=== PATIENT | female | born 1950 | race Caucasian/White ===

== ENCOUNTER → 2016-09-11 | Outpatient (CLI) | payer OTHER ==
--- NOTE | 2016-09-11 14:58 | XR ---
EXAMINATION TYPE: XR tibia fibula RT DATE OF EXAM: 09/11/2016 2:46 PM COMPARISON: NONE HISTORY: 66 year-old female right leg contusion and abrasion after injury a few days ago TECHNIQUE: 2 views FINDINGS: The knee and ankle articulations appear grossly intact. No acute fracture or dislocation seen. There is mild osteopenia. Mild subcutaneous soft tissue swelling. IMPRESSION: Mild subcutaneous soft tissue swelling. There is mild osteopenia. No acute osseous abnormality seen.
== END | disposition home or self-care (01) ==
LOC: RADXRMAIN 14:29
PROVIDERS: ATTEND Emergency Medicine
DX: S80.11XA Contusion of right lower leg, initial encounter (principal); M85.861 Other specified disorders of bone density and structure, right lower leg

== ENCOUNTER 2016-11-03 11:03 | Observation (INO) | payer OTHER ==
[2016-11-03] MEDS ORDERED: NITROGLYCERIN SL TABS 0.4 MG TAB SUBLINGUAL STA (11:22)
[2016-11-03] MEDS ORDERED: ONDANSETRON 4 MG/2 ML VIAL IVP STA (11:22)
[2016-11-03] MEDS ORDERED: SODIUM CHLORIDE 0.9% 1,000 ML IV STA (11:22)
[2016-11-03] MEDS ORDERED: MORPHINE SULFATE 2 MG/ML SYRINGE IVP STA (11:22)
[2016-11-03 11:41] LABS: Basophils # (A) 0.1 k/uL (0-0.2); Basophils % (A) 1 %; Eosinophils # (A) 0.1 k/uL (0-0.7); Eosinophils % (A) 1 %; HCT 41.7 % (34.0-46.0); HGB 13.5 gm/dL (11.4-16.0); Luc % (Auto) 4; Lymphocytes # (A) 2.2 k/uL (1.0-4.8); Lymphocytes % (A) 26 %; MCH 30.6 pg (25.0-35.0); MCHC 32.4 g/dL (31.0-37.0); MCV 94.3 fL (80.0-100.0); Mean Platelet Volume 6.9; Monocytes # (A) 0.6 k/uL (0-1.0); Monocytes % (A) 7 %; Neutrophils # (A) 5.4 k/uL (1.3-7.7); Neutrophils % (A) 62 %; RBC 4.42 m/uL (3.80-5.40); WBC 8.6 k/uL (3.8-10.6); WBC (Perox) 9.08
[2016-11-03 11:54] LABS: Calcium 9.6 mg/dL (8.4-10.2); Magnesium 1.9 mg/dL (1.6-2.3); Potassium 4.8 mmol/L (3.5-5.1); Total Bilirubin 0.6 mg/dL (0.2-1.3); Total Protein 7.4 g/dL (6.3-8.2)
[2016-11-03 12:08] LABS: Creatine Kinase 72 U/L (30-135)
[2016-11-03 12:09] LABS: Partial Thromboplastin Time 22.1 sec (22.0-30.0); Prothrombin Time 10.1 sec (9.0-12.0)
[2016-11-03 12:22] LABS: Creatine Kinase MB 2.4 ng/mL (0.0-2.4); Troponin I <0.012 ng/mL (0.000-0.034)
--- NOTE | 2016-11-03 12:24 | XR ---
EXAMINATION TYPE: XR chest 2V DATE OF EXAM: 11/03/2016 12:20 PM HISTORY: Chest Pain. REFERENCE: Previous study dated 08/16/2013. FINDINGS: The lungs are overinflated but clear. Pleural spaces are clear. Heart size is normal. There is a mild dextroscoliosis. IMPRESSION: COPD.
--- NOTE | 2016-11-03 12:26 | CT ---
EXAMINATION TYPE: CT brain wo con DATE OF EXAM: 11/03/2016 12:21 PM COMPARISON: NONE HISTORY: weakness and jaw pain CT DLP: 1072.[address] of the brain was performed. The ventricles, basal cisterns and sulci overlying the cerebral convexities demonstrate mild enlargem ent. There is no evidence for intracranial hemorrhage or sulcal effacement. There is decreased attenuation about the periventricular white matter and deep white matter of both c erebral hemispheres, compatible with chronic small vessel ischemia. Differential diagnosis does inclu de demyelination. No mass effects are seen.No midline shift. Osseous calvarium is intact. If symptoms persist consider MRI. IMPRESSION: 1. Age related atrophic and chronic small vessel ischemic change without acute intracranial process s een at this time.
[2016-11-03] MEDS ORDERED: HEPARIN SODIUM,PORCINE 5,000 UNIT/ML 1 ML VIAL IV ONE (15:40)
[2016-11-03] MEDS ORDERED: MORPHINE SULFATE 2 MG/ML SYRINGE IVP PRN (15:40)
[2016-11-03] MEDS ORDERED: NITROGLYCERIN SL TABS 0.4 MG TAB SUBLINGUAL PRN (15:40)
--- NOTE | 2016-11-03 15:40 | ED ---
Chest Pain HPI - General Chief Complaint: Chest Pain Stated Complaint: CHEST PAIN, JAW PAIN Time Seen by Provider: 11/03/16 11:07 Source: patient Mode of arrival: wheelchair Limitations: no limitations - History of Present Illness Initial Comments: Complaining about the jaw pain and the numbness around the jaw for about a 1 week now she had a chest pain this morning right now chest pain is about 3/10 she denies any headache no blurred vision no weakness of one arm or the leg has no difficulty talking no difficulty comprehending. She has a history of heart disease she stated she had a stent put and times one back in year 1999 does complain about shortness of breath and denies any worsening of the chest pain with a deep breaths. Denies any abdominal pain frequency urgency dysuria - Related Data Home Medications Medication Instructions Recorded Confirmed Aspirin 81 mg PO DAILY 12/20/13 11/03/16 Captopril [Capoten] 50 mg PO BID 12/20/13 11/03/16 Lovastatin [Mevacor] 40 mg PO DAILY 12/20/13 11/03/16 Atenolol 25 mg PO DAILY 03/28/15 11/03/16 amLODIPine BESYLATE [Norvasc] 5 mg PO DAILY 03/29/15 11/03/16 Allergies Allergy/AdvReac Type Severity Reaction Status Date / Time No Known Allergies Allergy Verified 11/03/16 11:39 Review of Systems ROS Statement: Those systems with pertinent positive or pertinent negative responses have been documented in the HPI. ROS Other: All systems not noted in ROS Statement are negative. EKG Findings - EKG Comments: EKG Findings:: EKG shows normal sinus rhythm ventricular rate is 62 ME interval is 166 QRS duration is 88 QT/QTc is 4 her 14th of over 423 review of this EKG does not show any ST elevation or ST depression Past Medical History Past Medical History: Deep Vein Thrombosis (DVT), Hyperlipidemia, Hypertension, Myocardial Infarction ([place]), Pulmonary Embolus ([place]) Additional Past Medical History / Comment(s): DVT LEG- UNSURE WHICH ONE, hx ulcer, partial blockage of carotid arteries Last Myocardial Infarction Date:: 1999 History of Any Multi-Drug Resistant Organisms: None Reported Past Surgical History: Appendectomy, Cholecystectomy, Heart Catheterization With Stent, Hernia Repair, Hysterectomy Additional Past Surgical History / Comment(s): JOSH FILTER INSERTION, STATES HAS WIRE IN LEFT EAR TO AIDE IN HEARING Past Anesthesia/Blood Transfusion Reactions: No Reported Reaction Date of Last Stent Placement:: 2001 Past Psychological History: No Psychological Hx Reported Smoking Status: Current every day smoker Past Alcohol Use History: Occasional Past Drug Use History: None Reported - Past Family History Son(s) Family Medical History: Cancer Additional Family Medical History / Comment(s): UNSURE WHAT KIND General Exam - General Exam Comments Initial Comments: General: The patient is awake and alert, in no distress, and does not appear acutely ill. Skin: Skin is warm and dry and no rashes or lesions are noted. Eye: Pupils are equal, round and reactive to light, extra-ocular movements are intact; there is normal conjunctiva bilaterally. Ears, nose, mouth and throat: There are moist mucous membranes and no oral lesions. Neck: The neck is supple, there is no tenderness or JVD. Cardiovascular: There is a regular rate and rhythm. No murmur, rub or gallop is appreciated. Respiratory: To auscultation bilateral, crease breath sounds bilateral Gastrointestinal: Soft, non-distended, non-tender abdomen without masses or organomegaly noted. There is no rebound or guarding present. Bowel sounds are unremarkable. Back: There is no tenderness to palpation in the midline. There is no obvious deformity. Musculoskeletal: Normal ROM, no tenderness, There is no pedal edema. There is no calf tenderness or swelling. No cords were appreciated. Neurological: CN II-XII intact, Cranial nerves III through XII are intact. There are no obvious motor or sensory deficits. Coordination appears grossly intact. Speech is normal. Psychiatric: Cooperative, appropriate mood & affect, normal judgment. Limitations: no limitations Course Vital Signs 11/03/16 11/03/16 11/03/16 11:06 12:00 13:00 Temperature 97.0 F L Pulse Rate 65 57 L 55 L Respiratory 17 16 16 Rate Blood Pressure 123/62 116/56 121/56 O2 Sat by Pulse 97 100 Oximetry 11/03/16 11/03/16 13:56 14:54 Temperature Pulse Rate 62 62 Respiratory 16 18 Rate Blood Pressure 133/63 128/61 O2 Sat by Pulse 99 97 Oximetry Critical Care Time Total Critical Care Time: 35 Critical Care Time: Considering her risk factors that she had ischemic heart disease but 17 years ago while follow-up no recent follow-up with the cardiology and she had a jaw pain going on for about 7 days and this morning she had a chest pain considering that she'll be sharply treated as a unstable angina and will require and heparinize her rule out pneumonia admitted under Dr. Austin service and cardiology be consulted head CT is normal chest x-ray is normal creatinine is bit elevated 1.2 Troponin EKG CBC and CMP are within normal range Disposition Clinical Impression: Chest pain, Jaw pain Disposition: ADMITTED IP TO THIS HOSP
[2016-11-03] MEDS ORDERED: HEPARIN SODIUM,PORCINE/D5W PMX 25,000 UNIT in DEXTROSE/WATER 1 500ML.BAG IV SCH (15:45)
[2016-11-03 17:33] LABS: Creatine Kinase 53 U/L (30-135)
[2016-11-03 17:46] LABS: Troponin I <0.012 ng/mL (0.000-0.034)
[2016-11-03 18:05] VITALS: RESP 16
[2016-11-03] MEDS: CAPTOPRIL 50 MG TAB PO SCH (18:52)
[2016-11-03 23:27] LABS: Creatine Kinase 44 U/L (30-135)
[2016-11-03 23:37] LABS: Creatine Kinase MB 1.5 ng/mL (0.0-2.4); Troponin I <0.012 ng/mL (0.000-0.034)
[2016-11-04] MEDS ORDERED: HEPARIN SODIUM,PORCINE 5,000 UNIT/ML 1 ML VIAL IV PRN (00:05)
[2016-11-04 07:53] LABS: Cholesterol 154 mg/dL (<200); HDL Cholesterol 77 mg/dL (40-60); Triglycerides 45 mg/dL (<150)
[2016-11-04] MEDS ORDERED: ASPIRIN 81 MG CHEW PO SCH (09:00)
[2016-11-04] MEDS ORDERED: ASPIRIN 325 MG TAB PO SCH (09:00)
[2016-11-04] MEDS ORDERED: ATORVASTATIN 10 MG TAB PO SCH (09:00)
[2016-11-04] MEDS ORDERED: amLODIPine 5 MG TAB PO SCH (09:00)
[2016-11-04] MEDS ORDERED: ATENOLOL 25 MG TAB PO SCH (09:00)
[2016-11-04] MEDS ORDERED: AMINOPHYLLINE 500 MG/20 ML VIAL IV PRN (12:04)
[2016-11-04] MEDS ORDERED: REGADENOSON 0.4 MG/5 ML SYRINGE IV ONE (12:04)
--- NOTE | 2016-11-04 13:26 | CONS ---
DATE OF CONSULTATION: This is a 66-year-old female. Patient admitted to the hospital with one week of jaw pain on and off, lasting for a few minutes, had couple of episodes of chest pressure and jaw pressure also lasting for a few minutes and recent history of angina episode. Patient is known to have atherosclerotic heart disease, hypertension, dyslipidemia. Patient follows with my associate, Dr. Frye, had a stenting done in 1999. Patient did not take any nitroglycerin with these episodes, advised to try nitroglycerin. If and when it happens in the future. Patient's cholesterol is well-controlled. Patient's total cholesterol is 154, triglycerides 48, LDL of 68, HDL of 77. Patient's cardiac enzymes x3 are negative. Troponin x3 are negative. Past history of pulmonary embolism, history of inferior vena cava filter, history of an MS, hypertension, history of DVT in the past. Patient is a current smoker. Patient's medications prior to admission include aspirin 81 mg p.o. daily, captopril 50 mg p.o. b.i.d., lovastatin 40 mg p.o. daily, atenolol 25 mg p.o. daily, amlodipine 5 mg p.o. daily. ALLERGIES: None mentioned. REVIEW OF SYSTEMS: Essentially unremarkable other than what is stated in the presenting illness. Other than past history of pulmonary embolism, inferior vena cava ( ), hypertension, hyperlipidemia, myocardial infarction, history of stenting in 1999. Patient is an everyday current smoker. 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 Physical examination revealed well-developed, well-nourished 66-year-old female not in acute distress, oriented x3, with the pulse rate of 65 beats per minute and regular, blood pressure of 123/62, respirations of 17. HEAD: Normocephalic. HEENT: Unremarkable. NECK: Neck is supple. No thyroid enlargement. No bruit noted. Good carotid upstroke bilaterally. CHEST: Chest is symmetrical. CARDIAC EXAMINATION: Regular rate and rhythm, a ejection systolic murmur, grade 2/6, well heard in the aortic area. Lungs are clinically clear to auscultation and percussion. ABDOMEN: Soft, no organomegaly. Active bowel sounds. EXTREMITIES: Fair peripheral pulses. No pedal edema. LEGAL CONSULTANT EXAMINATION: Grossly within normal limits. EKG revealed normal sinus rhythm. Troponins x3 are negative. Lipids are within normal limits. LDL of 68. ASSESSMENT: 1. Chest pain suggestive of angina. 2. Atherosclerotic heart disease, status post stenting done in 1999. 3. Hypertension. 4. Hyperlipidemia. 5. Current smoker. 6. Creatinine is mildly elevated 1.29. 7. CK ( ). RECOMMENDATIONS: Will proceed with Lexiscan as the patient is unable to walk on the treadmill and if the study is normal, patient will go home. If the study is abnormal, Dr. Frye will do the cardiac catheterization tomorrow.
--- NOTE | 2016-11-04 14:22 | NM ---
EXAMINATION TYPE: NM stress Lexiscan cardiolite DATE OF EXAM: 11/04/2016 2:15 PM COMPARISON: NONE HISTORY: Chest pain TECHNIQUE: After the intravenous administration of 10.21 mCi Tc 99m Sestamibi - Cardiolite resting S PECT images acquired 45 minutes post injection. The patient received 0.4mg Lexiscan, 27.5 mCi Tc 99m Sestamibi - Stress images obtained [address] injection FINDINGS: There is good uptake of radiopharmaceutical by the left ventricle without fixed defect. The re is no convincing inducible ischemic change. Wall motion is normal and the ejection fraction is 73% IMPRESSION: I DO NOT SEE CONVINCING EVIDENCE OF INDUCIBLE ISCHEMIC CHANGE AT THIS TIME.
[2016-11-04] MEDS: CAPTOPRIL 50 MG TAB PO SCH ×2 (14:35→18:21)
--- NOTE | 2016-11-04 14:40 | EST ---
DATE OF SERVICE: 11/04/2016 AGE: 66Y SEX: F HT: 5'7" WT: 125 lbs. Lexiscan Cardiolite Stress Test *Heart Rate Blood Pressure *Rest: 59 Rest: 152/83 * *Max. Achieved: 86 Maximum BP: 177/100 85% PMHR: - 100% PMHR: - *METS: - INDICATIONS: Chest pressure. MEDICATIONS: - Baseline rhythm is sinus mechanism, rate of 59, normal axis and intervals. Normal electrocardiogram. Baseline blood pressure 152/83 mmHg. Patient is injected with Lexiscan. Electrocardiograph monitoring revealed no evidence of diagnostic ischemic ST deviation. Cardiolite was injected per protocol. CONCLUSION: 1. Nondiagnostic stress testing. 2. Nuclear images will be reported separately.
[2016-11-04 16:55] VITALS: BP 135/62; PULSE 53; TEMP 98
--- NOTE | 2016-11-04 17:40 | P.HPIM ---
History of Present Illness H&P Date: 11/04/16 Chief Complaint: Chest pain Patient is a 66-year-old female patient of Dr. Leslie Segovia who presented to [facility] emergency room with a chief complaint of chest pain patient describes a sharp pain in the middle of her chest that lasted for about 20 minutes, patient states also that in the last couple of weeks she had episodes of pain in her jaw, she has known history of coronary artery disease with angioplasty and stent placement 17 years ago patient has been followed yearly by cardiology and all her testing has been negative so far. She was evaluated in the emergency room and was started on IV heparin and was admitted to telemetry floor for further evaluation serial EKG and cardiac enzymes were ordered Past Medical History Past Medical History: Deep Vein Thrombosis (DVT), Hyperlipidemia, Hypertension, Myocardial Infarction ([place]), Pulmonary Embolus ([place]) Additional Past Medical History / Comment(s): DVT LEG- UNSURE WHICH ONE, previously "charted hx ulcer, partial blockage of carotid arteries" Last Myocardial Infarction Date:: 1999 History of Any Multi-Drug Resistant Organisms: None Reported Past Surgical History: Appendectomy, Cholecystectomy, Heart Catheterization With Stent, Hernia Repair, Hysterectomy Additional Past Surgical History / Comment(s): JOSH FILTER INSERTION, STATES HAS WIRE IN LEFT EAR TO AIDE IN HEARING,hiatal hernia sx Past Anesthesia/Blood Transfusion Reactions: No Reported Reaction Date of Last Stent Placement:: 2001 Past Psychological History: No Psychological Hx Reported Additional Psychological History / Comment(s): pt lives in own home by herself- has 3 steps into single level home. no pets,no outside services. pt works as house keeper at the [employer] Smoking Status: Current every day smoker Past Alcohol Use History: Occasional Additional Past Alcohol Use History / Comment(s): started smoking at age 17 smokes 1 ppd. declined smoking cessation booklet. Past Drug Use History: None Reported - Past Family History Mother Family Medical History: Diabetes Mellitus Father Additional Family Medical History / Comment(s): brain anuerysm Son(s) Family Medical History: Cancer Additional Family Medical History / Comment(s): UNSURE WHAT KIND Medications and Allergies Home Medications Medication Instructions Recorded Confirmed Type Aspirin 81 mg PO DAILY 12/20/13 11/03/16 History Captopril [Capoten] 50 mg PO BID 12/20/13 11/03/16 History Lovastatin [Mevacor] 40 mg PO DAILY 12/20/13 11/03/16 History Atenolol 25 mg PO DAILY 03/28/15 11/03/16 History amLODIPine BESYLATE [Norvasc] 5 mg PO DAILY 03/29/15 11/03/16 History Allergies Allergy/AdvReac Type Severity Reaction Status Date / Time No Known Allergies Allergy Verified 11/03/16 11:39 Physical Exam Vitals: Vital Signs Temp Pulse Resp BP Pulse Ox 11/04/16 16:00 98.0 F 53 L 16 135/62 96 11/04/16 11:53 98.7 F 58 L 16 146/71 96 11/04/16 08:00 98.0 F 58 L 16 144/66 96 11/04/16 04:00 98.3 F 63 16 140/61 96 11/04/16 00:00 98.2 F 69 16 129/57 95 11/03/16 20:00 16 11/03/16 18:03 98 F 55 L 16 111/49 93 L Intake and Output 11/04/16 11/04/16 11/04/16 06:59 14:59 22:59 Intake Total 756.747 Balance 756.747 Intake: IV 645 Heparin Sodium,Porcine/ 120 D5w Pmx 25,000 unit In Dextrose/Water 1 500ml. bag @ 12 UNITS/KG/HR 13.6 mls/hr IV .Q24H [facility] Rx#: [id number] Sodium Chloride 0.9% 1, 525 000 ml @ 75 mls/hr IV . [id number] [facility] Rx#:[id number] Intake, IV Titration 111.747 Amount Heparin Sodium,Porcine/ 111.747 D5w Pmx 25,000 unit In Dextrose/Water 1 500ml. bag @ 12 UNITS/KG/HR 13.6 mls/hr IV .Q24H [facility] Rx#: [id number] Other: Voiding Method Toilet Toilet # Voids 3 In general patient is alert and oriented 3 in no apparent distress HEENT head normocephalic and atraumatic Neck is supple no JVD no goiter no lymphadenopathy Chest exam reveals a few scattered crackles no wheezing Cardiac exam reveals regular heart sounds S1 and S2 no gallops no murmurs Abdomen is soft nontender no organomegaly Extremity exam reveals no edema no cyanosis or clubbing Results CBC & Chem 7: 11/03/16 11:20 11/03/16 11:20 Labs: Abnormal Lab Results - Last 24 Hours (Table) 11/03/16 11/04/16 11/04/16 Range/Units 22:29 06:52 06:52 APTT 38.4 H 57.6 H (22.0-30.0) sec HDL Cholesterol 77 H (40-60) mg/dL Thrombosis Risk Factor Assmnt - Choose All That Apply Any of the Below Risk Factors Present?: Yes Other Risk Factors: Yes Each Risk Factor Represents 2 Points: Age 61-74 years Each Risk Factor Represents 3 Points: History of DVT/PE Other congenital or acquired thrombophilia - If yes, enter type in comment: No Thrombosis Risk Factor Assessment Total Risk Factor Score: 5 Thrombosis Risk Factor Assessment Level: High Risk Assessment and Plan Plan: #1 episode of chest pain in a 66-year-old female with multiple cardiac risk factors including previous history of coronary artery disease with angioplasty and stent placement 17 years ago S time patient is admitted to a telemetry bed serial EKGs and cardiac enzymes are ordered cardiology consult was requested and is maintained on IV heparin #2 underlying history of hypertension #3 underlying history of hyperlipidemia #4 previous history of lower extremity DVT with history of Josh filter placement At this time continue was current management will follow closely
--- NOTE | 2016-11-04 17:43 | P.DS ---
Providers Date of admission: 11/03/16 15:40 Expected date of discharge: 11/04/16 Attending physician: Claude Austin Primary care physician: Leslie Segovia [facility] Course: Patient is a 66-year-old female who presented to [facility] emergency room with a chief complaint of chest pain patient was admitted to telemetry bed serial EKG and cardiac enzymes were negative patient was evaluated by cardiology she underwent a Lexiscan stress test, which was within normal limits with normal wall motion no fixed defect and no evidence of reversible defect. Patient was stable she did not have any recurrence of her chest pain during this admission. She was discharged home on 11/04/2016 She should follow-up with her primary care physician Dr. Leslie Segovia within one week She also should follow-up with her primary production control manager Dr. Frye within one week Plan - Discharge Summary Discharge Medication List Aspirin 81 mg PO DAILY 12/20/13 [History] Captopril [Capoten] 50 mg PO BID 12/20/13 [History] Lovastatin [Mevacor] 40 mg PO DAILY 12/20/13 [History] Atenolol 25 mg PO DAILY 03/28/15 [History] amLODIPine BESYLATE [Norvasc] 5 mg PO DAILY 03/29/15 [History] Follow up Appointment(s)/Referral(s): Leslie Segovia DO [Primary Care Provider] - 1-2 days
== END 2016-11-04 18:38 | disposition home or self-care (01) ==
LOC: EC 11:03 → 3OBS 15:40
PROVIDERS: ADMIT Internal Medicine; ATTEND Internal Medicine
DX: R07.89 Other chest pain (principal); I25.10 Atherosclerotic heart disease of native coronary artery without angina pectoris; I25.2 Old myocardial infarction; Z95.5 Presence of coronary angioplasty implant and graft; Z79.82 Long term (current) use of aspirin; Z79.899 Other long term (current) drug therapy; Z86.718 Personal history of other venous thrombosis and embolism; Z86.711 Personal history of pulmonary embolism; E78.5 Hyperlipidemia, unspecified; I10 Essential (primary) hypertension; Z90.49 Acquired absence of other specified parts of digestive tract; Z90.710 Acquired absence of both cervix and uterus; Z83.3 Family history of diabetes mellitus; F17.200 Nicotine dependence, unspecified, uncomplicated
CPT/HCPCS: 99291; 96365; 96375 ×2; 96376; 96361 ×4; 36415; 93005; 93017; 80061; 80053; 82550; 82553; 83735; 84484; 85025; 85610; 85730 ×2; 71020; 70450; 78452; G0378 ×2; A9500; J1644 ×3; J2405; J2270; J2785; 96366

== ENCOUNTER 2017-09-02 06:00 | Day surgery (SDC) | payer MEDICARE, BC ==
[2017-08-26 12:55] VITALS: BMI 23.9
--- NOTE | 2017-09-01 11:43 | HP ---
HISTORY AND PHYSICAL DATE OF SERVICE: 09/02/2017 Blanca Alvarez is a 67-year-old patient seen with progressive left shoulder pain. After having treatment options discussed, she elected to proceed with arthroscopy. Consent was obtained. Medical clearance was provided through Dr. Segovia's office. Cardiac clearance was provided by Dr. Frye. PAST MEDICAL HISTORY: Hypercholesterolemia, hypertension, cardiovascular disease. PAST SURGICAL HISTORY: Cholecystectomy, herniorrhaphy, hysterectomy, cardiac catheterization with stent insertion. DAILY MEDICATIONS: 1. Amlodipine. 2. Aspirin. 3. Atenolol. 4. Captopril. 5. Lovastatin. ALLERGIES: None reported. SOCIAL HISTORY: She currently smokes 1 pack of cigarettes daily. PHYSICAL EVALUATION LEFT SHOULDER: Flexion 90 degrees, abduction 70 degrees, external rotation is 10 degrees with weakness. There is tenderness along the anterior lateral acromion and rotator cuff insertion site. Impingement sign is positive at 80 degrees. Distal neurovascular exam is intact. Left shoulder radiographs revealed a type 2 anterior acromion, acromioclavicular joint osteoarthritis and cystic changes of the greater tuberosity. MRI left shoulder revealed a partial rotator cuff tear, acromioclavicular joint osteoarthritis. IMPRESSION: Left shoulder impingement with partial rotator cuff tear and acromioclavicular joint osteoarthritis. PLAN: Left shoulder arthroscopy with subacromial decompression, possible arthroscopic rotator cuff repair, possible Ottoniel procedure and debridement. MMODL / IJN: [id number] /
[~2017-09-02 06:00] MED LIST: ceFAZolin IN SWFI 2 GM/20 ML SYRINGE IVP ONE
[2017-09-02] MEDS ORDERED: LACTATED RINGERS 1,000 ML IV SCH (06:06)
[2017-09-02] MEDS ORDERED: fentaNYL (PF) 50 MCG/ML 2 ML AMP IV PRN (06:06)
[2017-09-02] MEDS ORDERED: LIDOCAINE 1% 20 ML VIAL (10MG/ML) FOR IV START INTRADERMA ONE (06:50)
[2017-09-02] MEDS ORDERED: DEXAMETHASONE SOD PHOS (MDV) 100 MG/10 ML VIAL IV ONE (06:50)
[2017-09-02] MEDS ORDERED: ONDANSETRON 4 MG/2 ML VIAL IVP ONE (06:51)
[2017-09-02] MEDS ORDERED: MIDAZOLAM 2 MG/2 ML VIAL IV ONE (07:11)
[2017-09-02] MEDS ORDERED: fentaNYL (PF) 50 MCG/ML 2 ML AMP IV ONE (07:12)
[2017-09-02] MEDS ORDERED: LIDOCAINE 2%-EPI 1:100,000 20 ML VIAL ONE (07:27)
[2017-09-02] MEDS ORDERED: PROPOFOL 10 MG/ML 20 ML VIAL IV ONE (07:27)
[2017-09-02] MEDS ORDERED: ROPIVACAINE 5 MG/ML 30 ML VIAL ONE (07:27)
[2017-09-02] MEDS ORDERED: LIDOCAINE 1% INJ 10MG/ML (20 ML MDV) ONE (07:27)
[2017-09-02] MEDS ORDERED: ePHEDrine SULFATE/0.9% NACL/PF 50 MG/5 ML SYRINGE IV ONE (07:27)
[2017-09-02] MEDS ORDERED: SUCCINYLCHOLINE CHLORIDE 100 MG/5 ML SYR IV ONE (07:27)
--- NOTE | 2017-09-02 07:42 | P.ONQ ---
Anesthesiology Proc Note - PNB - Peripheral Nerve Block Performed Left Interscalene Single Time Out Performed: Yes Procedure Start Time: 07:10 Indication: Acute Post-Operative Pain, Analgesia Specifically requested for management of pain by DrGeorgi: Chris Duarte Sedation Type: Sedate with meaningful contact maintained Preparation: Sterile Prep Position: Supine Catheter: None Needle Types: Other (see comment) (stimuplex) Needle Size: 50mm (2") Needle Gauge: 21 Technique: Ultrasound Injectate: 0.5% Ropivacaine (see comment for volume) (25cc) Blood Aspirated: No Pain Paresthesia on Injection Noted: No Resistance on Injection: Normal Events: Uneventful and Well Tolerated
[2017-09-02] MEDS ORDERED: LACTATED RINGERS 1,000 ML IV ONE (08:47)
[2017-09-02 09:25] VITALS: TEMP 97
--- NOTE | 2017-09-02 09:27 | P.OP ---
Date of Procedure: 09/02/17 Preoperative Diagnosis: Left shoulder impingement Postoperative Diagnosis: 1. Left shoulder rotator cuff tear 2. Left shoulder impingement 3. Left shoulder acromioclavicular joint osteoarthritis 4. Left shoulder partial long head biceps tendon tear 5. Left shoulder superficial labral tear 6. Left shoulder grade 3 chondromalacia glenoid Procedure(s) Performed: 1. Left shoulder arthroscopic rotator cuff repair 2. Left shoulder arthroscopic subacromial decompression 3. Left shoulder arthroscopic dat 4. Left shoulder arthroscopic biceps tenotomy 5. Left shoulder arthroscopic debridement labral tear 6. Left shoulder arthroscopic chondroplasty glenoid Implants: 1-5.5 peek anchor Anesthesia: GETA, regional (Interscalene block) Surgeon: Chris Duarte Pharmacy Coordinator #1: Shaquille Pope Estimated Blood Loss (ml): 15 Pathology: none sent Condition: stable Disposition: PACU Indications for Procedure: 67-year-old patient seen with progressive left shoulder pain. After treatment options were discussed, she elected to proceed with arthroscopy Operative Findings: see description of procedure Description of Procedure: Patient underwent a shoulder block by department of anesthesia. The patient was then taken to the operative suite. The patient underwent a general anesthetic by the department of anesthesia. The patient was placed into a lateral position and secured. There was appropriate padding of the bony prominence. Left shoulder was then prepped and draped in normal sterile orthopedic fashion. We placed the extremity in 10 pounds of longitudinal traction. A posterior incision was now made for a posterior working portal site. The trocar and cannula were inserted into the glenohumeral joint. Arthroscopy was initiated. Spinal needle was now inserted anteriorly, to ascertain the anterior working portal site. An incision was now made in that area, a trocar was inserted followed by a probe. There was an area of grade 3 chondromalacia along the anterior aspect of the glenoid with some osteochondral tears present. There was some superficial tearing of the labrum and the areas well. There were grade 1 chondromalacia changes of the central/superior portion humeral head with no osteochondral tears present. There was some hyperemia and partial tearing long head biceps tendon. I could visualize rotator cuff tear from the glenohumeral side along the distal supraspinatus anteriorly. I performed an arthroscopic biceps tenotomy. I debrided the superficial labral tear down to stable tissue. I performed a chondroplasty of the glenoid down to stable osteochondral tissue. The residual labrum and osteochondral surface was found to be stable. Utilizing the posterior working portal site, the trocar and cannula were inserted into the subacromial space. Arthroscopy initiated. I made an incision 2 fingerbreadths lateral to the acromion. I introduced my trocar followed by my [employer] ablator. I now began ablating thick subacromial bursal tissue, which exposed the undersurface of the anterior acromion. This was diminished subacromial space. There was a very prominent anterior acromion. A motorized bur was introduced and a subacromial decompression was performed. I also excised some osteophytes off the inferior aspect of the distal clavicle. The AC joint was visualized and noted to be fairly arthritic. Our motorized bur was introduced in the anterior portal site and a Dat procedure was performed without difficulty, decompressing the AC joint nicely. I turned my attention to the rotator cuff. There was a 1.5 cm tear along the distal supraspinatus anteriorly. I debrided the margins down to stable tendon tissue. I abraded the footprint with a motorized bur. I passed 2 everted mattress sutures through good bites of rotator cuff tendon. I repaired the tendon on the footprint with one single 5.5 anchor compressing the tendon nicely. Residual suture limbs were clipped. The repair was stable. I injected 1 mL UCT intra- articular. Instruments now removed from the portal sites. All portal sites were approximated with nylon suture. Sterile dressings were applied followed by a shoulder immobilizer. Henrique AVENDAÑO assisted with the procedure. The patient was awakened, transferred to a bed, and taken to recovery in stable condition.
[2017-09-02 09:55] VITALS: RESP 18
[2017-09-02 10:34] VITALS: BP 110/78; PULSE 65
== END 2017-09-02 11:14 | disposition home or self-care (01) ==
LOC: OR 06:00
PROVIDERS: ATTEND Orthopaedic Surgery
DX: M25.812 Other specified joint disorders, left shoulder (principal); M19.012 Primary osteoarthritis, left shoulder; S46.112A Strain of muscle, fascia and tendon of long head of biceps, left arm, initial encounter; X58.XXXA Exposure to other specified factors, initial encounter; S43.402A Unspecified sprain of left shoulder joint, initial encounter; M94.212 Chondromalacia, left shoulder; E78.00 Pure hypercholesterolemia, unspecified; I25.10 Atherosclerotic heart disease of native coronary artery without angina pectoris; I10 Essential (primary) hypertension; Z79.82 Long term (current) use of aspirin; Z79.899 Other long term (current) drug therapy; F17.210 Nicotine dependence, cigarettes, uncomplicated; I25.2 Old myocardial infarction; Z95.5 Presence of coronary angioplasty implant and graft
CPT/HCPCS: 64415; 29826; 29827; 29824; C1713; C1765; J2250; J2405; J2001; J3010; J1100; J2795; J0330; J2704

== ENCOUNTER → 2017-12-28 | Outpatient (CLI) | payer MEDICARE, BC ==
--- NOTE | 2017-12-28 14:08 | FL ---
EXAMINATION: Cervical and Thoracic Esophagram DATE OF EXAM: 12/28/2017 CLINICAL INDICATION: 67-year-old female with GERD, pain, burning, and reflux, reports hiatal hernia r epair in 2014 now with recurrent symptoms. COMPARISON: None Total Fluoroscopy Time: 1 minute 28 seconds. Total images: 29. FINDINGS: The swallowing mechanism is normal and hypopharyngeal anatomy is preserved. The cervical and thoracic portions have a normal course and caliber and normal motility. The mucosa is normal and no persistent filling defect is encountered. There is a small hiatal hernia. Gastroesophageal reflux could not be elicited during the course of the exam. IMPRESSION: 1. Small hiatal hernia. As the patient reports a history of prior hiatal hernia repair, this could re present breakdown of the wrap. 2. Otherwise, no specific abnormality seen.
== END | disposition home or self-care (01) ==
LOC: RADFLWHC 10:56
PROVIDERS: ATTEND Surgery
DX: K44.9 Diaphragmatic hernia without obstruction or gangrene (principal); K21.9 Gastro-esophageal reflux disease without esophagitis
CPT/HCPCS: 74220

== ENCOUNTER 2017-12-31 09:48 | Day surgery (SDC) | payer MEDICARE, BC ==
[2017-12-29 10:21] VITALS: BMI 23.3
[~2017-12-31 09:48] MED LIST changes: +LACTATED RINGERS 1,000 ML IV SCH; -ceFAZolin IN SWFI 2 GM/20 ML SYRINGE IVP ONE
[2017-12-31 10:12] VITALS: RESP 16; TEMP 97.6
[2017-12-31] MEDS ORDERED: LIDOCAINE 1% 20 ML VIAL (10MG/ML) FOR IV START INTRADERMA ONE (10:20)
[2017-12-31] MEDS ORDERED: PROPOFOL 10 MG/ML 20 ML VIAL IV ONE (10:27)
[2017-12-31] MEDS ORDERED: LIDOCAINE 1% INJ 10MG/ML (20 ML MDV) ONE (10:27)
--- NOTE | 2017-12-31 10:31 | P.GSHP ---
History of Present Illness H&P Date: 12/31/17 Chief Complaint: Epigastric pain This is a 67-year-old female presents today for EGD. Patient's had complaints of epigastric pain. She had a previous hiatal hernia repair approximately 4 years ago. Her recent esophagram shows evidence of a small recurrent hiatal hernia. There is known evidence of reflux.. Past Medical History Past Medical History: Deep Vein Thrombosis (DVT), Hypertension, Myocardial Infarction ([place]), Pulmonary Embolus ([place]) Additional Past Medical History / Comment(s): DVT LEG- UNSURE WHICH ONE, one seizure age 12 "from stress", partial blockage of carotid arteries, hiatal hernia, Last Myocardial Infarction Date:: 1999 History of Any Multi-Drug Resistant Organisms: None Reported Past Surgical History: Appendectomy, Cholecystectomy, Ear Surgery, Heart Catheterization With Stent, Hernia Repair, Hysterectomy, Orthopedic Surgery Additional Past Surgical History / Comment(s): JOSH FILTER INSERTION, STATES HAS WIRE IN LEFT EAR TO AIDE IN HEARING, hiatal hernia sx, one cardiac stent, left shoulder arthroscopy Past Anesthesia/Blood Transfusion Reactions: No Reported Reaction Date of Last Stent Placement:: 2001 Smoking Status: Current every day smoker - Past Family History Mother Family Medical History: Diabetes Mellitus Father Additional Family Medical History / Comment(s): brain aneurysm Son(s) Family Medical History: Cancer Additional Family Medical History / Comment(s): UNSURE WHAT KIND Medications and Allergies Home Medications Medication Instructions Recorded Confirmed Type Aspirin 81 mg PO DAILY 12/20/13 12/31/17 History Captopril [Capoten] 50 mg PO BID 12/20/13 12/31/17 History Lovastatin [Mevacor] 40 mg PO DAILY 12/20/13 12/31/17 History Atenolol 25 mg PO DAILY 03/28/15 12/31/17 History amLODIPine BESYLATE [Norvasc] 5 mg PO DAILY 03/29/15 12/31/17 History Allergies Allergy/AdvReac Type Severity Reaction Status Date / Time No Known Allergies Allergy Verified 12/31/17 10:13 Surgical - Exam Vital Signs Temp Pulse Resp BP Pulse Ox 97.6 F 71 16 110/71 97 12/31/17 10:09 12/31/17 10:09 12/31/17 10:09 12/31/17 10:09 12/31/17 10:09 - General well developed, no distress - Eyes PERRL - ENT normal pinna - Neck no masses - Respiratory normal expansion - Cardiovascular Rhythm: regular - Abdomen Abdomen: soft, non tender Assessment and Plan Assessment: Epigastric pain. We'll perform EGD.
--- NOTE | 2017-12-31 10:38 | P.OP ---
Date of Procedure: 12/31/17 Preoperative Diagnosis: Epigastric dull pain Postoperative Diagnosis: Antral gastritis Small recurrent hiatal hernia Possible slipped fundoplication Procedure(s) Performed: EGD Anesthesia: MAC Surgeon: Kendall Chairez Pathology: other (Antrum) Condition: stable Disposition: PACU Description of Procedure: The patient's placed on the endoscopy table in the lateral position. She received IV sedation. The gastroscope was then placed in the oropharynx and passed into the esophagus and into the stomach. The scope was then placed through the pylorus. The first and second portion of the duodenum appeared normal. Scope was then brought back the antrum and this was minimal inflamed a biopsies performed. The scope was then retroflexed and the remainder of the stomach appeared normal. The patient had a previous fundal plication wrap. This appeared to be below the GE junction. The distal esophagus was examined. There was a small hiatal hernia. The distal esophagus appeared normal. The proximal esophagus. All. Scope was withdrawn for patient.
[2017-12-31 11:14] VITALS: BP 128/61; PULSE 60
== END 2017-12-31 11:27 | disposition home or self-care (01) ==
LOC: ORWHC2ENDO 09:48
PROVIDERS: ATTEND Surgery
DX: K29.50 Unspecified chronic gastritis without bleeding (principal); K44.9 Diaphragmatic hernia without obstruction or gangrene; I10 Essential (primary) hypertension; E78.5 Hyperlipidemia, unspecified; I65.29 Occlusion and stenosis of unspecified carotid artery; I25.2 Old myocardial infarction; Z95.5 Presence of coronary angioplasty implant and graft; Z86.718 Personal history of other venous thrombosis and embolism; Z86.711 Personal history of pulmonary embolism; Z79.82 Long term (current) use of aspirin; Z79.899 Other long term (current) drug therapy; F17.200 Nicotine dependence, unspecified, uncomplicated
CPT/HCPCS: 88305; 43239; J2001; J2704

== ENCOUNTER 2018-04-13 09:52 | Observation (INO) | payer MEDICARE, BC ==
[2018-04-13] MEDS ORDERED: MECLIZINE 12.5 MG TAB PO STA (10:24)
[2018-04-13] MEDS ORDERED: METOCLOPRAMIDE 5 MG/ML 2 ML VIAL IVP STA (10:24)
--- NOTE | 2018-04-13 10:28 | ED ---
General Adult HPI - General Chief complaint: Dizziness Stated complaint: Dizziness Time Seen by Provider: 04/13/18 10:09 Source: patient, RN notes reviewed Mode of arrival: wheelchair Limitations: no limitations - History of Present Illness Initial comments: Patient is a pleasant 67-year-old female presenting to the emergency Department with complaints of dizziness. Onset of symptoms was around a year ago. Patient typically gets symptoms similar to this a couple of times per week. Patient states usually after eating breakfast and drink in her coffee symptoms will resolve. Patient states today symptoms have not resolved. Patient describes dizziness as a spinning type sensation. Symptoms are worse with upright position and head movements. Patient feels off balance with walking. No headache. No confusion. No speech problems. No isolated area of weakness. Patient has seen her heart doctor for this. Patient has also seen an ENT recently for hearing aids however did not mention her symptoms. - Related Data Home Medications Medication Instructions Recorded Confirmed Aspirin 81 mg PO DAILY 12/20/13 04/13/18 Captopril [Capoten] 50 mg PO BID 12/20/13 04/13/18 Lovastatin [Mevacor] 40 mg PO DAILY 12/20/13 04/13/18 Atenolol 25 mg PO DAILY 03/28/15 04/13/18 amLODIPine BESYLATE [Norvasc] 5 mg PO DAILY 03/29/15 04/13/18 Fludrocortisone [Florinef] 0.1 mg PO HS 04/13/18 04/13/18 Omeprazole 40 mg PO BID 04/13/18 04/13/18 Previous Rx's Medication Instructions Recorded Famotidine [Pepcid] 40 mg PO BID #40 tab 12/31/17 Allergies Allergy/AdvReac Type Severity Reaction Status Date / Time No Known Allergies Allergy Verified 04/13/18 10:40 Review of Systems ROS Statement: Those systems with pertinent positive or pertinent negative responses have been documented in the HPI. ROS Other: All systems not noted in ROS Statement are negative. Constitutional: Denies: fever Eyes: Denies: eye pain ENT: Denies: ear pain Respiratory: Denies: cough Cardiovascular: Denies: chest pain Endocrine: Denies: fatigue Gastrointestinal: Denies: abdominal pain Genitourinary: Denies: dysuria Musculoskeletal: Denies: back pain Skin: Denies: rash Neurological: Reports: vertigo. Denies: headache, weakness, confusion Past Medical History Past Medical History: Deep Vein Thrombosis (DVT), Hyperlipidemia, Hypertension, Myocardial Infarction ([place]), Pulmonary Embolus ([place]) Additional Past Medical History / Comment(s): DVT LEG- UNSURE WHICH ONE, previously "charted hx ulcer, partial blockage of carotid arteries" Last Myocardial Infarction Date:: 1999 History of Any Multi-Drug Resistant Organisms: None Reported Past Surgical History: Appendectomy, Cholecystectomy, Heart Catheterization With Stent, Hernia Repair, Hysterectomy Additional Past Surgical History / Comment(s): JOSH FILTER INSERTION, STATES HAS WIRE IN LEFT EAR TO AIDE IN HEARING,hiatal hernia sx Past Anesthesia/Blood Transfusion Reactions: No Reported Reaction Date of Last Stent Placement:: 2001 Past Psychological History: No Psychological Hx Reported Smoking Status: Current every day smoker Past Alcohol Use History: Occasional Past Drug Use History: None Reported - Past Family History Mother Family Medical History: Diabetes Mellitus Father Additional Family Medical History / Comment(s): brain aneurysm Son(s) Family Medical History: Cancer Additional Family Medical History / Comment(s): UNSURE WHAT KIND General Exam Limitations: no limitations General appearance: alert, in no apparent distress Head exam: Present: atraumatic Eye exam: Present: normal appearance, PERRL, EOMI. Absent: nystagmus ENT exam: Present: normal oropharynx Neck exam: Present: normal inspection Respiratory exam: Present: normal lung sounds bilaterally Cardiovascular Exam: Present: regular rate, normal rhythm GI/Abdominal exam: Present: soft. Absent: tenderness Extremities exam: Present: normal inspection Neurological exam: Present: alert, oriented X3, CN II-XII intact. Absent: motor sensory deficit Expanded Neurological exam: Present: protecting the airway Patient oriented to: Present: person, place, time Speech: Present: fluid speech Cranial nerves: EOM's Intact: Normal, Facial Sensation: Normal Cerebellar function: Finger to Nose: Normal Sensory exam: Upper Extremity Light Touch: Normal, Lower Extremity Light Touch: Normal Motor strength exam: RUE: 5, LUE: 5, RLE: 5, LLE: 5 Eye Response: (4) open spontaneously Motor Response: (6) obeys commands Verbal Response: (5) oriented Psychiatric exam: Present: normal affect, normal mood Skin exam: Present: normal color Course Vital Signs 04/13/18 04/13/18 09:57 10:24 Temperature 98.1 F Pulse Rate 67 63 Respiratory 20 18 Rate Blood Pressure 154/74 169/72 O2 Sat by Pulse 98 98 Oximetry EKG Findings - EKG Comments: EKG Findings:: Sinus bradycardia 58. [place] 170. QRS 82. QT 444. QTC 435. Normal axis. Normal QRS. No acute ST change. Medical Decision Making - Medical Decision Making Patient reevaluated and resting comfortably in bed. Patient is still having some symptoms. Secondary to patient's description of symptoms and continued symptoms as well as left vertebral artery not identified, patient will be admitted for further evaluation and neurology evaluation. Case was discussed in detail with Dr. Austin, who will admit for Dr. Segovia. Patient updated on results and plan. - Lab Data Result diagrams: 04/13/18 10:00 04/13/18 10:00 Lab Results 04/13/18 04/13/18 04/13/18 Range/Units 10:00 10:00 10:00 WBC 7.3 (3.8-10.6) k/uL RBC 4.64 (3.80-5.40) m/uL Hgb 14.3 (11.4-16.0) gm/dL Hct 44.0 (34.0-46.0) % MCV 94.8 (80.0-100.0) fL MCH 30.9 (25.0-35.0) pg MCHC 32.6 (31.0-37.0) g/dL RDW 13.2 (11.5-15.5) % Plt Count 292 (150-450) k/uL Neutrophils % 65 % Lymphocytes % 22 % Monocytes % 8 % Eosinophils % 3 % Basophils % 1 % Neutrophils # 4.7 (1.3-7.7) k/uL Lymphocytes # 1.6 (1.0-4.8) k/uL Monocytes # 0.6 (0-1.0) k/uL Eosinophils # 0.2 (0-0.7) k/uL Basophils # 0.1 (0-0.2) k/uL PT (9.0-12.0) sec INR (<1.2) APTT (22.0-30.0) sec Sodium 138 (137-145) mmol/L Potassium 4.6 (3.5-5.1) mmol/L Chloride 104 (98-107) mmol/L Carbon Dioxide 24 (22-30) mmol/L Anion Gap 10 mmol/L BUN 7 (7-17) mg/dL Creatinine 0.70 (0.52-1.04) mg/dL Est GFR (CKD-EPI)AfAm >90 (>60 ml/min/1.73 sqM) Est GFR (CKD-EPI)NonAf 89 (>60 ml/min/1.73 sqM) Glucose 101 H (74-99) mg/dL Calcium 9.6 (8.4-10.2) mg/dL Total Bilirubin 0.5 (0.2-1.3) mg/dL AST 29 (14-36) U/L ALT 28 (9-52) U/L Alkaline Phosphatase 112 (38-126) U/L Total Creatine Kinase 41 (30-135) U/L CK-MB (CK-2) 1.2 (0.0-2.4) ng/mL CK-MB (CK-2) Rel Index 2.9 Troponin I <0.012 (0.000-0.034) ng/mL Total Protein 7.6 (6.3-8.2) g/dL Albumin 4.5 (3.5-5.0) g/dL 04/13/18 Range/Units 10:00 WBC (3.8-10.6) k/uL RBC (3.80-5.40) m/uL Hgb (11.4-16.0) gm/dL Hct (34.0-46.0) % MCV (80.0-100.0) fL MCH (25.0-35.0) pg MCHC (31.0-37.0) g/dL RDW (11.5-15.5) % Plt Count (150-450) k/uL Neutrophils % % Lymphocytes % % Monocytes % % Eosinophils % % Basophils % % Neutrophils # (1.3-7.7) k/uL Lymphocytes # (1.0-4.8) k/uL Monocytes # (0-1.0) k/uL Eosinophils # (0-0.7) k/uL Basophils # (0-0.2) k/uL PT 9.6 (9.0-12.0) sec INR 1.0 (<1.2) APTT 24.5 (22.0-30.0) sec Sodium (137-145) mmol/L Potassium (3.5-5.1) mmol/L Chloride (98-107) mmol/L Carbon Dioxide (22-30) mmol/L Anion Gap mmol/L BUN (7-17) mg/dL Creatinine (0.52-1.04) mg/dL Est GFR (CKD-EPI)AfAm (>60 ml/min/1.73 sqM) Est GFR (CKD-EPI)NonAf (>60 ml/min/1.73 sqM) Glucose (74-99) mg/dL Calcium (8.4-10.2) mg/dL Total Bilirubin (0.2-1.3) mg/dL AST (14-36) U/L ALT (9-52) U/L Alkaline Phosphatase (38-126) U/L Total Creatine Kinase (30-135) U/L CK-MB (CK-2) (0.0-2.4) ng/mL CK-MB (CK-2) Rel Index Troponin I (0.000-0.034) ng/mL Total Protein (6.3-8.2) g/dL Albumin (3.5-5.0) g/dL - Radiology Data Radiology results: report reviewed (Computed tomography scan shows nonspecific white matter changes most typical of microvascular ischemia. CT angiogram of the head and neck so no significant stenosis. No sizable aneurysm. 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 ), image reviewed (Chest x-ray shows no acute process.) Disposition Clinical Impression: Vertigo Disposition: ADMITTED IP TO THIS HOSP Is patient prescribed a controlled substance at d/c from ED?: No Referrals: Leslie Segovia DO [Primary Care Provider] - 1-2 days Decision Time: 12:23
[2018-04-13 10:39] LABS: Basophils # (A) 0.1 k/uL (0-0.2); Basophils % (A) 1 %; Eosinophils # (A) 0.2 k/uL (0-0.7); Eosinophils % (A) 3 %; HGB 14.3 gm/dL (11.4-16.0); Lymphocytes # (A) 1.6 k/uL (1.0-4.8); Lymphocytes % (A) 22 %; MCH 30.9 pg (25.0-35.0); MCHC 32.6 g/dL (31.0-37.0); MCV 94.8 fL (80.0-100.0); Mean Platelet Volume 6.4; Monocytes # (A) 0.6 k/uL (0-1.0); Monocytes % (A) 8 %; Neutrophils # (A) 4.7 k/uL (1.3-7.7); Neutrophils % (A) 65 %; Platelet Count 292 k/uL (150-450); RBC 4.64 m/uL (3.80-5.40); RDW 13.2 % (11.5-15.5); WBC 7.3 k/uL (3.8-10.6)
[2018-04-13 10:44] LABS: ALT 28 U/L (9-52); AST 29 U/L (14-36); Albumin 4.5 g/dL (3.5-5.0); Alkaline Phosphatase 112 U/L (38-126); Anion Gap 10 mmol/L; Blood Urea Nitrogen 7 mg/dL (7-17); Calcium 9.6 mg/dL (8.4-10.2); Carbon Dioxide 24 mmol/L (22-30); Chloride 104 mmol/L (98-107); Glucose 101 mg/dL (74-99); Potassium 4.6 mmol/L (3.5-5.1); Sodium 138 mmol/L (137-145); Total Bilirubin 0.5 mg/dL (0.2-1.3); Total Protein 7.6 g/dL (6.3-8.2)
[2018-04-13 10:54] LABS: Partial Thromboplastin Time 24.5 sec (22.0-30.0); Prothrombin Time 9.6 sec (9.0-12.0)
[2018-04-13 10:55] LABS: Creatine Kinase 41 U/L (30-135)
[2018-04-13 11:08] LABS: Creatine Kinase MB 1.2 ng/mL (0.0-2.4); Troponin I <0.012 ng/mL (0.000-0.034)
--- NOTE | 2018-04-13 11:20 | XR ---
EXAMINATION TYPE: XR chest 2V DATE OF EXAM: 04/13/2018 COMPARISON: 11/03/2016 INDICATION: Lightheaded TECHNIQUE: Frontal and lateral views of the chest are obtained. FINDINGS: The heart size is normal. The pulmonary vasculature is normal. The lungs are clear. There is increased AP diameter and increased retrosternal airspace compatible s ome COPD. IMPRESSION: 1. No acute pulmonary process. 2. COPD
--- NOTE | 2018-04-13 11:39 | CT ---
EXAMINATION TYPE: CT brain wo con DATE OF EXAM: 04/13/2018 COMPARISON: 11/03/2016 HISTORY: dizziness CT DLP: 1072.3 mGycm Automated exposure control for dose reduction was used. FINDINGS: Ventricular system is midline. Faint low-attenuation the white matter bilaterally is nonspecific but most typical remote microvascular ischemia. No mass effect or midline shift. No acute hemorrhage. Calvarium intact. IMPRESSION: NONSPECIFIC WHITE MATTER CHANGES MOST TYPICAL REMOTE MICROVASCULAR ISCHEMIA. IF THERE IS CONCERN FOR ACUTE ISCHEMIA CORRELATE WITH MRI CLINICALLY WARRANTED.
--- NOTE | 2018-04-13 12:03 | CT ---
EXAMINATION TYPE: CT angio head neck DATE OF EXAM: 04/13/2018 HISTORY: Dizziness COMPARISON: CT DLP: 197.5 mGycm. Automated Exposure Control for Dose Reduction was Utilized. TECHNIQUE: CTA scan of the neck is performed with IV Contrast, patient injected with 65 mL of Isovue 370, axial images are obtained, coronal and sagittal reformatted images are reviewed. Three-D recons tructed images are created on an independent workstation and reviewed. FINDINGS: Emphysematous changes involving the lung apices with biapical pleural thickening or scar no jens. There is atherosclerotic change of the aortic arch. The origins of the great vessels are not included on the exam. Proximal portions of the great vessels demonstrate mild atherosclerotic changes. There is mild atherosclerotic plaque involving the right carotid bifurcation and mild to moderate elías nges on the left with no significant stenosis. The right vertebral is dominant. 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 No sizable aneurysm or vascular malformation. Intracranial vasculature enhances. Limitation the dista l branches. Proximal portions of the middle cerebral, anterior cerebral and posterior cerebral arteri es are patent. Posterior cerebral artery in the right originates from the anterior circulation. Hyper trophic and degenerative changes of the spine are noted. IMPRESSION: 1. No significant hemodynamic stenosis of the carotid bifurcation 2. No sizable aneurysm or vascular malformation. 3. 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 Correlate cl inically to exclude other etiologies.
[2018-04-13] MEDS ORDERED: ASPIRIN 325 MG TAB PO STA (12:23)
[2018-04-13] MEDS: SODIUM CHLORIDE 0.9% 1,000 ML IV SCH (12:37)
[2018-04-13 14:34] VITALS: BMI 23.4
--- NOTE | 2018-04-13 15:09 | P.HPIM ---
History of Present Illness H&P Date: 04/13/18 Chief Complaint: intractable vertigo This is a 59-year-old female patient of Dr. Segovia. Patient presented emergency room with increased complaints of dizziness. Patient says she's had these symptoms of dizziness for over a year but symptoms became increasingly worse yesterday. Patient describes as dizzy sensation. She states she never falls or passes out. Patient states she usually just sits down and symptoms resolved. Patient has a known past medical history of DVT and pulmonary embolism patient states this was many years ago is no longer on anticoagulation but did have an IVC filter placed. Additional medical history includes hyperlipidemia, hypertension, myocardial infarction, cardiac cath with stents. Patient states she follows with Dr. Grayson for cardiology. Chest x-ray completed emergency room showing no acute pulmonary process COPD. CTA completed showing no significant hemodynamic stenosis of the carotid bifurcation. No sizable aneurysmal vascular malformation. 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 Correlate clinically to exclude other etiologies. Head CT completed showing nonspecific white matter changes most: Remote microvascular ischemia. If there is concern for acute ischemia correlate with MRI as clinically warranted. Neurology services have been consulted. EEG completed showing sinus bradycardia with a rate 58. Orthostatic blood pressures have been ordered. At this time patient denies chest pain or shortness of breath. Denies nausea vomiting or diarrhea. Denies any urinary frequency. Patient denies any blurred vision, slurred speech or confusion. Review of Systems Please refer to HPI otherwise unremarkable Past Medical History Past Medical History: Deep Vein Thrombosis (DVT), Hyperlipidemia, Hypertension, Myocardial Infarction (RI), Pulmonary Embolus (PE) Additional Past Medical History / Comment(s): DVT LEG- UNSURE WHICH ONE, previously "charted hx ulcer, partial blockage of carotid arteries" Last Myocardial Infarction Date:: 1999 History of Any Multi-Drug Resistant Organisms: None Reported Past Surgical History: Appendectomy, Cholecystectomy, Heart Catheterization With Stent, Hernia Repair, Hysterectomy Additional Past Surgical History / Comment(s): JOSH FILTER INSERTION, STATES HAS WIRE IN LEFT EAR TO AIDE IN HEARING,hiatal hernia sx Past Anesthesia/Blood Transfusion Reactions: No Reported Reaction Date of Last Stent Placement:: 2001 Past Psychological History: No Psychological Hx Reported Additional Psychological History / Comment(s): pt lives in own home by herself- has 3 steps into single level home. no pets,no outside services. pt works as house keeper at the [employer] Smoking Status: Current every day smoker Past Alcohol Use History: Occasional Additional Past Alcohol Use History / Comment(s): started smoking at age 17 smokes 1 1/2 ppd. declined smoking cessation booklet. Past Drug Use History: None Reported - Past Family History Mother Family Medical History: Diabetes Mellitus Father Additional Family Medical History / Comment(s): brain aneurysm Son(s) Family Medical History: Cancer Additional Family Medical History / Comment(s): UNSURE WHAT KIND Medications and Allergies Home Medications Medication Instructions Recorded Confirmed Type Aspirin 81 mg PO DAILY 12/20/13 04/13/18 History Captopril [Capoten] 50 mg PO BID 12/20/13 04/13/18 History Lovastatin [Mevacor] 40 mg PO DAILY 12/20/13 04/13/18 History Atenolol 25 mg PO DAILY 03/28/15 04/13/18 History amLODIPine BESYLATE [Norvasc] 5 mg PO DAILY 03/29/15 04/13/18 History Famotidine [Pepcid] 40 mg PO BID #40 tab 12/31/17 04/13/18 Rx Fludrocortisone [Florinef] 0.1 mg PO HS 04/13/18 04/13/18 History Omeprazole 40 mg PO BID 04/13/18 04/13/18 History Allergies Allergy/AdvReac Type Severity Reaction Status Date / Time No Known Allergies Allergy Verified 04/13/18 10:40 Physical Exam Vitals: Vital Signs Temp Pulse Resp BP Pulse Ox 04/13/18 13:45 97 F L 57 L 18 117/58 99 04/13/18 12:37 96.9 F L 57 L 18 123/58 97 04/13/18 12:13 97.2 F L 55 L 18 113/69 96 04/13/18 10:24 63 18 169/72 98 04/13/18 09:57 98.1 F 67 20 154/74 98 Intake and Output 04/12/18 04/13/18 04/13/18 22:59 06:59 14:59 Other: Weight 63.957 kg Head normocephalic Neck supple Lungs clear to auscultation bilaterally no wheezing or crackles Heart regular rate and rhythm S1-S2, no rub or gallop Abdomen is soft nontender nondistended positive bowel sounds no hepatosplenomegaly Extremities no edema Neuro alert and orientated to 3. Cranial nerves II through XII intact. No signs of slurred speech. No facial droop. Bilateral strength throughout. Results CBC & Chem 7: 04/13/18 10:00 04/13/18 10:00 Labs: Abnormal Lab Results - Last 24 Hours (Table) 04/13/18 Range/Units 10:00 Glucose 101 H (74-99) mg/dL Thrombosis Risk Factor Assmnt - Choose All That Apply Each Factor Represents 1 point: Medical pt on bed rest Each Risk Factor Represents 2 Points: Patient confined to bed Each Risk Factor Represents 3 Points: History of DVT/PE Thrombosis Risk Factor Assessment Total Risk Factor Score: 6 Thrombosis Risk Factor Assessment Level: High Risk Assessment and Plan Assessment: 1. Intractable vertigo and dizziness. CTA completed showing no significant hemodynamic stenosis of the carotid bifurcation. No sizable aneurysmal vascular malformation. Left vertebral arteries side and may be congenitally diminutive or absent. Correlate clinically to exclude other etiologies. CT of head completed showing nonspecific white matter changes most marked microvascular ischemia. If there is concern for acute ischemia correlate with MRI as clinically warranted. Neurology services have been consulted. Orthostatic blood pressures have been ordered. 2. History of DVT and pulmonary embolism. Patient states this was in early 1999. Patient states she is no longer on medication and did receive IVC filter placement 3. nicotine dependence. Patient educated greater than 3 minutes on smoking cessation. Patient declined nicotine patch at this time 4. Hyperlipidemia 5. Essential hypertension 6. History of myocardial infarction with heart catheterization with stents. Patient says this was many years ago and is not on any current anticoagulation. Patient follows outpatient with Dr. Grayson. She states she recently had 2-D echo and stress test completed per cardiology DVT prophylaxis Lovenox and GI prophylaxis Protonix. Time with Patient: Greater than 30 (Greater than 60% of the total time spent in counseling and coordination of care. I performed an examination of the patient and discussed their management with the Nurse Practitioner. I have reviewed the Nurse Practitioner's notes and agree with the documented findings and plan of care)
[2018-04-13] MEDS: PANTOPRAZOLE 40 MG TABLET PO SCH (16:57)
[2018-04-13] MEDS: CAPTOPRIL 50 MG TAB PO SCH (16:57)
--- NOTE | 2018-04-13 18:02 | P.CNNES ---
History of Present Illness Consult date: 04/13/18 History of Present Illness: The patient is a 67-year-old right-handed female who states that she is had problems with balance off and on for the past 1 year. She states it is very positional. If she bends over or moves quickly she develops a sense of dizziness. There is no associated nausea. She states that she thought that it was due to her poor diet. She states she lives alone and doesn't eat well. The patient reports that today the dizziness seemed to be more frequent so she called her primary care physician to ask her what to do. She decided to come to the emergency room. She states her [id number] drove her. The patient states that she feels fine currently. She states that if she bends over or turns very quickly this is when she experiences dizziness. When she is just sitting or walking she does not express any dizziness. The patient has been seen by ENT a few months ago for hearing loss and was given a hearing aid. She did not complain at that time about her dizziness he states he just didn't think about it. The patient denied any other associated symptoms with her dizziness such as focal weakness numbness visual changes or slurred speech. The patient had a CT angiogram of the head and neck in the emergency room which did not show any significant stenosis. The left vertebral artery was not identified and it was felt that it may be congenitally absent. She had a CT of the brain in the emergency room which showed nonspecific white matter changes most typical of remote microvascular ischemia. Review of Systems Constitutional: Denies chills, Denies fever Eyes: denies blurred vision, denies pain Ears, nose, mouth and throat: Denies headache, Denies sore throat Cardiovascular: Denies chest pain, Denies shortness of breath Respiratory: Denies cough Genitourinary: Reports as per HPI Musculoskeletal: Denies myalgias Neurological: Denies numbness, Denies weakness Psychiatric: Denies anxiety, Denies depression Past Medical History Past Medical History: Deep Vein Thrombosis (DVT), Hyperlipidemia, Hypertension, Myocardial Infarction ([place]), Pulmonary Embolus (PE) Additional Past Medical History / Comment(s): DVT LEG- UNSURE WHICH ONE, previously "charted hx ulcer, partial blockage of carotid arteries" Last Myocardial Infarction Date:: 1999 History of Any Multi-Drug Resistant Organisms: None Reported Past Surgical History: Appendectomy, Cholecystectomy, Heart Catheterization With Stent, Hernia Repair, Hysterectomy Additional Past Surgical History / Comment(s): JOSH FILTER INSERTION, STATES HAS WIRE IN LEFT EAR TO AIDE IN HEARING,hiatal hernia sx Past Anesthesia/Blood Transfusion Reactions: No Reported Reaction Date of Last Stent Placement:: 2001 Past Psychological History: No Psychological Hx Reported Additional Psychological History / Comment(s): pt lives in own home by herself- has 3 steps into single level home. no pets,no outside services. 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 declined smoking cessation booklet. Past Drug Use History: None Reported - Past Family History Mother Family Medical History: Diabetes Mellitus Father Additional Family Medical History / Comment(s): brain aneurysm Son(s) Family Medical History: Cancer Additional Family Medical History / Comment(s): UNSURE WHAT KIND Medications and Allergies Home Medications Medication Instructions Recorded Confirmed Type Aspirin 81 mg PO DAILY 12/20/13 04/13/18 History Captopril [Capoten] 50 mg PO BID 12/20/13 04/13/18 History Lovastatin [Mevacor] 40 mg PO DAILY 12/20/13 04/13/18 History Atenolol 25 mg PO DAILY 03/28/15 04/13/18 History amLODIPine BESYLATE [Norvasc] 5 mg PO DAILY 03/29/15 04/13/18 History Famotidine [Pepcid] 40 mg PO BID #40 tab 12/31/17 04/13/18 Rx Fludrocortisone [Florinef] 0.1 mg PO HS 04/13/18 04/13/18 History Omeprazole 40 mg PO BID 04/13/18 04/13/18 History Allergies Allergy/AdvReac Type Severity Reaction Status Date / Time No Known Allergies Allergy Verified 04/13/18 10:40 Physical Examination - Vital Signs Vital Signs: Vital Signs Temp Pulse Pulse Pulse Pulse Resp BP 04/13/18 17:00 61 18 04/13/18 15:28 97.6 F 64 64 65 16 04/13/18 13:45 97 F L 57 L 18 117/58 04/13/18 12:37 96.9 F L 57 L 18 123/58 04/13/18 12:13 97.2 F L 55 L 18 113/69 04/13/18 10:24 63 18 169/72 04/13/18 09:57 98.1 F 67 20 154/74 BP BP BP Pulse Ox 04/13/18 17:00 146/66 04/13/18 15:28 147/64 146/67 142/65 96 04/13/18 13:45 99 04/13/18 12:37 97 04/13/18 12:13 96 04/13/18 10:24 98 04/13/18 09:57 98 Intake and Output 04/13/18 04/13/18 04/13/18 06:59 14:59 22:59 Other: Voiding Method Toilet Weight 63.957 kg 63.957 kg - Constitutional General appearance: average body habitus, cooperative - EENT EENT: PERRL, hearing intact, vision intact, hearing aids present - Respiratory Respiratory: lungs clear - Cardiovascular Cardiovascular: regular rate, normal S1, normal S2 - Neurologic Neurologic examination: Mental status: She was awake alert and oriented 3. Her speech was fluent there was no a aphasia or dysarthria. Cranial nerve examination: PERRL, EOMI, VFF, V1/V2/V3 grossly intact, face symmetric, tongue midline Speech examination: intact Sensorimotor examination: intact Detailed motor examination: grossly full strength in all extremities Detailed sensory examination: intact - Psychiatric Psychiatric: mood/affect appropriate Results - Laboratory Findings CBC and BMP: 04/13/18 10:00 04/13/18 10:00 Abnormal Lab Findings: Abnormal Labs 04/13/18 10:00 Glucose 101 H Assessment and Plan (1) Vertigo Current Visit: Yes Status: Acute SNOMED Code(s): 209249032 (2) Positional vertigo Current Visit: Yes Status: Acute SNOMED Code(s): 295128936 Plan: The patient is a 67-year-old woman with history of intermittent vertigo for the past 1 year. Her neurologic examination is nonfocal. Her CT angiogram of the head and neck shows no significant blockage. Patient should remain on aspirin daily. Vertigo or dizziness occurs mainly when she bends over. She is currently asymptomatic. Recommend ENT evaluation regarding positional vertigo.
[2018-04-13] MEDS: FAMOTIDINE 20 MG TAB PO SCH (20:36)
[2018-04-13] MEDS ORDERED: FLUDROCORTISONE 0.1 MG TAB PO SCH (21:00)
[2018-04-13 23:22] VITALS: RESP 16
[2018-04-14] MEDS: SODIUM CHLORIDE 0.9% 1,000 ML IV SCH (00:03)
[2018-04-14 05:43] VITALS: PULSE 69; TEMP 98
[2018-04-14] MEDS ORDERED: PANTOPRAZOLE 40 MG TABLET PO SCH (07:30)
[2018-04-14] MEDS: CAPTOPRIL 50 MG TAB PO SCH (08:57)
[2018-04-14] MEDS: PANTOPRAZOLE 40 MG TABLET PO SCH (08:58)
[2018-04-14] MEDS: ENOXAPARIN 40 MG/0.4 ML SYRINGE SQ SCH ×2 (08:58→09:02)
[2018-04-14] MEDS: FAMOTIDINE 20 MG TAB PO SCH (08:59)
[2018-04-14] MEDS ORDERED: ASPIRIN 325 MG TAB PO SCH (09:00)
[2018-04-14] MEDS ORDERED: ATORVASTATIN 10 MG TAB PO SCH (09:00)
[2018-04-14] MEDS ORDERED: ATENOLOL 25 MG TAB PO SCH (09:00)
[2018-04-14] MEDS ORDERED: amLODIPine 5 MG TAB PO SCH (09:00)
[2018-04-14 09:07] VITALS: BP 144/89
[2018-04-14 09:26] LABS: Basophils % (A) 1 %; Eosinophils # (A) 0.2 k/uL (0-0.7); Eosinophils % (A) 3 %; HCT 40.5 % (34.0-46.0); Lymphocytes # (A) 1.3 k/uL (1.0-4.8); Lymphocytes % (A) 25 %; MCH 30.8 pg (25.0-35.0); MCHC 32.2 g/dL (31.0-37.0); MCV 95.8 fL (80.0-100.0); Mean Platelet Volume 6.9; Monocytes # (A) 0.4 k/uL (0-1.0); Monocytes % (A) 8 %; Neutrophils # (A) 3.2 k/uL (1.3-7.7); Neutrophils % (A) 62 %; Platelet Count 237 k/uL (150-450); RBC 4.22 m/uL (3.80-5.40); RDW 13.1 % (11.5-15.5); WBC 5.1 k/uL (3.8-10.6)
[2018-04-14 09:31] LABS: ALT 27 U/L (9-52); AST 24 U/L (14-36); Albumin 3.6 g/dL (3.5-5.0); Alkaline Phosphatase 92 U/L (38-126); Anion Gap 7 mmol/L; Blood Urea Nitrogen 8 mg/dL (7-17); Calcium 8.7 mg/dL (8.4-10.2); Carbon Dioxide 24 mmol/L (22-30); Chloride 111 mmol/L (98-107); Cholesterol 189 mg/dL (<200); Glucose 119 mg/dL (74-99); HDL Cholesterol 65 mg/dL (40-60); LDL Cholesterol,Calculated 110 mg/dL (0-99); Potassium 4.1 mmol/L (3.5-5.1); Sodium 142 mmol/L (137-145); Total Bilirubin 0.5 mg/dL (0.2-1.3); Total Protein 6.3 g/dL (6.3-8.2); Triglycerides 69 mg/dL (<150)
--- NOTE | 2018-04-14 10:50 | P.DS ---
Providers Date of admission: 04/13/18 12:29 Expected date of discharge: 04/14/18 Attending physician: Claude Austin Consults: 04/13/18 12:24 Consult Physician Urgent Consulting Provider: Adelfo Nava Consult Reason/Comments: Neurology evaluation Do you want consulting provider notified?: Yes 04/13/18 16:01 Consult Physician Routine Consulting Provider: Natalia Frye Consult Reason/Comments: dizziness. recent 2decho and stress test in office Do you want consulting provider notified?: Yes Primary care physician: Leslie Segovia [facility] Course: Discharge diagnosis 1. Intractable vertigo and dizziness. CTA completed showing no significant hemodynamic stenosis of the carotid bifurcation. No sizable aneurysmal vascular malformation. Left vertebral arteries side and may be congenitally diminutive or absent. Correlate clinically to exclude other etiologies. CT of head completed showing nonspecific white matter changes most marked microvascular ischemia. If there is concern for acute ischemia correlate with MRI as clinically warranted. Neurology services have been consulted. Orthostatic blood pressures have been ordered. Per neurology likely vertigo patient to follow-up with ENT. Patient states she sees Dr. Gipson and will follow-up outpatient. Orthostatic blood pressures negative 2. History of DVT and pulmonary embolism. Patient states this was in early 1999 '. Patient states she is no longer on medication and did receive IVC filter placement 3. nicotine dependence. Patient educated greater than 3 minutes on smoking cessation. Patient declined nicotine patch at this time 4. Hyperlipidemia 5. Essential hypertension 6. History of myocardial infarction with heart catheterization with stents. Patient says this was many years ago and is not on any current anticoagulation. Patient follows outpatient with Dr. Grayson. She states she recently had 2-D echo and stress test completed per cardiology. Patient will follow-up outpatient with cardiology services Hospital course This is a 59-year-old female patient of Dr. Segovia. Patient presented emergency room with increased complaints of dizziness. Patient says she's had these symptoms of dizziness for over a year but symptoms became increasingly worse yesterday. Patient describes as dizzy sensation. She states she never falls or passes out. Patient states she usually just sits down and symptoms resolved. Patient has a known past medical history of DVT and pulmonary embolism patient states this was many years ago is no longer on anticoagulation but did have an IVC filter placed. Additional medical history includes hyperlipidemia, hypertension, myocardial infarction, cardiac cath with stents. Patient states she follows with Dr. Grayson for cardiology. Chest x-ray completed emergency room showing no acute pulmonary process COPD. CTA completed showing no significant hemodynamic stenosis of the carotid bifurcation. No sizable aneurysmal vascular malformation. 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 Correlate clinically to exclude other etiologies. Head CT completed showing nonspecific white matter changes most: Remote microvascular ischemia. If there is concern for acute ischemia correlate with MRI as clinically warranted. Neurology services have been consulted. EEG completed showing sinus bradycardia with a rate 58. Orthostatic blood pressures have been ordered. At this time patient denies chest pain or shortness of breath. Denies nausea vomiting or diarrhea. Denies any urinary frequency. Patient denies any blurred vision, slurred speech or confusion. On 04/14/2018 patient is eager to go home. Patient states she feels well. Patient will be discharged home on Antivert. Patient to follow-up outpatient with Dr. Gipson and cardiology services. Per neurology services recommend ENT evaluation regarding positional vertigo. Patient denies chest pain or shortness breath. Patient denies nausea vomiting diarrhea. Patient denies any urinary symptoms I performed an examination of the patient and discussed their management with the Nurse Practitioner. I have reviewed the Nurse Practitioner's notes and agree with the documented findings and plan of care Patient Condition at Discharge: Stable Plan - Discharge Summary Discharge Rx Participant: No New Discharge Prescriptions: New Meclizine [Antivert] 25 mg PO Q8HR PRN #60 tab PRN Reason: Vertigo Continue Captopril [Capoten] 50 mg PO BID Aspirin 81 mg PO DAILY Lovastatin [Mevacor] 40 mg PO DAILY Atenolol 25 mg PO DAILY amLODIPine BESYLATE [Norvasc] 5 mg PO DAILY Famotidine [Pepcid] 40 mg PO BID #40 tab Omeprazole 40 mg PO BID Fludrocortisone [Florinef] 0.1 mg PO HS Discharge Medication List Aspirin 81 mg PO DAILY 12/20/13 [History] Captopril [Capoten] 50 mg PO BID 12/20/13 [History] Lovastatin [Mevacor] 40 mg PO DAILY 12/20/13 [History] Atenolol 25 mg PO DAILY 03/28/15 [History] amLODIPine BESYLATE [Norvasc] 5 mg PO DAILY 03/29/15 [History] Famotidine [Pepcid] 40 mg PO BID #40 tab 12/31/17 [Rx] Fludrocortisone [Florinef] 0.1 mg PO HS 04/13/18 [History] Omeprazole 40 mg PO BID 04/13/18 [History] Meclizine [Antivert] 25 mg PO Q8HR PRN #60 tab 04/14/18 [Rx] Follow up Appointment(s)/Referral(s): Leslie Segovia DO [Primary Care Provider] - 1-2 days Kunal Strauss DO [Doctor of Osteopathic Medicine] - 1 Week Natalia Frye MD [STAFF PHYSICIAN] - 1 Week Activity/Diet/Wound Care/Special Instructions: Diet heart healthy Activity as tolerated Discharge Disposition: HOME SELF-CARE
== END 2018-04-14 12:35 | disposition home or self-care (01) ==
LOC: EC 09:52 → 3OBS 12:29 → 5MS5E 13:35
PROVIDERS: ADMIT Internal Medicine; ATTEND Internal Medicine
DX: R42 Dizziness and giddiness (principal); Z86.718 Personal history of other venous thrombosis and embolism; Z86.711 Personal history of pulmonary embolism; F17.210 Nicotine dependence, cigarettes, uncomplicated; E78.5 Hyperlipidemia, unspecified; I10 Essential (primary) hypertension; I25.2 Old myocardial infarction; H91.90 Unspecified hearing loss, unspecified ear; Z95.5 Presence of coronary angioplasty implant and graft; Z79.82 Long term (current) use of aspirin; Z79.899 Other long term (current) drug therapy; Z79.52 Long term (current) use of systemic steroids; Z90.49 Acquired absence of other specified parts of digestive tract; Z83.3 Family history of diabetes mellitus; Z80.9 Family history of malignant neoplasm, unspecified; Z82.49 Family history of ischemic heart disease and other diseases of the circulatory system
CPT/HCPCS: 96361 ×3; 96374; 99285; 36415; 93005; 80061; 80053 ×2; 82550; 82553; 84484; 85025 ×2; 85610; 85730; 71046; 70496; 70450; 70498; G0378 ×3; J2765; Q9967

== ENCOUNTER → 2018-05-19 | Outpatient (CLI) | payer MEDICARE, BC ==
[2018-05-19 11:45] LABS: HCT 41.4 % (34.0-46.0); HGB 13.5 gm/dL (11.4-16.0); MCH 30.5 pg (25.0-35.0); MCHC 32.7 g/dL (31.0-37.0); MCV 93.4 fL (80.0-100.0); Mean Platelet Volume 6.7; Platelet Count 283 k/uL (150-450); RBC 4.43 m/uL (3.80-5.40); RDW 13.1 % (11.5-15.5); WBC 8.6 k/uL (3.8-10.6)
[2018-05-19 12:05] LABS: Anion Gap 8 mmol/L; Blood Urea Nitrogen 11 mg/dL (7-17); Carbon Dioxide 25 mmol/L (22-30); Chloride 107 mmol/L (98-107); Potassium 4.8 mmol/L (3.5-5.1); Sodium 140 mmol/L (137-145)
== END | disposition home or self-care (01) ==
LOC: LABPAT 10:11
PROVIDERS: ATTEND Internal Medicine Interventional Cardiology
DX: Z01.812 Encounter for preprocedural laboratory examination (principal); I70.213 Atherosclerosis of native arteries of extremities with intermittent claudication, bilateral legs; I10 Essential (primary) hypertension; E78.1 Pure hyperglyceridemia
CPT/HCPCS: 36415; 80051; 82565; 84520; 85027

== ENCOUNTER 2018-06-02 09:12 | Day surgery (SDC) | payer MEDICARE, BC ==
[2018-05-26 11:57] VITALS: BMI 24.1
[~2018-06-02 09:12] MED LIST changes: +ALPRAZolam 0.25 MG TAB PO PRN; +ASPIRIN 325 MG TAB PO STA; -LACTATED RINGERS 1,000 ML IV SCH; +SODIUM CHLORIDE 0.9% 1,000 ML in EMPTY BAG 1 BAG IV ONE
[2018-06-02 10:35] LABS: Anion Gap 7 mmol/L; Blood Urea Nitrogen 12 mg/dL (7-17); Calcium 9.6 mg/dL (8.4-10.2); Carbon Dioxide 25 mmol/L (22-30); Chloride 108 mmol/L (98-107); Glucose 99 mg/dL (74-99); Sodium 140 mmol/L (137-145)
[2018-06-02] MEDS ORDERED: IV FLUID CONTINUATION 1,000 ML IV ONE (13:15)
[2018-06-02] MEDS: MIDAZOLAM 2 MG/2 ML VIAL IV ONE ×2 (13:56→14:00)
[2018-06-02] MEDS ORDERED: LIDOCAINE 1%-EPI 1:100,000 20 ML VIAL SQ ONE (13:57)
[2018-06-02] MEDS ORDERED: IOPAMIDOL-250 50ML BTL INTRAARTER ONE (14:12)
[2018-06-02] MEDS ORDERED: IOPAMIDOL-250 100ML BTL INTRAARTER ONE (14:12)
[2018-06-02] MEDS ORDERED: SODIUM CHLORIDE 0.9% 1,000 ML IV SCH (14:30)
--- NOTE | 2018-06-02 14:56 | LTR ---
Date of Service: 06/02/2018 RE: Blanca Alvarez Dear Dr. Segovia; Ms. Blanca Alvarez underwent an abdominal aortogram and bilateral lower extremities runoff and that revealed mild nonobstructive peripheral arterial disease. I want to thank you for allowing us to participate in her care and please do not hesitate to call if you have any question or concerns. Sincerely, Howard William MD MMMICHELLE / XUANN: [id number] /
--- NOTE | 2018-06-02 15:11 | AN ---
ANGIOGRAPHY REPORT DATE OF SERVICE: 06/02/2018 PERFORMING PHYSICIAN: Howard William MD, Home Supervisor. PROCEDURE PERFORMED: 1. An abdominal aortogram. 2. Bilateral lower extremity runoff. 3. Selective left common femoral artery angiogram. INDICATION: This is a very pleasant 68-year-old female patient who sees Dr. Frye in the office as an outpatient who was experiencing bilateral lower extremities intermittent claudication and underwent an arterial duplex study which showed possible below-the- knee disease. Because of that, she was brought today to undergo an abdominal aortogram and bilateral lower extremities runoff. APPROACH: Right common femoral artery. COMPLICATION: None. LEVEL OF SEDATION: Moderate with a sedation length of 19 minutes. PROCEDURE DESCRIPTION: After obtaining an informed consent, the patient was brought to the cardiac minilab operator. The right common femoral artery was cannulated using micropuncture technique. The micropuncture wire passed easily, then I placed a 4-Belarusian sheath in the right common femoral artery. After that, I did an abdominal aortogram and bilateral lower extremity runoff using 4-[place]arusian Omni Flush catheter which was initially placed at the level of the renal arteries, then it was pulled into above the bifurcation of the aorta, the right and left common iliac arteries. After that, I did select the left common femoral artery using the Omni Flush catheter with stiff Glidewire. I did advance the catheter all the way to the left common femoral artery where I injected contrast using a power injection to further evaluate the disease in the left popliteal. The procedure was completed without any complication. SELECTIVE PERIPHERAL ANGIOGRAM: 1. The abdominal aorta appeared to have mild disease only. It bifurcates into right and left common iliac arteries. 2. COMMON ILIAC ARTERIES: The right and left common iliac arteries are patent. 3. INTERNAL ILIAC ARTERIES: The right and left internal iliac arteries are patent. 4. The right and left external iliac arteries are angiographically normal. 5. THE PROFUNDA: The right and left profunda are patent. 6. SFA: The right and left SFA are patent. 7. POPLITEAL: The right and left popliteal appeared to have mild disease only. 8. BELOW THE KNEE: There are three-vessel runoff below the knee bilaterally. nonobstructive peripheral arterial disease. POSTPROCEDURE MANAGEMENT: 1. Maximize medical treatment. 2. Follow up with the patient. MMODL / IJN: [id number] /
[2018-06-02 15:43] VITALS: RESP 18; TEMP 98.4
[2018-06-02 18:00] VITALS: BP 153/65; PULSE 71
--- NOTE | 2018-06-03 13:37 | IR ---
Fluoroscopy HISTORY: Pain in leg 4.2 minutes fluoroscopy time supplied to the referring clinician. 79 intraoperative C-arm images doc ument the procedure. See dictated report from cardiology.
== END 2018-06-02 20:30 | disposition home or self-care (01) ==
LOC: CATHCVL 09:12 → 1SOBS 15:18 → CATHCVL 20:30
PROVIDERS: ATTEND Internal Medicine Interventional Cardiology
DX: I70.213 Atherosclerosis of native arteries of extremities with intermittent claudication, bilateral legs (principal); I25.10 Atherosclerotic heart disease of native coronary artery without angina pectoris; I10 Essential (primary) hypertension; E78.5 Hyperlipidemia, unspecified; E78.1 Pure hyperglyceridemia; E78.00 Pure hypercholesterolemia, unspecified; I25.2 Old myocardial infarction; J44.9 Chronic obstructive pulmonary disease, unspecified; F17.210 Nicotine dependence, cigarettes, uncomplicated; Z95.5 Presence of coronary angioplasty implant and graft; Z79.82 Long term (current) use of aspirin; Z79.899 Other long term (current) drug therapy
CPT/HCPCS: 36200; 75625; 75716; 80048; C1769 ×4; C1894; J2250; Q9966 ×2

== ENCOUNTER → 2018-11-19 | Outpatient (CLI) | payer MEDICARE, BC ==
[2018-11-19 11:38] LABS: HCT 43.5 % (34.0-46.0); MCH 30.4 pg (25.0-35.0); MCHC 32.1 g/dL (31.0-37.0); MCV 94.6 fL (80.0-100.0); Mean Platelet Volume 7.4; Platelet Count 316 k/uL (150-450); RBC 4.59 m/uL (3.80-5.40); RDW 14.2 % (11.5-15.5); WBC 8.9 k/uL (3.8-10.6)
[2018-11-19 17:25] LABS: Albumin 4.6 g/dL (3.80-4.90); Albumin/Globulin Ratio 2.09 (1.60-3.17); Anion Gap 5.7 mmol/L (4.00-12.00); Calcium 9.7 mg/dL (8.7-10.3); Carbon Dioxide 26.3 mmol/L (21.6-31.8); Globulin 2.2 g/dL (1.6-3.3); LDL Cholesterol,Calculated 111.8 mg/dL (0.0-131.0); Magnesium 1.8 mg/dL (1.5-2.4); Potassium 4.5 mmol/L (3.5-5.5); Total Bilirubin 0.4 mg/dL (0.3-1.2); Total Protein 6.8 g/dL (6.2-8.2); VLDL Calculation 18.2 mg/dL (5.00-40.00)
== END ==
LOC: LABWHC1 09:10
PROVIDERS: ATTEND Physician Assistant Medical
DX: K21.9 Gastro-esophageal reflux disease without esophagitis (principal); E78.5 Hyperlipidemia, unspecified; I10 Essential (primary) hypertension; R20.2 Paresthesia of skin
CPT/HCPCS: 36415; 80053; 80061; 83735; 84443; 85027

== ENCOUNTER 2019-03-12 17:30 | Emergency (ER) | payer MEDICARE, BC ==
[2019-03-12] MEDS ORDERED: KETOROLAC 30 MG/ML 1 ML VIAL IVP STA (18:03)
[2019-03-12] MEDS ORDERED: LIDOCAINE 5% PATCH TOPICAL STA (18:03)
[2019-03-12] MEDS ORDERED: ONDANSETRON 4 MG/2 ML VIAL IVP STA (18:04)
--- NOTE | 2019-03-12 18:04 | ED ---
General Adult HPI - General Chief complaint: Abdominal Pain Stated complaint: abdominal pain Time Seen by Provider: 03/12/19 17:49 Source: patient Mode of arrival: ambulatory Limitations: no limitations - History of Present Illness Initial comments: Dictation was produced using Gl[employer] dictation software. please excuse any grammatical, word or spelling errors. Chief Complaint: 68-year-old female presents emergency Department with chief complaint of abdominal pain. History of Present Illness: He is 68-year-old female she has history of abdominal hernia repair 5 years ago. She states that since she had that repair procedure performed she's been having frequent abdominal symptoms. Recently she underwent a upper endoscopy procedure was put on antacids. States that there really improve her symptoms. She states her pain was especially worse over the last 24-48 hours. She locates the pain as epigastric area. It's worse when she sits up from a lying position. Patient does complain of some mild pain when at rest. Denies any fever or constitutional symptoms. She localizes the pain to her incisional site. She does complain some mild nausea. The ROS documented in this emergency department record has been reviewed and confirmed by me. Those systems with pertinent positive or negative responses have been documented in the HPI. All other systems are other negative and/or noncontributory. PHYSICAL EXAM: General Impression: Alert and oriented x3, not in acute distress HEENT: Normocephalic atraumatic, extra-ocular movements intact, pupils equal and reactive to light bilaterally, mucous membranes moist. Cardiovascular: Heart regular rate and rhythm, S1&S2 audible, no murmurs, rubs or gallops Chest: Lungs clear to auscultation bilaterally, no rhonchi, no wheeze, no rales Abdomen: Bowel sounds present, abdomen soft, non-distended, no organomegaly, tenderness to palpation of the epigastric area Musculoskeletal: Pulses present and equal in all extremities, no peripheral edema Motor: no focal deficits noted Neurological: CN II-XII grossly intact, no focal motor or sensory deficits noted Skin: Intact with no visualized rashes Psych: Normal affect and mood ED course: 68-year-old female presents with positional epigastric pain. Signs upon arrival are within acceptable limits.Laboratory evaluation obtained. CBC, metabolic panel is unremarkable. Urinalysis shows 10 white blood cells. Patie nt denies urinary symptoms. We will send off her urine for urine culture. Abdominal x-rays unremarkable. Patient treated with Zofran and Toradol and Lidoderm patch over the epigastrium. Patient reevaluated after this intervention with stable medical symptoms. Patient is well-appearing at [facility]. She is told to follow-up with her general surgeon for outpatient management of her symptoms. She is given a prescription for Zofran when necessary nausea. EKG interpretation: Ventricular rate 90, normal sinus rhythm,. 160, QS 86, QTC 437. No OK prolongation, no QTC prolongation, no ST or T-wave changes noted. Overall, this EKG is unremarkable - Related Data Home Medications Medication Instructions Recorded Confirmed Lovastatin [Mevacor] 40 mg PO DAILY 12/20/13 03/12/19 Atenolol 25 mg PO DAILY 03/28/15 03/12/19 amLODIPine BESYLATE [Norvasc] 5 mg PO DAILY 03/29/15 03/12/19 Omeprazole 40 mg PO DAILY 04/13/18 03/12/19 Aspirin EC [Ecotrin Low Dose] 81 mg PO DAILY 03/12/19 03/12/19 Lisinopril [Zestril] 10 mg PO BID 03/12/19 03/12/19 Previous Rx's Medication Instructions Recorded Famotidine [Pepcid] 40 mg PO BID #40 tab 12/31/17 Ondansetron Odt [Zofran Odt] 4 mg PO Q8HR PRN #12 tab 03/12/19 Allergies Allergy/AdvReac Type Severity Reaction Status Date / Time No Known Allergies Allergy Verified 03/12/19 18:51 Review of Systems ROS Statement: Those systems with pertinent positive or pertinent negative responses have been documented in the HPI. ROS Other: All systems not noted in ROS Statement are negative. Past Medical History Past Medical History: Deep Vein Thrombosis (DVT), Hyperlipidemia, Hypertension, Myocardial Infarction ([place]), Pulmonary Embolus ([place]) Additional Past Medical History / Comment(s): DVT LEG- UNSURE WHICH ONE, previously "charted hx ulcer, partial blockage of carotid arteries" Last Myocardial Infarction Date:: 1999 History of Any Multi-Drug Resistant Organisms: None Reported Past Surgical History: Appendectomy, Cholecystectomy, Heart Catheterization With Stent, Hernia Repair, Hysterectomy Additional Past Surgical History / Comment(s): JOSH FILTER INSERTION, STATES HAS WIRE IN LEFT EAR TO AIDE IN HEARING,hiatal hernia sx Past Anesthesia/Blood Transfusion Reactions: No Reported Reaction Date of Last Stent Placement:: 2001 Past Psychological History: No Psychological Hx Reported Smoking Status: Unknown if ever smoked Past Alcohol Use History: Occasional Past Drug Use History: None Reported - Past Family History Mother Family Medical History: Diabetes Mellitus Father Additional Family Medical History / Comment(s): brain aneurysm Son(s) Family Medical History: Cancer Additional Family Medical History / Comment(s): UNSURE WHAT KIND General Exam Limitations: no limitations Course Vital Signs 03/12/19 17:37 Temperature 98.4 F Pulse Rate 77 Respiratory 16 Rate Blood Pressure 145/76 O2 Sat by Pulse 98 Oximetry Medical Decision Making - Lab Data Result diagrams: 03/12/19 18:31 03/12/19 18:31 Lab Results 03/12/19 03/12/19 03/12/19 Range/Units 17:50 18:31 18:31 WBC 8.1 (3.8-10.6) k/uL RBC 4.30 (3.80-5.40) m/uL Hgb 12.3 (11.4-16.0) gm/dL Hct 39.6 (34.0-46.0) % MCV 92.0 (80.0-100.0) fL MCH 28.5 (25.0-35.0) pg MCHC 31.0 (31.0-37.0) g/dL RDW 13.7 (11.5-15.5) % Plt Count 267 (150-450) k/uL Neutrophils % 63 % Lymphocytes % 23 % Monocytes % 8 % Eosinophils % 2 % Basophils % 1 % Neutrophils # 5.1 (1.3-7.7) k/uL Lymphocytes # 1.9 (1.0-4.8) k/uL Monocytes # 0.7 (0-1.0) k/uL Eosinophils # 0.2 (0-0.7) k/uL Basophils # 0.0 (0-0.2) k/uL Sodium 138 (137-145) mmol/L Potassium 4.3 (3.5-5.1) mmol/L Chloride 106 (98-107) mmol/L Carbon Dioxide 22 (22-30) mmol/L Anion Gap 10 mmol/L BUN 12 (7-17) mg/dL Creatinine 0.90 (0.52-1.04) mg/dL Est GFR (CKD-EPI)AfAm 76 (>60 ml/min/1.73 sqM) Est GFR (CKD-EPI)NonAf 66 (>60 ml/min/1.73 sqM) Glucose 91 (74-99) mg/dL Calcium 9.6 (8.4-10.2) mg/dL Total Bilirubin 0.6 (0.2-1.3) mg/dL AST 31 (14-36) U/L ALT 23 (9-52) U/L Alkaline Phosphatase 117 (38-126) U/L Total Protein 7.2 (6.3-8.2) g/dL Albumin 4.3 (3.5-5.0) g/dL Lipase 120 (23-300) U/L Urine Color Dark Yellow Urine Appearance Cloudy H (Clear) Urine pH 5.5 (5.0-8.0) Ur Specific [place] 1.033 (1.001-1.035) Urine Protein 1+ H (Negative) Urine Glucose (UA) Negative (Negative) Urine Ketones Trace H (Negative) Urine Blood Negative (Negative) Urine Nitrite Negative (Negative) Urine Bilirubin 1+ H (Negative) Urine Urobilinogen 6.0 (<2.0) mg/dL Ur Leukocyte Esterase Trace H (Negative) Urine WBC 10 H (0-5) /hpf Ur Squamous Epith Cells 4 (0-4) /hpf Urine Bacteria Rare H (None) /hpf Hyaline Casts 251 H (0-2) /lpf Urine Mucus Many H (None) /hpf Disposition Clinical Impression: Abdominal pain Disposition: HOME SELF-CARE Condition: Good Instructions (If sedation given, give patient instructions): Abdominal Pain (ED) Prescriptions: Ondansetron Odt [Zofran Odt] 4 mg PO Q8HR PRN #12 tab PRN Reason: Nausea Is patient prescribed a controlled substance at d/c from ED?: No Referrals: Kendall Chairez MD [STAFF PHYSICIAN] - 1-2 days Time of Disposition: 19:17
[2019-03-12 18:38] LABS: Appearance,Urine Cloudy (Clear); Bacteria,Urine Rare /hpf; Bilirubin,Urine 1+ (Negative); Blood,Urine Negative (Negative); Color,Urine Dark Yellow; Glucose,Urine (UA) Negative (Negative); Hyaline Casts,Urine 251 /lpf (0-2); Ketones,Urine Trace (Negative); Leukocyte Esterase,Urine Trace (Negative); Mucus,Urine Many /hpf; Nitrite,Urine Negative (Negative); PH, Urine 5.5 (5.0-8.0); Protein,Urine 1+ (Negative); Specific Gravity,Urine 1.033 (1.001-1.035); Squamous Epithelial Cell,Urine 4 /hpf (0-4); WBC,Urine 10 /hpf (0-5)
[2019-03-12 18:46] LABS: Basophils % (A) 1 %; Eosinophils # (A) 0.2 k/uL (0-0.7); Eosinophils % (A) 2 %; HCT 39.6 % (34.0-46.0); HGB 12.3 gm/dL (11.4-16.0); Lymphocytes # (A) 1.9 k/uL (1.0-4.8); Lymphocytes % (A) 23 %; MCH 28.5 pg (25.0-35.0); Mean Platelet Volume 6.6; Monocytes # (A) 0.7 k/uL (0-1.0); Monocytes % (A) 8 %; Neutrophils # (A) 5.1 k/uL (1.3-7.7); Neutrophils % (A) 63 %; Platelet Count 267 k/uL (150-450); RDW 13.7 % (11.5-15.5); WBC 8.1 k/uL (3.8-10.6)
[2019-03-12 18:54] LABS: Albumin 4.3 g/dL (3.5-5.0); Calcium 9.6 mg/dL (8.4-10.2); Total Bilirubin 0.6 mg/dL (0.2-1.3); Total Protein 7.2 g/dL (6.3-8.2)
[2019-03-12 18:56] LABS: Potassium 4.3 mmol/L (3.5-5.1)
--- NOTE | 2019-03-12 19:05 | XR ---
EXAMINATION TYPE: XR abdomen acute w cxr DATE OF EXAM: 03/12/2019 CLINICAL HISTORY: Upper abdominal and chest pain, history of hernia. TECHNIQUE: Single frontal view of chest is obtained. Supine and upright views of the abdomen are acq uired. COMPARISON: Chest x-ray April 13, 2018. CT abdomen and pelvis April 25, 2015. FINDINGS: There is chronic parenchymal changes bilaterally without suspicious focal airspace opacity, pleural effusion, or pneumothorax seen. Cardiac silhouette size remains within normal limits with a therosclerotic thoracic aorta. Osseous structures remain demineralized. Underlying dextroconvex scol iosis is present . Gas is noted in nondistended stomach and small bowel loops. Gas and fecal material is seen in nondis tended colon and rectum. Metallic IVC filter redemonstrated right L2 level. Adjacent cholecystectomy clips are again seen. Levoconvex scoliosis lumbar spine redemonstrated. No pneumoperitoneum. IMPRESSION: 1. Chronic parenchymal changes without acute pulmonary pulmonary process. 2. Overall nonobstructive bowel gas pattern.
[2019-03-12 19:37] VITALS: BP 156/69; PULSE 71; RESP 18; TEMP 98.3
== END 2019-03-12 19:37 | disposition home or self-care (01) ==
LOC: EC 17:30
DX: R10.13 Epigastric pain (principal); E78.5 Hyperlipidemia, unspecified; I10 Essential (primary) hypertension; I25.2 Old myocardial infarction; Z86.718 Personal history of other venous thrombosis and embolism; Z86.711 Personal history of pulmonary embolism; Z79.82 Long term (current) use of aspirin; Z79.899 Other long term (current) drug therapy; Z90.49 Acquired absence of other specified parts of digestive tract; Z95.5 Presence of coronary angioplasty implant and graft; Z90.710 Acquired absence of both cervix and uterus
CPT/HCPCS: 36415; 93005; 80053; 83690; 85025; 81001; 87086; 74022; 99284; 96374; 96375; J2405; J1885

== ENCOUNTER → 2019-03-22 | Outpatient (CLI) | payer MEDICARE, BC ==
--- NOTE | 2019-03-22 11:27 | FL ---
EXAMINATION TYPE: FL barium swallow DATE OF EXAM: 03/22/2019 CLINICAL HISTORY: Gastroesophageal reflux with chest pain and tightness. History of hiatal hernia rep air proximal 0.5 years ago. TECHNIQUE: A double contrast esophagram is performed utilizing air and barium. A total of 1 minute and 36 seconds of fluoroscopic time was utilized during procedure. 44 fluoroscopic images were saved. COMPARISON: None FINDINGS: The esophagus shows normal motility and emptying into the stomach. A small recurrent hiatal hernia is seen on the supine images resulting in mild gastroesophageal reflux. No evidence of strict ure noted. Few tertiary contractions were seen on the supine imaging only in the distal esophagus shaun r the recurrent hiatal hernia site. No contrast extravasation. IMPRESSION: Small recurrent hiatal hernia resulting in mild gastroesophageal reflux.
== END | disposition home or self-care (01) ==
LOC: RADUSWWP 08:48
PROVIDERS: ATTEND Surgery
DX: K44.9 Diaphragmatic hernia without obstruction or gangrene (principal); K21.9 Gastro-esophageal reflux disease without esophagitis
CPT/HCPCS: 74220

== ENCOUNTER → 2019-03-31 | Day surgery (SDC) | payer MEDICARE, BC ==
[2019-03-29 15:01] VITALS: BMI 24.1
[~2019-03-31] MED LIST changes: -ALPRAZolam 0.25 MG TAB PO PRN; -ASPIRIN 325 MG TAB PO STA; +LACTATED RINGERS 1,000 ML IV SCH; +LIDOCAINE 1% 20 ML VIAL (10MG/ML) FOR IV START INTRADERMA ONE; +LIDOCAINE 1% INJ 10MG/ML (20 ML MDV) ONE; +PROPOFOL 10 MG/ML 20 ML VIAL IV ONE; -SODIUM CHLORIDE 0.9% 1,000 ML in EMPTY BAG 1 BAG IV ONE
[2019-03-31 09:42] VITALS: TEMP 98.3
--- NOTE | 2019-03-31 10:30 | P.GSHP ---
History of Present Illness H&P Date: 03/31/19 Chief Complaint: Epigastric pain, GERD This a 66-year-old female with epigastric pain and GERD. She presents today for EGD. Her recent esophagram shows evidence of a small recurrent hiatal hernia with mild reflux. Past Medical History Past Medical History: Deep Vein Thrombosis (DVT), Hyperlipidemia, Hypertension, Myocardial Infarction ([place]), Pulmonary Embolus ([place]) Additional Past Medical History / Comment(s): DVT LEG- UNSURE WHICH ONE, previously "charted hx ulcer, frequent epigastric pain since hernia surg. Last Myocardial Infarction Date:: 1999 History of Any Multi-Drug Resistant Organisms: None Reported Past Surgical History: Appendectomy, Cholecystectomy, Heart Catheterization With Stent, Hernia Repair, Hysterectomy Additional Past Surgical History / Comment(s): JOSH FILTER INSERTION, STATES HAS WIRE IN LEFT EAR TO AIDE IN HEARING, hiatal hernia sx Past Anesthesia/Blood Transfusion Reactions: No Reported Reaction Date of Last Stent Placement:: 2001 Smoking Status: Current every day smoker - Past Family History Mother Family Medical History: Diabetes Mellitus Father Additional Family Medical History / Comment(s): brain aneurysm Son(s) Family Medical History: Cancer Additional Family Medical History / Comment(s): UNSURE WHAT KIND Medications and Allergies Home Medications Medication Instructions Recorded Confirmed Type Lovastatin [Mevacor] 40 mg PO DAILY 12/20/13 03/31/19 History Atenolol 25 mg PO DAILY 03/28/15 03/31/19 History amLODIPine BESYLATE [Norvasc] 5 mg PO DAILY 03/29/15 03/31/19 History Famotidine [Pepcid] 40 mg PO BID #40 tab 12/31/17 03/31/19 Rx Omeprazole 40 mg PO DAILY 04/13/18 03/31/19 History Aspirin EC [Ecotrin Low Dose] 81 mg PO DAILY 03/12/19 03/31/19 History Lisinopril [Zestril] 10 mg PO BID 03/12/19 03/31/19 History Ondansetron Odt [Zofran Odt] 4 mg PO Q8HR PRN #12 tab 03/12/19 03/31/19 Rx Allergies Allergy/AdvReac Type Severity Reaction Status Date / Time No Known Allergies Allergy Verified 03/31/19 09:44 Surgical - Exam Vital Signs Temp Pulse Resp BP Pulse Ox 98.3 F 58 L 16 127/87 99 03/31/19 09:40 03/31/19 09:40 03/31/19 09:40 03/31/19 09:40 03/31/19 09:40 - General well developed, well nourished, no distress - Eyes PERRL - ENT normal pinna - Neck no masses - Respiratory normal expansion - Cardiovascular Rhythm: regular - Abdomen Mild epigastric pain Abdomen: soft Assessment and Plan Assessment: GERD Epigastric pain We'll perform EGD
--- NOTE | 2019-03-31 10:40 | P.OP ---
Date of Procedure: 03/31/19 Preoperative Diagnosis: Epigastric abdominal pain Postoperative Diagnosis: Mild antral gastritis Small hiatal hernia Mild esophagitis Procedure(s) Performed: EGD Anesthesia: MAC Surgeon: Kendall Chairez Pathology: other (Antrum, esophagus) Condition: stable Disposition: PACU Description of Procedure: The patient's placed on the endoscopy table in the lateral position. She received IV sedation. Gastroscope placed oropharynx and passed in the esophagus into the stomach. Scope was then placed through the pylorus. The first and second portion duodenum appeared normal. Scope summer back the antrum and this was minimal inflamed. A biopsies was performed. The scope was then retroflexed and the remainder of the stomach appeared normal. The patient had a small hiatal hernia. The GE junction was at 38 cm. The distal esophagus mildly inflamed and a biopsies performed. The proximal esophagus appeared normal. Scope withdrawn for patient.
[2019-03-31 11:31] VITALS: BP 134/78; PULSE 61; RESP 18
== END | disposition home or self-care (01) ==
LOC: ORWHC2ENDO 09:01
PROVIDERS: ATTEND Surgery
DX: K21.0 Gastro-esophageal reflux disease with esophagitis (principal); K29.50 Unspecified chronic gastritis without bleeding; K44.9 Diaphragmatic hernia without obstruction or gangrene; E78.5 Hyperlipidemia, unspecified; F17.200 Nicotine dependence, unspecified, uncomplicated; I10 Essential (primary) hypertension; I25.2 Old myocardial infarction; Z79.82 Long term (current) use of aspirin; Z83.3 Family history of diabetes mellitus; Z86.711 Personal history of pulmonary embolism; Z86.718 Personal history of other venous thrombosis and embolism; Z90.49 Acquired absence of other specified parts of digestive tract; Z95.5 Presence of coronary angioplasty implant and graft; Z97.4 Presence of external hearing-aid; Z79.899 Other long term (current) drug therapy
CPT/HCPCS: 88305; 43239; J2001; J2704

== ENCOUNTER → 2019-04-13 | Outpatient (CLI) | payer MEDICARE, BC ==
[2019-04-13 13:12] LABS: Basophils # (A) 0.1 k/uL (0-0.2); Basophils % (A) 1 %; Eosinophils # (A) 0.1 k/uL (0-0.7); Eosinophils % (A) 1 %; HGB 13.5 gm/dL (11.4-16.0); Lymphocytes # (A) 1.8 k/uL (1.0-4.8); Lymphocytes % (A) 20 %; MCH 29.8 pg (25.0-35.0); MCHC 32.9 g/dL (31.0-37.0); MCV 90.5 fL (80.0-100.0); Mean Platelet Volume 7.1; Monocytes # (A) 0.7 k/uL (0-1.0); Monocytes % (A) 7 %; Neutrophils # (A) 6.3 k/uL (1.3-7.7); Neutrophils % (A) 69 %; Platelet Count 272 k/uL (150-450); RBC 4.53 m/uL (3.80-5.40); RDW 13.7 % (11.5-15.5); WBC 9.1 k/uL (3.8-10.6)
== END ==
LOC: LABPAT 11:12
PROVIDERS: ATTEND Surgery
DX: Z01.812 Encounter for preprocedural laboratory examination (principal); F17.200 Nicotine dependence, unspecified, uncomplicated; D64.9 Anemia, unspecified; R13.10 Dysphagia, unspecified
CPT/HCPCS: 36415; 85025

== ENCOUNTER 2019-04-25 09:52 | Day surgery (SDC) | payer MEDICARE, BC ==
[2019-04-19 15:10] VITALS: BMI 22.4
[~2019-04-25 09:52] MED LIST changes: +DEXAMETHASONE SOD PHOSPHATE 10 MG/ML 1 ML VIAL IV ONE; +HEPARIN SODIUM,PORCINE 5,000 UNIT/ML 1 ML VIAL SQ ONE; -LIDOCAINE 1% 20 ML VIAL (10MG/ML) FOR IV START INTRADERMA ONE; +LIDOCAINE 1% 20 ML VIAL (10MG/ML) FOR IV START INTRADERMA PRN; -LIDOCAINE 1% INJ 10MG/ML (20 ML MDV) ONE; +ONDANSETRON 4 MG/2 ML VIAL IVP ONE; -PROPOFOL 10 MG/ML 20 ML VIAL IV ONE
--- NOTE | 2019-04-25 10:56 | P.GSHP ---
History of Present Illness H&P Date: 04/25/19 Chief Complaint: Abdominal pain, GERD This a 68-year-old female developed recurrent hiatal hernia. Patient resents today for laparoscopic Sayda fundoplication. Past Medical History Past Medical History: Deep Vein Thrombosis (DVT), Hyperlipidemia, Hypertension, Myocardial Infarction ([place]), Pulmonary Embolus ([place]) Additional Past Medical History / Comment(s): DVT LEG- UNSURE WHICH ONE, previously "charted hx ulcer, partial blockage of carotid arteries" RECURRENT HIATAL HERNIA Last Myocardial Infarction Date:: 1999 History of Any Multi-Drug Resistant Organisms: None Reported Past Surgical History: Appendectomy, Cholecystectomy, Heart Catheterization With Stent, Hernia Repair, Hysterectomy Additional Past Surgical History / Comment(s): JOSH FILTER INSERTION, STATES HAS WIRE IN LEFT EAR TO AIDE IN HEARING,hiatal hernia sx, EGD, LT SHOULDER SX, Past Anesthesia/Blood Transfusion Reactions: No Reported Reaction Date of Last Stent Placement:: 2001 Smoking Status: Current every day smoker - Past Family History Mother Family Medical History: Diabetes Mellitus Father Additional Family Medical History / Comment(s): brain aneurysm Son(s) Family Medical History: Cancer Additional Family Medical History / Comment(s): UNSURE WHAT KIND Medications and Allergies Home Medications Medication Instructions Recorded Confirmed Type Lovastatin [Mevacor] 40 mg PO DAILY 12/20/13 04/25/19 History Atenolol 25 mg PO DAILY 03/28/15 04/25/19 History amLODIPine BESYLATE [Norvasc] 5 mg PO DAILY 03/29/15 04/25/19 History Famotidine [Pepcid] 40 mg PO BID #40 tab 12/31/17 04/25/19 Rx Omeprazole 40 mg PO DAILY 04/13/18 04/25/19 History Aspirin EC [Ecotrin Low Dose] 81 mg PO DAILY 03/12/19 04/25/19 History Lisinopril [Zestril] 10 mg PO BID 03/12/19 04/25/19 History Ondansetron Odt [Zofran Odt] 4 mg PO Q8HR PRN #12 tab 03/12/19 04/25/19 Rx Allergies Allergy/AdvReac Type Severity Reaction Status Date / Time No Known Allergies Allergy Verified 04/25/19 10:09 Surgical - Exam Vital Signs Temp Pulse Resp BP Pulse Ox 97.3 F L 59 L 16 129/58 97 04/25/19 10:27 04/25/19 10:27 04/25/19 10:27 04/25/19 10:27 04/25/19 10:27 - General well developed, well nourished - Eyes PERRL - ENT normal pinna - Neck no masses - Respiratory normal expansion - Cardiovascular Rhythm: regular - Abdomen Abdomen: soft, non tender Assessment and Plan Assessment: GERD Hiatal hernia We'll perform laparoscopic Sayda fundal plication.
[2019-04-25] MEDS ORDERED: GLYCOPYRROLATE 0.2 MG/ML 2 ML VIAL ONE (12:05)
[2019-04-25] MEDS ORDERED: NEOSTIGMINE 1 MG/ML 10 ML VIAL ONE (12:05)
[2019-04-25] MEDS ORDERED: MIDAZOLAM 2 MG/2 ML VIAL ONE (12:05)
[2019-04-25] MEDS ORDERED: ePHEDrine SULFATE/0.9% NACL/PF 50 MG/5 ML SYRINGE IV ONE (12:05)
[2019-04-25] MEDS ORDERED: PROPOFOL 10 MG/ML 20 ML VIAL IV ONE (12:05)
[2019-04-25] MEDS ORDERED: fentaNYL (PF) 50 MCG/ML 2 ML AMP ONE (12:05)
[2019-04-25] MEDS ORDERED: KETOROLAC 30 MG/ML 1 ML VIAL ONE (12:05)
[2019-04-25] MEDS ORDERED: ROCURONIUM BROMIDE 10 MG/ML 10 ML VIAL IV ONE (12:05)
[2019-04-25] MEDS ORDERED: LIDOCAINE 1% INJ 10MG/ML (20 ML MDV) ONE (12:05)
[2019-04-25] MEDS ORDERED: SUCCINYLCHOLINE CHLORIDE 100 MG/5 ML SYR IV ONE (12:05)
[2019-04-25] MEDS ORDERED: BUPIVACAINE (PF) 0.25% 30 ML VIAL SQ ONE (12:25)
--- NOTE | 2019-04-25 13:21 | P.OP ---
Date of Procedure: 04/25/19 Preoperative Diagnosis: GERD Postoperative Diagnosis: GERD Procedure(s) Performed: Laparoscopic Sayda fundal plication with mesh Anesthesia: BANDAR Surgeon: Kendall Chairez Estimated Blood Loss (ml): 5 Pathology: none sent Condition: stable Disposition: PACU Description of Procedure: MThe patient was placed on the operating table in the supine position. She received general anesthesia. She was then placed in dorsal lithotomy position. Her abdomen was prepped and draped in the usual sterile fashion. The skin incision sites were anesthetized with 1% local Xylocaine. The skin was incised in the left periumbilical area with an 11 scalpel. Using a 5 mm blade was trocar under direct visitation the peritoneal cavity was entered. And then insufflated. After adequate insufflation the laparoscope was placed back into the peritoneal cavity. Next a 5 mm trocar was placed in the right epigastric and then the right lateral position. Another 5 mm trochars placed in the left lateral position. Another 5 mm trocar placed in the left epigastric position. And the original left periumbilical trocar was exchanged for a 10 mm trocar. The left lateral lobe liver was retracted. The patient had a large hiatal hernia. Using the Harmonic scissors the crural defect was dissected in the Harmonic scissors were used to dissect the hiatal hernia sac. The fundus of the stomach was completely mobilized by using the Harmonic scissors to divide short gastric vessels. The stomach was reduced into the peritoneal cavity. The crura was dissected with the Harmonic scissors. And then the crural repair was performed using 2-0 Ethibond suture. The [place] bio A mesh was then placed over top of the repair and secured with 2-0 Ethibond suture. Next a 58-[place] bougie dilator was placed the patient's oral pharynx and into the esophagus into the stomach by the COOK BARBECUE. The fundoplication was then performed using 2-0 Ethibond suture. A 180 fundoplication was performed. At this point the dilator was withdrawn. The stomach and esophagus were inspected there is known to any injury to the stomach or esophagus. The abdomen was irrigated there is no bleeding seen. The trochars are withdrawn. Skin was closed interrupted 3-0 Monocryl suture. Dermabond was applied. Patient tolerated procedure well and was sent to recovery in stable condition.
[2019-04-25] MEDS ORDERED: LACTATED RINGERS 1,000 ML IV ONE (14:00)
[2019-04-25] MEDS: D5-0.45% NACL WITH KCL 20MEQ/L 1,000 ML IV SCH ×2 (15:14→21:49)
[2019-04-25] MEDS: HYDROmorphone 1 MG/ML 1 ML SYRINGE IVP PRN ×2 (15:18→18:40)
[2019-04-25] MEDS ORDERED: MORPHINE SULFATE 4 MG/ML SYRINGE IVP PRN (21:04)
[2019-04-25] MEDS: LISINOPRIL 10 MG TAB PO SCH (21:49)
[2019-04-25] MEDS: FAMOTIDINE 20 MG TAB PO SCH (21:51)
[2019-04-25] MEDS: ACETAMINOPHEN TAB 325 MG TAB PO PRN (22:48)
[2019-04-26] MEDS: D5-0.45% NACL WITH KCL 20MEQ/L 1,000 ML IV SCH ×2 (05:47→14:04)
[2019-04-26] MEDS: ACETAMINOPHEN TAB 325 MG TAB PO PRN (06:51)
[2019-04-26] MEDS ORDERED: PANTOPRAZOLE 40 MG TABLET PO SCH (07:30)
[2019-04-26] MEDS ORDERED: amLODIPine 5 MG TAB PO SCH (09:00)
[2019-04-26] MEDS ORDERED: ATENOLOL 25 MG TAB PO SCH (09:00)
[2019-04-26] MEDS ORDERED: ENOXAPARIN 40 MG/0.4 ML SYRINGE SQ SCH (09:00)
[2019-04-26] MEDS ORDERED: ATORVASTATIN 10 MG TAB PO SCH (09:00)
[2019-04-26] MEDS ORDERED: ASPIRIN 81 MG PO SCH (09:00)
[2019-04-26] MEDS: FAMOTIDINE 20 MG TAB PO SCH (09:09)
[2019-04-26] MEDS: LISINOPRIL 10 MG TAB PO SCH (09:09)
--- NOTE | 2019-04-26 09:44 | FL ---
SINGLE CONTRAST ESOPHAGRAM: CLINICAL HISTORY: 68-year-old female rule out leak/obstruction status post Sayda fundoplication. TECHNIQUE: Single contrast exam performed with 30 ml Isovue-370 contrast. Total fluoroscopy time: 1 minute 26 seconds. Total images: 24. FINDINGS: The patient swallowed oral contrast without difficulty or delay. There are moderate tertiary perista ltic contractions and intermittent intraesophageal reflux demonstrated. Satisfactory passage of contrast across the surgical site into the stomach with only inconsistent, mi ld intermittent delays. There is no evidence of contrast extravasation to suggest leak. Small amount of free air below the left hemidiaphragm and trace below the right hemidiaphragm, probab ly postsurgical. IMPRESSION: No evidence for leak or obstruction status post hiatal hernia repair. Small amount of postsurgical fr ee air on the left and trace on the right. Mild presbyesophagus.
[2019-04-26] MEDS: SIMETHICONE 40 MG/0.6 ML DROPS 2,000 MG/30 ML BOTTLE PO SCH ×2 (11:03→15:25)
[2019-04-26] MEDS: HYDROcodone/APAP 5-325MG 1 EACH TAB PO PRN ×2 (11:03→15:24)
--- NOTE | 2019-04-26 11:33 | P.CONS ---
History of Present Illness - Reason for Consult Consult date: 04/26/19 Requesting physician: Kendall Chairez - History of Present Illness Blanca Alvarez is a 68 yo F with PMH GERD, hiatal hernia, HTN, HLD, AK, DVT who is POD#1 after scheduled gisele fundoplication. She is feeling well today, complains only of diminishing abdominal pain. Pt states she had some neck pain last night which is now resolved. She denies chest pain, shortness of breath, headache, vision change or leg swelling. She has been able to ambulate today without difficulty but still feeling somewhat weak. She had upper GI series this am, no nausea. She is passing gas and has not yet had a BM. Review of Systems All systems: negative Constitutional: Denies chills, Denies fever Eyes: denies blurred vision, denies pain Ears, nose, mouth and throat: Denies headache, Denies sore throat Cardiovascular: Denies chest pain, Denies shortness of breath Respiratory: Denies cough Gastrointestinal: Reports abdominal pain, Reports early satiety, Denies diarrhea, Denies nausea, Denies vomiting Genitourinary: Denies dysuria, Denies hematuria Musculoskeletal: Denies myalgias Integumentary: Denies pruritus, Denies rash Neurological: Denies numbness, Denies weakness Psychiatric: Denies anxiety, Denies depression Endocrine: Denies fatigue, Denies weight change Past Medical History Past Medical History: Deep Vein Thrombosis (DVT), Hyperlipidemia, Hypertension, Myocardial Infarction ([place]), Pulmonary Embolus (PE) Additional Past Medical History / Comment(s): DVT LEG- UNSURE WHICH ONE, previously "charted hx ulcer, partial blockage of carotid arteries" RECURRENT HIATAL HERNIA Last Myocardial Infarction Date:: 1999 History of Any Multi-Drug Resistant Organisms: None Reported Past Surgical History: Appendectomy, Cholecystectomy, Heart Catheterization With Stent, Hernia Repair, Hysterectomy Additional Past Surgical History / Comment(s): JOSH FILTER INSERTION, STATES HAS WIRE IN LEFT EAR TO AIDE IN HEARING,hiatal hernia sx, EGD, LT SHOULDER SX, Past Anesthesia/Blood Transfusion Reactions: No Reported Reaction Date of Last Stent Placement:: 2001 Past Psychological History: No Psychological Hx Reported Additional Psychological History / Comment(s): pt lives in own home by herself- has 3 steps into single level home. no pets,no outside services. pt works as house keeper at the [employer] Smoking Status: Current every day smoker Past Alcohol Use History: Occasional Additional Past Alcohol Use History / Comment(s): started smoking at age 17 smokes 1 1/2 ppd. DRINKS ABOUT 8 ALCOHOLIC DRINKS A WEEK Past Drug Use History: None Reported - Past Family History Mother Family Medical History: Diabetes Mellitus Father Additional Family Medical History / Comment(s): brain aneurysm Son(s) Family Medical History: Cancer Additional Family Medical History / Comment(s): UNSURE WHAT KIND Medications and Allergies Home Medications Medication Instructions Recorded Confirmed Type Lovastatin [Mevacor] 40 mg PO DAILY 12/20/13 04/25/19 History Atenolol 25 mg PO DAILY 03/28/15 04/25/19 History amLODIPine BESYLATE [Norvasc] 5 mg PO DAILY 03/29/15 04/25/19 History Famotidine [Pepcid] 40 mg PO BID #40 tab 12/31/17 04/25/19 Rx Omeprazole 40 mg PO DAILY 04/13/18 04/25/19 History Aspirin EC [Ecotrin Low Dose] 81 mg PO DAILY 03/12/19 04/25/19 History Lisinopril [Zestril] 10 mg PO BID 03/12/19 04/25/19 History Ondansetron Odt [Zofran Odt] 4 mg PO Q8HR PRN #12 tab 03/12/19 04/25/19 Rx Allergies Allergy/AdvReac Type Severity Reaction Status Date / Time No Known Allergies Allergy Verified 04/25/19 13:07 Physical Exam Vitals: Vital Signs Temp Pulse Pulse Resp BP Pulse Ox 04/26/19 09:07 98.3 F 63 24 124/73 96 04/26/19 04:25 97.8 F 76 18 151/63 93 L 04/25/19 23:02 98.2 F 77 18 127/61 94 L 04/25/19 20:34 97.2 F L 78 20 120/68 94 L 04/25/19 18:15 72 16 108/56 97 04/25/19 17:15 61 16 128/62 98 04/25/19 16:15 97.0 F L 60 20 121/58 99 04/25/19 15:45 78 20 131/61 99 04/25/19 15:15 96.7 F L 72 20 135/63 98 04/25/19 15:05 20 04/25/19 15:00 96.7 F L 70 20 124/61 98 04/25/19 14:45 96.6 F L 69 16 135/64 99 04/25/19 14:30 96.7 F L 62 20 144/69 98 04/25/19 14:05 64 16 159/66 97 04/25/19 13:47 61 16 156/66 97 04/25/19 13:37 66 16 133/76 97 04/25/19 13:19 66 16 124/58 97 04/25/19 13:07 98 F 65 16 117/58 97 04/25/19 10:27 97.3 F L 59 L 16 129/58 97 Intake and Output 04/25/19 04/26/19 04/26/19 22:59 06:59 14:59 Output Total 150 600 Balance -150 -600 Output: Urine 150 600 Other: # Voids 1 1 General: well nourished, well developed, NAD. Vitals reviewed Eyes: PERRL, EOMI, conjunctiva normal HENT: normocephalic, mucus membranes moist Neck: supple, no JVD Lungs: normal respiratory effort, no wheezes or rales CV: Regular rate and rhythm, no murmur. Peripheral pulses 2+ Abdomen: soft, nondistended, no organomegaly. TTP generalized Lymph: no cervical or axillary LAD Skin: warm and dry. Neuro: A&Ox3, normal mood and affect Assessment and Plan (1) Hiatal hernia Current Visit: Yes Status: Acute Code(s): K44.9 - DIAPHRAGMATIC HERNIA WITHOUT OBSTRUCTION OR GANGRENE SNOMED Code(s): 13965751 (2) GERD (gastroesophageal reflux disease) Current Visit: Yes Status: Acute Code(s): K21.9 - GASTRO-ESOPHAGEAL REFLUX DISEASE WITHOUT ESOPHAGITIS SNOMED Code(s): 474505427 (3) Hypertension Current Visit: Yes Status: Acute Code(s): I10 - ESSENTIAL (PRIMARY) HYPERTENSION SNOMED Code(s): 87473417 (4) Hyperlipidemia Current Visit: Yes Status: Acute Code(s): E78.5 - HYPERLIPIDEMIA, UNSPECIFIED SNOMED Code(s): 75631102 Plan: 1. Hiatal hernia. GERD. POD#1 s/p gisele. Doing well. Continue PPI. Pain management per primary 2. HTN. Continue lisinopril and norvasc 3. CAD. Hx AK. Continue BB, ASA, statin DVT prophylaxis lovenox
[2019-04-26 14:10] VITALS: BP 149/71; PULSE 64; RESP 20; TEMP 98.4
--- NOTE | 2019-04-26 15:03 | P.DS ---
Providers Expected date of discharge: 04/26/19 Attending physician: Kendall Chairez Consults: 04/25/19 13:22 Consult Physician Routine Consulting Provider: Deric Gong Consult Reason/Comments: Medical management Do you want consulting provider notified?: Yes Primary care physician: Leslie Segovia Hospital Course: 68-year-old female who underwent laparoscopic Sayda fundoplication with mesh secondary to hiatal hernia and GERD. Patient is doing well postoperatively without any immediate complications. Esophagram completed postoperatively negative for leak or obstruction. She is tolerating clear liquid diet. Pain controlled on oral medications. Vital signs are stable. She is cleared for discharge home today. Please see EMR for further hospital course details. Discharge diagnosis 1. Hiatal hernia and GERD, status post laparoscopic Sayda fundoplication Nurse practitioner note has been reviewed by physician. Signing provider agrees with the documented findings, assessment, and plan of care. Patient Condition at Discharge: Stable Plan - Discharge Summary Discharge Rx Participant: Yes New Discharge Prescriptions: New Hydrocodone/Acetaminophen [[place] 5-325] 1 tab PO Q6HR PRN 3 Days #12 tab PRN Reason: Pain Simethicone 40 mg/0.6 ml Drops [Mylicon Drops] 40 mg PO PCHS PRN #30 ml PRN Reason: gas Omeprazole 40 mg PO DAILY #30 capsule.dr Continue Lovastatin [Mevacor] 40 mg PO DAILY Atenolol 25 mg PO DAILY amLODIPine BESYLATE [Norvasc] 5 mg PO DAILY Famotidine [Pepcid] 40 mg PO BID #40 tab Lisinopril [Zestril] 10 mg PO BID Aspirin EC [Ecotrin Low Dose] 81 mg PO DAILY Ondansetron Odt [Zofran Odt] 4 mg PO Q8HR PRN #12 tab PRN Reason: Nausea Discontinued Omeprazole 40 mg PO DAILY Discharge Medication List Lovastatin [Mevacor] 40 mg PO DAILY 12/20/13 [History] Atenolol 25 mg PO DAILY 03/28/15 [History] amLODIPine BESYLATE [Norvasc] 5 mg PO DAILY 03/29/15 [History] Famotidine [Pepcid] 40 mg PO BID #40 tab 12/31/17 [Rx] Aspirin EC [Ecotrin Low Dose] 81 mg PO DAILY 03/12/19 [History] Lisinopril [Zestril] 10 mg PO BID 03/12/19 [History] Ondansetron Odt [Zofran Odt] 4 mg PO Q8HR PRN #12 tab 03/12/19 [Rx] Hydrocodone/Acetaminophen [[place] 5-325] 1 tab PO Q6HR PRN 3 Days #12 tab 04/26/19 [Rx] Omeprazole 40 mg PO DAILY #30 capsule. 04/26/19 [Rx] Simethicone 40 mg/0.6 ml Drops [Mylicon Drops] 40 mg PO PCHS PRN #30 ml 04/26/19 [Rx] Follow up Appointment(s)/Referral(s): Kendall Chairez MD [STAFF PHYSICIAN] - 05/10/19 1:30 pm Activity/Diet/Wound Care/Special Instructions: Full liquid diet for 2 weeks No straws or carbonated beverages. Follow sheets given to you. fluids are always encouraged. No driving while taking [place].No lifting pushing pulling over 10 pounds. You may shower. No soaking or baths swimming pools or hot tubs. Very light activity until you are reevaluated at your follow up appointment with your surgeon. appointment has been made for you. Call physician with any questions comments concerns worsening returning symptoms, fever 101.1 or higher, not tolerating diet or fluids, pain not controlled by medications prescribed, incision site changes.
== END 2019-04-26 16:35 | disposition home or self-care (01) ==
LOC: OR 09:52 → 6PED 13:38 → OR 04-26 16:35
PROVIDERS: ATTEND Surgery
DX: K21.9 Gastro-esophageal reflux disease without esophagitis (principal); K44.9 Diaphragmatic hernia without obstruction or gangrene; E78.5 Hyperlipidemia, unspecified; F17.200 Nicotine dependence, unspecified, uncomplicated; I10 Essential (primary) hypertension; I25.10 Atherosclerotic heart disease of native coronary artery without angina pectoris; I25.2 Old myocardial infarction; K22.8 Other specified diseases of esophagus; Z79.82 Long term (current) use of aspirin; Z83.3 Family history of diabetes mellitus; Z86.711 Personal history of pulmonary embolism; Z86.718 Personal history of other venous thrombosis and embolism; Z90.49 Acquired absence of other specified parts of digestive tract; Z95.5 Presence of coronary angioplasty implant and graft; Z96.89 Presence of other specified functional implants; Z79.899 Other long term (current) drug therapy
CPT/HCPCS: 74210; 43282; C1781; J2250; J1644; J1100; J2710; J0690; J2405; J2001; J1650; J3010; J1885; J1170; J0330; J2704; Q9967

== ENCOUNTER → 2020-03-30 | Outpatient (CLI) | payer MEDICARE, BC ==
[2020-03-30 17:25] LABS: ALT 16 U/L (8-44); AST 23 U/L (13-35); Albumin/Globulin Ratio 1.91 (1.60-3.17); Alkaline Phosphatase 124 U/L (41-126); Bilirubin, Conjugated <0.20 mg/dL (0.20-0.40); Chol/HDL Ratio 2.71; Cholesterol 203 mg/dL (0-200); Globulin 2.3 g/dL (1.6-3.3); LDL Cholesterol,Calculated 111.8 mg/dL (0.0-131.0); Total Bilirubin 0.3 mg/dL (0.2-1.2); Total Protein 6.7 g/dL (6.2-8.2)
== END | disposition home or self-care (01) ==
LOC: LABWHC1 08:16
PROVIDERS: ATTEND Internal Medicine Cardiovascular Disease
DX: I10 Essential (primary) hypertension (principal); I25.10 Atherosclerotic heart disease of native coronary artery without angina pectoris; I25.2 Old myocardial infarction
CPT/HCPCS: 36415; 80061; 80076

== ENCOUNTER → 2021-01-31 | Outpatient (CLI) | payer BC ==
--- NOTE | 2021-01-31 09:06 | FL ---
EXAMINATION TYPE: FL UGI air w esophagus DATE OF EXAM: 01/31/2021 COMPARISON: 04/26/2019 HISTORY: Mid chest pain with history of prior hernia repair x2 TECHNIQUE: A double contrast UGI study is performed. A total of 2 minutes 36 seconds of fluoroscopi c time was utilized during procedure and 101 images obtained. FINDINGS: Director Index image of the abdomen shows scoliosis and degenerative changes in the bones with post operative changes of the abdomen and an inferior vena cava filter. The esophagus shows delayed emptying into the stomach with intermittent significant delay particularl y at the gastroesophageal junction which was noted to have intermittent stricture at the gastroesopha geal junction, likely due to spasm. There is focal outpouching of the left lateral aspect of the eso phagus at the lower cervical level, most consistent with a diverticulum. Multiple tertiary contractio ns are seen. Small hiatal hernia is present. The stomach shows normal distensibility, peristalsis, and mucosal folds. No evidence of any mass or ulcer disease. No significant gastroesophageal reflux was seen during real time performance of this study. IMPRESSION: 1. Marked delayed emptying of the esophagus into the stomach with intermittent stricture at the gastr oesophageal junction, likely due to spasm. Multiple tertiary contractions of the esophagus were noted . 2. Focal outpouching of contrast in the left lateral aspect of the lower cervical esophagus most like ly represents a diverticulum. 3. Small hiatal hernia.
== END | disposition home or self-care (01) ==
LOC: RADUSWWP 07:48
PROVIDERS: ATTEND Surgery
DX: K44.9 Diaphragmatic hernia without obstruction or gangrene (principal)
CPT/HCPCS: 74246

== ENCOUNTER 2021-02-27 14:40 | Observation (INO) | payer BC, MEDICARE ==
[2021-02-27] MEDS ORDERED: MORPHINE SULFATE 2 MG/ML SYRINGE IVP STA (15:48)
[2021-02-27] MEDS ORDERED: SODIUM CHLORIDE 0.9% 500 ML 500 ML IV STA (15:48)
--- NOTE | 2021-02-27 16:01 | ED ---
Abdominal Pain HPI - General Chief Complaint: Abdominal Pain Stated Complaint: Abd pain Source: patient, RN notes reviewed, old records reviewed Mode of arrival: ambulatory Limitations: no limitations - History of Present Illness Initial Comments: 70-year-old well-appearing white female, alert and oriented 4, presents to the emergency room with several months of epigastric abdominal pain. Patient states that he gets worse when she is walking or standing. She states that she's also been having chronic bilateral lower extremity pain from the knee down, cramping. She states that she is been seeing Dr. Garcia regarding the veins in her legs and has another appt at the end of March. She states she has been using Aspercreme on the upper abdominal pain with no relief. She has been taking omeprazole daily also with no relief. She states that she has seen Dr. Chairez and had an upper GI on January 31 and was told that there is nothing he can do. Patient states she wants another opinion. Patient states that she is a pack-a-day smoker. MD Complaint: abdominal pain -: month(s) (3) Location: epigastric Radiation: none Severity scale (1-10): 8 Quality: fullness Consistency: intermittent Improves With: nothing Worsens With: other (Walking or standing) Context: recent surgery/procedure (Upper GI 01/31/2021) Associated Symptoms: other (Leg cramps bilateral) - Related Data Home Medications Medication Instructions Recorded Confirmed atenoloL [Atenolol] 25 mg PO DAILY 03/28/15 02/27/21 amLODIPine BESYLATE [Norvasc] 5 mg PO DAILY 03/29/15 02/27/21 Aspirin EC [Ecotrin Low Dose] 81 mg PO BID 03/12/19 02/27/21 lisinopriL [Zestril] 10 mg PO BID 03/12/19 02/27/21 Isosorbide Mononitrate ER [Imdur] 30 mg PO DAILY 02/27/21 02/27/21 Rosuvastatin Calcium 5 mg PO DAILY 02/27/21 02/27/21 Previous Rx's Medication Instructions Recorded Omeprazole 40 mg PO DAILY #30 capsule. 04/26/19 Allergies Allergy/AdvReac Type Severity Reaction Status Date / Time No Known Allergies Allergy Verified 02/27/21 18:31 Review of Systems ROS Statement: Those systems with pertinent positive or pertinent negative responses have been documented in the HPI. ROS Other: All systems not noted in ROS Statement are negative. Past Medical History Past Medical History: Deep Vein Thrombosis (DVT), Hyperlipidemia, Hypertension, Myocardial Infarction ([place]), Pulmonary Embolus (PE) Additional Past Medical History / Comment(s): DVT LEG- UNSURE WHICH ONE, previously "charted hx ulcer, partial blockage of carotid arteries" RECURRENT HIATAL HERNIA Last Myocardial Infarction Date:: 1999 History of Any Multi-Drug Resistant Organisms: None Reported Past Surgical History: Appendectomy, Cholecystectomy, Heart Catheterization With Stent, Hernia Repair, Hysterectomy Additional Past Surgical History / Comment(s): JOSH FILTER INSERTION, STATES HAS WIRE IN LEFT EAR TO AIDE IN HEARING,hiatal hernia sx, EGD, LT SHOULDER SX, Past Anesthesia/Blood Transfusion Reactions: No Reported Reaction Date of Last Stent Placement:: 2001 Past Psychological History: No Psychological Hx Reported Smoking Status: Current every day smoker Past Alcohol Use History: Occasional Past Drug Use History: None Reported - Past Family History Mother Family Medical History: Diabetes Mellitus Father Additional Family Medical History / Comment(s): brain aneurysm Son(s) Family Medical History: Cancer Additional Family Medical History / Comment(s): UNSURE WHAT KIND General Exam Limitations: no limitations General appearance: alert, in no apparent distress Head exam: Present: atraumatic, normocephalic, normal inspection Eye exam: Present: normal appearance, PERRL, EOMI. Absent: scleral icterus, conjunctival injection, periorbital swelling ENT exam: Present: normal exam, normal oropharynx, mucous membranes moist Neck exam: Present: normal inspection, full ROM. Absent: tenderness, meningismus, lymphadenopathy, thyromegaly Respiratory exam: Present: normal lung sounds bilaterally. Absent: respiratory distress, wheezes, rales, rhonchi, stridor, chest wall tenderness, accessory muscle use, decreased breath sounds, prolonged expiratory Cardiovascular Exam: Present: normal rhythm, bradycardia, normal heart sounds. Absent: systolic murmur, diastolic murmur, rubs, gallop, clicks, JVD GI/Abdominal exam: Present: soft, normal bowel sounds. Absent: distended, tenderness, guarding, rebound, rigid, mass, pulsatile mass, hernia Rectal exam: Present: deferred Extremities exam: Present: normal inspection, full ROM, normal capillary refill. Absent: tenderness, pedal edema, joint swelling, calf tenderness Back exam: Present: normal inspection. Absent: tenderness, CVA tenderness (R), CVA tenderness (L), muscle spasm, paraspinal tenderness, vertebral tenderness, rash noted Neurological exam: Present: alert, oriented X3, CN II-XII intact Psychiatric exam: Present: normal affect, normal mood Skin exam: Present: warm, dry, intact, normal color. Absent: rash, cyanosis, diaphoretic, erythema, petechiae, pallor, mottled Course Vital Signs 02/27/21 02/27/21 15:06 17:34 Temperature 97.9 F Pulse Rate 56 L 62 Respiratory 98 H 18 Rate Blood Pressure 114/69 136/61 O2 Sat by Pulse 98 99 Oximetry Medical Decision Making - Medical Decision Making Lower GI and 01/31/2021 was found to have an intermittent stricture at the gastroesophageal junction with spasm. Patient has had 2 hiatal hernia surgeries. She is being followed by Dr. Chairez for this pain. Patient is also seeing Dr. Garcia for venous insufficiency and has another appointment in March. WBC count is 6.0. EKG does show a new bundle branch block, troponin is negative at 0.012. Creatinine is 1.25 and UA shows 1+ ketones 57 hyaline casts patient was given [address] shows some mild large bowel ileus with fluid levels. X-ray shows evidence for some small bowel ileus but no free air. Patient will be admitted to Dr. Gong with consults to cardiology and GI. Patient was given SoluMedrol and Reglan per Dr. Butt. Case discussed with Dr. Guillaume. - Lab Data Result diagrams: 02/27/21 16:13 02/27/21 16:13 Lab Results 02/27/21 02/27/21 02/27/21 Range/Units 16:13 16:13 16:13 WBC 6.0 (3.8-10.6) k/uL RBC 4.01 (3.80-5.40) m/uL Hgb 10.5 L (11.4-16.0) gm/dL Hct 33.9 L (34.0-46.0) % MCV 84.5 (80.0-100.0) fL MCH 26.3 (25.0-35.0) pg MCHC 31.1 (31.0-37.0) g/dL RDW 15.8 H (11.5-15.5) % Plt Count 316 (150-450) k/uL MPV 7.3 Neutrophils % 69 % Lymphocytes % 20 % Monocytes % 8 % Eosinophils % 1 % Basophils % 1 % Neutrophils # 4.1 (1.3-7.7) k/uL Lymphocytes # 1.2 (1.0-4.8) k/uL Monocytes # 0.5 (0-1.0) k/uL Eosinophils # 0.0 (0-0.7) k/uL Basophils # 0.1 (0-0.2) k/uL Hypochromasia Moderate PT 10.2 (9.0-12.0) sec INR 0.9 (<1.2) APTT 22.2 (22.0-30.0) sec Sodium (137-145) mmol/L Potassium (3.5-5.1) mmol/L Chloride (98-107) mmol/L Carbon Dioxide (22-30) mmol/L Anion Gap mmol/L BUN (7-17) mg/dL Creatinine (0.52-1.04) mg/dL Est GFR (CKD-EPI)AfAm (>60 ml/min/1.73 sqM) Est GFR (CKD-EPI)NonAf (>60 ml/min/1.73 sqM) Glucose (74-99) mg/dL Calcium (8.4-10.2) mg/dL Total Bilirubin (0.2-1.3) mg/dL AST (14-36) U/L ALT (4-34) U/L Alkaline Phosphatase (38-126) U/L Troponin I (0.000-0.034) ng/mL Total Protein (6.3-8.2) g/dL Albumin (3.5-5.0) g/dL Amylase (30-110) U/L Lipase (23-300) U/L Urine Color Yellow Urine Appearance Cloudy H (Clear) Urine pH 5.5 (5.0-8.0) Ur Specific [place] 1.032 (1.001-1.035) Urine Protein 1+ H (Negative) Urine Glucose (UA) Negative (Negative) Urine Ketones 1+ H (Negative) Urine Blood Negative (Negative) Urine Nitrite Negative (Negative) Urine Bilirubin 1+ H (Negative) Urine Urobilinogen 4.0 (<2.0) mg/dL Ur Leukocyte Esterase Small H (Negative) Urine RBC 3 (0-5) /hpf Urine WBC 4 (0-5) /hpf Ur Squamous Epith Cells 7 H (0-4) /hpf Urine Bacteria Rare H (None) /hpf Hyaline Casts 57 H (0-2) /lpf Urine Mucus Moderate H (None) /hpf 02/27/21 02/27/21 Range/Units 16:13 16:13 WBC (3.8-10.6) k/uL RBC (3.80-5.40) m/uL Hgb (11.4-16.0) gm/dL Hct (34.0-46.0) % MCV (80.0-100.0) fL MCH (25.0-35.0) pg MCHC (31.0-37.0) g/dL RDW (11.5-15.5) % Plt Count (150-450) k/uL MPV Neutrophils % % Lymphocytes % % Monocytes % % Eosinophils % % Basophils % % Neutrophils # (1.3-7.7) k/uL Lymphocytes # (1.0-4.8) k/uL Monocytes # (0-1.0) k/uL Eosinophils # (0-0.7) k/uL Basophils # (0-0.2) k/uL Hypochromasia PT (9.0-12.0) sec INR (<1.2) APTT (22.0-30.0) sec Sodium 139 (137-145) mmol/L Potassium 4.5 (3.5-5.1) mmol/L Chloride 105 (98-107) mmol/L Carbon Dioxide 24 (22-30) mmol/L Anion Gap 10 mmol/L BUN 16 (7-17) mg/dL Creatinine 1.25 H (0.52-1.04) mg/dL Est GFR (CKD-EPI)AfAm 50 (>60 ml/min/1.73 sqM) Est GFR (CKD-EPI)NonAf 44 (>60 ml/min/1.73 sqM) Glucose 96 (74-99) mg/dL Calcium 9.5 (8.4-10.2) mg/dL Total Bilirubin 0.3 (0.2-1.3) mg/dL AST 29 (14-36) U/L ALT 16 (4-34) U/L Alkaline Phosphatase 126 (38-126) U/L Troponin I <0.012 (0.000-0.034) ng/mL Total Protein 7.1 (6.3-8.2) g/dL Albumin 4.3 (3.5-5.0) g/dL Amylase 61 (30-110) U/L Lipase 136 (23-300) U/L Urine Color Urine Appearance (Clear) Urine pH (5.0-8.0) Ur Specific [place] (1.001-1.035) Urine Protein (Negative) Urine Glucose (UA) (Negative) Urine Ketones (Negative) Urine Blood (Negative) Urine Nitrite (Negative) Urine Bilirubin (Negative) Urine Urobilinogen (<2.0) mg/dL Ur Leukocyte Esterase (Negative) Urine RBC (0-5) /hpf Urine WBC (0-5) /hpf Ur Squamous Epith Cells (0-4) /hpf Urine Bacteria (None) /hpf Hyaline Casts (0-2) /lpf Urine Mucus (None) /hpf - EKG Data EKG shows normal: intervals (Ventricular rate of 58, ME interval of 0.164, QRS of 0.140, QTC of .506) When compared to previous EKG there are: changes noted (Left bundle branch noted, not seen on 03/12/2019) Disposition Clinical Impression: Abdominal pain, Ileus Disposition: ADMITTED IP TO THIS [facility] Condition: Fair Referrals: Leslie Segovia DO [Primary Care Provider] - 1-2 days Decision Date: 02/27/21 Decision Time: 18:27
[2021-02-27] MEDS ORDERED: IOPAMIDOL CONTRAST (ORAL USE) VIAL PO PRN (16:13)
[2021-02-27 16:33] LABS: Basophils # (A) 0.1 k/uL (0-0.2); Basophils % (A) 1 %; Eosinophils % (A) 1 %; HCT 33.9 % (34.0-46.0); HGB 10.5 gm/dL (11.4-16.0); Hypochromasia Moderate; Lymphocytes # (A) 1.2 k/uL (1.0-4.8); Lymphocytes % (A) 20 %; MCH 26.3 pg (25.0-35.0); MCHC 31.1 g/dL (31.0-37.0); MCV 84.5 fL (80.0-100.0); Mean Platelet Volume 7.3; Monocytes # (A) 0.5 k/uL (0-1.0); Monocytes % (A) 8 %; Neutrophils # (A) 4.1 k/uL (1.3-7.7); Neutrophils % (A) 69 %; Platelet Count 316 k/uL (150-450); RBC 4.01 m/uL (3.80-5.40); RDW 15.8 % (11.5-15.5)
[2021-02-27 16:41] LABS: INR 0.9 (<1.2); Partial Thromboplastin Time 22.2 sec (22.0-30.0); Prothrombin Time 10.2 sec (9.0-12.0)
[2021-02-27 16:47] LABS: Albumin 4.3 g/dL (3.5-5.0); Calcium 9.5 mg/dL (8.4-10.2); Potassium 4.5 mmol/L (3.5-5.1); Total Bilirubin 0.3 mg/dL (0.2-1.3); Total Protein 7.1 g/dL (6.3-8.2)
[2021-02-27 16:51] LABS: Appearance,Urine Cloudy (Clear); Bacteria,Urine Rare /hpf; Bilirubin,Urine 1+ (Negative); Blood,Urine Negative (Negative); Color,Urine Yellow; Glucose,Urine (UA) Negative (Negative); Hyaline Casts,Urine 57 /lpf (0-2); Ketones,Urine 1+ (Negative); Leukocyte Esterase,Urine Small (Negative); Mucus,Urine Moderate /hpf; Nitrite,Urine Negative (Negative); PH, Urine 5.5 (5.0-8.0); Protein,Urine 1+ (Negative); RBC,Urine 3 /hpf (0-5); Specific Gravity,Urine 1.032 (1.001-1.035); Squamous Epithelial Cell,Urine 7 /hpf (0-4); WBC,Urine 4 /hpf (0-5)
--- NOTE | 2021-02-27 16:55 | XR ---
EXAMINATION TYPE: XR KUB DATE OF EXAM: 02/27/2021 COMPARISON: 03/12/2019 HISTORY: Abdominal pain nausea. TECHNIQUE: 2 views upright FINDINGS: There are a few intestinal small bowel fluid levels. Lung bases are clear. There is flatten ing of the diaphragm. There is inferior vena cava filter. There are clips from cholecystectomy. There is mild lumbar levoscoliosis. There is no evidence of abdominal mass. IMPRESSION: There is evidence for some small bowel ileus that is new compared to old exam. No free ai r. There is probably COPD.
--- NOTE | 2021-02-27 17:49 | CT ---
EXAMINATION TYPE: CT abdomen pelvis w con DATE OF EXAM: 02/27/2021 COMPARISON: 10/15/2015 HISTORY: epigastric pain CT DLP: 714.4 mGycm Automated exposure control for dose reduction was used. CONTRAST: Performed with IV Contrast, patient injected with 80 mL of Isovue 300. Images obtained from the diaphragm to the floor the pelvis with IV contrast. The lung bases are clear of infiltrate. There is no pleural effusion. Heart size is normal. There are surgical clips at the gastric fundus. Liver and spleen are intact. There is no pancreatic mass. Ther e are clips from cholecystectomy. There is no adrenal mass. Kidneys show satisfactory contrast opacification. There is no hydronephrosi s. The bile ducts are not dilated. There is inferior vena cava filter. Abdominal aorta is atheromatou s. The ureters are not dilated. There is no retroperitoneal adenopathy. Bladder distends smoothly. Th ere is no inguinal hernia. There is no free fluid in the pelvis. There is no mesenteric edema. There is no ascites or free air. There is no sign of a bowel obstructio n. Appendix is not seen. There is no sign of thickened appendix. There is some sigmoid diverticulosis . There are some large bowel fluid levels in the transverse colon and descending colon. There is mild lumbar levoscoliosis. There is spondylotic mild changes in the lumbar spine. There is n o compression fracture. The bony pelvis appears intact. Hip joints are intact. There is no evidence o f a pelvic mass. There is hysterectomy. IMPRESSION: There is evidence for some mild large bowel ileus with fluid levels which is a change compared to old exam.
[2021-02-27] MEDS ORDERED: METOCLOPRAMIDE 5 MG/ML 2 ML VIAL IVP STA (18:34)
[2021-02-27] MEDS ORDERED: methylPREDNISolone SOD SUCCI 125 MG/2 ML VIAL IV STA (18:34)
[2021-02-27] MEDS ORDERED: ACETAMINOPHEN TAB 325 MG TAB PO PRN (18:35)
[2021-02-27] MEDS ORDERED: NALOXONE 0.4 MG/ML 1 ML VIAL IV PRN (18:35)
[2021-02-27] MEDS: SODIUM CHLORIDE 0.9% 1,000 ML IV SCH (22:37)
[2021-02-28] MEDS ORDERED: METOCLOPRAMIDE 5 MG/ML 2 ML VIAL IVP PRN
[2021-02-28] MEDS: ISOSORBIDE MONONITRATE ER 30 MG TAB.ER.24H PO SCH (07:07)
[2021-02-28] MEDS: PANTOPRAZOLE 40 MG TABLET PO SCH (07:07)
[2021-02-28] MEDS: amLODIPine 5 MG TAB PO SCH (07:07)
[2021-02-28] MEDS: lisinopriL 10 MG TAB PO SCH ×2 (07:07→21:20)
[2021-02-28] MEDS: ASPIRIN 81 MG PO SCH ×2 (07:07→21:20)
[2021-02-28] MEDS: atenoloL 25 MG TAB PO SCH (07:11)
[2021-02-28] MEDS: SODIUM CHLORIDE 0.9% 1,000 ML IV SCH (07:12)
--- NOTE | 2021-02-28 13:53 | P.GSCN ---
History of Present Illness Consult date: 02/28/21 History of present illness: 70-year-old female presented to the emergency Department secondary to epigastric abdominal pain. She states this has been going on for a few months. She states that it gets worse with standing and with prolonged walking. She is noted to morgan ve a history of hiatal hernia repair 2 with Sayda fundoplication. She states that the first procedure was performed around 2013 and the second procedure was performed in [address] Chairez. She has been following with him for this issue and did have a barium study performed for further evaluation. She states that she is seeking a second opinion and therefore abdomen consult. She states that she occasionally feels that larger bites of food getting stuck in her distal esophagus. She states that eventually the food passes. She does attempt to chew her food thoroughly. She does not seem to have many issues with liquids. Recent upper GI study revealed a stricture at the distal esophagus with delayed emptying of the esophagus. CT of the abdomen and pelvis was also performed in the emergency department with finding of large bowel ileus. Patient denies any changes in bowel function and does have regular bowel movements. She has no additional complaints at this time. Review of Systems All systems: negative Past Medical History Past Medical History: Deep Vein Thrombosis (DVT), Hyperlipidemia, Hypertension, Myocardial Infarction (NM), Pulmonary Embolus (PE) Additional Past Medical History / Comment(s): DVT LEG- UNSURE WHICH ONE, previously "charted hx ulcer, partial blockage of carotid arteries" RECURRENT HIATAL HERNIA Last Myocardial Infarction Date:: 1999 History of Any Multi-Drug Resistant Organisms: None Reported Past Surgical History: Appendectomy, Cholecystectomy, Heart Catheterization With Stent, Hernia Repair, Hysterectomy Additional Past Surgical History / Comment(s): JOSH FILTER INSERTION, STATES HAS WIRE IN LEFT EAR TO AIDE IN HEARING,hiatal hernia sx, EGD, LT SHOULDER SX, Past Anesthesia/Blood Transfusion Reactions: No Reported Reaction Date of Last Stent Placement:: 2001 Past Psychological History: No Psychological Hx Reported Additional Psychological History / Comment(s): pt lives in own home by herself- has 3 steps into single level home. no pets,no outside services. pt works as house keeper at the [employer] Smoking Status: Smoker, current status unknown Past Alcohol Use History: Occasional Additional Past Alcohol Use History / Comment(s): started smoking at age 17 smokes 1 1/2 ppd. DRINKS ABOUT 8 ALCOHOLIC DRINKS A WEEK Past Drug Use History: None Reported - Past Family History Mother Family Medical History: Diabetes Mellitus Father Additional Family Medical History / Comment(s): brain aneurysm Son(s) Family Medical History: Cancer Additional Family Medical History / Comment(s): UNSURE WHAT KIND Medications and Allergies Home Medications Medication Instructions Recorded Confirmed Type RX: atenoloL [Atenolol] 25 mg PO DAILY 03/28/15 02/27/21 History RX: amLODIPine BESYLATE [Norvasc] 5 mg PO DAILY 03/29/15 02/27/21 History Aspirin EC [Ecotrin Low Dose] 81 mg PO BID 03/12/19 02/27/21 History lisinopriL [Zestril] 10 mg PO BID 03/12/19 02/27/21 History RX: Omeprazole 40 mg PO DAILY #30 capsule. 04/26/19 02/27/21 Rx Isosorbide Mononitrate ER [Imdur] 30 mg PO DAILY 02/27/21 02/27/21 History RX: Rosuvastatin Calcium 5 mg PO DAILY 02/27/21 02/27/21 History Allergies Allergy/AdvReac Type Severity Reaction Status Date / Time No Known Allergies Allergy Verified 02/27/21 18:31 Surgical - Exam Osteopathic Statement: *. No significant issues noted on an osteopathic structural exam other than those noted in the History and Physical/Consult. Vital Signs Temp Pulse Resp BP Pulse Ox 97.9 F 56 L 98 H 114/69 98 02/27/21 15:06 02/27/21 15:06 02/27/21 15:06 02/27/21 15:06 02/27/21 15:06 - General well nourished, no distress - Eyes normal ocular movement - Neck trachea midline - Respiratory normal respiratory effort - Abdomen Abdomen: soft, non tender - Psychiatric oriented to time, oriented to person, oriented to place Results - Labs 02/27/21 16:13 02/27/21 16:13 Abnormal Lab Results - Last 24 Hours (Table) 02/27/21 02/27/21 02/27/21 Range/Units 16:13 16:13 16:13 Hgb 10.5 L (11.4-16.0) gm/dL Hct 33.9 L (34.0-46.0) % RDW 15.8 H (11.5-15.5) % Creatinine 1.25 H (0.52-1.04) mg/dL Urine Appearance Cloudy H (Clear) Urine Protein 1+ H (Negative) Urine Ketones 1+ H (Negative) Urine Bilirubin 1+ H (Negative) Ur Leukocyte Esterase Small H (Negative) Ur Squamous Epith Cells 7 H (0-4) /hpf Urine Bacteria Rare H (None) /hpf Hyaline Casts 57 H (0-2) /lpf Urine Mucus Moderate H (None) /hpf Diabetes panel 02/27/21 Range/Units 16:13 Sodium 139 (137-145) mmol/L Potassium 4.5 (3.5-5.1) mmol/L Chloride 105 (98-107) mmol/L Carbon Dioxide 24 (22-30) mmol/L BUN 16 (7-17) mg/dL Creatinine 1.25 H (0.52-1.04) mg/dL Glucose 96 (74-99) mg/dL Calcium 9.5 (8.4-10.2) mg/dL AST 29 (14-36) U/L ALT 16 (4-34) U/L Alkaline Phosphatase 126 (38-126) U/L Total Protein 7.1 (6.3-8.2) g/dL Albumin 4.3 (3.5-5.0) g/dL Calcium panel 02/27/21 Range/Units 16:13 Calcium 9.5 (8.4-10.2) mg/dL Albumin 4.3 (3.5-5.0) g/dL Pituitary panel 02/27/21 Range/Units 16:13 Sodium 139 (137-145) mmol/L Potassium 4.5 (3.5-5.1) mmol/L Chloride 105 (98-107) mmol/L Carbon Dioxide 24 (22-30) mmol/L BUN 16 (7-17) mg/dL Creatinine 1.25 H (0.52-1.04) mg/dL Glucose 96 (74-99) mg/dL Calcium 9.5 (8.4-10.2) mg/dL Adrenal panel 02/27/21 Range/Units 16:13 Sodium 139 (137-145) mmol/L Potassium 4.5 (3.5-5.1) mmol/L Chloride 105 (98-107) mmol/L Carbon Dioxide 24 (22-30) mmol/L BUN 16 (7-17) mg/dL Creatinine 1.25 H (0.52-1.04) mg/dL Glucose 96 (74-99) mg/dL Calcium 9.5 (8.4-10.2) mg/dL Total Bilirubin 0.3 (0.2-1.3) mg/dL AST 29 (14-36) U/L ALT 16 (4-34) U/L Alkaline Phosphatase 126 (38-126) U/L Total Protein 7.1 (6.3-8.2) g/dL Albumin 4.3 (3.5-5.0) g/dL Assessment and Plan Plan: 70-year-old female with epigastric pain. She is noted to have history of to hiatal hernia repairs. Recent upper GI did reveal esophageal stricture at the distal esophagus with delayed emptying of the esophagus. It is unclear whether this is spasm or secondary to her history of previous repair. Based on the fact that she has had 2 fundoplication procedures performed, I would recommend further evaluation of this issue with a foregut specialist. Foregut specialist would be in the [facility] area as there are none locally. Large bowel ileus appears to be an incidental finding on CT as the patient denies any changes in bowel movements and states that she regularly does have bowel movements in the morning and has been having flatus. We will advance the patient to a clear liquid diet. GI evaluation is pending.
--- NOTE | 2021-02-28 15:39 | CONS ---
CONSULTATION CHIEF COMPLAINT: Abnormal EKG. HISTORY OF PRESENT ILLNESS: Blanca is a 70-year-old lady with history of hypertension, hiatal hernia, and dyslipidemia who primarily came in complaining of epigastric discomfort which seems to be troubling her for a while. We have been consulted because of an abnormal EKG. She does not have chest pain. She does not have leg edema, PND or orthopnea. She does have bilateral lower extremity discomfort and apparently has some form of peripheral arterial disease and has seen my associate Dr. William for the same. She also has a history of coronary artery disease and had angioplasty nearly 20 years ago and sees my associate Dr. Frye on a regular basis for that. She has not had any recent stress test. The patient has hiatal hernia and is managed by Dr. Chairez. It is unclear if she had surgeries for that. She has certainly had an upper endoscopy by her surgeon and was told that there is nothing he can do about it. EKG shows sinus rhythm with left bundle branch block which is new compared to an EKG that was done in 2019. She has had 3 sets of cardiac enzymes that are all within normal limits. Hemoglobin is 10.5. Potassium is 4.5 and creatinine is 1.2. PAST MEDICAL HISTORY: Significant for hypertension and dyslipidemia, coronary artery disease and peripheral vascular disease. There is history of a [place] filter placement. MEDICATIONS: Medications at home included Zestril 10 b.i.d., atenolol 25 daily, Norvasc 5 daily, Crestor 5 daily, omeprazole, Imdur and aspirin. ALLERGIES: There are no known drug allergies. FAMILY HISTORY: Negative for premature coronary artery disease. SOCIAL HISTORY: Negative for smoking, EtOH abuse, or drug abuse. REVIEW OF SYSTEMS: HEENT: Is unremarkable. CARDIAC: As described above. RESPIRATORY: As described above. GI: Negative. : Negative. ALLERGY/IMMUNOLOGY: Negative. SKIN: Negative. MUSCULOSKELETAL: Significant for arthritis. PSYCHOSOCIAL: Negative. ENDOCRINE: Negative. DERM: Negative. CONSTITUTIONAL: Negative. ONCOLOGICAL: Negative. Rest of the system review is not relevant. EXAM: Comfortable at rest. Vital signs are stable. There is no jugular venous distention. Carotid upstroke is normal. There is no bruit. Chest exam reveals good air entry bilaterally. Heart exam reveals first and second heart sounds. No gallop. No murmur. No rub. Abdomen is soft, nontender. Examination of extremities did not reveal any edema. Peripheral pulses are felt. LAB: Labs show that 2 sets of troponins are negative. ASSESSMENT: 1. Abnormal EKG. 2. Epigastric discomfort related to hiatal hernia. 3. Hypertension. 4. Coronary artery disease, status post prior angioplasty. PLAN: I will obtain a 2D echo and decide on further course of action based on the echo findings. MMODL / IJN: [id number] /
--- NOTE | 2021-02-28 15:40 | P.CONS ---
History of Present Illness - Reason for Consult Consult date: 02/28/21 Ileus Requesting physician: Deric Gong - Chief Complaint Abdominal pain, leg pain - History of Present Illness This is a 70-year-old white female who presented to the emergency department with complaints of abdominal pain and leg pain. He has a past medical history significant for DVT, hyperlipidemia, hypertension, IA, pulmonary embolism, she is a current smoker, very artery disease with stent, history of appendectomy and cholecystectomy. The patient states for the last 1-2 months she's been having epigastric pain with walking. States it only bothers her when she is up walking, and she is sitting or lying down it does not hurt. She states it is a sharp pain. She denies any difficulty with swallowing, denies any nausea, or vomiting. Her last EGD was done in [address] Chairez, she states 1 month following she had a repair on her hiatal hernia which was her second one done. The patient states she does use Aleve regularly but not daily. She has no previous history of peptic ulcer disease. As part of her workup in the emergency department she had abdominal x-ray showing evidence for small bowel ileus, she also had a CT of the abdomen and pelvis showing evidence for some mild large bowel ileus with fluid levels. She states Dr. Card has ordered an upper GI series in January of this year and told her it was normal there was nothing he could do. Upper GI report shows marked delayed emptying of esophagus into stomach with intermittent stricture at GE junction, likely due to spasm. Multiple tertiary contractions. Focal outpouching of contrast in the left lateral aspect lower cervical esophagus, most likely diverticulum. Small hiatal hernia. Admitting labs WBC 6, hemoglobin 10.5, hematocrit 33, platelet count 316,000, total bilirubin 0.3, alkaline phosphatase 126, AST 29, ALT 16. Patient states she currently has no abdominal pain, no nausea, no vomiting. She states she would like a second surgical opinion. Review of Systems REVIEW OF SYSTEMS: CARDIOPULMONARY: No chest pain or shortness of breath. Gastrointestinal: Upper abdominal pain with walking. No nausea or vomiting. No difficulty swallowing. No hematemesis, coffee-ground emesis. No rectal bleeding, or melena. GENITOURINARY: No dysuria or hematuria. MUSCULOSKELETAL: Reports normal range of motion., Joint pain. Lower extremity cramping and pain with walking. SKIN: No rashes. No jaundice. ENDOCRINE: No chills, fevers. No excessive weight gain or loss. No polydipsia or polyuria. PSYCHIATRIC: Unremarkable. NEUROLOGY: No change in mental status. Denies dizziness, headache. ENT: Vision unremarkable. CONSTITUTIONAL: No recent weight loss. No fever, chills, night sweats. Past Medical History Past Medical History: Deep Vein Thrombosis (DVT), Hyperlipidemia, Hypertension, Myocardial Infarction (IA), Pulmonary Embolus (PE) Additional Past Medical History / Comment(s): DVT LEG- UNSURE WHICH ONE, previously "charted hx ulcer, partial blockage of carotid arteries" RECURRENT HIATAL HERNIA Last Myocardial Infarction Date:: 1999 History of Any Multi-Drug Resistant Organisms: None Reported Past Surgical History: Appendectomy, Cholecystectomy, Heart Catheterization With Stent, Hernia Repair, Hysterectomy Additional Past Surgical History / Comment(s): JOSH FILTER INSERTION, STATES HAS WIRE IN LEFT EAR TO AIDE IN HEARING,hiatal hernia sx, EGD, LT SHOULDER SX, Past Anesthesia/Blood Transfusion Reactions: No Reported Reaction Date of Last Stent Placement:: 2001 Past Psychological History: No Psychological Hx Reported Additional Psychological History / Comment(s): pt lives in own home by herself- has 3 steps into single level home. no pets,no outside services. pt works as house keeper at the [employer] Smoking Status: Smoker, current status unknown Past Alcohol Use History: Occasional Additional Past Alcohol Use History / Comment(s): started smoking at age 17 smokes 1 1/2 ppd. DRINKS ABOUT 8 ALCOHOLIC DRINKS A WEEK Past Drug Use History: None Reported - Past Family History Mother Family Medical History: Diabetes Mellitus Father Additional Family Medical History / Comment(s): brain aneurysm Son(s) Family Medical History: Cancer Additional Family Medical History / Comment(s): UNSURE WHAT KIND Medications and Allergies Home Medications Medication Instructions Recorded Confirmed Type atenoloL [Atenolol] 25 mg PO DAILY 03/28/15 02/27/21 History amLODIPine BESYLATE [Norvasc] 5 mg PO DAILY 03/29/15 02/27/21 History Aspirin EC [Ecotrin Low Dose] 81 mg PO BID 03/12/19 02/27/21 History lisinopriL [Zestril] 10 mg PO BID 03/12/19 02/27/21 History Omeprazole 40 mg PO DAILY #30 capsule. 04/26/19 02/27/21 Rx Isosorbide Mononitrate ER [Imdur] 30 mg PO DAILY 02/27/21 02/27/21 History Rosuvastatin Calcium 5 mg PO DAILY 02/27/21 02/27/21 History Allergies Allergy/AdvReac Type Severity Reaction Status Date / Time No Known Allergies Allergy Verified 02/27/21 18:31 Physical Exam Vitals: Vital Signs Temp Pulse Pulse Resp BP BP Pulse Ox 02/28/21 07:30 98.0 F 80 18 121/72 94 L 02/28/21 07:15 18 02/28/21 02:22 97.9 F 61 16 121/61 95 02/27/21 21:18 97.9 F 65 18 155/78 96 02/27/21 20:20 97.5 F L 72 18 150/70 99 02/27/21 17:34 62 18 136/61 99 02/27/21 15:06 97.9 F 56 L 98 H 114/69 98 Intake and Output 02/27/21 02/28/21 02/28/21 22:59 06:59 14:59 Other: # Voids 1 Weight 66.224 kg General appearance: The patient is alert, oriented, appears in no acute distress. HET: Head is normocephalic and atraumatic. Conjunctiva pink. Sclera anicteric. Neck: Supple without lymphadenopathy. Trachea midline. Heart: S1 S2. Regular rate and rhythm. Lungs: Clear to auscultation. Abdomen: Soft, nontender, nondistended with bowel sounds. No guarding or rigidity. Skin: No rashes. No jaundice. Extremities: Normal skin color and turgor. No pedal edema. Neurological: No focal deficits. Alert and oriented 3.. Results CBC & Chem 7: 02/27/21 16:13 02/27/21 16:13 Labs: Abnormal Lab Results - Last 24 Hours (Table) 02/27/21 02/27/21 02/27/21 Range/Units 16:13 16:13 16:13 Hgb 10.5 L (11.4-16.0) gm/dL Hct 33.9 L (34.0-46.0) % RDW 15.8 H (11.5-15.5) % Creatinine 1.25 H (0.52-1.04) mg/dL Urine Appearance Cloudy H (Clear) Urine Protein 1+ H (Negative) Urine Ketones 1+ H (Negative) Urine Bilirubin 1+ H (Negative) Ur Leukocyte Esterase Small H (Negative) Ur Squamous Epith Cells 7 H (0-4) /hpf Urine Bacteria Rare H (None) /hpf Hyaline Casts 57 H (0-2) /lpf Urine Mucus Moderate H (None) /hpf Comments: KUB x-ray: Evidence for small bowel ileus. CT abdomen and pelvis: Evidence for some mild large bowel ileus with fluid levels. Assessment and Plan (1) Abdominal pain Narrative/Plan: 40-year-old female who presented to the emergency department with complaints of upper abdominal pain associated when she walks. Patient has a history of 2 hiatal hernia surgeries done by Dr. Chairez, her last one in 2019. She has a previous history of an EGD prior to in 2019. She states she has been experiencing this pain for the last 1-2 months and has had follow-up with Dr. Card in the outpatient setting. He ordered an upper GI series which he underwent in January of this year showing marked delayed emptying of esophagus into stomach with intermittent stricture at GE junction, likely due to spasm. Multiple tertiary contractions. Focal outpouching of contrast and left lateral aspect lower cervical esophagus most likely diverticulum, small hiatal hernia. CT of the abdomen and pelvis did show some evidence for some mild large bowel ileus with fluid levels, abdominal x-ray showed evidence for small bowel ileus. Patient denies any difficulty swallowing, decreased appetite, or weight loss. States the pain is only with ambulating and is a sharp pain in the upper abdomen/epigastric region. She states she's been having normal daily bowel movements. She has no history of peptic ulcer disease, she does state that she uses Aleve regularly but not daily. Patient reports wanting a second surgical opinion. Unsure of etiology of pain, may be related to prior hiatal hernia surgeries. Agree with general surgery consult. No plans for endoscopic evaluation at this time. Discussed with patient she may follow-up for outpatient EGD with gastroenterology or surgical services. Current Visit: Yes Status: Acute Code(s): R10.9 - UNSPECIFIED ABDOMINAL PAIN SNOMED Code(s): 40437300 (2) Ileus Narrative/Plan: Patient having normal bowel movements, no nausea or vomiting. Gen. surgery is following patient. Current Visit: Yes Status: Acute Code(s): K56.7 - ILEUS, UNSPECIFIED SNOMED Code(s): 053614847 Plan: 1. May have clear liquid diet 2. Protonix 40 mg daily 3. Agree with surgical service consult 4. No plans an endoscopic evaluation at this time, patient may follow up for outpatient EGD with GI or general surgery services 5. Avoid NSAIDs Thank you for this consultation, we will continue to follow Dr. Smith I agree with the dictator's note, documented as a scribe by Stephanie Colbert.
--- NOTE | 2021-02-28 18:00 | ECHOF ---
Referral Reason:EKG CHANGES MEASUREMENTS -------- HEIGHT: 165.1 cm WEIGHT: 66.2 kg BP: 121/72 RVIDd: 3.5 cm (< 3.3) IVSd: 1.5 cm (0.6 - 1.1) LVIDd: 3.2 cm (3.9 - 5.3) LVPWd: 1.3 cm (0.6 - 1.1) IVSs: 1.4 cm LVIDs: 2.1 cm LVPWs: 1.5 cm LAESV Index (A-L): 36.55 ml/m Ao Diam: 3.1 cm (2.0 - 3.7) AV Cusp: 1.8 cm (1.5 - 2.6) LA Diam: 4.1 cm (2.7 - 3.8) MV E Mark: 0.84 m/s MV DecT: 228 ms MV A Mark: 1.44 m/s MV E/A Ratio: 0.58 RAP: 5.00 mmHg RVSP: 36.22 mmHg FINDINGS -------- This was a technically adequate study. The left ventricular size is normal. There is mild concentric left ventricular hypertrophy. Overa ll left ventricular systolic function is normal with, an EF between 55 - 60 %. The right ventricle is mildly enlarged. LA is moderately dilated 34-39 ml/m2 The right atrial size is normal. Interatrial and interventricular septum intact. There is no evidence of aortic regurgitation. There is no evidence of aortic stenosis. Moderate mitral regurgitation is present. Mild tricuspid regurgitation present. There is mild pulmonary hypertension. The right ventricular systolic pressure, as measured by Doppler, is 36.22mmHg. There is no pulmonic regurgitation present. The aortic root size is normal. Normal inferior vena cava with normal inspiratory collapse consistent with estimated right atrial pre ssure of 5 mmHg. There is no pericardial effusion. CONCLUSIONS -------- 1. The left ventricular size is normal. 2. There is mild concentric left ventricular hypertrophy. 3. Overall left ventricular systolic function is normal with, an EF between 55 - 60 %. 4. The right ventricle is mildly enlarged. 5. LA is moderately dilated 34-39 ml/m2 6. Moderate mitral regurgitation is present. 7. Mild tricuspid regurgitation present. 8. There is mild pulmonary hypertension. 9. The right ventricular systolic pressure, as measured by Doppler, is 36.22mmHg. SWING DRIVER: Milagros Contreras RDCS
[2021-03-01] MEDS: SODIUM CHLORIDE 0.9% 1,000 ML IV SCH (01:29)
--- NOTE | 2021-03-01 07:00 | P.HPIM ---
History of Present Illness H&P Date: 02/28/21 Chief Complaint: abdominal pain Blanca Alvarez is a 70 yo F with PMH of hiatal hernia, GERD, s/p gisele fundoplication x2 in 2013 and 2018 who presented to the ED complaining of e pigastric abdominal pain with standing and ambulation. She complains this has been going on for 3 months and has been painful to the point that makes it difficult to ambulate. She denies any worsening of this pain after she eats. She recently had an upper GI which showed a stricture at the distal esophagus and delayed passage. On presentation vitals stable, labs show Hgb 10.5, CT abd/pelvis with large bowel ileus, EKG showing new LBBB. Pt states she was told by Dr. Chairez who did her surgeries there was no further intervention so is seeking a second opinion today. Review of Systems All systems: negative Constitutional: Reports malaise, Denies chills, Denies fever Eyes: denies blurred vision, denies pain Ears, nose, mouth and throat: Denies headache, Denies sore throat Cardiovascular: Denies chest pain, Denies shortness of breath Respiratory: Denies cough Gastrointestinal: Reports abdominal pain, Reports nausea, Denies diarrhea, Denies vomiting Genitourinary: Denies dysuria, Denies hematuria Musculoskeletal: Denies myalgias Integumentary: Denies pruritus, Denies rash Neurological: Denies numbness, Denies weakness Psychiatric: Denies anxiety, Denies depression Endocrine: Denies fatigue, Denies weight change Past Medical History Past Medical History: Deep Vein Thrombosis (DVT), Hyperlipidemia, Hypertension, Myocardial Infarction ([place]), Pulmonary Embolus ([place]) Additional Past Medical History / Comment(s): DVT LEG- UNSURE WHICH ONE, previously "charted hx ulcer, partial blockage of carotid arteries" RECURRENT HIATAL HERNIA Last Myocardial Infarction Date:: 1999 History of Any Multi-Drug Resistant Organisms: None Reported Past Surgical History: Appendectomy, Cholecystectomy, Heart Catheterization With Stent, Hernia Repair, Hysterectomy Additional Past Surgical History / Comment(s): JOSH FILTER INSERTION, STATES HAS WIRE IN LEFT EAR TO AIDE IN HEARING,hiatal hernia sx, EGD, LT SHOULDER SX, Past Anesthesia/Blood Transfusion Reactions: No Reported Reaction Date of Last Stent Placement:: 2001 Past Psychological History: No Psychological Hx Reported Additional Psychological History / Comment(s): pt lives in own home by herself- has 3 steps into single level home. no pets,no outside services. pt works as house keeper at the [employer] Smoking Status: Smoker, current status unknown Past Alcohol Use History: Occasional Additional Past Alcohol Use History / Comment(s): started smoking at age 17 smokes 1 1/2 ppd. DRINKS ABOUT 8 ALCOHOLIC DRINKS A WEEK Past Drug Use History: None Reported - Past Family History Mother Family Medical History: Diabetes Mellitus Father Additional Family Medical History / Comment(s): brain aneurysm Son(s) Family Medical History: Cancer Additional Family Medical History / Comment(s): UNSURE WHAT KIND Medications and Allergies Home Medications Medication Instructions Recorded Confirmed Type atenoloL [Atenolol] 25 mg PO DAILY 03/28/15 02/27/21 History amLODIPine BESYLATE [Norvasc] 5 mg PO DAILY 03/29/15 02/27/21 History Aspirin EC [Ecotrin Low Dose] 81 mg PO BID 03/12/19 02/27/21 History lisinopriL [Zestril] 10 mg PO BID 03/12/19 02/27/21 History Omeprazole 40 mg PO DAILY #30 capsule.dr 04/26/19 02/27/21 Rx Isosorbide Mononitrate ER [Imdur] 30 mg PO DAILY 02/27/21 02/27/21 History Rosuvastatin Calcium 5 mg PO DAILY 02/27/21 02/27/21 History Allergies Allergy/AdvReac Type Severity Reaction Status Date / Time No Known Allergies Allergy Verified 02/27/21 18:31 Physical Exam Vitals: Vital Signs Temp Pulse Resp BP Pulse Ox 03/01/21 02:43 97.7 F 62 16 117/67 99 02/28/21 20:00 61 16 02/28/21 19:47 98.1 F 61 16 132/75 96 02/28/21 14:18 98.4 F 80 18 114/72 93 L 02/28/21 07:30 98.0 F 80 18 121/72 94 L 02/28/21 07:15 18 Intake and Output 02/28/21 02/28/21 03/01/21 14:59 22:59 06:59 Other: # Voids 1 2 General: well nourished, well developed, NAD. Vitals reviewed Eyes: PERRL, EOMI, conjunctiva normal HENT: normocephalic, mucus membranes moist Neck: supple, no JVD Lungs: normal respiratory effort, no wheezes or rales CV: Regular rate and rhythm, no murmur. Peripheral pulses 2+ Abdomen: soft, nondistended, no organomegaly Lymph: no cervical or axillary LAD Skin: warm and dry. Neuro: A&Ox3, normal mood and affect Results CBC & Chem 7: 02/27/21 16:13 02/27/21 16:13 Assessment and Plan Plan: 1. Abdominal pain, s/p gisele fundoplication. Consult to GI and surgery. NPO. Will give 125 mg solumedrol as well as reglan one time dose 2. Abnormal EKG. LBBB. Consult Cardiology for further evaluation 3. HTN. Continue lisinopril, norvasc
[2021-03-01] MEDS: ISOSORBIDE MONONITRATE ER 30 MG TAB.ER.24H PO SCH (07:32)
[2021-03-01] MEDS: PANTOPRAZOLE 40 MG TABLET PO SCH (07:32)
[2021-03-01] MEDS: atenoloL 25 MG TAB PO SCH (07:32)
[2021-03-01] MEDS: ASPIRIN 81 MG PO SCH (07:33)
[2021-03-01] MEDS: amLODIPine 5 MG TAB PO SCH (07:33)
[2021-03-01] MEDS: lisinopriL 10 MG TAB PO SCH (07:33)
[2021-03-01 07:39] VITALS: BP 148/74; PULSE 94; RESP 18; TEMP 97.9
--- NOTE | 2021-03-01 10:04 | P.DS ---
Providers Date of admission: 02/27/21 18:10 Expected date of discharge: 03/01/21 Attending physician: Deric Gong MD Consults: 02/27/21 18:35 Consult Physician Urgent Consulting Provider: Howard William Consult Reason/Comments: EKG changes Do you want consulting provider notified?: Yes 02/27/21 18:36 Consult Physician Urgent Consulting Provider: Pablo Smith Consult Reason/Comments: ileus Do you want consulting provider notified?: Yes 02/28/21 09:35 Consult Physician Routine Consulting Provider: Ida Bueno Consult Reason/Comments: abd pain only with walking, ileus Do you want consulting provider notified?: Yes Primary care physician: Leslie Segovia [facility] Course: FInal Diagnoses: 1. Abdominal pain, s/p gisele fundoplication X 2. recent upper GI reported esophageal stricture at the distal esophagus with delayed emptying of the esophagus, secondary to possible spasm or complication of prior repair.Further evaluation/workup with foregut specialist recommended. 2. Large bowel ileus, incidental, resolved. 2. Abnormal EKG. LBBB. Cardiology following 3. HTN. Hospital COurse:Blanca Alvarez is a 70 yo F with PMH of hiatal hernia, GERD, s/p n issen fundoplication x2 in 2013 and 2018 who presented to the ED complaining of epigastric abdominal pain with standing and ambulation. She complains this has been going on for 3 months and has been painful to the point that makes it difficult to ambulate. She denies any worsening of this pain after she eats. She recently had an upper GI which showed a stricture at the distal esophagus and delayed passage. On presentation vitals stable, labs show Hgb 10.5, CT abd/pelvis with large bowel ileus, EKG showing new LBBB. Pt states she was told by Dr. Chairez who did her surgeries there was no further intervention so is seeking a second opinion today. Evaluated by cardiology, GI and general surgery. Per surgery's review ,recent upper GI ,01/31/21,reported esophageal stricture at the distal esophagus with delayed emptying of the esophagus. It is unclear whether this is spasm or secondary to her history of previous repair. Further evaluation/workup with foregut specialist recommended related to patient has had 2 fundoplication procedures performed. Passing flatus, positive bowel movement. Tolerating diet advancement with no nausea or vomiting. Significant clinical improvement. Aramis es abdominal pain, no abdominal tenderness. Reports no pain walking this morning-reports usually occurs with prolonged standing. Patient will be discharged home this morning in a stable condition with guarded prognosis pending final DC recommendations/clearance per cardiology with foregut specialist info as per surgery. Patient has also been informed that if her insurance requires referral, this can be addressed in clinic next week with Dr. Deric Gong PCP. The impression and plan of care has been dictated as directed. .: I performed a history and examination of this patient, discussed the same with the dictator. I agree with the dictator's note ,documented as a scribe. Any additional findings or plans will be noted. Patient Condition at Discharge: Stable Plan - Discharge Summary Discharge Rx Participant: No New Discharge Prescriptions: Continue atenoloL [Atenolol] 25 mg PO DAILY amLODIPine BESYLATE [Norvasc] 5 mg PO DAILY lisinopriL [Zestril] 10 mg PO BID Aspirin EC [Ecotrin Low Dose] 81 mg PO BID Omeprazole 40 mg PO DAILY #30 capsule. Isosorbide Mononitrate ER [Imdur] 30 mg PO DAILY Rosuvastatin Calcium 5 mg PO DAILY Discharge Medication List atenoloL [Atenolol] 25 mg PO DAILY 03/28/15 [History] amLODIPine BESYLATE [Norvasc] 5 mg PO DAILY 03/29/15 [History] Aspirin EC [Ecotrin Low Dose] 81 mg PO BID 03/12/19 [History] lisinopriL [Zestril] 10 mg PO BID 03/12/19 [History] Omeprazole 40 mg PO DAILY #30 capsule. 04/26/19 [Rx] Isosorbide Mononitrate ER [Imdur] 30 mg PO DAILY 02/27/21 [History] Rosuvastatin Calcium 5 mg PO DAILY 02/27/21 [History] Follow up Appointment(s)/Referral(s): Deric Gong MD [STAFF PHYSICIAN] - 1 Week Activity/Diet/Wound Care/Special Instructions: Pending Final dc rec/ Foregut specialist info. per surgery
--- NOTE | 2021-03-01 12:02 | P.PN ---
Subjective This is a 70-year-old female with a history of hypertension, hiatal hernia, dyslipidemia, coronary artery disease and peripheral vascular disease. She follows in the office with Dr. Frye. We are following the patient due to abnormal EKG. She presents to the emergency department complaining of epigastric pain with standing and ambulation. EKG revealed sinus rhythm with left bundle branch block which is new compared EKG that was done in 2019. She had 2 sets of cardiac enzymes that are within normal limits. Echocardiogram revealed EF of 55-60%, LA is moderately dilated, moderate mitral regurgitation, mild tricuspid regurgitation, mild pulmonary hypertension with RVSP of 36 mmHg. Patient seen and examined at bedside, no acute distress. Blood pressure 148/74, heart rate 94, afebrile, maintaining oxygen saturations on room air. She denies any chest pain, shortness of breath, dizziness, lightheadedness, abdominal pain, nausea, vomiting. GENERAL: Well-appearing, well-nourished and in no acute distress. NECK: Supple without JVD or thyromegaly. LUNGS: Breath sounds clear to auscultation bilaterally. Respiration equal and unlabored. No wheezes, rales or rhonchi. HEART: Regular rate and rhythm without murmurs, rubs or gallops. S1 and S2 heard. EXTREMITIES: Normal range of motion, no edema. No clubbing or cyanosis. Periph eral pulses intact. ASSESSMENT Abnormal EKG, LBBB Epigastric discomfort related to hiatal hernia Hypertension History of coronary artery disease status post prior angioplasty Peripheral vascular disease PLAN From cardiology perspective, no further workup is indicated at this time. Patient is stable to be discharged from a cardiology perspective patient to follow-up with Dr. Frye the office. Continue home cardiac medications. Nurse Practitioner note has been reviewed, I agree with a documented findings and plan of care. Patient was seen and examined. Objective - Vital Signs Vital signs: Vital Signs Temp 97.9 F 03/01/21 07:36 Pulse 94 03/01/21 07:36 Resp 18 03/01/21 07:45 BP 148/74 03/01/21 07:36 Pulse Ox 94 L 03/01/21 07:36 Intake & Output 02/28/21 03/01/21 03/01/21 18:59 06:59 18:59 Other: # Voids 3 2 - Labs CBC & Chem 7: 02/27/21 16:13 02/27/21 16:13
== END 2021-03-01 11:39 | disposition home or self-care (01) ==
LOC: EC 14:40 → 4SSUR 18:10 → INTOOBSV 18:10 → 4SSUR 19:01 → UNDODISIN 03-01 11:39
PROVIDERS: ADMIT Family Medicine; ATTEND Family Medicine
DX: R10.9 Unspecified abdominal pain (principal); K56.7 Ileus, unspecified; E78.5 Hyperlipidemia, unspecified; F17.210 Nicotine dependence, cigarettes, uncomplicated; G89.29 Other chronic pain; I10 Essential (primary) hypertension; I73.9 Peripheral vascular disease, unspecified; I44.7 Left bundle-branch block, unspecified; I25.10 Atherosclerotic heart disease of native coronary artery without angina pectoris; I34.0 Nonrheumatic mitral (valve) insufficiency; I87.2 Venous insufficiency (chronic) (peripheral); I25.2 Old myocardial infarction; Z95.5 Presence of coronary angioplasty implant and graft; Z90.49 Acquired absence of other specified parts of digestive tract; Z86.718 Personal history of other venous thrombosis and embolism; Z86.711 Personal history of pulmonary embolism; Z79.899 Other long term (current) drug therapy
CPT/HCPCS: 96361 ×4; 96375; 96374; 99285; 36415; 93005; 93306; 80053; 82150; 83690; 84484; 85025; 85610; 85730; 81001; 74018; 74177; G0378 ×3; J2765; J2930; J2270; Q9967

== ENCOUNTER → 2021-03-04 | Outpatient (CLI) | payer MEDICARE ==
[2021-03-04 15:08] LABS: Basophils # (A) 0.05 X 10*3/uL (0.00-0.10); Basophils % (A) 0.7 %; Eosinophils # (A) 0.22 X 10*3/uL (0.04-0.35); Eosinophils % (A) 2.9 %; HCT 35.4 % (37.2-46.3); HGB 10.7 g/dL (12.0-15.0); Lymphocytes # (A) 1.77 X 10*3/uL (0.90-5.00); Lymphocytes % (A) 23.3 %; MCH 25.7 pg (27.0-32.0); MCHC 30.2 g/dL (32.0-37.0); MCV 84.9 fL (80.0-97.0); Monocytes # (A) 0.87 X 10*3/uL (0.20-1.00); Monocytes % (A) 11.4 %; Neutrophils # (A) 4.67 X 10*3/uL (1.80-7.70); Neutrophils % (A) 61.4 %; Platelet Count 367 X 10*3/uL (140-440); RBC 4.17 X 10*6/uL (4.10-5.20); RDW 16.1 % (11.5-14.5)
== END | disposition home or self-care (01) ==
LOC: LABWHC1 10:06
PROVIDERS: ATTEND Nurse Practitioner
DX: I10 Essential (primary) hypertension (principal); N28.9 Disorder of kidney and ureter, unspecified
CPT/HCPCS: 36415; 85025

== ENCOUNTER → 2021-04-19 | Outpatient (CLI) | payer MEDICARE ==
[2021-04-19 11:47] LABS: HCT 37.2 % (34.0-46.0); HGB 11.5 gm/dL (11.4-16.0); Hypochromasia Marked; MCH 26.3 pg (25.0-35.0); MCHC 31.1 g/dL (31.0-37.0); MCV 84.7 fL (80.0-100.0); Platelet Count 328 k/uL (150-450); RBC 4.39 m/uL (3.80-5.40); RDW 15.7 % (11.5-15.5); WBC 7.1 k/uL (3.8-10.6)
[2021-04-19 12:04] LABS: African American GFR (CKD) >90 (>60 ml/min/1.73 sqM); Anion Gap 9 mmol/L; Blood Urea Nitrogen 12 mg/dL (7-17); Carbon Dioxide 23 mmol/L (22-30); Chloride 106 mmol/L (98-107); Non-African American GFR(CKD) 81 (>60 ml/min/1.73 sqM); Potassium 4.7 mmol/L (3.5-5.1); Sodium 138 mmol/L (137-145)
== END | disposition home or self-care (01) ==
LOC: LABPAT 10:50
PROVIDERS: ATTEND Internal Medicine Interventional Cardiology
DX: Z01.812 Encounter for preprocedural laboratory examination (principal); I70.213 Atherosclerosis of native arteries of extremities with intermittent claudication, bilateral legs
CPT/HCPCS: 36415; 80051; 82565; 84520; 85027

== ENCOUNTER 2021-04-22 07:28 | Day surgery (SDC) | payer MEDICARE ==
[2021-04-16 15:48] VITALS: BMI 24.1
[~2021-04-22 07:28] MED LIST changes: +ALPRAZolam 0.25 MG TAB PO PRN; +ASPIRIN 325 MG TAB PO PRN; -DEXAMETHASONE SOD PHOSPHATE 10 MG/ML 1 ML VIAL IV ONE; -HEPARIN SODIUM,PORCINE 5,000 UNIT/ML 1 ML VIAL SQ ONE; -LACTATED RINGERS 1,000 ML IV SCH; -LIDOCAINE 1% 20 ML VIAL (10MG/ML) FOR IV START INTRADERMA PRN; -ONDANSETRON 4 MG/2 ML VIAL IVP ONE; +SODIUM CHLORIDE 0.9% 1,000 ML in EMPTY BAG 1 BAG IV ONE
[2021-04-22 07:57] VITALS: RESP 18; TEMP 98.1
[2021-04-22 08:03] LABS: Basophils % (A) 1 %; Eosinophils # (A) 0.2 k/uL (0-0.7); Eosinophils % (A) 3 %; HCT 35.8 % (34.0-46.0); HGB 11.3 gm/dL (11.4-16.0); Hypochromasia Slight; Lymphocytes % (A) 26 %; MCH 26.2 pg (25.0-35.0); MCHC 31.5 g/dL (31.0-37.0); Mean Platelet Volume 7.8; Monocytes # (A) 0.7 k/uL (0-1.0); Monocytes % (A) 9 %; Neutrophils # (A) 4.7 k/uL (1.3-7.7); Neutrophils % (A) 59 %; Platelet Count 372 k/uL (150-450); RBC 4.32 m/uL (3.80-5.40); RDW 15.9 % (11.5-15.5); WBC 7.9 k/uL (3.8-10.6)
[2021-04-22 08:36] LABS: African American GFR (CKD) >90 (>60 ml/min/1.73 sqM); Anion Gap 8 mmol/L; Blood Urea Nitrogen 10 mg/dL (7-17); Calcium 9.7 mg/dL (8.4-10.2); Carbon Dioxide 25 mmol/L (22-30); Chloride 106 mmol/L (98-107); Glucose 110 mg/dL (74-99); Non-African American GFR(CKD) 81 (>60 ml/min/1.73 sqM); Potassium 4.2 mmol/L (3.5-5.1); Sodium 139 mmol/L (137-145)
[2021-04-22] MEDS ORDERED: MIDAZOLAM 2 MG/2 ML VIAL IV ONE (09:00)
[2021-04-22] MEDS ORDERED: LIDOCAINE 1% INJ 10MG/ML (20 ML MDV) SQ ONE (09:05)
[2021-04-22] MEDS ORDERED: fentaNYL (PF) 50 MCG/ML 2 ML AMP IV ONE (09:10)
[2021-04-22] MEDS ORDERED: IOPAMIDOL-250 100ML BTL INTRAARTER ONE (09:15)
[2021-04-22] MEDS ORDERED: SODIUM CHLORIDE 0.9% 1,000 ML IV SCH (09:30)
--- NOTE | 2021-04-22 10:49 | IR ---
EXAMINATION TYPE: IR angio abdominal w runoff DATE OF EXAM: 04/22/2021 COMPARISON: NONE HISTORY: Fluoroscopy time. Fluoroscopy was provided to the referring clinician.
--- NOTE | 2021-04-22 10:52 | AN ---
ANGIOGRAPHY REPORT DATE OF SERVICE: 04/22/2021 PERFORMING PHYSICIAN: Howard William M.D. PROCEDURE PERFORMED: 1. Abdominal aortogram. 2. Bilateral lower extremity runoff. INDICATION: Bilateral lower extremity discomfort concerning for intermittent claudication in this in this 70-year-old smoker who underwent lower extremity arterial duplex study that showed severe bilateral femoral-popliteal disease. APPROACH: Right common femoral artery. COMPLICATIONS: None. LEVEL OF SEDATION: Moderate, with sedation length of 12 minutes. PROCEDURE DESCRIPTION: After obtaining informed consent, the patient was brought to the cardiac laborer concrete paving. The right common femoral artery was cannulated using micropuncture technique under ultrasound guidance. The micropuncture wire passed easily. Then I placed a 5-Malawian sheath in the right common femoral artery. An abdominal aortogram and bilateral lower extremity runoff were performed using 5- Malawian pigtail catheter which was initially placed at the level of the renal arteries, then it was pulled into above the bifurcation of the aorta into right and left common iliac arteries. The procedure was completed without any complication. SELECTIVE PERIPHERAL ANGIOGRAM: 1. The aorta appeared to be calcified with mild disease only. It bifurcates distally into right and left common iliac arteries. 2. The common iliac arteries: The right common iliac artery appeared to be calcified with a lesion in the range of 40% to 50%. The left common iliac artery appeared to be calcified with mild disease only. 3. Internal iliac arteries: Both are patent. 4. External iliac arteries: Both appeared to have mild disease only. 5. Profundae: Both are patent. 6. Common femoral arteries appeared to have mild disease only. 7. SFA: The right SFA appeared to have a lesion in the range of 60% to 70% by the Caesar canal. The left SFA appeared to have the same disease, which is about 60% to 70%, by the Caesar canal. 8. Popliteals: Both appear to have mild disease only. 9. Below the knee: There is 3-vessel runoff below the knee bilaterally. CONCLUSION: 1. Calcified lower extremities system. 2. Mild nonobstructive disease involving the aortoiliac segments. 3. Intermediate to severe disease involving the SFA bilaterally. POSTPROCEDURE MANAGEMENT: 1. Smoking cessation. 2. Aggressive cholesterol control. 3. Risk factor modifications. 4. Follow up with the patient. MMODL / IJN: [id number] /
[2021-04-22 15:57] VITALS: BP 146/62; PULSE 66
== END 2021-04-22 15:59 | disposition home or self-care (01) ==
LOC: CATHCVL 07:28
PROVIDERS: ATTEND Internal Medicine Interventional Cardiology
DX: I70.213 Atherosclerosis of native arteries of extremities with intermittent claudication, bilateral legs (principal); Z20.822 Contact with and (suspected) exposure to COVID-19; I70.0 Atherosclerosis of aorta; F17.210 Nicotine dependence, cigarettes, uncomplicated; I10 Essential (primary) hypertension; E78.5 Hyperlipidemia, unspecified; I25.10 Atherosclerotic heart disease of native coronary artery without angina pectoris; I65.23 Occlusion and stenosis of bilateral carotid arteries; Z79.82 Long term (current) use of aspirin; Z79.899 Other long term (current) drug therapy; E78.00 Pure hypercholesterolemia, unspecified; Z98.61 Coronary angioplasty status; I25.2 Old myocardial infarction; J44.9 Chronic obstructive pulmonary disease, unspecified
CPT/HCPCS: 36200; 75625; 75716; 76937; 80048; 85025; 87635; C1769 ×5; C1894; J2250; J2001; J3010; Q9966

== ENCOUNTER → 2021-11-08 | Outpatient (CLI) | payer MEDICARE ==
[2021-11-08 17:57] LABS: AST 18 U/L (13-35)
[2021-11-08 17:58] LABS: ALT 17 U/L (8-44); Chol/HDL Ratio 2.32 Ratio; LDL Cholesterol,Calculated 82.4 mg/dL (0.0-131.0)
== END | disposition home or self-care (01) ==
LOC: LABWHC1 10:00
PROVIDERS: ATTEND Internal Medicine Cardiovascular Disease
DX: I25.10 Atherosclerotic heart disease of native coronary artery without angina pectoris (principal); E78.5 Hyperlipidemia, unspecified
CPT/HCPCS: 36415; 80061; 84450; 84460

== ENCOUNTER → 2021-12-31 | Outpatient (CLI) | payer MEDICARE ==
[2021-12-31 22:47] LABS: Basophils # (A) 0.08 X 10*3/uL (0.00-0.10); Basophils % (A) 1.1 %; Eosinophils # (A) 0.23 X 10*3/uL (0.04-0.35); Eosinophils % (A) 3.2 %; HCT 35.1 % (37.2-46.3); Immature Grans, Automated 0.3 %; Lymphocytes # (A) 2.54 X 10*3/uL (0.90-5.00); Lymphocytes % (A) 35.6 %; MCH 23.8 pg (27.0-32.0); MCHC 28.5 g/dL (32.0-37.0); MCV 83.6 fL (80.0-97.0); Mean Platelet Volume 10.3 fL (9.5-12.2); Monocytes # (A) 0.93 X 10*3/uL (0.20-1.00); NRBC Per 100 WBC 0 /100 WBCS (0.0-0.0); Neutrophils # (A) 3.33 X 10*3/uL (1.80-7.70); Neutrophils % (A) 46.8 %; Platelet Count 349 X 10*3/uL (140-440); RDW 17.7 % (11.5-14.5); WBC 7.13 X 10*3/uL (4.50-10.00)
[2021-12-31 22:53] LABS: Anion Gap 10.8 mmol/L (10.00-18.00); Carbon Dioxide 25.3 mmol/L (20.0-27.5); Potassium 4.5 mmol/L (3.5-5.5)
== END | disposition home or self-care (01) ==
LOC: LABPAT 16:01
PROVIDERS: ATTEND Orthopaedic Surgery
DX: Z01.818 Encounter for other preprocedural examination (principal); I44.7 Left bundle-branch block, unspecified; M23.91 Unspecified internal derangement of right knee; R00.1 Bradycardia, unspecified; R94.31 Abnormal electrocardiogram [ECG] [EKG]
CPT/HCPCS: 80051; 85025; 93005

== ENCOUNTER 2022-01-23 09:50 | Day surgery (SDC) | payer MEDICARE ==
[2022-01-17 09:46] VITALS: BMI 23.3
--- NOTE | 2022-01-22 15:14 | HP ---
HISTORY AND PHYSICAL REASON FOR ADMISSION: Surgery scheduled for 01/23/2022 HISTORY OF PRESENT ILLNESS: Blanca Alvarez is a 71-year-old patient seen with progressive right knee pain. We discussed options for treatment. She elected to proceed with arthroscopy. Consent was obtained. PAST MEDICAL HISTORY: Hypertension, hyperlipidemia. PAST SURGICAL HISTORY: Cholecystectomy, herniorrhaphy, hysterectomy, shoulder arthroscopy. MEDICATIONS: Aspirin, atenolol, isosorbide, lisinopril, atorvastatin. ALLERGIES: None. SOCIAL HISTORY: She denies tobacco use. PHYSICAL EXAMINATION: Evaluation of the right knee: Range of motion of the right knee: 0-130. Mild effusion. Tenderness medial joint line. Positive medial Jaylin's. Ligaments are stable. Hip rotation is without pain. Distal neurovascular exam is intact. RADIOGRAPHS: Right knee radiographs revealed mild osteoarthritis. MRI right knee revealed abnormal signal on the medial meniscus as well as mild osteoarthritis. IMPRESSION: 1. Internal derangement right knee medial with meniscal tear. 2. Hypertension. 3. Hyperlipidemia. PLAN: Right knee arthroscopy with partial medial meniscectomy and debridement. Surgery is 01/23/2022. MMODL / IJN: [id number] /
[2022-01-23] MEDS ORDERED: LACTATED RINGERS 1,000 ML IV SCH (10:22)
[2022-01-23] MEDS ORDERED: ONDANSETRON 4 MG/2 ML VIAL IVP ONE (10:22)
[2022-01-23] MEDS ORDERED: DEXAMETHASONE SOD PHOSPHATE 4 MG/ML 1 ML VIAL IV ONE (10:22)
[2022-01-23] MEDS ORDERED: LACTATED RINGERS 1,000 ML IV ONE (10:38)
[2022-01-23] MEDS ORDERED: BUPIVACAINE (PF) 0.25% 30 ML VIAL SQ ONE ×2 (13:27→14:02)
[2022-01-23] MEDS ORDERED: PROPOFOL 10 MG/ML 20 ML VIAL IV ONE (13:29)
[2022-01-23] MEDS ORDERED: fentaNYL (PF) 50 MCG/ML 2 ML AMP ONE (13:29)
[2022-01-23] MEDS ORDERED: MIDAZOLAM 2 MG/2 ML VIAL ONE (13:29)
[2022-01-23] MEDS ORDERED: KETOROLAC 15 MG/ML 1 ML VIAL ONE (13:29)
[2022-01-23] MEDS ORDERED: LIDOCAINE 2% INJ 20 MG/ML (2 ML VIAL) ONE (13:29)
[2022-01-23] MEDS ORDERED: ePHEDrine 50 MG/ML 1 ML VIAL ONE (13:29)
--- NOTE | 2022-01-23 14:15 | P.OP ---
Date of Procedure: 01/23/22 Preoperative Diagnosis: Internal derangement right knee Postoperative Diagnosis: 1. Tear medial and lateral meniscus right knee 2. Grade 4 chondromalacia medial femoral condyle right knee 3. Reactive synovitis medial, lateral and suprapatellar compartments right knee Procedure(s) Performed: 1. Arthroscopic partial medial and lateral meniscectomy right knee 2. Arthroscopic microfracture medial femoral condyle right knee 3. Arthroscopic partial synovectomy medial, lateral and suprapatellar compartments right knee Anesthesia: ELAINEA, local Surgeon: Chris Duarte Estimated Blood Loss (ml): 6 Pathology: none sent Condition: stable Disposition: PACU Indications for Procedure: 71-year-old patient seen with progressive right knee pain. After having treatment options discussed, she elected to proceed with arthroscopy. Operative Findings: See description of procedure Description of Procedure: Patient was taken to the operative suite. Patient underwent a general anesthetic by the department of anesthesia. Patient was given preoperative antibiotics. The right lower extremity was placed in a well-padded arthroscopic leg bañuelos. The right leg was prepped and draped in the normal sterile orthopedic fashion. A lateral parapatellar and suprapatellar incision was made. Trochars were inserted. Arthroscopy was initiated. Suprapatellar pouch revealed diffuse thick reactive synovitis. The patellofemoral joint appeared to articulate congruently. There was grade 1 chondral malacia the patella without significant osteochondral tears present. The scope was guided into the medial gutter. No loose bodies or plica were identified. The scope was then guided into the medial compartment. A medial parapatellar incision was made. Trocar inserted followed by probe. There was a radial tear posterior horn medial meniscus. There were grade 3/4, she changes medial femoral condyle with some osteochondral flap tears present. There was thick reactive synovitis anteriorly. I performed a partial medial meniscectomy getting down to stable meniscal tissue. I performed a chondroplasty of the medial femoral condyle getting down to stable osteochondral tissue. I performed a partial synovectomy decompressing the reactive synovitis anteriorly. The residual meniscus was probed and found to be stable. There appeared be good decompression of the synovitis. There was an area of exposed bone/grade 4 chondral malacia medial femoral condyle weightbearing surface measuring approximate 1 cm. I introduced a microfracture awl and performed a microfracture to that area and a treating the bone with resultant bleeding at the microfracture site. Scope and probe were then guided into the intercondylar notch. Cruciates were identified, probed and found to be stable. The scope and probe were then guided into lateral compartment. There was a radial tear mid body lateral meniscus. There was grade 1 chondral moist changes of the lateral compartment without osteochondral tears present. There was thick reactive synovitis anteriorly. I performed a partial lateral meniscectomy getting down to stable meniscal tissue. I performed a partial synovectomy decompressing the reactive synovitis. Shaver was now removed. There was good decompression of the synovitis. The residual meniscus was probed and was found to be stable. The scope was in guided back into the suprapatellar compartment. I introduced a motorized shaver into the super patellar compartment. I debrided some piecemeal fragments of meniscus that I encountered. I performed a partial synovectomy. The shaver was now removed. There appeared be good decompression of synovitis. I took one more look around the entire knee, no residual debris. Instruments were now removed from the joint. The joint was infiltrated with .25% Marcaine. Steri-Strips were applied to the portal sites. Sterile dressings were applied. The patient was placed into a JOSE DANIEL hose. No tourniquet was utilized. The patient was awakened, transferred to a bed and taken to recovery stable satisfactory condition.
[2022-01-23 14:17] VITALS: RESP 16; TEMP 97.2
[2022-01-23] MEDS: HYDROmorphone 0.5 MG/0.5 ML SYRINGE IVP PRN ×2 (14:28→14:37)
[2022-01-23] MEDS ORDERED: HYDROcodone/APAP 5-325MG 1 EACH TAB ONE (15:49)
[2022-01-23] MEDS ORDERED: HYDROcodone/APAP 5-325MG 1 EACH TAB PO ONE (15:50)
[2022-01-23 16:17] VITALS: BP 143/65; PULSE 75
== END 2022-01-23 16:30 | disposition home or self-care (01) ==
LOC: OR 09:50
PROVIDERS: ATTEND Orthopaedic Surgery
DX: S83.281A Other tear of lateral meniscus, current injury, right knee, initial encounter (principal); S83.241A Other tear of medial meniscus, current injury, right knee, initial encounter; M94.261 Chondromalacia, right knee; M65.861 Other synovitis and tenosynovitis, right lower leg; I10 Essential (primary) hypertension; E78.5 Hyperlipidemia, unspecified; I25.10 Atherosclerotic heart disease of native coronary artery without angina pectoris; I25.2 Old myocardial infarction; I27.20 Pulmonary hypertension, unspecified; I34.0 Nonrheumatic mitral (valve) insufficiency; K21.9 Gastro-esophageal reflux disease without esophagitis; X58.XXXA Exposure to other specified factors, initial encounter; Z95.5 Presence of coronary angioplasty implant and graft; Z90.49 Acquired absence of other specified parts of digestive tract; Z98.890 Other specified postprocedural states; Z90.710 Acquired absence of both cervix and uterus; Z79.82 Long term (current) use of aspirin; Z79.899 Other long term (current) drug therapy; Z97.2 Presence of dental prosthetic device (complete) (partial)
CPT/HCPCS: 29880; 29879; J2250; J1100; J2405; J0690; J3010; J1885; J2704; J1170; J2001

== ENCOUNTER → 2023-03-20 | Outpatient (CLI) | payer MEDICARE ==
--- NOTE | 2023-03-20 10:03 | FL ---
There is a ESOPHOGRAM. HISTORY: Dysphagia Esophagram was performed per the air contrast technique. The patient swallowed barium and effervesce nt crystals without difficulty or delay. Esophageal peristalsis and motility appear to be within normal limits. There is no evidence for filling defect, mass or diverticulum. There is a small reducible hiatal hernia noted. Subsequently single contrast cervical esophagram was performed which fails demonstrate evidence for a spiration penetration or mass. IMPRESSION: There is a small reducible hiatal hernia noted.
== END | disposition home or self-care (01) ==
LOC: RADUSWWP 08:37
PROVIDERS: ATTEND Surgery
DX: K44.9 Diaphragmatic hernia without obstruction or gangrene (principal); R13.10 Dysphagia, unspecified
CPT/HCPCS: 74220

== ENCOUNTER 2023-03-26 12:17 | Emergency (ER) | payer MEDICARE ==
--- NOTE | 2023-03-26 13:12 | ED ---
General Adult HPI - General Chief complaint: Recheck/Abnormal Lab/Rx Stated complaint: post op - tongue swelling Time Seen by Provider: 03/26/23 12:46 Source: patient Mode of arrival: ambulatory Limitations: no limitations - History of Present Illness Initial comments: Blanca is a pleasant 72yo female who presents to the emergency department today via private vehicle for evaluation of swelling and discoloration of her tongue. Patient underwent anesthesia this morning for an EGD, when she got home she noted that the underside of her tongue was red and her tongue was swollen. She wasn't certain if this was an ALLERGIC reaction so she thought she should come to the ER for evaluation. - Related Data Home Medications Medication Instructions Recorded Confirmed atenoloL 25 mg PO DAILY 03/28/15 03/23/23 amLODIPine BESYLATE [Norvasc] 5 mg PO DAILY 03/29/15 03/23/23 Aspirin EC [Ecotrin Low Dose] 81 mg PO BID 03/12/19 03/23/23 lisinopriL [Zestril] 10 mg PO BID 03/12/19 03/23/23 Isosorbide Mononitrate ER [Imdur] 30 mg PO DAILY 02/27/21 03/23/23 Multivitamins, Thera [Multivitamin 1 tab PO DAILY 01/17/22 03/23/23 (formulary)] Rosuvastatin [Crestor] 10 mg PO DAILY 01/17/22 03/23/23 Previous Rx's Medication Instructions Recorded Omeprazole 40 mg PO DAILY #30 capsule. 04/26/19 Allergies Allergy/AdvReac Type Severity Reaction Status Date / Time No Known Allergies Allergy Verified 03/26/23 12:43 Review of Systems ROS Statement: Those systems with pertinent positive or pertinent negative responses have been documented in the HPI. ROS Other: All systems not noted in ROS Statement are negative. Past Medical History Past Medical History: Coronary Artery Disease (CAD), Deep Vein Thrombosis (DVT), GERD/Reflux, Hypertension, Myocardial Infarction ([place]), Vascular Disorder Additional Past Medical History / Comment(s): hx ulcer, partial blockage of carotid arteries, RECURRENT HIATAL HERNIA, "one seizure age 12", occ swelling of rt ankle, varicose veins, Last Myocardial Infarction Date:: 1999 History of Any Multi-Drug Resistant Organisms: None Reported Past Surgical History: Appendectomy, Cholecystectomy, Heart Catheterization With Stent, Hernia Repair, Hysterectomy, Orthopedic Surgery Additional Past Surgical History / Comment(s): JOSH FILTER INSERTION, STATES HAS WIRE IN LEFT EAR TO AIDE IN HEARING,hiatal hernia repair x 2, EGD, LT SHOULDER athroscopy, one cardiac stent, heart cath 1999 Past Anesthesia/Blood Transfusion Reactions: Previous Problems w/ Anesthesia Additional Past Anesthesia/Blood Transfusion Reaction / Comment(s): "hard time waking me up" Date of Last Stent Placement:: 1999 Past Psychological History: No Psychological Hx Reported Smoking Status: Current every day smoker Past Alcohol Use History: None Reported Past Drug Use History: None Reported - Past Family History Mother Family Medical History: Diabetes Mellitus Father Additional Family Medical History / Comment(s): brain aneurysm Son(s) Family Medical History: Cancer General Exam - General Exam Comments Initial Comments: Physical Exam GENERAL: Patient is well-developed and well-nourished. Patient is nontoxic and well-hydrated and is in no distress. HENT: Normocephalic, Atraumatic. Tongue is noted to have hematoma on inferior right aspect, small hematomas on bilateral lateral edges No angioedema noted No injury to uvula EYES: PERRL, EOMI PULMONARY: Unlabored respirations. No audible rales rhonchi or wheezing was noted. CARDIOVASCULAR: There is a regular rate and rhythm without any murmurs gallops or rubs. ABDOMEN: Soft and nontender with normal bowel sounds. SKIN: Skin is clear with no lesions or rashes and otherwise unremarkable. No rash : Deferred NEUROLOGIC: Patient is alert and oriented x3. Moving all extremities spontaneously MUSCULOSKELETAL: Normal extremities with adequate strength and full range of motion. No lower extremity swelling or edema. No calf tenderness. PSYCHIATRIC: Normal psychiatric evaluation. Limitations: no limitations Course Vital Signs 03/26/23 03/26/23 12:39 14:35 Temperature 98.0 F 97.9 F Pulse Rate 68 58 L Respiratory 20 16 Rate Blood Pressure 136/72 123/74 O2 Sat by Pulse 97 96 Oximetry Medical Decision Making - Medical Decision Making Was pt. sent in by a medical professional or institution (, PA, HOSPITAL RECEPTIONIST, urgent care, hospital, or jail...) When possible be specific @ -No Did you speak to anyone other than the patient for history (EMS, parent, family, police, friend...)? What history was obtained from this source @ -No Did you review nursing and triage notes (agree or disagree)? Why? @ -I reviewed and agree with nursing and triage notes Were old charts reviewed (outside hosp., previous admission, EMS record, old EKG, old radiological studies, urgent care reports/EKG's, jail records)? Report findings @ -No old charts were reviewed Differential Diagnosis (chest pain, altered mental status, abdominal pain women, abdominal pain men, vaginal bleeding, weakness, fever, dyspnea, syncope, headache, dizziness, GI bleed, back pain, seizure, CVA, palpatations, mental health, musculoskeletal)? @ -not applicable EKG interpreted by me (3pts min.). @ -As above X-rays interpreted by me (1pt min.). @ -None done CT interpreted by me (1pt min.). @ -None done U/S interpreted by me (1pt. min.). @ -None done What testing was considered but not performed or refused? (CT, X-rays, U/S, labs)? Why? @ -None What meds were considered but not given or refused? Why? @ -None Did you discuss the management of the patient with other professionals (professionals i.e. , PA, HOSPITAL RECEPTIONIST, lab, RT, psych nurse, social welfare clerk, day camp unit leader, teacher, public affairs officer, bilingual case manager)? Give summary @ -No Was smoking cessation discussed for >3mins.? @ -No Was critical care preformed (if so, how long)? @ -No Were there social determinants of health that impacted care today? How? (Homelessness, low income, unemployed, alcoholism, drug addiction, transportati on, low edu. Level, literacy, decrease access to med. care, penitentiary, rehab)? @ -No Was there de-escalation of care discussed even if they declined (Discuss DNR or withdrawal of care, Hospice)? DNR status @ -No What co-morbidities impacted this encounter? (DM, HTN, Smoking, COPD, CAD, Cancer, CVA, ARF, Chemo, Hep., AIDS, mental health diagnosis, sleep apnea, morbid obesity)? @ -None Was patient admitted / discharged? Hospital course, mention meds given and route, prescriptions, significant lab abnormalities, going to OR and other pertinent info. @ Patient was seen and evaluated she has hematoma on her tongue likely related to recent intubation, she was observed for 90 minutes with no change in her condition supportive care measures were discussed patient was discharged home in stable condition. Undiagnosed new problem with uncertain prognosis? @ -No Drug Therapy requiring intensive monitoring for toxicity (Heparin, Nitro, Insulin, Cardizem)? @ -No Were any procedures done? @ -No Diagnosis/symptom? @ Hematoma of tongue Acute, or Chronic, or Acute on Chronic? @ Acute Uncomplicated (without systemic symptoms) or Complicated (systemic symptoms)? @ -default Side effects of treatment? @ -No Exacerbation, Progression, or Severe Exacerbation? @ -No Poses a threat to life or bodily function? How? (Chest pain, [place], [place], pneumonia, PE, COPD, DKA, ARF, appy, cholecystitis, CVA, Diverticulitis, Homicidal, Suicidal, threat to staff... and all critical care pts) @ -No Disposition Clinical Impression: Hematoma of tongue Disposition: HOME SELF-CARE Condition: Stable Additional Instructions: Avoid using straws - you don't want to create negative pressure/suction in your mouth Soft foods until the hematoma improves, chewing increases your change of biting your tongue which will worsen swelling Return to the ER for re-evaluation of any worsening or development of any new or concerning symptoms Is patient prescribed a controlled substance at d/c from ED?: No Referrals: Leslie Segovia DO [Primary Care Provider] - 1-2 days
[2023-03-26 14:37] VITALS: BP 123/74; PULSE 58; RESP 16; TEMP 97.9
== END 2023-03-26 15:04 | disposition home or self-care (01) ==
LOC: EC 12:17
DX: S00.532A Contusion of oral cavity, initial encounter (principal); I10 Essential (primary) hypertension; I25.10 Atherosclerotic heart disease of native coronary artery without angina pectoris; I25.2 Old myocardial infarction; F17.200 Nicotine dependence, unspecified, uncomplicated; Z79.82 Long term (current) use of aspirin; Z79.899 Other long term (current) drug therapy; X58.XXXA Exposure to other specified factors, initial encounter
CPT/HCPCS: 99283

== ENCOUNTER → 2023-03-26 | Day surgery (SDC) | payer MEDICARE ==
[~2023-03-26] MED LIST changes: -ALPRAZolam 0.25 MG TAB PO PRN; -ASPIRIN 325 MG TAB PO PRN; +LACTATED RINGERS 1,000 ML IV SCH; +PROPOFOL 10 MG/ML 20 ML VIAL IV ONE; -SODIUM CHLORIDE 0.9% 1,000 ML in EMPTY BAG 1 BAG IV ONE
[2023-03-26 07:28] VITALS: RESP 16; TEMP 97.4
--- NOTE | 2023-03-26 08:12 | P.GSHP ---
History of Present Illness H&P Date: 03/26/23 Chief Complaint: Dysphagia This is a 72-year-old female who's had complaints of dysphagia. Patient's previous history of hiatal hernia repair. Patient has some issues with intermittent dysphagia. She feels that food is being stuck in her lower esophagus. Patient presents today for EGD with possible balloon dilatation. Past Medical History Past Medical History: Coronary Artery Disease (CAD), Deep Vein Thrombosis (DVT), GERD/Reflux, Hyperlipidemia, Hypertension, Myocardial Infarction ([place]), Seizure Disorder, Vascular Disorder Additional Past Medical History / Comment(s): hx ulcer, partial blockage of c arotid arteries, DVT leg after heart attack years ago, RECURRENT HIATAL HERNIA, "one seizure age 12" after dad , having dysphagia, can't eat much, epigastric pain Last Myocardial Infarction Date:: 1999 History of Any Multi-Drug Resistant Organisms: None Reported Past Surgical History: Appendectomy, Cholecystectomy, Heart Catheterization With Stent, Hernia Repair, Hysterectomy, Orthopedic Surgery Additional Past Surgical History / Comment(s): JOSH FILTER INSERTION, STATES HAS WIRE IN LEFT EAR TO AIDE IN HEARING,hiatal hernia repair x 2, EGD, LT SHOULDER athroscopy, right knee arthroscopy, one cardiac stent, heart cath 1999 Past Anesthesia/Blood Transfusion Reactions: Previous Problems w/ Anesthesia Additional Past Anesthesia/Blood Transfusion Reaction / Comment(s): "hard time waking me up" Date of Last Stent Placement:: 1999 Smoking Status: Current every day smoker - Past Family History Mother Family Medical History: Diabetes Mellitus Father Additional Family Medical History / Comment(s): brain aneurysm Son(s) Family Medical History: Cancer Medications and Allergies Home Medications Medication Instructions Recorded Confirmed Type atenoloL 25 mg PO DAILY 03/28/15 03/23/23 History amLODIPine BESYLATE [Norvasc] 5 mg PO DAILY 03/29/15 03/23/23 History Aspirin EC [Ecotrin Low Dose] 81 mg PO BID 03/12/19 03/23/23 History lisinopriL [Zestril] 10 mg PO BID 03/12/19 03/23/23 History Omeprazole 40 mg PO DAILY #30 capsule. 04/26/19 03/23/23 Rx Isosorbide Mononitrate ER [Imdur] 30 mg PO DAILY 02/27/21 03/23/23 History Multivitamins, Thera [Multivitamin 1 tab PO DAILY 01/17/22 03/23/23 History (formulary)] Rosuvastatin [Crestor] 10 mg PO DAILY 01/17/22 03/23/23 History Allergies Allergy/AdvReac Type Severity Reaction Status Date / Time No Known Allergies Allergy Verified 03/26/23 07:17 Surgical - Exam Vital Signs Temp Pulse Resp BP Pulse Ox 97.4 F L 62 16 162/70 94 L 03/26/23 07:27 03/26/23 07:27 03/26/23 07:27 03/26/23 07:27 03/26/23 07:27 - General well developed, well nourished, no distress - Eyes PERRL - ENT normal pinna - Neck no masses - Respiratory normal expansion - Cardiovascular Rhythm: regular - Abdomen Abdomen: soft, non tender Assessment and Plan Assessment: Dysphagia. We'll perform EGD. Possible balloon dilatation.
--- NOTE | 2023-03-26 08:20 | P.OP ---
Date of Procedure: 03/26/23 Preoperative Diagnosis: Dysphagia Postoperative Diagnosis: Antral gastritis Small hiatal hernia No evidence of esophageal obstruction No significant esophagitis Procedure(s) Performed: EGD Anesthesia: MAC Surgeon: Kendall Chairez Pathology: other (Antrum) Condition: stable Disposition: PACU Description of Procedure: The patient's placed on the endoscopy table lateral position. She received IV sedation. The gastroscope placed oropharynx passed in the esophagus into the stomach. Scope was then placed through the pylorus. The first and second portion of the duodenum appeared normal. Scope was then brought back the antrum and this appeared mildly inflamed. A biopsies performed. The scope was then retroflexed and remainder the stomach appeared normal. There was a small hiatal hernia seen. The GE junction was at 47 is. There is no significant esophagitis. There is no evidence of any esophageal occlusion or obstruction. Scope was then withdrawn. The proximal esophagus appeared normal. Scope withdrawn for patient.
[2023-03-26 09:16] VITALS: BP 112/63; PULSE 77
== END | disposition home or self-care (01) ==
LOC: ORWHC2ENDO 07:03
PROVIDERS: ATTEND Surgery
DX: K29.50 Unspecified chronic gastritis without bleeding (principal); K44.9 Diaphragmatic hernia without obstruction or gangrene; I25.10 Atherosclerotic heart disease of native coronary artery without angina pectoris; E78.5 Hyperlipidemia, unspecified; I10 Essential (primary) hypertension; I25.2 Old myocardial infarction; F17.200 Nicotine dependence, unspecified, uncomplicated; Z98.890 Other specified postprocedural states; Z86.73 Personal history of transient ischemic attack (TIA), and cerebral infarction without residual deficits; Z79.899 Other long term (current) drug therapy; Z90.89 Acquired absence of other organs; Z90.49 Acquired absence of other specified parts of digestive tract; Z95.5 Presence of coronary angioplasty implant and graft; Z83.3 Family history of diabetes mellitus; Z79.82 Long term (current) use of aspirin
CPT/HCPCS: 88305; 43239; J2704

== ENCOUNTER 2023-04-14 06:56 | Observation (INO) | payer MEDICARE ==
[2023-04-08 15:57] VITALS: BMI 27.2
[~2023-04-14 06:56] MED LIST changes: +ACETAMINOPHEN TAB 500 MG TAB PO PRN; +DEXAMETHASONE SOD PHOSPHATE 4 MG/ML 1 ML VIAL IV ONE; +HEPARIN SODIUM,PORCINE/PF 5,000 UNIT/0.5 ML SYRINGE SQ PRN; -LACTATED RINGERS 1,000 ML IV SCH; +LIDOCAINE 1% (10MG/ML) FOR IV START INTRADERMA PRN; +ONDANSETRON 4 MG/2 ML VIAL IVP ONE; -PROPOFOL 10 MG/ML 20 ML VIAL IV ONE; +droPERidol 5 MG/2 ML VIAL IVP ONE
[2023-04-14] MEDS ORDERED: HYDROmorphone 0.5 MG/0.5 ML SYRINGE IVP PRN ×2 (07:00→10:33)
[2023-04-14] MEDS: LACTATED RINGERS 1,000 ML IV SCH (08:20)
--- NOTE | 2023-04-14 08:27 | P.GSHP ---
History of Present Illness H&P Date: 04/14/23 Chief Complaint: Recurrent hiatal hernia This a 72-year-old female who's developed a recurrent hiatal hernia. Patient's complaints of epigastric pain and some minimal GERD dysphagia. Patient understands the risk of surgery including possible conversion to open procedure. She's also a risk of recurrent hiatal hernia. Past Medical History Past Medical History: Coronary Artery Disease (CAD), Deep Vein Thrombosis (DVT), GERD/Reflux, Hyperlipidemia, Hypertension, Myocardial Infarction ([place]), Seizure Disorder, Vascular Disorder Additional Past Medical History / Comment(s): hx ulcer, partial blockage of [place] arteries, DVT leg after heart attack years ago, RECURRENT HIATAL HERNIA, "one seizure age 12" after dad , having dysphagia, can't eat much, epigastric pain Last Myocardial Infarction Date:: 1999 History of Any Multi-Drug Resistant Organisms: None Reported Past Surgical History: Appendectomy, Cholecystectomy, Heart Catheterization With Stent, Hernia Repair, Hysterectomy, Orthopedic Surgery Additional Past Surgical History / Comment(s): JOSH FILTER INSERTION, STATES HAS WIRE IN LEFT EAR TO AIDE IN HEARING,hiatal hernia repair x 2, EGD, LT SHOULDER athroscopy, right knee arthroscopy, one cardiac stent, heart cath 1999 Past Anesthesia/Blood Transfusion Reactions: Previous Problems w/ Anesthesia Additional Past Anesthesia/Blood Transfusion Reaction / Comment(s): "hard time waking me up" Date of Last Stent Placement:: 1999 Smoking Status: Current every day smoker - Past Family History Mother Family Medical History: Diabetes Mellitus Father Additional Family Medical History / Comment(s): brain aneurysm Son(s) Family Medical History: Cancer Medications and Allergies Home Medications Medication Instructions Recorded Confirmed Type atenoloL 25 mg PO QAM 03/28/15 04/08/23 History amLODIPine BESYLATE [Norvasc] 5 mg PO QAM 03/29/15 04/08/23 History Aspirin EC [Ecotrin Low Dose] 81 mg PO BID 03/12/19 04/08/23 History lisinopriL [Zestril] 10 mg PO BID 03/12/19 04/08/23 History Isosorbide Mononitrate ER [Imdur] 30 mg PO QAM 02/27/21 04/08/23 History Multivitamins, Thera [Multivitamin 1 tab PO DAILY 01/17/22 04/08/23 History (formulary)] Rosuvastatin [Crestor] 10 mg PO DAILY 01/17/22 04/08/23 History Omeprazole 40 mg PO QAM 04/08/23 04/08/23 History Allergies Allergy/AdvReac Type Severity Reaction Status Date / Time No Known Allergies Allergy Verified 04/14/23 08:01 Surgical - Exam - General well developed, well nourished, no distress - Eyes PERRL - ENT normal pinna - Neck no masses - Respiratory normal expansion - Cardiovascular Rhythm: regular - Abdomen Abdomen: soft, non tender Assessment and Plan Assessment: Recurrent hiatal hernia. We'll perform laparoscopic repair.
[2023-04-14 08:35] LABS: Basophils % (A) 0 %; Eosinophils # (A) 0.2 k/uL (0-0.7); Eosinophils % (A) 2 %; HCT 36.5 % (34.0-46.0); HGB 11.7 gm/dL (11.4-16.0); Hypochromasia Slight; Lymphocytes # (A) 1.7 k/uL (1.0-4.8); Lymphocytes % (A) 18 %; MCH 26.5 pg (25.0-35.0); MCHC 32.1 g/dL (31.0-37.0); MCV 82.6 fL (80.0-100.0); Mean Platelet Volume 7.9; Monocytes # (A) 0.7 k/uL (0-1.0); Monocytes % (A) 7 %; Neutrophils # (A) 6.4 k/uL (1.3-7.7); Neutrophils % (A) 71 %; Platelet Count 315 k/uL (150-450); RBC 4.42 m/uL (3.80-5.40)
[2023-04-14 08:49] LABS: African American GFR (CKD) 88 (>60 ml/min/1.73 sqM); Anion Gap 4 mmol/L; Blood Urea Nitrogen 13 mg/dL (7-17); Calcium 9.5 mg/dL (8.4-10.2); Carbon Dioxide 26 mmol/L (22-30); Chloride 107 mmol/L (98-107); Glucose 112 mg/dL (74-99); Non-African American GFR(CKD) 76 (>60 ml/min/1.73 sqM); Potassium 4.3 mmol/L (3.5-5.1); Sodium 137 mmol/L (137-145)
[2023-04-14] MEDS ORDERED: PROPOFOL 10 MG/ML 20 ML VIAL IV ONE (08:56)
[2023-04-14] MEDS ORDERED: fentaNYL (PF) 50 MCG/ML 2 ML AMP ONE (08:56)
[2023-04-14] MEDS ORDERED: MIDAZOLAM 2 MG/2 ML VIAL ONE (08:56)
[2023-04-14] MEDS ORDERED: NEOSTIGMINE 1 MG/ML 10 ML VIAL ONE (08:56)
[2023-04-14] MEDS ORDERED: ROCURONIUM 10 MG/ML (5 ML VIAL) IV ONE (08:56)
[2023-04-14] MEDS ORDERED: ePHEDrine 50 MG/ML 1 ML VIAL ONE (08:56)
[2023-04-14] MEDS ORDERED: SUCCINYLCHOLINE CHLORIDE 200 MG/10 ML VIAL IV ONE (08:56)
[2023-04-14] MEDS ORDERED: KETOROLAC 15 MG/ML 1 ML VIAL ONE (08:56)
[2023-04-14] MEDS ORDERED: GLYCOPYRROLATE 0.2 MG/ML 2 ML VIAL ONE (08:56)
[2023-04-14] MEDS ORDERED: LIDOCAINE 2% INJ 20 MG/ML (2 ML VIAL) ONE (08:56)
[2023-04-14] MEDS ORDERED: LIDOCAINE 1%-EPI 1:100,000 50 ML VIAL SQ ONE ×2 (09:31)
[2023-04-14] MEDS ORDERED: LACTATED RINGERS 1,000 ML IV ONE ×2 (10:22→10:33)
[2023-04-14] MEDS ORDERED: ONDANSETRON 4 MG/2 ML VIAL IVP PRN (10:33)
[2023-04-14] MEDS ORDERED: NALOXONE 0.4 MG/ML 1 ML VIAL IV PRN (10:33)
--- NOTE | 2023-04-14 10:39 | P.OP ---
Date of Procedure: 04/14/23 Preoperative Diagnosis: Recurrent hiatal hernia Postoperative Diagnosis: Recurrent hiatal hernia Procedure(s) Performed: Laparoscopic repair of recurrent hiatal hernia with mesh Anesthesia: BANDAR Surgeon: Kendall Chairez Estimated Blood Loss (ml): 10 Pathology: none sent Condition: stable Disposition: PACU Description of Procedure: The patient was placed on the operating table in the supine position. She received general anesthesia. She was then placed in dorsal lithotomy position. Her abdomen was prepped and draped in the usual sterile fashion. The skin incision sites were anesthetized with 1% local Xylocaine. The skin was incised in the left periumbilical area with an 11 scalpel. Using a 5 mm blade was trocar under direct visitation the peritoneal cavity was entered. And then insufflated. After adequate insufflation the laparoscope was placed back into t he peritoneal cavity. Next a 5 mm trocar was placed in the right epigastric and then the right lateral position. Another 5 mm trochars placed in the left lateral position. Another 5 mm trocar placed in the left epigastric position. And the original left periumbilical trocar was exchanged for a 10 mm trocar. The left lateral lobe liver was retracted. The patient had a recurrent hiatal hernia. The adhesions between the stomach and liver were lysed with sharp dissection. Using the Harmonic scissors the crural defect was dissected in the Harmonic scissors were used to dissect the hiatal hernia sac. The fundus of the stomach was completely mobilized by using the Harmonic scissors t. The stomach was reduced into the peritoneal cavity. The crura was dissected with the Harmonic scissors. And then the crural repair was performed using 2-0 Ethibond suture. The [place] bio A mesh was then placed over top of the repair and secured with 2-0 Ethibond suture. N. The abdomen was irrigated there is no bleeding seen. The trochars are withdrawn. Skin was closed interrupted 3-0 Monocryl suture. Dermabond was applied. Patient tolerated procedure well and was sent to [facility] in stable condition.
[2023-04-14] MEDS ORDERED: droPERidol 5 MG/2 ML VIAL IVP ONE (10:49)
[2023-04-14] MEDS: KETOROLAC 15 MG/ML 1 ML VIAL IVP SCH ×3 (12:47→23:59)
[2023-04-14] MEDS: ACETAMINOPHEN TAB 325 MG TAB PO PRN (16:04)
[2023-04-14] MEDS: DOCUSATE 100 MG CAP PO SCH (21:13)
[2023-04-15] MEDS: KETOROLAC 15 MG/ML 1 ML VIAL IVP SCH ×5 (05:41→23:47)
[2023-04-15] MEDS: LACTATED RINGERS 1,000 ML IV SCH (05:45)
[2023-04-15] MEDS ORDERED: HYDROcodone/APAP 5-325MG 1 EACH TAB PO PRN (08:00)
[2023-04-15] MEDS: atenoloL 25 MG TAB PO SCH (09:34)
[2023-04-15] MEDS: PANTOPRAZOLE 40 MG/10 ML VIAL IV SCH (09:34)
[2023-04-15] MEDS: ENOXAPARIN 40 MG/0.4 ML SYRINGE SQ SCH (09:34)
[2023-04-15] MEDS: DOCUSATE 100 MG CAP PO SCH ×2 (09:34→21:10)
--- NOTE | 2023-04-15 10:30 | P.CONS ---
History of Present Illness - Reason for Consult Consult date: 04/15/23 Medical management hypertension, nicotine dependence Requesting physician: Kendall Chairez - Chief Complaint Recurrent hiatal hernia status post laparoscopic repair - History of Present Illness This is a 72-year-old female with PMH significant for recurrent hiatal hernia, l ast hernia repair performed approximately 4 years ago-as reported per pt. ,GERD, s/p gisele fundoplication, CAD,[place], DVT, hypertension, seizure disorder, ongoing nicotine dependence and multiple other medical issues status post laparoscopic repair of recurrent hiatal hernia, postop day #1. Tolerated procedure well. Reports positive pain this morning accompanied by nausea, no emesis. Positive belching, passing flatus, no bowel movement. Minimal ambulation. Attempting to use incentive spirometer. Afebrile. Maintaining O2 sats in the 90s on 3 L nasal cannula. Denies chest pain, palpitations. Review of Systems ROS Statement: Those systems with pertinent positive or pertinent negative responses have been documented in the HPI. ROS Other: All systems not noted in ROS Statement are negative. Past Medical History Past Medical History: Coronary Artery Disease (CAD), Deep Vein Thrombosis (DVT), GERD/Reflux, Hyperlipidemia, Hypertension, Myocardial Infarction ([place]), Seizure Disorder, Vascular Disorder Additional Past Medical History / Comment(s): hx ulcer, partial blockage of carotid arteries, DVT leg after heart attack years ago, RECURRENT HIATAL HERNIA, "one seizure age 12" after dad , having dysphagia, can't eat much, epigastric pain Last Myocardial Infarction Date:: 1999 History of Any Multi-Drug Resistant Organisms: None Reported Past Surgical History: Appendectomy, Cholecystectomy, Heart Catheterization With Stent, Hernia Repair, Hysterectomy, Orthopedic Surgery Additional Past Surgical History / Comment(s): JOSH FILTER INSERTION, STA THUY HAS WIRE IN LEFT EAR TO AIDE IN HEARING,hiatal hernia repair x 2, EGD, LT SHOULDER athroscopy, right knee arthroscopy, one cardiac stent, heart cath 1999 Past Anesthesia/Blood Transfusion Reactions: Previous Problems w/ Anesthesia Additional Past Anesthesia/Blood Transfusion Reaction / Comm: "hard time waking me up" Date of Last Stent Placement:: 1999 Smoking Status: Current every day smoker - Past Family History Mother Family Medical History: Diabetes Mellitus Father Additional Family Medical History / Comment(s): brain aneurysm Son(s) Family Medical History: Cancer Medications and Allergies Home Medications Medication Instructions Recorded Confirmed Type atenoloL 25 mg PO QAM 03/28/15 04/08/23 History amLODIPine BESYLATE [Norvasc] 5 mg PO QAM 03/29/15 04/08/23 History Aspirin EC [Ecotrin Low Dose] 81 mg PO BID 03/12/19 04/08/23 History lisinopriL [Zestril] 10 mg PO BID 03/12/19 04/08/23 History Isosorbide Mononitrate ER [Imdur] 30 mg PO QAM 02/27/21 04/08/23 History Multivitamins, Thera [Multivitamin 1 tab PO DAILY 01/17/22 04/08/23 History (formulary)] Rosuvastatin [Crestor] 10 mg PO DAILY 01/17/22 04/08/23 History Omeprazole 40 mg PO QAM 04/08/23 04/08/23 History Allergies Allergy/AdvReac Type Severity Reaction Status Date / Time No Known Allergies Allergy Verified 04/14/23 08:01 Physical Exam Vitals: Vital Signs Temp Pulse Pulse Resp BP BP Pulse Ox 04/14/23 13:58 61 144/74 96 04/14/23 13:43 67 145/75 97 04/14/23 13:28 55 L 139/72 98 04/14/23 13:13 58 L 155/78 97 04/14/23 12:58 69 135/73 97 04/14/23 12:28 62 16 137/73 94 L 04/14/23 11:45 62 16 142/52 99 04/14/23 11:30 64 17 157/60 04/14/23 11:15 70 19 155/69 99 04/14/23 11:00 69 19 140/64 97 04/14/23 10:45 70 16 120/55 93 L 04/14/23 10:30 68 15 135/63 93 L 04/14/23 10:26 97.0 F L 67 12 138/50 95 04/14/23 08:20 97.5 F L 60 16 126/60 97 Intake and Output 04/13/23 04/14/23 04/14/23 22:59 06:59 14:59 Intake Total 1400 Output Total 5 Balance 1395 Intake: IV 1400 Output: Estimated Blood Loss 5 Other: Weight 68.2 kg General: Sitting up in bed, well nourished, well developed, NAD. Vitals reviewed Eyes: PERRL, EOMI, conjunctiva normal HENT: normocephalic, mucus membranes moist Neck: supple, no JVD Lungs: normal respiratory effort, no wheezes or rales CV: Regular rate and rhythm, no murmur. Peripheral pulses 2+ Abdomen: soft, status post surgery Lymph: no cervical or axillary LAD Skin: warm and dry. Neuro: A&Ox3, normal mood and affect Results CBC & Chem 7: 04/14/23 08:20 04/14/23 08:20 Labs: Abnormal Lab Results - Last 24 Hours (Table) 04/14/23 04/14/23 Range/Units 08:20 08:20 RDW 16.0 H (11.5-15.5) % Glucose 112 H (74-99) mg/dL Assessment and Plan Assessment: Recurrent hiatal hernia status post laparoscopic repair Postoperative atelectasis, expected outcome History of gisele CAD Hypertension Seizure disorder Ongoing nicotine dependence Plan: Continue on current medication regime, monitoring and symptomatic treatment. Pain management, DVT prophylaxis as per primary. Aggressive pulmonary toileting with incentive spirometer ordered. Increase ambulation as t olerated. Smoking cessation reinforced. The impression and plan of care has been dictated as directed. : I performed a history and examination of this patient, discussed the same with the dictator. I agree with the dictator's note ,documented as a scribe. Any additional findings or plans will be noted.
[2023-04-15] MEDS: ISOSORBIDE MONONITRATE ER 30 MG TAB.ER.24H PO SCH (11:20)
[2023-04-15] MEDS ORDERED: IPRATROPIUM-ALBUTEROL 3 ML NEB INHALATION PRN (13:32)
--- NOTE | 2023-04-15 13:34 | P.PN ---
Subjective Progress Note Date: 04/15/23 CHIEF COMPLAINT: Hiatal hernia HISTORY OF PRESENT ILLNESS: Patient complains of abdominal pain. She did have nausea earlier. She does report coughing up clear sputum. Denies any bowel movement or flatus. She does report more pain with movement. She is tolerating the clear liquids. Patient is requiring oxygen. Her oxygen saturation drops to 86% with ambulating. Patient does not require home O2 at home. Denies any history of COPD. Afebrile. PHYSICAL EXAM: VITAL SIGNS: Reviewed. GENERAL: Well-developed in no acute distress. ABDOMEN: Soft. Tender incision sites. Incision sites clean dry and intact. Nondistended. ASSESSMENT: 1. Recurrent hiatal hernia status post laparoscopic repair with mesh 2. Hypoxic with cough PLAN: -Chest x-ray ordered for further evaluation of hypoxia and cough -Continue to monitor O2 needs -Saline added for oral pain medication -Encouraged patient to increase activity level -Encouraged patient to use incentive spirometer -GI prophylaxis Protonix and DVT prophylaxis Lovenox Physician Analytical Data Miner note has been reviewed by physician. Signing provider agrees with the documented findings, assessment, and plan of care. Objective - Vital Signs Vital signs: Vital Signs Temp 98.5 F 04/15/23 07:51 Pulse 83 04/15/23 13:18 Resp 16 04/15/23 07:51 BP 146/75 04/15/23 07:51 Pulse Ox 94 L 04/15/23 13:18 FiO2 Intake & Output 04/14/23 04/15/23 04/15/23 18:59 06:59 18:59 Intake Total 2400 Output Total 5 Balance 2395 Weight 68.2 kg Intake: IV 1400 Intake, IV Titration 1000 Amount Lactated Ringers 1,000 ml 1000 @ 125 mls/hr IV .Q8H ONE Rx#:[id number] Output: Estimated Blood Loss 5 Other: Voiding Method Toilet # Voids 3 - Labs CBC & Chem 7: 04/14/23 08:20 04/14/23 08:20
[2023-04-15] MEDS ORDERED: NICOTINE 14MG/24HR PATCH TRANSDERM SCH (13:45)
[2023-04-15] MEDS: NICOTINE 21MG/24HR PATCH TRANSDERM SCH (13:58)
[2023-04-15] MEDS: SYMBICORT 80-4.5 MCG INHALER INHALATION SCH ×2 (15:39→20:47)
--- NOTE | 2023-04-15 15:48 | XR ---
EXAMINATION TYPE: XR chest 2V DATE OF EXAM: 04/15/2023 COMPARISON: 04/13/2020 INDICATION: Hypoxic TECHNIQUE: Frontal and lateral views of the chest are obtained. FINDINGS: The heart size is normal. The pulmonary vasculature is normal. Small left pleural effusion is present. Minimal right pleural effusion is. Some compressive atelectas is is likely present adjacent. Hyperinflation with increased AP diameter and flattening the diaphrag ms can be compatible with COPD. IMPRESSION: 1. Small bilateral pleural effusions with adjacent atelectasis. 2. COPD
[2023-04-15] MEDS: IPRATROPIUM-ALBUTEROL 3 ML NEB INHALATION SCH ×2 (15:59→20:47)
[2023-04-16] MEDS: KETOROLAC 15 MG/ML 1 ML VIAL IVP SCH (05:59)
[2023-04-16] MEDS: LACTATED RINGERS 1,000 ML IV SCH (06:00)
[2023-04-16] MEDS: NICOTINE 21MG/24HR PATCH TRANSDERM SCH (07:21)
[2023-04-16 07:56] VITALS: RESP 18
[2023-04-16 08:52] LABS: Basophils # (A) 0.04 X 10*3/uL (0.00-0.10); Basophils % (A) 0.6 %; Eosinophils # (A) 0.14 X 10*3/uL (0.04-0.35); Eosinophils % (A) 2.1 %; HGB 9.9 d/dL (12.0-15.0); Lymphocytes # (A) 1.55 X 10*3/uL (0.90-5.00); Lymphocytes % (A) 23.6 %; MCHC 30.9 d/dL (32.0-37.0); Mean Platelet Volume 10.5 FL (9.5-12.2); Monocytes # (A) 0.81 X 10*3/uL (0.20-1.00); Monocytes % (A) 12.3 %; NRBC Per 100 WBC 0 X 10*3/uL (0.00-0.01); Neutrophils % (A) 60.9 %; Platelet Count 240 X 10*3/uL (140-440); RBC 3.81 X 10*6/uL (4.10-5.20); RDW 16.3 % (11.5-14.5); WBC 6.57 X 10*3/uL (4.50-10.00)
[2023-04-16] MEDS: DOCUSATE 100 MG CAP PO SCH (08:55)
[2023-04-16] MEDS: atenoloL 25 MG TAB PO SCH (08:55)
[2023-04-16] MEDS: ISOSORBIDE MONONITRATE ER 30 MG TAB.ER.24H PO SCH (08:55)
[2023-04-16] MEDS: ENOXAPARIN 40 MG/0.4 ML SYRINGE SQ SCH (08:55)
[2023-04-16] MEDS ORDERED: amLODIPine 5 MG TAB PO SCH (09:00)
[2023-04-16] MEDS: IPRATROPIUM-ALBUTEROL 3 ML NEB INHALATION SCH ×3 (09:11→15:35)
[2023-04-16] MEDS: SYMBICORT 80-4.5 MCG INHALER INHALATION SCH (09:11)
[2023-04-16] MEDS: ACETAMINOPHEN TAB 325 MG TAB PO PRN (09:50)
[2023-04-16] MEDS: PANTOPRAZOLE 40 MG/10 ML VIAL IV SCH (10:31)
[2023-04-16 11:22] LABS: BUN/Creat Ratio 13.57 Ratio (12.00-20.00); Blood Urea Nitrogen 9.5 mg/dL (9.0-27.0); Calcium 8.8 mg/dL (8.7-10.3); Chloride 104 mmol/L (96-109); Glucose 83 mg/dL (70-110); Potassium 4.2 mmol/L (3.5-5.5); Sodium 140 mmol/L (135-145)
[2023-04-16 12:16] VITALS: BP 131/68; TEMP 98.5
--- NOTE | 2023-04-16 12:37 | P.PN ---
Subjective Progress Note Date: 04/16/23 - Chief Complaint Recurrent hiatal hernia status post laparoscopic repair - History of Present Illness This is a 72-year-old female with PMH significant for recurrent hiatal hernia, last hernia repair performed approximately 4 years ago-as reported per pt. ,GERD, s/p gisele fundoplication, CAD,[place], DVT, hypertension, seizure disorder, ongoing nicotine dependence and multiple other medical issues status post laparoscopic repair of recurrent hiatal hernia, postop day #1. Tolerated procedure well. Reports positive pain this morning accompanied by nausea, no emesis. Positive belching, passing flatus, no bowel movement. Minimal ambulation. Attempting to use incentive spirometer. Afebrile. Maintaining O2 sats in the 90s on 3 L nasal cannula. Denies chest pain, palpitations. 04/16/2023 maintaining O2 sats in the 90s on 3 L, which can be titrated further down. Nonproductive cough. Chest x-ray reporting small bilateral pleural effusions with adjacent atelectasis, hyperinflation, flattening diaphragms compatible with COPD. Continues on nebulized bronchodilators, Symbicort. Positive pain, positive bloating, positive nausea. Has attempted Tylenol, Toradol only for pain management. Hemoglobin decreased to 9.9, platelets 240. Renal function stable. Denies chills, afebrile, normal WBC. Objective - Vital Signs Vital signs: Vital Signs Temp 98.0 F 04/16/23 07:30 Pulse 68 04/16/23 09:28 Resp 18 04/16/23 07:30 BP 139/70 04/16/23 07:30 Pulse Ox 97 04/16/23 07:30 FiO2 Intake & Output 04/15/23 04/16/23 04/16/23 18:59 06:59 18:59 Other: Voiding Method Toilet # Voids 1 1 - Exam General: Alert and oriented 3, Sitting up in bed,NAD. Vitals reviewed Eyes: PERRL, EOMI, conjunctiva normal HENT: normocephalic, mucus membranes moist Neck: supple, no JVD Lungs: normal respiratory effort, minimal expiratory wheeze. CV: Regular rate and rhythm, no murmur. Peripheral pulses 2+ Abdomen: soft, status post surgery Skin: warm and dry. No rashes noted Neuro: A&Ox3, no focal deficits. - Labs CBC & Chem 7: 04/16/23 05:41 04/16/23 05:41 Labs: Abnormal Lab Results - Last 24 Hours (Table) 04/16/23 Range/Units 05:41 RBC 3.81 L (4.10-5.20) X 10*6/uL Hgb 9.9 L (12.0-15.0) d/dL Hct 32.0 L (37.2-46.3) % MCH 26.0 L (27.0-32.0) pg MCHC 30.9 L (32.0-37.0) d/dL RDW 16.3 H (11.5-14.5) % Assessment and Plan Assessment: Recurrent hiatal hernia status post laparoscopic repair Acute hypoxic respiratory failure, secondary to the above. Postoperative atelectasis, expected outcome Anemia, postop, repeat CBC pending COPD History of gisele CAD Hypertension Seizure disorder Ongoing nicotine dependence Plan: Continue on current medication regime, monitoring and symptomatic treatment. Hemoglobin decreased from 11.7 to 9.9, vital signs stable/ Repeat CBC this afternoon. ordered. Pain management. Maintain aggressive pulmonary toileting with incentive spirometer and smoking cessation reinforced. Increase ambulation as tolerated. The impression and plan of care has been dictated as directed. : I performed a history and examination of this patient, discussed the same with the dictator. I agree with the dictator's note ,documented as a scribe. Any additional findings or plans will be noted.
--- NOTE | 2023-04-16 13:38 | P.DS ---
Providers Date of admission: 04/16/23 12:14 Expected date of discharge: 04/16/23 Attending physician: Kendall Chairez Consults: 04/14/23 10:33 Consult Physician Routine Consulting Provider: Deric Gong Consult Reason/Comments: Medical management Do you want consulting provider notified?: Yes Primary care physician: Leslie Segovia Hospital Course: Discharge diagnosis 1. Recurrent hiatal hernia status post laparoscopic repair with mesh Hospital course This is a 72-year-old female with history of a recurrent hiatal hernia and she is status post laparoscopic repair with mesh. She is tolerating diet. Her pain is controlled. She has been up and ambulate in. She is afebrile. She did have hypoxia likely related to her COPD and atelectasis. Hypoxia resolved. She is on Room Air satting at 95%. She denies any shortness of breath. Patient encouraged to use incentive spirometer. Patient is stable for discharge. Please refer to chart for any further details. Physician Phone Specialist note has been reviewed by physician. Signing provider agrees with the documented findings, assessment, and plan of care. Patient Condition at Discharge: Stable Plan - Discharge Summary Discharge Rx Participant: No New Discharge Prescriptions: New Nicotine 21Mg/24Hr Patch [Habitrol] 1 patch TRANSDERM DAILY patch oxyCODONE HCL [OxyIR] 5 mg PO Q6H PRN 2 Days #5 tab PRN Reason: Pain Acetaminophen Tab [Tylenol] 1,000 mg PO Q6HR PRN #30 tablet PRN Reason: Pain Continue atenoloL 25 mg PO QAM amLODIPine BESYLATE [Norvasc] 5 mg PO QAM lisinopriL [Zestril] 10 mg PO BID Isosorbide Mononitrate ER [Imdur] 30 mg PO QAM Rosuvastatin [Crestor] 10 mg PO DAILY Multivitamins, Thera [Multivitamin (formulary)] 1 tab PO DAILY Omeprazole 40 mg PO QAM No Action Aspirin EC [Ecotrin Low Dose] 81 mg PO BID Discharge Medication List atenoloL 25 mg PO QAM 03/28/15 [History] amLODIPine BESYLATE [Norvasc] 5 mg PO QAM 03/29/15 [History] Aspirin EC [Ecotrin Low Dose] 81 mg PO BID 03/12/19 [History] lisinopriL [Zestril] 10 mg PO BID 03/12/19 [History] Isosorbide Mononitrate ER [Imdur] 30 mg PO QAM 02/27/21 [History] Multivitamins, Thera [Multivitamin (formulary)] 1 tab PO DAILY 01/17/22 [History] Rosuvastatin [Crestor] 10 mg PO DAILY 01/17/22 [History] Omeprazole 40 mg PO QAM 04/08/23 [History] Acetaminophen Tab [Tylenol] 1,000 mg PO Q6HR PRN #30 tablet 04/16/23 [Rx] Nicotine 21Mg/24Hr Patch [Habitrol] 1 patch TRANSDERM DAILY patch 04/16/23 [Rx] oxyCODONE HCL [OxyIR] 5 mg PO Q6H PRN 2 Days #5 tab 04/16/23 [Rx] Follow up Appointment(s)/Referral(s): Deric Gong MD [STAFF PHYSICIAN] - 1 Week Kendall Chairez MD [STAFF PHYSICIAN] - 1 Week Activity/Diet/Wound Care/Special Instructions: Continue with incentive spirometer every hour 10 while awake No driving while taking OxyIR No lifting over 10 pounds Shower daily. No soaking or tub baths for 2 weeks Very light activity until you are reevaluated at your follow up appointment with your surgeon Continue a full liquid diet for the next 2 weeks Discharge Disposition: HOME SELF-CARE
[2023-04-16 13:54] VITALS: PULSE 75
[2023-04-16 14:01] LABS: HCT 35.5 % (34.0-46.0); Hypochromasia Moderate; MCH 26.3 pg (25.0-35.0); MCHC 31.1 g/dL (31.0-37.0); MCV 84.5 fL (80.0-100.0); Mean Platelet Volume 7.8; Platelet Count 248 k/uL (150-450); RBC 4.21 m/uL (3.80-5.40); WBC 8.2 k/uL (3.8-10.6)
== END 2023-04-16 16:04 | disposition home or self-care (01) ==
LOC: OR 06:56 → 5NMEDONC 10:31 → OR 04-16 12:14 → 5NMEDONC 04-16 12:14
PROVIDERS: ADMIT Surgery; ATTEND Surgery
DX: K44.9 Diaphragmatic hernia without obstruction or gangrene (principal); I25.10 Atherosclerotic heart disease of native coronary artery without angina pectoris; Z86.718 Personal history of other venous thrombosis and embolism; E78.5 Hyperlipidemia, unspecified; I10 Essential (primary) hypertension; I25.2 Old myocardial infarction; G40.909 Epilepsy, unspecified, not intractable, without status epilepticus; Z79.82 Long term (current) use of aspirin; Z79.899 Other long term (current) drug therapy; Z90.49 Acquired absence of other specified parts of digestive tract; Z90.710 Acquired absence of both cervix and uterus; Z95.5 Presence of coronary angioplasty implant and graft; Z98.890 Other specified postprocedural states; F17.200 Nicotine dependence, unspecified, uncomplicated; Z83.3 Family history of diabetes mellitus; Z82.49 Family history of ischemic heart disease and other diseases of the circulatory system; Z80.9 Family history of malignant neoplasm, unspecified
CPT/HCPCS: 94640 ×4; 80048 ×2; 85025 ×2; 85027; 71046; 43282; G0378; C1781; J2250; J0330; J1100; J2710; J0690; J2405 ×2; J1650 ×2; J3010; J1885 ×3; J2704; C9113 ×2; J1170; J1790; J1644; J2001

== ENCOUNTER → 2023-06-01 | Outpatient (CLI) | payer MEDICARE ==
[2023-06-01 16:39] LABS: ALT 16 U/L (8-44); AST 22 U/L (13-35); Albumin 4.4 d/dL (3.8-4.9); Albumin/Globulin Ratio 1.63 Ratio (1.60-3.17); Alkaline Phosphatase 130 U/L (41-126); BUN/Creat Ratio 13.89 Ratio (12.00-20.00); Blood Urea Nitrogen 12.5 mg/dL (9.0-27.0); Calcium 9.7 mg/dL (8.7-10.3); Carbon Dioxide 22.5 mmol/L (21.6-31.8); Chloride 103 mmol/L (96-109); Chol/HDL Ratio 2.43 Ratio; Globulin 2.7 d/dL (1.6-3.3); Glucose 111 mg/dL (70-110); LDL Cholesterol,Calculated 87.9 mg/dL (0.0-131.0); Potassium 4.6 mmol/L (3.5-5.5); Sodium 142 mmol/L (135-145); Total Bilirubin 0.3 mg/dL (0.3-1.2); Total Protein 7.1 d/dL (6.2-8.2)
[2023-06-01 16:46] LABS: MCH 25.6 pg (27.0-32.0); MCV 85.3 FL (80.0-97.0); Mean Platelet Volume 10.1 FL (9.5-12.2); NRBC Per 100 WBC 0 X 10*3/uL (0.00-0.01); Platelet Count 304 X 10*3/uL (140-440); RBC 4.69 X 10*6/uL (4.10-5.20); RDW 17.4 % (11.5-14.5); WBC 8.52 X 10*3/uL (4.50-10.00)
== END | disposition home or self-care (01) ==
LOC: LABWHC1 11:22
PROVIDERS: ATTEND Family Medicine
DX: Z13.220 Encounter for screening for lipoid disorders (principal); E78.5 Hyperlipidemia, unspecified; R53.83 Other fatigue; R73.02 Impaired glucose tolerance (oral)
CPT/HCPCS: 36415; 80053; 80061; 83036; 83970; 84443; 85027

== ENCOUNTER 2023-11-03 08:25 | Observation (INO) | payer MEDICARE ==
--- NOTE | 2023-11-03 09:03 | ED ---
General Adult HPI - General Chief complaint: Recheck/Abnormal Lab/Rx Stated complaint: jaw pain Time Seen by Provider: 11/03/23 08:35 Source: patient, RN notes reviewed, old records reviewed Mode of arrival: ambulatory Limitations: no limitations - History of Present Illness Initial comments: This is a 73-year-old female who presents to the emergency department stating she has a past medical history significant for high blood pressure and high cholesterol and continues to smoke. Patient states that she has been having intermittent chest pain for the last 3 weeks in particular it occurs when she is walking. Patient states she has been short of breath as well when this occurs. Patient states today the pain went to her jaw which is completely new and she was also mildly short of breath. Patient denies any diaphoretic episode. Patient denies any nausea. Patient has any back pain. Patient denies any arm pain. Patient denies any recent fever chills or cough. Patient states as she states here at rest it is much improved. - Related Data Home Medications Medication Instructions Recorded Confirmed atenoloL 25 mg PO DAILY 03/28/15 11/03/23 amLODIPine BESYLATE [Norvasc] 5 mg PO DAILY 03/29/15 11/03/23 Aspirin EC [Ecotrin Low Dose] 81 mg PO BID 03/12/19 11/03/23 lisinopriL [Zestril] 10 mg PO BID 03/12/19 11/03/23 Isosorbide Mononitrate ER [Imdur] 30 mg PO DAILY 02/27/21 11/03/23 Rosuvastatin [Crestor] 10 mg PO DAILY 01/17/22 11/03/23 Omeprazole 40 mg PO DAILY 04/08/23 11/03/23 Nitroglycerin Sl Tabs [Nitrostat] 0.4 mg SUBLINGUAL Q5M PRN 11/03/23 11/03/23 Allergies Allergy/AdvReac Type Severity Reaction Status Date / Time No Known Allergies Allergy Verified 11/03/23 08:38 Review of Systems ROS Statement: Those systems with pertinent positive or pertinent negative responses have been documented in the HPI. ROS Other: All systems not noted in ROS Statement are negative. Past Medical History Past Medical History: Coronary Artery Disease (CAD), Deep Vein Thrombosis (DVT), GERD/Reflux, Hyperlipidemia, Hypertension, Myocardial Infarction (ID), Seizure Disorder, Vascular Disorder Additional Past Medical History / Comment(s): hx ulcer, partial blockage of carotid arteries, DVT leg after heart attack years ago, RECURRENT HIATAL HERNIA, "one seizure age 12" after dad , having dysphagia, can't eat much, ep igastric pain Last Myocardial Infarction Date:: 1999 History of Any Multi-Drug Resistant Organisms: None Reported Past Surgical History: Appendectomy, Cholecystectomy, Heart Catheterization With Stent, Hernia Repair, Hysterectomy, Orthopedic Surgery Additional Past Surgical History / Comment(s): JOSH FILTER INSERTION, STATES HAS WIRE IN LEFT EAR TO AIDE IN HEARING,hiatal hernia repair x 2, EGD, LT SHOULDER athroscopy, right knee arthroscopy, one cardiac stent, heart cath 1999 Past Anesthesia/Blood Transfusion Reactions: Previous Problems w/ Anesthesia Additional Past Anesthesia/Blood Transfusion Reaction / Comment(s): "hard time waking me up" Date of Last Stent Placement:: 1999 Past Psychological History: No Psychological Hx Reported Smoking Status: Current every day smoker Past Alcohol Use History: Occasional Past Drug Use History: None Reported - Past Family History Mother Family Medical History: Diabetes Mellitus Father Additional Family Medical History / Comment(s): brain aneurysm Son(s) Family Medical History: Cancer General Exam - General Exam Comments Initial Comments: GENERAL: Patient is well-developed and well-nourished. Patient is nontoxic and well- hydrated and is in mild distress. ENT: Neck is soft and supple. No significant lymphadenopathy is noted. Oropharynx is clear. Moist mucous membranes. Neck has full range of motion without eliciting any pain. EYES: The sclera were anicteric and conjunctiva were pink and moist. Extraocular movements were intact and pupils were equal round and reactive to light. Eyelids were unremarkable. PULMONARY: Unlabored respirations. Good breath sounds bilaterally. No audible rales rhonchi or wheezing was noted. CARDIOVASCULAR: There is a regular rate and rhythm without any murmurs gallops or rubs. ABDOMEN: Soft and nontender with normal bowel sounds. SKIN: Skin is clear with no lesions or rashes and otherwise unremarkable. NEUROLOGIC: Patient is alert and oriented x3. Cranial nerves II through XII are grossly intact. Motor and sensory are also intact. Normal speech, volume and content. Symmetrical smile. MUSCULOSKELETAL: Normal extremities with adequate strength and full range of motion. No lower extremity swelling or edema. No calf tenderness. LYMPHATICS: No significant lymphadenopathy is noted PSYCHIATRIC: Normal psychiatric evaluation. Limitations: no limitations Course Vital Signs 11/03/23 11/03/23 11/03/23 08:34 08:55 09:08 Temperature 98.1 F Pulse Rate 58 L 58 L Pulse Rate [ 63 Director Of Casework Department ] Respiratory 18 16 Rate Blood Pressure 106/62 115/57 O2 Sat by Pulse 96 Oximetry Medical Decision Making - Medical Decision Making EKG is interpreted by myself. EKG shows sinus bradycardia at 58 bpm FL interval 170 QRS is 156 QT interval 505 QTc is 502. Patient's EKG shows a left bundle branch block. Was pt. sent in by a medical professional or institution (, [facility], [facility], urgent care, hospital, or [place] [facility] facility...) When possible be specific @ -No Did you speak to anyone other than the patient for history (EMS, parent, family, police, friend...)? What history was obtained from this source @ -No Did you review nursing and triage notes (agree or disagree)? Why? @ -I reviewed and agree with nursing and triage notes Were old charts reviewed (outside hosp., previous admission, EMS record, old EKG, old radiological studies, urgent care reports/EKG's, [place] [facility] facility records)? Report findings @ -I reviewed prior charts prior lab work on this patient Differential Diagnosis (chest pain, altered mental status, abdominal pain women, abdominal pain men, vaginal bleeding, weakness, fever, dyspnea, syncope, headache, dizziness, GI bleed, back pain, seizure, CVA, palpatations, mental health, musculoskeletal)? @ -Differential chest pain EKG interpreted by me (3pts min.). @ -As above X-rays interpreted by me (1pt min.). @ -Chest x-ray shows no acute abnormality CT interpreted by me (1pt min.). @ -None done U/S interpreted by me (1pt. min.). @ -None done What testing was considered but not performed or refused? (CT, X-rays, U/S, labs)? Why? @ -None What meds were considered but not given or refused? Why? @ -None Did you discuss the management of the patient with other professionals (professionals i.e. , [facility], [facility], lab, RT, psych nurse, social services assistant, pricing clerk, teacher, retail loss prevention officer, wrapper caser)? Give summary @ -With Dr. Gong he agreed to admit the patient admit the patient wrote admitting orders Was smoking cessation discussed for >3mins.? @ -No Was critical care preformed (if so, how long)? @ -No Were there social determinants of health that impacted care today? How? (Homelessness, low income, unemployed, alcoholism, drug addiction, transportation, low edu. Level, literacy, decrease access to med. care, detention, rehab)? @ -No Was there de-escalation of care discussed even if they declined (Discuss DNR or withdrawal of care, Hospice)? DNR status @ -No What co-morbidities impacted this encounter? (DM, HTN, Smoking, COPD, CAD, Cancer, CVA, ARF, Chemo, Hep., AIDS, mental health diagnosis, sleep apnea, morbid obesity)? @ -None Was patient admitted / discharged? Hospital course, mention meds given and route, prescriptions, significant lab abnormalities, going to OR and other pertinent info. @ -Patient's lab work and chest x-ray showed no acute abnormality. Patient's chest discomfort was much improved at rest in the emergency department. Patient was given aspirin and Nitropaste. I spoke with Dr. Gong he agreed to admit the patient admit the patient I consulted cardiology and I wrote admitting orders Undiagnosed new problem with uncertain prognosis? @ -No Drug Therapy requiring intensive monitoring for toxicity (Heparin, Nitro, Insulin, Cardizem)? @ -No Were any procedures done? @ -No Diagnosis/symptom? @ -Yes Acute, or Chronic, or Acute on Chronic? @ -Acute Uncomplicated (without systemic symptoms) or Complicated (systemic symptoms)? @ -Complicated Side effects of treatment? @ -No Exacerbation, Progression, or Severe Exacerbation? @ -No Poses a threat to life or bodily function? How? (Chest pain, USA, ID, pneumonia, PE, COPD, DKA, ARF, appy, cholecystitis, CVA, Diverticulitis, Homicidal, Suicida l, threat to staff... and all critical care pts) @ -Yes this can lead to an ID and endorgan dysfunction - Lab Data Result diagrams: 11/03/23 09:06 11/03/23 09:06 Lab Results 03/26/24 03/26/24 03/26/24 Range/Units 09:06 09:06 09:06 WBC 9.0 (3.8-10.6) k/uL RBC 4.54 (3.80-5.40) m/uL Hgb 11.8 (11.4-16.0) gm/dL Hct 37.8 (34.0-46.0) % MCV 83.2 (80.0-100.0) fL MCH 25.9 (25.0-35.0) pg MCHC 31.1 (31.0-37.0) g/dL RDW 15.5 (11.5-15.5) % Plt Count 295 (150-450) k/uL MPV 7.9 Neutrophils % 71 % Lymphocytes % 17 % Monocytes % 6 % Eosinophils % 2 % Basophils % 1 % Neutrophils # 6.4 (1.3-7.7) k/uL Lymphocytes # 1.6 (1.0-4.8) k/uL Monocytes # 0.6 (0-1.0) k/uL Eosinophils # 0.2 (0-0.7) k/uL Basophils # 0.1 (0-0.2) k/uL Hypochromasia Moderate PT 10.0 (10.0-12.5) sec INR 0.9 (<1.2) APTT 24.3 (22.0-30.0) sec Sodium 137 (137-145) mmol/L Potassium 4.2 (3.5-5.1) mmol/L Chloride 107 (98-107) mmol/L Carbon Dioxide 20 L (22-30) mmol/L Anion Gap 10 mmol/L BUN 12 (7-17) mg/dL Creatinine 0.69 (0.52-1.04) mg/dL Est GFR (CKD-EPI)AfAm >90 (>60 ml/min/1.73 sqM) Est GFR (CKD-EPI)NonAf 86 (>60 ml/min/1.73 sqM) Glucose 102 H (74-99) mg/dL Calcium 9.4 (8.4-10.2) mg/dL Magnesium 1.8 (1.6-2.3) mg/dL Total Bilirubin 0.5 (0.2-1.3) mg/dL AST 27 (14-36) U/L ALT 21 (4-34) U/L Alkaline Phosphatase 133 H (38-126) U/L Troponin I (0.000-0.034) ng/mL Total Protein 7.4 (6.3-8.2) g/dL Albumin 4.3 (3.5-5.0) g/dL 11/03/23 Range/Units 09:06 WBC (3.8-10.6) k/uL RBC (3.80-5.40) m/uL Hgb (11.4-16.0) gm/dL Hct (34.0-46.0) % MCV (80.0-100.0) fL MCH (25.0-35.0) pg MCHC (31.0-37.0) g/dL RDW (11.5-15.5) % Plt Count (150-450) k/uL MPV Neutrophils % % Lymphocytes % % Monocytes % % Eosinophils % % Basophils % % Neutrophils # (1.3-7.7) k/uL Lymphocytes # (1.0-4.8) k/uL Monocytes # (0-1.0) k/uL Eosinophils # (0-0.7) k/uL Basophils # (0-0.2) k/uL Hypochromasia PT (10.0-12.5) sec INR (<1.2) APTT (22.0-30.0) sec Sodium (137-145) mmol/L Potassium (3.5-5.1) mmol/L Chloride (98-107) mmol/L Carbon Dioxide (22-30) mmol/L Anion Gap mmol/L BUN (7-17) mg/dL Creatinine (0.52-1.04) mg/dL Est GFR (CKD-EPI)AfAm (>60 ml/min/1.73 sqM) Est GFR (CKD-EPI)NonAf (>60 ml/min/1.73 sqM) Glucose (74-99) mg/dL Calcium (8.4-10.2) mg/dL Magnesium (1.6-2.3) mg/dL Total Bilirubin (0.2-1.3) mg/dL AST (14-36) U/L ALT (4-34) U/L Alkaline Phosphatase (38-126) U/L Troponin I <0.012 (0.000-0.034) ng/mL Total Protein (6.3-8.2) g/dL Albumin (3.5-5.0) g/dL Disposition Clinical Impression: Chest pain Disposition: ADMITTED IP TO THIS HOSP Referrals: Leslie Segovia DO [Primary Care Provider] - 1-2 days Time of Disposition: 10:30
[2023-11-03] MEDS: ASPIRIN 81 MG PO STA (09:08)
[2023-11-03] MEDS: NITROGLYCERIN OINT 1 INCH/GM PACKET TOPICAL STA (09:09)
[2023-11-03 09:30] LABS: ALT 21 U/L (4-34); AST 27 U/L (14-36); African American GFR (CKD) >90 (>60 ml/min/1.73 sqM); Albumin 4.3 g/dL (3.5-5.0); Alkaline Phosphatase 133 U/L (38-126); Anion Gap 10 mmol/L; Blood Urea Nitrogen 12 mg/dL (7-17); Calcium 9.4 mg/dL (8.4-10.2); Carbon Dioxide 20 mmol/L (22-30); Chloride 107 mmol/L (98-107); Glucose 102 mg/dL (74-99); Magnesium 1.8 mg/dL (1.6-2.3); Non-African American GFR(CKD) 86 (>60 ml/min/1.73 sqM); Potassium 4.2 mmol/L (3.5-5.1); Sodium 137 mmol/L (137-145); Total Bilirubin 0.5 mg/dL (0.2-1.3); Total Protein 7.4 g/dL (6.3-8.2)
[2023-11-03 09:39] LABS: INR 0.9 (<1.2); Partial Thromboplastin Time 24.3 sec (22.0-30.0)
[2023-11-03 09:42] LABS: Basophils # (A) 0.1 k/uL (0-0.2); Basophils % (A) 1 %; Eosinophils # (A) 0.2 k/uL (0-0.7); Eosinophils % (A) 2 %; HCT 37.8 % (34.0-46.0); HGB 11.8 gm/dL (11.4-16.0); Hypochromasia Moderate; Lymphocytes # (A) 1.6 k/uL (1.0-4.8); Lymphocytes % (A) 17 %; MCH 25.9 pg (25.0-35.0); MCHC 31.1 g/dL (31.0-37.0); MCV 83.2 fL (80.0-100.0); Mean Platelet Volume 7.9; Monocytes # (A) 0.6 k/uL (0-1.0); Monocytes % (A) 6 %; Neutrophils # (A) 6.4 k/uL (1.3-7.7); Neutrophils % (A) 71 %; Platelet Count 295 k/uL (150-450); RBC 4.54 m/uL (3.80-5.40); RDW 15.5 % (11.5-15.5)
--- NOTE | 2023-11-03 09:50 | XR ---
EXAMINATION TYPE: XR chest 2V DATE OF EXAM: 11/03/2023 9:19 AM CLINICAL INDICATION:Female, 73 years old with history of Chest Pain; [facility] COMPARISON: None TECHNIQUE: XR chest 2V. Frontal and lateral views of the chest.. FINDINGS: Lines/Tubes/Devices: EKG leads overlie the chest. No indwelling lines are seen. Heart/mediastinum: Heart size upper normal. Mildly tortuous aorta with atherosclerotic calcification . Pulmonary vascularity: Not increased, Lungs/Pleura: Similar mild prominence of hilar regions, likely vascular shadows. Senescent changes an d interstitial coarsening throughout the lungs with evidence of hyperinflation; COPD is considered. S uggestion of a nonspecific small nodular density projected over the right upper lung zone. No consoli dation, pleural effusion, or pneumothorax. Musculoskeletal: Osseous structures appear somewhat demineralized. Degenerative changes of the should ers and spine with mildly exaggerated thoracic kyphosis. No definite acute osseous abnormality, in t he limits of the exam. Other findings: None significant IMPRESSION: 1. Chronic lung changes without evidence of acute superimposed airspace disease. 2. Small nodular density suggested over the right upper lung zone. This could be better evaluated wi outpatient CT chest as clinically warranted.
[2023-11-03] MEDS ORDERED: NITROGLYCERIN SL TABS 0.4 MG TAB SUBLINGUAL PRN (10:30)
[2023-11-03] MEDS: NITROGLYCERIN OINT 1 INCH/GM PACKET TOPICAL SCH (11:33)
[2023-11-03] MEDS ORDERED: REGADENOSON 0.4 MG/5 ML SYRINGE IV PRN (13:33)
[2023-11-03] MEDS ORDERED: CAFFEINE CITRATE 60 MG/3 ML VIAL IV PRN (13:33)
[2023-11-03] MEDS ORDERED: AMINOPHYLLINE 500 MG/20 ML VIAL IV PRN (13:33)
--- NOTE | 2023-11-03 13:34 | P.CRDCN ---
History of Present Illness History of present illness: HISTORY OF PRESENT ILLNESS: This is a 73-year-old female with a past medical history significant for coronary artery disease, peripheral vascular disease, hypertension, hyperlipidemia, and nicotine dependence. Patient follows in the office with Dr. William. We have been asked to see the patient in consultation for chest pain. Patient examined at the bedside in the emergency room. Patient states she had a hernia repair done last year with Dr. Chairez. She states she was scheduled to have an outpatient barium test performed today. She has been having epigastric discomfort. This morning she states the pain went up into her jaw. She also reports having shortness of breath with exertion. She also reports pain with palpation of the epigastric region. Patient reports she is a current cigarette smoker. She also reports frequent alcohol use of 2-3 drinks every other day. DIAGNOSTICS: - EKG reveals sinus bradycardia with left bundle branch block. - Chest xray chronic lung changes without evidence of acute superimposed air She states thatspace disease, small nodular density suggested over the right upper lung zone. This could be better evaluated with outpatient CT chest as clinically warranted.. - Laboratory data: WBC 9.0. Hemoglobin 11.8. Platelet count 295. Sodium 137. Potassium 4.2. BUN 12. Creatinine 0.69. Magnesium 1.8. Troponin negative x 1. - Current home cardiac medications include amlodipine 5 mg daily, atenolol 25 mg daily, lisinopril 10 mg twice a day, Imdur 30 mg daily, rosuvastatin 10 mg daily, aspirin 81 mg twice a day. - Most recent echocardiogram obtained in the office in June 2022 revealed ejection fraction 55%, moderate MR, mild TR -Patient underwent lower extremity angiogram in April 2021 revealing calcified lower extremities, mild nonobstructive disease involving the aortoiliac segments, and intermediate to severe disease involving the SFA bilaterally. Smoking cessation and aggressive cholesterol control were recommended. -Patient underwent Lexiscan stress test in November 2022 which was negative for ischemia REVIEW OF SYSTEMS: At the time of my exam: CONSTITUTIONAL: Denies fever or chills. HEENT: Denies blurred vision, vision changes, or eye pain. Denies hemoptysis CARDIOVASCULAR: Denies chest pain. Denies orthopnea. Denies PND. Denies palpitations RESPIRATORY: Denies shortness of breath. GASTROINTESTINAL: Denies abdominal pain. Denies nausea or vomiting. HEMATOLOGIC: Denies bleeding disorders. GENITOURINARY: Denies any blood in urine. SKIN: Denies pruitis. Denies rash. PHYSICAL EXAM: VITAL SIGNS: Reviewed. GENERAL: Well-developed in no acute distress. HEENT: Head is normocephalic. Pupils are equal, round. Sclerae anicteric. Mucous membranes of the mouth are moist. Neck supple. No JVD or thyromegaly + bilateral bruits. LUNGS: Respirations even and unlabored. Lungs essentially clear to auscultation bilaterally. HEART: Regular rate and rhythm. S1 and S2 heard. + systolic murmur ABDOMEN: Soft. Nondistended. Nontender. EXTREMITIES: Normal range of motion. No clubbing or cyanosis. Peripheral pulses intact. No lower extremity edema NEUROLOGIC: Awake and alert. Oriented x 3. ASSESSMENT: Chest pain Known left bundle branch block Coronary artery disease with previous stenting of the RCA, 1999 Hypertension Hyperlipidemia Peripheral vascular disease Carotid atherosclerosis Nicotine dependence Frequent alcohol use PLAN: Obtain 2D echo to assess cardiac structure and function Resume home cardiac medications N.p.o. at midnight Patient to undergo Lexiscan stress test tomorrow Smoking cessation encouraged Abstinence from alcohol recommended Further recommendations pending patient course Nurse practitioner note has been reviewed by physician. Signing provider agrees with the documented findings, assessment, and plan of care documented by PRINTING PRESS MACHINE OPERATOR as a scribe. Past Medical History Past Medical History: Coronary Artery Disease (CAD), Deep Vein Thrombosis (DVT), GERD/Reflux, Hyperlipidemia, Hypertension, Myocardial Infarction ([place]), Seizure Disorder, Vascular Disorder Additional Past Medical History / Comment(s): hx ulcer, partial blockage of carotid arteries, DVT leg after heart attack years ago, RECURRENT HIATAL HERNIA, "one seizure age 12" after dad , having dysphagia, can't eat much, epigastric pain Last Myocardial Infarction Date:: 1999 History of Any Multi-Drug Resistant Organisms: None Reported Past Surgical History: Appendectomy, Cholecystectomy, Heart Catheterization With Stent, Hernia Repair, Hysterectomy, Orthopedic Surgery Additional Past Surgical History / Comment(s): JOSH FILTER INSERTION, STATES HAS WIRE IN LEFT EAR TO AIDE IN HEARING,hiatal hernia repair x 2, EGD, LT SHOULDER athroscopy, right knee arthroscopy, one cardiac stent, heart cath 1999 Past Anesthesia/Blood Transfusion Reactions: Previous Problems w/ Anesthesia Additional Past Anesthesia/Blood Transfusion Reaction / Comment(s): "hard time waking me up" Date of Last Stent Placement:: 1999 Past Psychological History: No Psychological Hx Reported Smoking Status: Current every day smoker Past Alcohol Use History: Occasional Past Drug Use History: None Reported - Past Family History Mother Family Medical History: Diabetes Mellitus Father Additional Family Medical History / Comment(s): brain aneurysm Son(s) Family Medical History: Cancer Medications and Allergies Home Medications Medication Instructions Recorded Confirmed Type atenoloL 25 mg PO DAILY 03/28/15 11/03/23 History amLODIPine BESYLATE [Norvasc] 5 mg PO DAILY 03/29/15 11/03/23 History Aspirin EC [Ecotrin Low Dose] 81 mg PO BID 03/12/19 11/03/23 History lisinopriL [Zestril] 10 mg PO BID 03/12/19 11/03/23 History Isosorbide Mononitrate ER [Imdur] 30 mg PO DAILY 02/27/21 11/03/23 History Rosuvastatin [Crestor] 10 mg PO DAILY 01/17/22 11/03/23 History Omeprazole 40 mg PO DAILY 04/08/23 11/03/23 History Nitroglycerin Sl Tabs [Nitrostat] 0.4 mg SUBLINGUAL Q5M PRN 11/03/23 11/03/23 History Allergies Allergy/AdvReac Type Severity Reaction Status Date / Time No Known Allergies Allergy Verified 11/03/23 08:38 Physical Exam Vitals: Vital Signs Temp Pulse Pulse Resp BP Pulse Ox 11/03/23 09:08 58 L 16 115/57 11/03/23 08:55 63 11/03/23 08:34 98.1 F 58 L 18 106/62 96 Intake and Output 11/02/23 11/03/23 11/03/23 22:59 06:59 14:59 Other: Weight 68.039 kg Results 11/03/23 09:06 11/03/23 09:06 Cardiac Enzymes 11/03/23 11/03/23 Range/Units 09:06 09:06 AST 27 (14-36) U/L Troponin I <0.012 (0.000-0.034) ng/mL Coagulation 11/03/23 Range/Units 09:06 PT 10.0 (10.0-12.5) sec APTT 24.3 (22.0-30.0) sec CBC 11/03/23 Range/Units 09:06 WBC 9.0 (3.8-10.6) k/uL RBC 4.54 (3.80-5.40) m/uL Hgb 11.8 (11.4-16.0) gm/dL Hct 37.8 (34.0-46.0) % Plt Count 295 (150-450) k/uL Comprehensive Metabolic Panel 11/03/23 Range/Units 09:06 Sodium 137 (137-145) mmol/L Potassium 4.2 (3.5-5.1) mmol/L Chloride 107 (98-107) mmol/L Carbon Dioxide 20 L (22-30) mmol/L BUN 12 (7-17) mg/dL Creatinine 0.69 (0.52-1.04) mg/dL Glucose 102 H (74-99) mg/dL Calcium 9.4 (8.4-10.2) mg/dL AST 27 (14-36) U/L ALT 21 (4-34) U/L Alkaline Phosphatase 133 H (38-126) U/L Total Protein 7.4 (6.3-8.2) g/dL Albumin 4.3 (3.5-5.0) g/dL Current Medications Generic Name Dose Route Start Last Admin Trade Name Freq PRN Reason Stop Dose Admin Aspirin 325 mg 11/04/23 09:00 Aspirin 325 Mg Tab PO DAILY MERLY Nitroglycerin 0.4 mg 11/03/23 10:30 Nitroglycerin Sl Tabs 0.4 Mg Tab SUBLINGUAL Q5M PRN Chest Pain Nitroglycerin 1 inch 11/03/23 12:00 Nitroglycerin Oint 1 Inch/Gm Packet TOPICAL Q6HR MERLY Intake and Output 11/02/23 11/03/23 11/03/23 22:59 06:59 14:59 Other: Weight 68.039 kg Patient Weight 11/04/23 06:59 Weight 68.039 kg 11/03/23 09:06 11/03/23 09:06
[2023-11-03] MEDS: lisinopriL 10 MG TAB PO SCH (21:07)
[2023-11-04] MEDS: ATORVASTATIN 40 MG TAB PO SCH ×2 (00:44→09:03)
[2023-11-04] MEDS ORDERED: ASPIRIN 325 MG TAB PO SCH (09:00)
[2023-11-04] MEDS: ASPIRIN 81 MG PO SCH (09:02)
[2023-11-04] MEDS: amLODIPine 5 MG TAB PO SCH (09:02)
[2023-11-04] MEDS: atenoloL 25 MG TAB PO SCH (09:02)
--- NOTE | 2023-11-04 10:09 | P.HPIM ---
History of Present Illness H&P Date: 11/04/23 Chief Complaint: Mid epigastric/jaw discomfort History and Physical and Discharge Summary: This is a 73-year-old pleasant female with past medical history significant for recurrent hiatal hernia -status post hernia repair with Dr. Ingram 05/02 and scheduled for outpatient barium test today,GERD, s/p gisele fundoplication, CAD,PA, peripheral vascular disease, DVT, hypertension, seizure disorder, ongoing nicotine dependence and multiple other medical issues, presented to the ER with complaints of mid epigastric pain radiating to jaw, exertional shortness of breath over the last 3 days. Reports discomfort worsens with walking, relieved with rest. This morning asymptomatic. Troponins negative x 3, EKG reported sinus bradycardia with left bundle branch block, chest x-ray reported chronic lung changes without evidence of acute superimposed airspace disease, small nodular density suggested over the right upper lung zone-further workup outpatient- CT as clinically warranted.maintaining O2 sats in the mid to high 90s on room air .afebrile, normal WBC. Hematology, coagulation and chemistry panel unremarkable with the exception of alk phos 133.evaluated by cardiology and patient is scheduled for Lexiscan stress test. Review of Systems ROS Statement: Those systems with pertinent positive or pertinent negative responses have been documented in the HPI. ROS Other: All systems not noted in ROS Statement are negative. Past Medical History Past Medical History: Coronary Artery Disease (CAD), Deep Vein Thrombosis (DVT), GERD/Reflux, Hyperlipidemia, Hypertension, Myocardial Infarction (PA), Seizure Disorder, Vascular Disorder Additional Past Medical History / Comment(s): hx ulcer, partial blockage of carotid arteries, DVT leg after heart attack years ago, RECURRENT HIATAL HERNIA, "one seizure age 12" after dad , having dysphagia, can't eat much, epigastric pain Last Myocardial Infarction Date:: 1999 History of Any Multi-Drug Resistant Organisms: None Reported Past Surgical History: Appendectomy, Cholecystectomy, Heart Catheterization With Stent, Hernia Repair, Hysterectomy, Orthopedic Surgery Additional Past Surgical History / Comment(s): JOSH FILTER INSERTION, STATES HAS WIRE IN LEFT EAR TO AIDE IN HEARING,hiatal hernia repair x 2, EGD, LT SHOULDER athroscopy, right knee arthroscopy, one cardiac stent, heart cath 1999 Past Anesthesia/Blood Transfusion Reactions: Previous Problems w/ Anesthesia Additional Past Anesthesia/Blood Transfusion Reaction / Comment(s): "hard time waking me up" Date of Last Stent Placement:: 1999 Past Psychological History: No Psychological Hx Reported Additional Psychological History / Comment(s): . Smoking Status: Current every day smoker Past Alcohol Use History: Occasional Additional Past Alcohol Use History / Comment(s): started smoking at age 17, smo kes 1 ppd. Past Drug Use History: None Reported - Past Family History Mother Family Medical History: Diabetes Mellitus Father Additional Family Medical History / Comment(s): brain aneurysm Son(s) Family Medical History: Cancer Medications and Allergies Home Medications Medication Instructions Recorded Confirmed Type atenoloL 25 mg PO DAILY 03/28/15 11/03/23 History amLODIPine BESYLATE [Norvasc] 5 mg PO DAILY 03/29/15 11/03/23 History Aspirin EC [Ecotrin Low Dose] 81 mg PO BID 03/12/19 11/03/23 History lisinopriL [Zestril] 10 mg PO BID 03/12/19 11/03/23 History Isosorbide Mononitrate ER [Imdur] 30 mg PO DAILY 02/27/21 11/03/23 History Rosuvastatin [Crestor] 10 mg PO DAILY 01/17/22 11/03/23 History Omeprazole 40 mg PO DAILY 04/08/23 11/03/23 History Nitroglycerin Sl Tabs [Nitrostat] 0.4 mg SUBLINGUAL Q5M PRN 11/03/23 11/03/23 History Allergies Allergy/AdvReac Type Severity Reaction Status Date / Time No Known Allergies Allergy Verified 11/03/23 08:38 Physical Exam Vitals: Vital Signs Temp Pulse Pulse Resp BP BP Pulse Ox 11/04/23 07:00 98.3 F 75 16 114/65 96 11/04/23 02:00 98.2 F 76 16 92/59 94 L 11/03/23 20:51 97.9 F 71 16 111/63 94 L 11/03/23 19:28 70 17 124/68 11/03/23 16:59 59 L 16 113/59 98 11/03/23 14:00 66 16 119/58 98 11/03/23 11:30 60 16 138/65 Intake and Output 11/03/23 11/04/23 11/04/23 22:59 06:59 14:59 Other: # Voids 1 1 Weight 68.039 kg General: Sitting up in bed,NAD. Vitals reviewed Eyes: PERRL, EOMI, conjunctiva normal HENT: normocephalic, mucus membranes moist Neck: supple, no JVD Lungs: normal respiratory effort, no wheezes or rales CV: Regular rate and rhythm, systolic murmur. Peripheral pulses 2+ Abdomen: soft, nontender, positive bowel sounds Skin: warm and dry. Neuro: A&Ox3, normal mood and affect Results CBC & Chem 7: 11/03/23 09:06 11/03/23 09:06 Thrombosis Risk Factor Assmnt - Choose All That Apply Any of the Below Risk Factors Present?: No Other Risk Factors: Yes Each Risk Factor Represents 2 Points: Age 61-74 years Other congenital or acquired thrombophilia - If yes, enter type in comment: No Thrombosis Risk Factor Assessment Total Risk Factor Score: 2 Thrombosis Risk Factor Assessment Level: Low Risk Assessment and Plan Assessment: Midepigastric abdominal pain accompanied by jaw pain, currently asymptomatic History of left bundle branch block Recurrent hiatal hernia, most recent surgical repair 04/2023 History of gisele CAD, history of stented RCA Hypertension Hyperlipidemia Peripheral vascular disease Seizure disorder Ongoing nicotine dependence Alcohol use Plan: Continue on current medication regimen ,monitoring and symptomatic treatment. Evaluated by cardiology, Lexiscan stress test ordered. Patient will be discharged home today in a stable condition with guarded prognosis pending stress test results, final DC recommendations and clearance as per cardiology. Patient has been advised to follow-up with Dr. Chairez outpatient. Smoking sensation reinforced. Discharge Medication List atenoloL 25 mg PO DAILY 03/28/15 [History] amLODIPine BESYLATE [Norvasc] 5 mg PO DAILY 03/29/15 [History] Aspirin EC [Ecotrin Low Dose] 81 mg PO BID 03/12/19 [History] lisinopriL [Zestril] 10 mg PO BID 03/12/19 [History] Isosorbide Mononitrate ER [Imdur] 30 mg PO DAILY 02/27/21 [History] Rosuvastatin [Crestor] 10 mg PO DAILY 01/17/22 [History] Omeprazole 40 mg PO DAILY 04/08/23 [History] Nitroglycerin Sl Tabs [Nitrostat] 0.4 mg SUBLINGUAL Q5M PRN 11/03/23 [History] The impression and plan of care has been dictated as directed. : I performed a history and examination of this patient, discussed the same with the dictator. I agree with the dictator's note ,documented as a scribe. Any additional findings or plans will be noted.
--- NOTE | 2023-11-04 10:11 | P.PN ---
Subjective HISTORY OF PRESENT ILLNESS: This is a 73-year-old female with a past medical history significant for coronary artery disease, peripheral vascular disease, hypertension, hyperlipidemia, and nicotine dependence. Patient follows in the office with Dr. William. We have been asked to see the patient in consultation for chest pain. Patient examined at the bedside in the emergency room. Patient states she had a hernia repair done last year with Dr. Chairez. She states she was scheduled to have an outpatient barium test performed today. She has been having epigastric discomfort. This morning she states the pain went up into her jaw. She also reports having shortness of breath with exertion. She also reports pain with palpation of the epigastric region. Patient reports she is a current cigarette smoker. She also reports frequent alcohol use of 2-3 drinks every other day. DIAGNOSTICS: - EKG reveals sinus bradycardia with left bundle branch block. - Chest xray chronic lung changes without evidence of acute superimposed air She states thatspace disease, small nodular density suggested over the right upper lung zone. This could be better evaluated with outpatient CT chest as clinically warranted.. - Laboratory data: WBC 9.0. Hemoglobin 11.8. Platelet count 295. Sodium 137. Potassium 4.2. BUN 12. Creatinine 0.69. Magnesium 1.8. Troponin negative x 1. - Current home cardiac medications include amlodipine 5 mg daily, atenolol 25 mg daily, lisinopril 10 mg twice a day, Imdur 30 mg daily, rosuvastatin 10 mg daily, aspirin 81 mg twice a day. - Most recent echocardiogram obtained in the office in June 2022 revealed e jection fraction 55%, moderate MR, mild TR -Patient underwent lower extremity angiogram in April 2021 revealing calcified lower extremities, mild nonobstructive disease involving the aortoiliac segments, and intermediate to severe disease involving the SFA bilaterally. Smoking cessation and aggressive cholesterol control were recommended. -Patient underwent Lexiscan stress test in November 2022 which was negative for ischemia 11/04/2023 Patient examined this morning the bedside. Patient denies any further episodes of chest pain or pressure. She denies any shortness of breath. Troponins are negative x 3. Vital signs are stable. 2D echo remains pending. PHYSICAL EXAM: VITAL SIGNS: Reviewed. GENERAL: Well-developed in no acute distress. HEENT: Head is normocephalic. Pupils are equal, round. Sclerae anicteric. Mucous membranes of the mouth are moist. Neck supple. No JVD or thyromegaly + bilateral bruits. LUNGS: Respirations even and unlabored. Lungs essentially clear to auscultation bilaterally. HEART: Regular rate and rhythm. S1 and S2 heard. + systolic murmur ABDOMEN: Soft. Nondistended. Nontender. EXTREMITIES: Normal range of motion. No clubbing or cyanosis. Peripheral pulses intact. No lower extremity edema NEUROLOGIC: Awake and alert. Oriented x 3. ASSESSMENT: Chest pain Known left bundle branch block Coronary artery disease with previous stenting of the RCA, 1999 Hypertension Hyperlipidemia Peripheral vascular disease Carotid atherosclerosis Nicotine dependence Frequent alcohol use PLAN: 2D echo ordered. Await results Continue current cardiac medications Discontinue Nitropaste Patient to undergo Lexiscan stress test today If negative, she may be discharged home from a cardiac standpoint Smoking cessation encouraged Abstinence from alcohol recommended Further recommendations pending patient course Nurse practitioner note has been reviewed by physician. Signing provider agrees with the documented findings, assessment, and plan of care documented by SALES WAREHOUSE DRIVER as a scribe. Objective - Vital Signs Vital signs: Vital Signs Temp 98.3 F 11/04/23 07:00 Pulse 75 11/04/23 07:00 Resp 16 11/04/23 07:00 BP 114/65 11/04/23 07:00 Pulse Ox 96 11/04/23 07:00 FiO2 Intake & Output 11/03/23 11/04/23 11/04/23 18:59 06:59 18:59 Weight 68.039 kg Other: # Voids 1 - Labs CBC & Chem 7: 11/03/23 09:06 11/03/23 09:06
[2023-11-04 11:25] LABS: Chol/HDL Ratio 2.33 Ratio; VLDL Calculation 15.74 mg/dL (5.00-40.00)
--- NOTE | 2023-11-04 13:03 | CA ---
Lexiscan Nuclear Stress Test Report Name: Blanca Alvarez Exam Date: 11/04/2023 10:17 Exam Location: [facility] Ht (in): 65 Wt (lb): 150 BSA: 1.75 Ordering Phys: Lise Whiteside Referring Phys: KEVIN Technologist: Quinten Osorio Age: 73 Gender: F : 1950 Procedure CPT: Indications: Reflex order-Stress test ICD-10 Codes: Patient History: Medications: SEE CHART Meds past 24 hrs: Pretest Chest Pain: STRESS TEST Lexiscan Protocol Exercise Duration (min:sec): 01:[address] Depressions (mm): Angina Score: Diggs Score: Resting HR (bpm): 64 Peak HR (bpm): 84 Resting BP (mmHg): 125 / 69 Peak BP (mmHg): 163 / 70 MPHR: 146 Target HR: 124 % MPHR: 58 METS: 1.0 Total Dose: Peak Dose: Atropine: Double Product: 79471 BP Response: Stress Termination: INFUSION COMPLETE Stress Symptoms: CHEST PRESSURE,NAUSEA Stress Summary: ECG ANALYSIS Resting ECG: Sinus rhythm. Left bundle branch block. No arrhythmias. Secondary ST-T abnormality. Stress ECG: No ECG changes from baseline with Lexiscan infusion. Ventricular premature contraction. CONCLUSIONS No ECG evidence of ischemia with Lexiscan infusion. Nuclear test results to follow. Dr. Robb Luna MD (Electronically Signed) Final Date: 04 November 2023 13:02
[2023-11-04] MEDS: ISOSORBIDE MONONITRATE ER 30 MG TAB.ER.24H PO SCH (15:34)
--- NOTE | 2023-11-04 17:58 | NM ---
EXAMINATION TYPE: NM stress lexiscan cardiolite DATE OF EXAM: 11/04/2023 COMPARISON: NONE HISTORY: TECHNIQUE: After the intravenous administration of 10.25 mCi Tc 99m Sestamibi - Cardiolite resting S PECT images acquired 100 minutes post injection. At peak stress 24.4 mCi Tc 99m Sestamibi - Stress images obtained 37 minutes post injection The patient was stressed with 0.4mg Lexiscan. FINDINGS: No suspicious fixed defects are evident. Polar maps suggests some stress-induced ischemic change at the septum near the cardiac base. This serafin ears more fixed on the SPECT imaging.. Findings are felt more likely to be artifact. Correlate for an y EKG changes. Wall motion is normal. Ejection fraction is calculated to be 58 %. IMPRESSION: 1. Polar map findings suggesting mild stress-induced ischemic change of the septum adjacent to the ca rdiac base is felt to more likely be artifact. Correlate for EKG changes. 2. No additional areas suspicious for stress-induced ischemic change. 3. No prior infarct areas clearly evident.
[2023-11-04] MEDS: NICOTINE 14MG/24HR PATCH TRANSDERM SCH (22:07)
[2023-11-05 08:03] VITALS: BP 123/69; PULSE 73; RESP 18; TEMP 97.6
== END 2023-11-05 13:47 | disposition home or self-care (01) ==
LOC: EC 08:25 → 6NMEDSUR 10:35
PROVIDERS: ADMIT Family Medicine; ATTEND Family Medicine
DX: R07.89 Other chest pain (principal); R79.9 Abnormal finding of blood chemistry, unspecified; R68.84 Jaw pain; K44.9 Diaphragmatic hernia without obstruction or gangrene; G40.909 Epilepsy, unspecified, not intractable, without status epilepticus; I25.10 Atherosclerotic heart disease of native coronary artery without angina pectoris; I10 Essential (primary) hypertension; I44.7 Left bundle-branch block, unspecified; Z83.3 Family history of diabetes mellitus; Z79.899 Other long term (current) drug therapy; Z86.718 Personal history of other venous thrombosis and embolism; Z90.710 Acquired absence of both cervix and uterus; Z95.5 Presence of coronary angioplasty implant and graft; K21.9 Gastro-esophageal reflux disease without esophagitis; F17.210 Nicotine dependence, cigarettes, uncomplicated; I73.9 Peripheral vascular disease, unspecified
CPT/HCPCS: 99285; 36415; 93005; 93017; 80061; 80053; 83735; 84484; 85025; 85610; 85730; 71046; 78452; G0378 ×3; A9500; S4990; J2785

== ENCOUNTER → 2023-11-12 | Outpatient (CLI) | payer MEDICARE ==
--- NOTE | 2023-11-12 09:14 | FL ---
EXAMINATION TYPE: FL UGI air w esophagus DATE OF EXAM: 11/12/2023 8:55 AM COMPARISON: NONE CLINICAL HISTORY: Difficulty in swallowing. A total of 102 seconds of fluoroscopic time was utilized during procedure and 44 images obtained. Preliminary view of the abdomen reveals a normal bowel gas pattern. Upper GI examination was performed according to the air contrast technique. Barium and effervescent crystal was swallowed without difficulty or delay. Esophageal peristalsis and motility are within no rmal limits. Postoperative changes of the previously sent fundoplication. No recurrent hiatal hernia seen. No evidence for reflux during the course of the study. No soft tissue mass or intraluminal lesi on. The stomach has a normal appearance in terms of its size, shape and location. No gastric filling defects or ulcer craters are seen. The duodenal bulb and sweep are also free of intraluminal lesion or ulcer crater. And single contrast cervical esophagram was also performed following the ingestion of thin liquid bar ium. There is no evidence for aspiration or penetration. No masses are seen. No filling defects ar e evident. IMPRESSION: Postoperative changes of the previously sent fundoplication. No recurrent hiatal hernia seen. No evid ence for reflux during the course of the study. No soft tissue mass or intraluminal lesion.
== END | disposition home or self-care (01) ==
LOC: RADUSWWP 11-03 07:55
PROVIDERS: ATTEND Surgery
DX: Z53.9 Procedure and treatment not carried out, unspecified reason (principal)
CPT/HCPCS: 74246

== ENCOUNTER 2023-12-10 05:39 | Day surgery (SDC) | payer MEDICARE ==
[2023-12-10] MEDS ORDERED: ALPRAZolam 0.25 MG TAB PO PRN (05:53)
[2023-12-10] MEDS ORDERED: ALPRAZolam 0.5 MG TAB PO PRN (05:53)
[2023-12-10] MEDS ORDERED: NITROGLYCERIN SL TABS 0.4 MG TAB SUBLINGUAL PRN ×3 (05:53→08:28)
[2023-12-10] MEDS: SODIUM CHLORIDE 0.9% 1,000 ML IV ONE (06:01)
[2023-12-10 06:32] LABS: Basophils # (A) 0.1 k/uL (0-0.2); Basophils % (A) 1 %; Eosinophils # (A) 0.2 k/uL (0-0.7); Eosinophils % (A) 2 %; HCT 37.8 % (34.0-46.0); HGB 11.3 gm/dL (11.4-16.0); Hypochromasia Moderate; Lymphocytes # (A) 2.4 k/uL (1.0-4.8); Lymphocytes % (A) 28 %; MCV 83.3 fL (80.0-100.0); Mean Platelet Volume 7.9; Monocytes # (A) 0.6 k/uL (0-1.0); Monocytes % (A) 7 %; Neutrophils # (A) 5.4 k/uL (1.3-7.7); Neutrophils % (A) 61 %; Platelet Count 368 k/uL (150-450); RBC 4.53 m/uL (3.80-5.40); RDW 15.7 % (11.5-15.5); WBC 8.9 k/uL (3.8-10.6)
[2023-12-10 06:47] LABS: African American GFR (CKD) >90 (>60 ml/min/1.73 sqM); Anion Gap 7 mmol/L; Blood Urea Nitrogen 21 mg/dL (7-17); Carbon Dioxide 23 mmol/L (22-30); Chloride 108 mmol/L (98-107); Glucose 109 mg/dL (74-99); Non-African American GFR(CKD) 84 (>60 ml/min/1.73 sqM); Potassium 4.2 mmol/L (3.5-5.1); Sodium 138 mmol/L (137-145)
[2023-12-10] MEDS ORDERED: LIDOCAINE 1% INJ 10MG/ML (20 ML MDV) ONE (07:09)
[2023-12-10] MEDS ORDERED: VERAPAMIL 2.5 MG/ML 2 ML AMP ONE (07:09)
[2023-12-10] MEDS ORDERED: HEPARIN SODIUM 1,000 UN/ML (10ML VL) ONE ×2 (07:43→08:28)
[2023-12-10] MEDS ORDERED: fentaNYL (PF) 50 MCG/ML 2 ML AMP ONE (07:44)
[2023-12-10] MEDS: LIDOCAINE 1% INJ 10MG/ML (30 ML VIAL-PF) SQ ONE (07:45)
[2023-12-10] MEDS: VERAPAMIL SYRINGE (5 MG/10 ML) INTRAARTER ONE (07:45)
[2023-12-10] MEDS: fentaNYL (PF) 50 MCG/1 ML VIAL IVP ONE (07:46)
[2023-12-10] MEDS: HEPARIN SODIUM 1,000 UN/ML (10ML VL) IVP ONE ×2 (07:46→08:32)
[2023-12-10] MEDS: MIDAZOLAM 2 MG/2 ML VIAL IVP ONE (07:46)
[2023-12-10] MEDS ORDERED: TICAGRELOR 90 MG TAB ONE (07:57)
[2023-12-10] MEDS: TICAGRELOR 90 MG TAB PO ONE (08:00)
[2023-12-10] MEDS ORDERED: niCARdipine 25 MG/10 ML VIAL ONE (08:09)
[2023-12-10] MEDS: NITROGLYCERIN 1000MCG/10ML SYRINGE INTRACORON ONE (08:19)
[2023-12-10] MEDS: IOPAMIDOL-370 100ML BTL INJ ONE (08:23)
[2023-12-10] MEDS ORDERED: ONDANSETRON 4 MG TAB PO PRN (08:27)
[2023-12-10] MEDS ORDERED: ZOLPIDEM 5 MG TAB PO PRN (08:28)
[2023-12-10] MEDS ORDERED: ATROPINE SULFATE 0.1 MG/ML 10ML SYRINGE IV PRN (08:28)
[2023-12-10] MEDS ORDERED: MAG HYDROX/AL HYDROX/SIMETH 30 ML CUP PO PRN (08:28)
[2023-12-10] MEDS ORDERED: RX INFO: IV CONTRAST WAS GIVEN 1 EACH MISC MISCELLANE PRN (08:28)
--- NOTE | 2023-12-10 08:35 | P.PCN ---
Date of Procedure: 12/10/23 Operative Findings: CARDIAC CATHETERIZATION AND PERCUTANEOUS CORONARY INTERVENTION PERFORMING PHYSICIAN: Howard William MD, VI PROCEDURE PERFORMED: 1. Selective right and left coronary angiogram 2. Left heart catheterization 3. Successful stenting of mid RCA using 3.5 x 38 mm Xience CLAUDE with an excel lent angiographic results with adjunctive use of intravascular imaging 4. Ultrasound-guided access of the right radial artery INDICATION: Symptomatic 73-year-old female patient with abnormal myocardial perfusion imaging stress test and known history of CAD with prior stenting of the RCA COMPLICATION: None APPROACH: Right radial artery LEVEL OF SEDATION: Moderate with the sedation time off 40 minutes PROCEDURE DESCRIPTION: After obtaining informed consent the patient was brought to the cardiac Ambulance Driver. The right radial artery was cannulated using micropuncture technique under ultrasound guidance and the micropuncture wire passed easily then I placed a 6 Georgian sheath at the right radial artery. After that I did selective right and left coronary angiogram using JR4 and JL 3.5 catheter and left heart catheterization using 6 Georgian pigtail catheter and after that I decided to intervene on the RCA. After anticoagulation was initiated using heparin and engaging the RCA using an AL 0.75 I did wired the RCA from the get go using a run-through wire and whisper wire. Subsequently I did intravascular ultrasound which showed a diameter around 3.5 to 4 mm. I predilated using 3 point millimeter balloon which was noncompliant balloon and after that I deployed 3.5 x 38 mm stent which was postdilated using 4 mm noncompliant balloon with final angiogram showing excellent angiographic results and the procedure was completed with no complication. SELECTIVE CORONARY ANGIOGRAM: The right coronary artery: Large-caliber vessel and a dominant vessel stents in the mid RCA with severe di sease involving the area in between 2 stents appear to be in the range of 80% Left main: Is angiographically normal The left circumflex: Large-caliber vessel nondominant vessel and gives rise into a large OM branch. The left circumflex has mild disease only. The left anterior descending artery: Appears to have mild disease only and gives rise into first and second diagonal branches both appear to be angiographically normal HEMODYNAMICS: LVEDP was 17 mmHg with no significant gradient across aortic valve CONCLUSION: Severe disease involving the mid RCA. I performed successful stenting of the RCA as described above POSTPROCEDURE MANAGEMENT: 1. Dual antiplatelet therapy using aspirin and Brilinta for 12 month 2. Aggressive cholesterol control 3. Follow-up with the patient
[2023-12-10] MEDS: ASPIRIN 325 MG TAB PO STA (11:20)
[2023-12-10] MEDS: SODIUM CHLORIDE 0.9% 1,000 ML in EMPTY BAG 1 BAG IV SCH ×2 (11:23→19:17)
[2023-12-10] MEDS: FAMOTIDINE 20 MG TAB PO STA (11:37)
[2023-12-10] MEDS: ONDANSETRON 4 MG TAB PO STA (11:37)
[2023-12-10] MEDS: PANTOPRAZOLE 40 MG TABLET PO STA (11:38)
[2023-12-10] MEDS: SODIUM CHLORIDE 0.9% 500 ML 500 ML IV ONE (12:00)
[2023-12-10] MEDS: amLODIPine 5 MG TAB PO SCH (12:14)
[2023-12-10] MEDS: lisinopriL 10 MG TAB PO SCH (12:14)
[2023-12-10] MEDS: atenoloL 25 MG TAB PO SCH (12:14)
[2023-12-10] MEDS: ISOSORBIDE MONONITRATE ER 30 MG TAB.ER.24H PO SCH (12:14)
[2023-12-10] MEDS: ATORVASTATIN 20 MG TAB PO SCH (12:14)
[2023-12-10] MEDS: ASPIRIN 81 MG PO SCH (20:29)
[2023-12-10] MEDS: TICAGRELOR 90 MG TAB PO SCH (20:29)
[2023-12-11 05:05] LABS: African American GFR (CKD) >90 (>60 ml/min/1.73 sqM); Non-African American GFR(CKD) 86 (>60 ml/min/1.73 sqM)
[2023-12-11] MEDS: PANTOPRAZOLE 40 MG TABLET PO SCH (05:35)
[2023-12-11 08:56] VITALS: PULSE 64; RESP 16
--- NOTE | 2023-12-11 09:41 | P.DS ---
Providers Attending physician: Howard William Consults: 12/10/23 08:28 Consult Physician Routine Consulting Provider: [facility] Consult Reason/Comments: Post Interventional patient Do you want consulting provider notified?: Already Contacted Primary care physician: Leslie Segovia [facility] Course: the patient is a pleasant 73-year-old female patient was underwent yesterday successful PCI of the RCA She was seen and evaluated this morning. She is asymptomatic and hemodynamically stable. She was noted to be in atrial fibrillation with overall controlled heart rate. With that being stated she will be started on oral anticoagulation in addition to dual antiplatelet therapy. She will be discharged on baby aspirin along with low-dose or questions along with Brilinta the examination revealed irregular rhythm with controlled heart rate and clear breathing sounds bilaterally and no edema was noted The patient will be seen in the office in a week from now. Plan - Discharge Summary Discharge Rx Participant: No New Discharge Prescriptions: New Ticagrelor [Brilinta] 90 mg PO BID #180 tab Apixaban [Eliquis] 2.5 mg PO BID #180 tab Continue atenoloL 25 mg PO DAILY amLODIPine BESYLATE [Norvasc] 5 mg PO DAILY lisinopriL [Zestril] 10 mg PO BID Isosorbide Mononitrate ER [Imdur] 30 mg PO DAILY Rosuvastatin [Crestor] 10 mg PO DAILY ondansetron HCL [Zofran] 8 mg PO TID PRN PRN Reason: Nausea Omeprazole 40 mg PO DAILY Nitroglycerin Sl Tabs [Nitrostat] 0.4 mg SUBLINGUAL Q5M PRN PRN Reason: Chest Pain Famotidine 40 mg PO DAILY Changed Aspirin EC [Ecotrin Low Dose] 81 mg PO DAILY #0 Discharge Medication List atenoloL 25 mg PO DAILY 03/28/15 [History] amLODIPine BESYLATE [Norvasc] 5 mg PO DAILY 03/29/15 [History] lisinopriL [Zestril] 10 mg PO BID 03/12/19 [History] Isosorbide Mononitrate ER [Imdur] 30 mg PO DAILY 02/27/21 [History] Rosuvastatin [Crestor] 10 mg PO DAILY 01/17/22 [History] Omeprazole 40 mg PO DAILY 04/08/23 [History] Nitroglycerin Sl Tabs [Nitrostat] 0.4 mg SUBLINGUAL Q5M PRN 11/03/23 [History] Famotidine 40 mg PO DAILY 12/08/23 [History] ondansetron HCL [Zofran] 8 mg PO TID PRN 12/08/23 [History] Apixaban [Eliquis] 2.5 mg PO BID #180 tab 12/11/23 [Rx] Aspirin EC [Ecotrin Low Dose] 81 mg PO DAILY #0 12/11/23 [Rx] Ticagrelor [Brilinta] 90 mg PO BID #180 tab 12/11/23 [Rx] Follow up Appointment(s)/Referral(s): Howard William MD [STAFF PHYSICIAN] - 12/18/23 9:45 am (FOLLOW UP APPOINTMENT MADE. ) Patient Instructions/Handouts: Moderate Sedation (DC), Cardiac Rehabilitation (DC), Coronary Intravascular Stent Placement (DC), Coronary Angioplasty (DC), After Radial Heart Catheterization (GEN) Activity/Diet/Wound Care/Special Instructions: No driving for two days Ok to shower tomorrow but no baths, pools, lakes, doing dishes by hand for five days. Signs of infection IE: fever, rash, drainage from puncture site, swelling go to ER/doctor for immediate evaluation. Avoid using right wrist/hand to bend, flex, lift greater than 5 lbs for five days. For Heavy Bleeding of puncture site apply firm direct pressure and return to ER. Do not attempt to drive self. low sodium/low fat diet medications as directed by Cardiologists FALL PRECAUTIONS Discharge Disposition: HOME SELF-CARE
[2023-12-11] MEDS: FAMOTIDINE 20 MG TAB PO SCH (10:41)
[2023-12-11] MEDS: APIXABAN 2.5 MG TABLET PO SCH (10:41)
[2023-12-11] MEDS: ASPIRIN 81 MG PO SCH (10:41)
[2023-12-11 14:44] VITALS: BMI 24.0
[2023-12-11 15:27] VITALS: BP 143/77; TEMP 97.7
== END 2023-12-11 15:33 | disposition home or self-care (01) ==
LOC: CATHCVL 05:39 → 6NMEDSUR 08:20 → CATHCVL 12-11 15:33
PROVIDERS: ATTEND Internal Medicine Interventional Cardiology
DX: I25.10 Atherosclerotic heart disease of native coronary artery without angina pectoris (principal); I10 Essential (primary) hypertension; E78.5 Hyperlipidemia, unspecified; F17.210 Nicotine dependence, cigarettes, uncomplicated; Z79.82 Long term (current) use of aspirin; Z95.5 Presence of coronary angioplasty implant and graft; Z79.899 Other long term (current) drug therapy
CPT/HCPCS: 92978; 93458; 76937; 80048; 82565; 85025; C9600; C1769 ×4; C1894; C1753; C1874; C1887; C1725; J2250; J2001; J1644; Q9967; J3010; J2305

== ENCOUNTER 2024-05-26 05:46 | Day surgery (SDC) | payer MEDICARE ==
[2024-05-26] MEDS ORDERED: ALPRAZolam 0.5 MG TAB PO PRN (06:03)
[2024-05-26] MEDS ORDERED: ZOLPIDEM 5 MG TAB PO PRN (06:03)
[2024-05-26] MEDS ORDERED: NITROGLYCERIN SL TABS 0.4 MG TAB SUBLINGUAL PRN (06:03)
[2024-05-26] MEDS ORDERED: ASPIRIN 325 MG TAB PO STA (06:03)
[2024-05-26] MEDS ORDERED: HEPARIN SODIUM,PORCINE 10,000 UNIT in SODIUM CHLORIDE 0.9% 1,000 ML IRRIGATION PRN (06:03)
[2024-05-26] MEDS ORDERED: HEPARIN SODIUM,PORCINE (1 ML) 2,500 UNIT in SODIUM CHLORIDE 0.9% 250 ML IRRIGATION PRN (06:03)
[2024-05-26] MEDS ORDERED: ATORVASTATIN 80 MG TAB PO STA (06:03)
[2024-05-26] MEDS ORDERED: ALPRAZolam 0.25 MG TAB PO PRN (06:03)
[2024-05-26 06:32] VITALS: TEMP 97.8
[2024-05-26] MEDS: IV FLUID CONTINUATION 1,000 ML IV ONE (06:32)
[2024-05-26] MEDS: SODIUM CHLORIDE 0.9% 1,000 ML in EMPTY BAG 1 BAG IV SCH (06:32)
[2024-05-26 06:46] LABS: Anisocytosis Slight; Basophils # (A) 0.1 k/uL (0-0.2); Basophils % (A) 1 %; Eosinophils # (A) 0.1 k/uL (0-0.7); Eosinophils % (A) 1 %; HCT 28.9 % (34.0-46.0); HGB 8.3 gm/dL (11.4-16.0); Hypochromasia Marked; Lymphocytes # (A) 1.5 k/uL (1.0-4.8); Lymphocytes % (A) 18 %; MCH 20.9 pg (25.0-35.0); MCHC 28.7 g/dL (31.0-37.0); Mean Platelet Volume 7.9; Microcytosis Moderate; Monocytes # (A) 0.6 k/uL (0-1.0); Monocytes % (A) 7 %; Neutrophils % (A) 70 %; Platelet Count 269 k/uL (150-450); Poikilocytosis Slight; RBC 3.96 m/uL (3.80-5.40); RDW 17.5 % (11.5-15.5); WBC 8.5 k/uL (3.8-10.6)
[2024-05-26 07:05] LABS: African American GFR (CKD) >90 (>60 ml/min/1.73 sqM); Anion Gap 8 mmol/L; Blood Urea Nitrogen 12 mg/dL (7-17); Calcium 9.7 mg/dL (8.4-10.2); Carbon Dioxide 23 mmol/L (22-30); Chloride 107 mmol/L (98-107); Glucose 93 mg/dL (74-99); Non-African American GFR(CKD) 86 (>60 ml/min/1.73 sqM); Potassium 4.2 mmol/L (3.5-5.1); Sodium 138 mmol/L (137-145)
[2024-05-26] MEDS: HEPARIN SODIUM,PORCINE (1 ML) 2,500 UNIT in SODIUM CHLORIDE 0.9% 250 ML IRRIGATION ONE (07:34)
[2024-05-26] MEDS: HEPARIN SODIUM,PORCINE 10,000 UNIT in SODIUM CHLORIDE 0.9% 1,000 ML IRRIGATION ONE (07:34)
[2024-05-26] MEDS: MIDAZOLAM 2 MG/2 ML VIAL IVP ONE (07:43)
[2024-05-26] MEDS: LIDOCAINE 1% INJ 10MG/ML (20 ML MDV) SQ ONE (07:44)
[2024-05-26] MEDS: IOPAMIDOL-370 100ML BTL INJ ONE (08:06)
[2024-05-26] MEDS: IOPAMIDOL-250 100ML BTL INTRAARTER ONE (08:07)
[2024-05-26] MEDS ORDERED: SODIUM CHLORIDE 0.9% 1,000 ML IV SCH (08:15)
[2024-05-26] MEDS ORDERED: RX INFO: IV CONTRAST WAS GIVEN 1 EACH MISC MISCELLANE PRN (08:15)
--- NOTE | 2024-05-26 08:18 | P.PCN ---
Date of Procedure: 05/26/24 Operative Findings: CARDIAC CATHETERIZATION PERFORMING PHYSICIAN: Howard William MD, RPVI PROCEDURE PERFORMED: 1. Selective right and left coronary angiogram 2. Left heart catheterization 3. Ultrasound-guided access of the right common femoral artery INDICATION: Symptomatic 74-year-old female patient COMPLICATION: None APPROACH: Right common femoral artery LEVEL OF SEDATION: Moderate with sedation in length of 10 minutes PROCEDURE DESCRIPTION: After obtaining an informed consent, the patient was brought to cardiac central lab technician. Local anesthesia was performed using lidocaine subcutaneously. The right common femoral artery was cannulated using Seldinger technique, the guidewire passed easily, following that we advanced a 6 Jordanian sheath dilator assembly, the wire and dilator were removed and sheath was flushed. Selective right and left coronary angiogram using a 6-Jordanian JR4 and JL catheters. Following that we did left heart catheterization using 6-Jordanian pigtail catheter. The procedure was completed there was no complication. SELECTIVE CORONARY ANGIOGRAM: The right coronary artery: Large-caliber vessel and a dominant vessel with patent stent in the mid RCA Left main: Appears to be angiographically normal The left circumflex: Large-caliber vessel nondominant vessel appears to have mild disease only and gives rise into an OM which appears to be normal The left anterior descending artery: Large-caliber vessel appears to have mild disease only and gives rise into a large diagonal branch seems to be normal HEMODYNAMICS: The LVEDP was about 18 mmHg with no significant gradient across aortic valve CONCLUSION: 1. Patent stent in the mid RCA 2. Mild disease involving the left coronary system 3. Elevated left-sided filling pressure POSTPROCEDURE MANAGEMENT: Medical treatment
--- NOTE | 2024-05-26 08:20 | P.PCN ---
Date of Procedure: 05/26/24 Operative Findings: AN ABDOMINAL AORTOGRAM AND BILATERAL LOWER EXTREMITIES RUNOFF PERFORMING PHYSICIAN: Howard William MD PROCEDURE PERFORMED: 1. An abdominal aortogram 2. Bilateral lower extremities runoff 3. Gradient measurement across the right common iliac artery INDICATION: Symptomatic 74-year-old female with COMPLICATION: None LEVEL OF SEDATION: Moderate was sedation length of moderate with sedation length of 15-minute APPROACH: Right common femoral artery PROCEDURE DESCRIPTION: After obtaining informed consent and explaining the procedure benefits, risks, and complications, the patient was brought to the cardiac supervisor labor gang. The right groin was prepped and draped in sterile fashion. The right common femoral artery was cannulated using micropuncture technique, under ultrasound guidance. A micropuncture wire was advanced, and the micropuncture sheath was advanced over the wire, then the micropuncture sheath was exchanged over an 0.35 wire into a 5-Malagasy sheath dilator assembly then the wire and dilator were removed and sheath was flushed. We did an abdominal aortogram and bilateral lower extremities runoff using 5- Malagasy pigtail catheter using a power injection. The catheter was initially placed at the level of the renal arteries, and it was pulled into above the bifurcation of the aorta into right and left common iliac arteries. The procedure was completed and there was no complications. SELECTIVE PERIPHERAL ANGIOGRAM: The abdominal aorta: Small but no evidence of high-grade stenosis identified The common iliac arteries: The right common iliac artery appears to have a focal lesion appears to be in the range of 70 to 80% documented to be flow-limiting by gradient which came to be around 60 mmHg The left common iliac artery appears to have at least intermediate to severe lesion as well The external iliac arteries: Both appear to have mild disease only The internal iliac arteries: Both are patent The common femoral arteries: Appears to have mild disease on Superficial femoral arteries: The right SFA appeared to have intermediate to severe disease in the left SFA appeared to have severe disease in the proximal portion Popliteal arteries: Both appear to have intermediate to severe disease Below the knees: There are 3 vessels runoff below the knee bilaterally CONCLUSION: Severe right common iliac and intermediate to severe left common iliac Severe left SFA and intermediate to severe right SFA Intermediate to severe bilateral popliteal POSTPROCEDURE MANAGEMENT: GAS STATION SERVICE ATTENDANT
--- NOTE | 2024-05-26 09:29 | IR ---
EXAMINATION TYPE: IR angio abdominal w runoff DATE OF EXAM: 05/26/2024 8:58 AM COMPARISON: Pre Operative Images if available both CT/MRI or plain film CLINICAL INDICATION: Female, 74 years old with history of bilateral leg pain, 5.5min fluoro, 18.9Gycm 2; TECHNIQUE: IR angio abdominal w runoff, multiple fluoroscopic images provided for procedure. Total fluoroscopy time: 5.5 minutes Total submitted images to PACS: [id number] DAP: 18.9 mGym2 Gycm2 uGym2 cGycm2 or equivalent. FINDINGS: IMPRESSION: 1. Report was generated for administrative purposes only. 2. Please see the operative/procedural note for further details. [facility], , 05/26/2024 9:27 AM
[2024-05-26 10:07] VITALS: RESP 16
[2024-05-26 15:36] VITALS: BP 138/66; PULSE 62
== END 2024-05-26 15:40 | disposition home or self-care (01) ==
LOC: CATHCVL 05:46
PROVIDERS: ATTEND Internal Medicine Interventional Cardiology
CPT/HCPCS: 75625; 75716; 80048; 85025; 93458

== ENCOUNTER 2024-06-15 06:33 | Day surgery (SDC) | payer MEDICARE ==
[~2024-06-15 06:33] MED LIST changes: -ACETAMINOPHEN TAB 500 MG TAB PO PRN; +ALPRAZolam 0.25 MG TAB PO PRN; +ALPRAZolam 0.5 MG TAB PO PRN; -DEXAMETHASONE SOD PHOSPHATE 4 MG/ML 1 ML VIAL IV ONE; +HEPARIN SODIUM,PORCINE (1 ML) 2,500 UNIT in SODIUM CHLORIDE 0.9% 250 ML IRRIGATION PRN; +HEPARIN SODIUM,PORCINE 10,000 UNIT in SODIUM CHLORIDE 0.9% 1,000 ML IRRIGATION PRN; -HEPARIN SODIUM,PORCINE/PF 5,000 UNIT/0.5 ML SYRINGE SQ PRN; -LIDOCAINE 1% (10MG/ML) FOR IV START INTRADERMA PRN; -ONDANSETRON 4 MG/2 ML VIAL IVP ONE; +ZOLPIDEM 5 MG TAB PO PRN; -droPERidol 5 MG/2 ML VIAL IVP ONE
[2024-06-15] MEDS: IV FLUID CONTINUATION 1,000 ML IV ONE (06:58)
[2024-06-15 07:16] LABS: African American GFR (CKD) >90 (>60 ml/min/1.73 sqM); Anion Gap 10 mmol/L; Blood Urea Nitrogen 13 mg/dL (7-17); Calcium 9.1 mg/dL (8.4-10.2); Carbon Dioxide 23 mmol/L (22-30); Chloride 106 mmol/L (98-107); Glucose 103 mg/dL (74-99); Non-African American GFR(CKD) 84 (>60 ml/min/1.73 sqM); Potassium 4.3 mmol/L (3.5-5.1); Sodium 139 mmol/L (137-145)
[2024-06-15] MEDS: MIDAZOLAM 2 MG/2 ML VIAL IVP ONE (07:55)
[2024-06-15] MEDS: LIDOCAINE 1% INJ 10MG/ML (20 ML MDV) SQ ONE (07:58)
[2024-06-15] MEDS: fentaNYL (PF) 50 MCG/ML 2 ML AMP IVP ONE (08:00)
[2024-06-15] MEDS: HEPARIN SODIUM 1,000 UN/ML (10ML VL) IVP ONE (08:08)
[2024-06-15] MEDS: NITROGLYCERIN 1000MCG/10ML SYRINGE INTRACORON ONE (08:43)
[2024-06-15 09:16] LABS: Anisocytosis Slight; Basophils # (A) 0.1 k/uL (0-0.2); Basophils % (A) 1 %; Eosinophils # (A) 0.2 k/uL (0-0.7); Eosinophils % (A) 2 %; HCT 28.5 % (34.0-46.0); HGB 8.1 gm/dL (11.4-16.0); Hypochromasia Marked; Lymphocytes # (A) 1.8 k/uL (1.0-4.8); Lymphocytes % (A) 18 %; MCH 20.3 pg (25.0-35.0); MCHC 28.4 g/dL (31.0-37.0); MCV 71.7 fL (80.0-100.0); Mean Platelet Volume 8.3; Microcytosis Moderate; Monocytes # (A) 0.7 k/uL (0-1.0); Monocytes % (A) 7 %; Neutrophils # (A) 6.8 k/uL (1.3-7.7); Neutrophils % (A) 70 %; Platelet Count 330 k/uL (150-450); Poikilocytosis Slight; RBC 3.97 m/uL (3.80-5.40); RDW 17.5 % (11.5-15.5); WBC 9.8 k/uL (3.8-10.6)
[2024-06-15] MEDS: IOPAMIDOL-370 100ML BTL INJ ONE (09:49)
[2024-06-15] MEDS ORDERED: NITROGLYCERIN SL TABS 0.4 MG TAB SUBLINGUAL PRN (09:52)
[2024-06-15] MEDS ORDERED: NALOXONE 0.4 MG/ML 1 ML VIAL IVP PRN (09:53)
--- NOTE | 2024-06-15 10:06 | P.PCN ---
Date of Procedure: 06/15/24 Operative Findings: PERCUTANEOUS PERIPHERAL INTERVENTION Performing physician Howard William M.D. Procedure performed 1. Successful balloon angioplasty of the left SFA 2. Successful stenting of bilateral common iliac arteries 3. Adjunctive use of IVUS and lithotripsy balloon 4. Bilateral common iliacs angiogram and left SFA angiogram and bilateral common femoral arteries angiogram 5. Ultrasound-guided access of bilateral common femoral arteries Indication Symptomatic 74-year-old female patient who underwent an angiogram and that showed severe bilateral SFA disease and severe bilateral iliac disease Approach Bilateral common femoral arteries Complications None Level of sedation Moderate with a sedation time of 137 minutes Procedure description After obtaining informed consent the patient was brought to the cardiac [employer]. The right common femoral artery was cannulated using micropuncture technique under ultrasound guidance a micropuncture wire passed easily then I placed a 6 Martiniquais 70 cm sheath at the right common femoral artery under fluoroscopy guidance. Subsequently I did balloon angioplasty of the right common iliac artery to create a tunnel to advance the sheath and that was performed using 5 mm x 40 mm balloon. Subsequently I was able to select the right SFA using a 035 stiff Glidewire with the backup support of 5 Martiniquais rim catheter. Subsequently the catheter was advanced over the wire but I had hard time advancing the sheath over the catheter and the wire and for that reason I did balloon angioplasty of the left common iliac artery using the same 5 oh millimeter by 40 mm balloon. I was able after that to advance the sheath to the left common femoral artery. Left SFA angiogram and left popliteal angiogram was performed. I did perform also IVUS of the left popliteal and left SFA and that showed 2 tight spots in the left SFA 1 proximally and 1 distally. Atherectomy was performed using the Hawk 1 device. After that I did balloon angioplasty using drug-coated balloon with an excellent angiographic results and no need for stenting. After that I did IVUS of the bilateral external iliac arteries and bilateral common iliac arteries using a 014 wire from the right side. The IVUS revealed heavily calcified bilateral iliac with a diameter around 7 mm. I did access the left common femoral artery using micropuncture technique under ultrasound guidance a micropuncture wire passed easily then I placed a 6 Martiniquais 23 cm at the left common femoral artery. After that I did lithotripsy balloon on the left common iliac artery using 7 mm balloon. Attempting advancing the same balloon over 014 wire from the right side was unsuccessful in 6 Martiniquais she ath and I had to change it to a 7 Martiniquais sheath over a 3 5 wire. And that was a 23 cm Brite tip sheath. After that I did lithotripsy balloon on the right iliac artery as well. Finally I ended bleeding to kissing stents in the right and left iliac arteries using 7 mm x 39 mm stents. Final angiogram showed excellent angiographic results. After that I did exchange my 23 cm sheath into 11 cm monteiro th and that was 6 Martiniquais on the left and 7 Martiniquais on the right. Final bilateral femoral artery angiogram was performed and showed good angiographic results and the procedure was completed with no complication Postprocedure management 1. Dual antiplatelet therapy 2. Aggressive cholesterol control 3. Risk factors modification 4. Follow-up with the patient
--- NOTE | 2024-06-15 10:39 | IR ---
EXAMINATION TYPE: IR stent intravas non coronary DATE OF EXAM: 06/15/2024 COMPARISON: NONE CLINICAL INDICATION: Female, 74 years old with history of PVD, CLAUDICATION; Fluoroscopy was provided to the referring clinician. [facility], , 06/15/2024 10:36 AM
[2024-06-15] MEDS: SODIUM CHLORIDE 0.9% 1,000 ML in EMPTY BAG 1 BAG IV SCH (14:13)
[2024-06-15] MEDS: EMPTY BAG 1 BAG with SODIUM CHLORIDE 0.9% 1,000 ML IV SCH (14:13)
[2024-06-15] MEDS ORDERED: ONDANSETRON ODT 4 MG TAB PO PRN (20:04)
[2024-06-15] MEDS ORDERED: IBUPROFEN 400 MG TAB PO PRN (20:05)
[2024-06-15] MEDS: ACETAMINOPHEN TAB 325 MG TAB PO PRN (20:12)
[2024-06-16 07:49] LABS: African American GFR (CKD) >90 (>60 ml/min/1.73 sqM); Non-African American GFR(CKD) 89 (>60 ml/min/1.73 sqM)
[2024-06-16] MEDS: atenoloL 25 MG TAB PO SCH (08:38)
[2024-06-16] MEDS: ASPIRIN 81 MG PO SCH (08:38)
[2024-06-16] MEDS: ISOSORBIDE MONONITRATE ER 30 MG TAB.ER.24H PO SCH (08:38)
[2024-06-16] MEDS: ATORVASTATIN 20 MG TAB PO SCH (08:39)
[2024-06-16] MEDS: PANTOPRAZOLE 40 MG TABLET PO SCH (08:39)
[2024-06-16] MEDS: lisinopriL 10 MG TAB PO SCH (08:39)
[2024-06-16] MEDS: CLOPIDOGREL 75 MG TAB PO SCH (08:39)
[2024-06-16 10:17] VITALS: BP 123/65; PULSE 77; RESP 20; TEMP 98.7
== END 2024-06-16 13:11 | disposition home or self-care (01) ==
LOC: CATHCVL 06:33 → 3SCARD 09:50 → CATHCVL 06-16 13:11
PROVIDERS: ATTEND Internal Medicine Interventional Cardiology
DX: I25.10 Atherosclerotic heart disease of native coronary artery without angina pectoris (principal); I73.9 Peripheral vascular disease, unspecified; I10 Essential (primary) hypertension; I48.0 Paroxysmal atrial fibrillation; E78.5 Hyperlipidemia, unspecified; F17.210 Nicotine dependence, cigarettes, uncomplicated; Z95.828 Presence of other vascular implants and grafts; Z79.899 Other long term (current) drug therapy
CPT/HCPCS: 80048; 82565; 85025; 37224; 37221; 37252; C1894 ×3; C1769 ×3; C1876; C1725 ×2; C1714; C1753; C2623; J2250; J2003; J3010; J1644; Q9967; J2305

== ENCOUNTER 2024-06-24 11:41 | Inpatient (IN) | payer MEDICARE ==
--- NOTE | 2024-06-24 12:30 | ED ---
General Adult HPI - General Chief complaint: Weakness Stated complaint: dizzy/lightheaded/weakness/abn labs Time Seen by Provider: 06/24/24 11:50 Source: patient, RN notes reviewed, old records reviewed Mode of arrival: wheelchair Limitations: no limitations - History of Present Illness Initial comments: This is a 74-year-old female who presents to the emergency department with recent stenting in her iliacs and femoral artery. Patient comes in today stating that for the last 2 weeks prior to her stenting she has been tired and more fatigued. Patient states anytime she is up moving around her fatigue is worse as is her shortness of breath. Patient states today however was much worse than it had been and she was over her doctor's office she became nauseated and lightheaded and it would resolve with rest. Patient was sent over by Dr. William. Patient denies any chest pain or palpitations. Patient states she is not short of breath when she sits in bed but if she moves around at all it gets much worse. Patient states she takes blood pressure medication every day and she does not take her blood pressure prior to taking the meds - Related Data Home Medications Medication Instructions Recorded Confirmed atenoloL 25 mg PO QAM 03/28/15 06/15/24 lisinopriL [Zestril] 10 mg PO QAM 03/12/19 06/15/24 Isosorbide Mononitrate ER [Imdur] 30 mg PO QAM 02/27/21 06/15/24 Rosuvastatin [Crestor] 10 mg PO DAILY 01/17/22 06/15/24 Omeprazole 40 mg PO QAM 04/08/23 06/15/24 Nitroglycerin Sl Tabs [Nitrostat] 0.4 mg SUBLINGUAL Q5M PRN 11/03/23 06/15/24 Clopidogrel [Plavix] 75 mg PO QAM 05/23/24 06/15/24 Apixaban [Eliquis] 2.5 mg PO BID 06/10/24 06/15/24 Aspirin 81 mg PO DAILY 06/15/24 06/15/24 Allergies Allergy/AdvReac Type Severity Reaction Status Date / Time No Known Allergies Allergy Verified 06/24/24 11:44 Review of Systems ROS Statement: Those systems with pertinent positive or pertinent negative responses have been documented in the HPI. ROS Other: All systems not noted in ROS Statement are negative. Past Medical History Past Medical History: Coronary Artery Disease (CAD), Deep Vein Thrombosis (DVT), GERD/Reflux, Hearing Disorder / Deafness, Hyperlipidemia, Hypertension, Myocardial Infarction (MD), Osteoarthritis (OA), Seizure Disorder, Vascular Disorder Additional Past Medical History / Comment(s): See Dr William's H&P. Recent jaw pain. Hx ulcer. Bilatetal hearing aid use. Partial blockage of carotid arteries, DVT leg after heart attack in 1999. Recurrent hiatal hernia. Hx "one seizure at age 12 after dad ". Dysphagia, can't eat much, epigastric pain. Bilateral knee pain. Last Myocardial Infarction Date:: 1999 History of Any Multi-Drug Resistant Organisms: None Reported Past Surgical History: Appendectomy, Cholecystectomy, Heart Catheterization With Stent, Hernia Repair, Hysterectomy, Orthopedic Surgery Additional Past Surgical History / Comment(s): JOSH FILTER INSERTION, STATES HAS WIRE IN LEFT EAR TO AIDE IN HEARING, hiatal hernia repair X2, EGD, LEFT SHOULDER athroscopy, right knee arthroscopy, one cardiac stent, cortisone shots both knees. Past Anesthesia/Blood Transfusion Reactions: Previous Problems w/ Anesthesia Additional Past Anesthesia/Blood Transfusion Reaction / Comment(s): "Hard time waking me up." Never had blood transfusion. Date of Last Stent Placement:: 1999 Past Psychological History: No Psychological Hx Reported Smoking Status: Current every day smoker Past Alcohol Use History: Occasional Past Drug Use History: None Reported - Past Family History Mother Family Medical History: Diabetes Mellitus Father Additional Family Medical History / Comment(s): Brain aneurysm. Son(s) Family Medical History: Cancer General Exam - General Exam Comments Initial Comments: GENERAL: Patient is well-developed and well-nourished. Patient is nontoxic and well- hydrated and is in mild distress. ENT: Neck is soft and supple. No significant lymphadenopathy is noted. Oropharynx is clear. Moist mucous membranes. Neck has full range of motion without eliciting any pain. EYES: The sclera were anicteric and conjunctiva were pink and moist. Extraocular movements were intact and pupils were equal round and reactive to light. Eyelids were unremarkable. PULMONARY: Unlabored respirations. Good breath sounds bilaterally. No audible rales rhonchi or wheezing was noted. CARDIOVASCULAR: There is a regular rate and rhythm without any murmurs gallops or rubs. ABDOMEN: Soft and nontender with normal bowel sounds. SKIN: Skin is clear with no lesions or rashes and otherwise unremarkable. NEUROLOGIC: Patient is alert and oriented x3. Cranial nerves II through XII are grossly intact. Motor and sensory are also intact. Normal speech, volume and content. Symmetrical smile. MUSCULOSKELETAL: Normal extremities with adequate strength and full range of motion. No lower extremity swelling or edema. No calf tenderness. LYMPHATICS: No significant lymphadenopathy is noted PSYCHIATRIC: Normal psychiatric evaluation. Limitations: no limitations Course Vital Signs 06/24/24 06/24/24 06/24/24 11:44 13:02 14:14 Temperature 97.7 F 97.9 F Pulse Rate 65 64 Respiratory 18 20 Rate Blood Pressure 119/59 115/60 Blood Pressure 120/60 [Sitting] Blood Pressure 112/55 [Standing] Blood Pressure 121/56 [Supine] O2 Sat by Pulse 94 L 96 Oximetry Medical Decision Making - Medical Decision Making EKG is interpreted by myself. EKG shows a sinus rhythm at 60 bpm AK was 168 QRS is 152 QT interval is 486 QTc is 487. Patient has a left bundle branch block. Was pt. sent in by a medical professional or institution (, PA, FILAMENT COIL WINDER, urgent care, hospital, or long term...) When possible be specific @ -No Did you speak to anyone other than the patient for history (EMS, parent, family, police, friend...)? What history was obtained from this source @ -No Did you review nursing and triage notes (agree or disagree)? Why? @ -I reviewed and agree with nursing and triage notes Were old charts reviewed (outside hosp., previous admission, EMS record, old EKG, old radiological studies, urgent care reports/EKG's, long term records)? Report findings @ -No old charts were reviewed Differential Diagnosis? @ -Differential Weakness: Hypoglycemia, shock, sepsis, hyponatremia, anemia, infection, MD, ETOH, adverse medicine reaction, overdose, stroke, this is not meant to be an all-inclusive list. EKG interpreted by me (3pts min.). @ -As above X-rays interpreted by me (1pt min.). @ -Chest x-ray shows no acute abnormality CT interpreted by me (1pt min.). @ -None done U/S interpreted by me (1pt. min.). @ -None done What testing was considered but not performed or refused? (CT, X-rays, U/S, labs)? Why? @ -None What meds were considered but not given or refused? Why? @ -None Did you discuss the management of the patient with other professionals (professionals i.e. , PA, [employer] W[employer]ER, lab, RT, psych nurse, social insurance analyst, edi programmer, teacher, executive officer, supervisor case loading)? Give summary @ -I spoke with [facility] they agreed to admit the patient I admitted the patient wrote admitting orders Was smoking cessation discussed for >3mins.? @ -No Was critical care preformed (if so, how long)? @ -No Were there social determinants of health that impacted care today? How? (Homelessness, low income, unemployed, alcoholism, drug addiction, transportation, low edu. Level, literacy, decrease access to med. care, halfway, rehab)? @ -No Was there de-escalation of care discussed even if they declined (Discuss DNR or withdrawal of care, Hospice)? DNR status @ -No What co-morbidities impacted this encounter? (DM, HTN, Smoking, COPD, CAD, Cancer, CVA, ARF, Chemo, Hep., AIDS, mental health diagnosis, sleep apnea, morbid obesity)? @ -None Was patient admitted / discharged? Hospital course, mention meds given and route, prescriptions, significant lab abnormalities, going to OR and other pertinent info. @ -Patient is anemic. I will repeat CBCs throughout the night. Oncology will be consulted. And I will admit the patient to [facility] Undiagnosed new problem with uncertain prognosis? @ -No Drug Therapy requiring intensive monitoring for toxicity (Heparin, Nitro, Insulin, Cardizem)? @ -No Were any procedures done? @ -No Diagnosis/symptom? @ -Anemia Acute, or Chronic, or Acute on Chronic? @ -Acute Uncomplicated (without systemic symptoms) or Complicated (systemic symptoms)? @ -Complicated Side effects of treatment? @ -No Exacerbation, Progression, or Severe Exacerbation? @ -No Poses a threat to life or bodily function? How? (Chest pain, USA, MD, pneumonia, PE, COPD, DKA, ARF, appy, cholecystitis, CVA, Diverticulitis, Homicidal, Suicidal, threat to staff... and all critical care pts) @ -Yes this can lead to hypoxia and endorgan dysfunction Diagnosis/symptom? @ -Weakness Acute, or Chronic, or Acute on Chronic? @ -Acute Uncomplicated (without systemic symptoms) or Complicated (systemic symptoms)? @ -Complicated Side effects of treatment? @ -None Exacerbation, Progression, or Severe Exacerbation] @ -No Poses a threat to life or bodily function? @ -No - Lab Data Result diagrams: 06/24/24 12:06/24/24 12: Lab Results 06/24/24 06/24/24 06/24/24 Range/Units 12: 12: 12: WBC 6.1 (3.8-10.6) k/uL RBC 3.54 L (3.80-5.40) m/uL Hgb 7.5 L (11.4-16.0) gm/dL Hct 25.5 L (34.0-46.0) % MCV 72.1 L (80.0-100.0) fL MCH 21.1 L (25.0-35.0) pg MCHC 29.2 L (31.0-37.0) g/dL RDW 19.3 H (11.5-15.5) % Plt Count 343 (150-450) k/uL MPV 7.0 Neutrophils % 66 % Lymphocytes % 23 % Monocytes % 7 % Eosinophils % 1 % Basophils % 1 % Neutrophils # 4.0 (1.3-7.7) k/uL Lymphocytes # 1.4 (1.0-4.8) k/uL Monocytes # 0.4 (0-1.0) k/uL Eosinophils # 0.1 (0-0.7) k/uL Basophils # 0.0 (0-0.2) k/uL Hypochromasia Marked Poikilocytosis Slight Anisocytosis Slight Microcytosis Marked PT 10.8 (10.0-12.5) sec INR 1.0 (<1.2) APTT 23.3 (22.0-30.0) sec Sodium (137-145) mmol/L Potassium (3.5-5.1) mmol/L Chloride (98-107) mmol/L Carbon Dioxide (22-30) mmol/L Anion Gap mmol/L BUN (7-17) mg/dL Creatinine (0.52-1.04) mg/dL Est GFR (CKD-EPI)AfAm (>60 ml/min/1.73 sqM) Est GFR (CKD-EPI)NonAf (>60 ml/min/1.73 sqM) Glucose (74-99) mg/dL Plasma Lactic Acid Saturnino (0.7-2.0) mmol/L Calcium (8.4-10.2) mg/dL Magnesium (1.6-2.3) mg/dL Total Bilirubin (0.2-1.3) mg/dL AST (14-36) U/L ALT (4-34) U/L Alkaline Phosphatase (38-126) U/L Troponin I (0.000-0.034) ng/mL Total Protein (6.3-8.2) g/dL Albumin (3.5-5.0) g/dL Urine Color Light Yellow Urine Appearance Clear (Clear) Urine pH 7.0 (5.0-8.0) Ur Specific Umpire 1.008 (1.001-1.035) Urine Protein Negative (Negative) Urine Glucose (UA) Negative (Negative) Urine Ketones Negative (Negative) Urine Blood Negative (Negative) Urine Nitrite Negative (Negative) Urine Bilirubin Negative (Negative) Urine Urobilinogen <2.0 (<2.0) mg/dL Ur Leukocyte Esterase Negative (Negative) 06/24/24 06/24/24 06/24/24 Range/Units 12:29 12:29 12:29 WBC (3.8-10.6) k/uL RBC (3.80-5.40) m/uL Hgb (11.4-16.0) gm/dL Hct (34.0-46.0) % MCV (80.0-100.0) fL MCH (25.0-35.0) pg MCHC (31.0-37.0) g/dL RDW (11.5-15.5) % Plt Count (150-450) k/uL MPV Neutrophils % % Lymphocytes % % Monocytes % % Eosinophils % % Basophils % % Neutrophils # (1.3-7.7) k/uL Lymphocytes # (1.0-4.8) k/uL Monocytes # (0-1.0) k/uL Eosinophils # (0-0.7) k/uL Basophils # (0-0.2) k/uL Hypochromasia Poikilocytosis Anisocytosis Microcytosis PT (10.0-12.5) sec INR (<1.2) APTT (22.0-30.0) sec Sodium 137 (137-145) mmol/L Potassium 4.8 (3.5-5.1) mmol/L Chloride 106 (98-107) mmol/L Carbon Dioxide 21 L (22-30) mmol/L Anion Gap 10 mmol/L BUN 11 (7-17) mg/dL Creatinine 0.68 (0.52-1.04) mg/dL Est GFR (CKD-EPI)AfAm >90 (>60 ml/min/1.73 sqM) Est GFR (CKD-EPI)NonAf 86 (>60 ml/min/1.73 sqM) Glucose 102 H (74-99) mg/dL Plasma Lactic Acid Saturnino 1.9 (0.7-2.0) mmol/L Calcium 9.3 (8.4-10.2) mg/dL Magnesium 1.8 (1.6-2.3) mg/dL Total Bilirubin 0.4 (0.2-1.3) mg/dL AST 23 (14-36) U/L ALT 12 (4-34) U/L Alkaline Phosphatase 133 H (38-126) U/L Troponin I <0.012 (0.000-0.034) ng/mL Total Protein 6.9 (6.3-8.2) g/dL Albumin 4.2 (3.5-5.0) g/dL Urine Color Urine Appearance (Clear) Urine pH (5.0-8.0) Ur Specific Umpire (1.001-1.035) Urine Protein (Negative) Urine Glucose (UA) (Negative) Urine Ketones (Negative) Urine Blood (Negative) Urine Nitrite (Negative) Urine Bilirubin (Negative) Urine Urobilinogen (<2.0) mg/dL Ur Leukocyte Esterase (Negative) Disposition Clinical Impression: Anemia Disposition: ADMITTED IP TO THIS HOSP Referrals: Leslie Segovia DO [Primary Care Provider] - 1-2 days Time of Disposition: 14:48
[2024-06-24] MEDS: SODIUM CHLORIDE 0.9% 1,000 ML IV STA (12:52)
[2024-06-24 13:08] LABS: Anisocytosis Slight; Basophils % (A) 1 %; Eosinophils # (A) 0.1 k/uL (0-0.7); Eosinophils % (A) 1 %; HCT 25.5 % (34.0-46.0); HGB 7.5 gm/dL (11.4-16.0); Hypochromasia Marked; Lymphocytes # (A) 1.4 k/uL (1.0-4.8); Lymphocytes % (A) 23 %; MCH 21.1 pg (25.0-35.0); MCHC 29.2 g/dL (31.0-37.0); MCV 72.1 fL (80.0-100.0); Microcytosis Marked; Monocytes # (A) 0.4 k/uL (0-1.0); Monocytes % (A) 7 %; Neutrophils % (A) 66 %; Platelet Count 343 k/uL (150-450); Poikilocytosis Slight; RBC 3.54 m/uL (3.80-5.40); RDW 19.3 % (11.5-15.5); WBC 6.1 k/uL (3.8-10.6)
[2024-06-24 13:27] LABS: ALT 12 U/L (4-34); AST 23 U/L (14-36); African American GFR (CKD) >90 (>60 ml/min/1.73 sqM); Albumin 4.2 g/dL (3.5-5.0); Alkaline Phosphatase 133 U/L (38-126); Anion Gap 10 mmol/L; Blood Urea Nitrogen 11 mg/dL (7-17); Calcium 9.3 mg/dL (8.4-10.2); Carbon Dioxide 21 mmol/L (22-30); Chloride 106 mmol/L (98-107); Glucose 102 mg/dL (74-99); Magnesium 1.8 mg/dL (1.6-2.3); Non-African American GFR(CKD) 86 (>60 ml/min/1.73 sqM); Potassium 4.8 mmol/L (3.5-5.1); Sodium 137 mmol/L (137-145); Total Bilirubin 0.4 mg/dL (0.2-1.3); Total Protein 6.9 g/dL (6.3-8.2)
[2024-06-24 13:28] LABS: Partial Thromboplastin Time 23.3 sec (22.0-30.0); Prothrombin Time 10.8 sec (10.0-12.5)
[2024-06-24 14:06] LABS: Appearance,Urine Clear (Clear); Bilirubin,Urine Negative (Negative); Blood,Urine Negative (Negative); Color,Urine Light Yellow; Glucose,Urine (UA) Negative (Negative); Ketones,Urine Negative (Negative); Leukocyte Esterase,Urine Negative (Negative); Nitrite,Urine Negative (Negative); Protein,Urine Negative (Negative); Specific Gravity,Urine 1.008 (1.001-1.035); Urobilinogen,Urine <2.0 mg/dL (<2.0)
--- NOTE | 2024-06-24 14:56 | XR ---
EXAMINATION TYPE: XR chest 2V DATE OF EXAM: 06/24/2024 2:39 PM COMPARISON: None. CLINICAL INDICATION: Female, 74 years old with history of Weakness, TECHNIQUE: XR chest 2V view(s) obtained. FINDINGS: The heart size is normal. The pulmonary vasculature is normal. There is some ill-defined density remaining in the right upper lung field. Suspicious consolidation i s not identified.. Scoliosis within the thoracic spine IMPRESSION: 1. Right upper lobe irregular density. Follow-up recommended. Neoplasm not excluded. BRCA2 acute pulm onary process not otherwise evident. [facility], , 06/24/2024 2:54 PM
--- NOTE | 2024-06-24 18:15 | P.CONS ---
History of Present Illness - Reason for Consult Consult date: 06/24/24 anemia - Chief Complaint Weakness, shortness of breath with exertion, dizziness - History of Present Illness The patient is a 74-year-old white female, with multiple medical problems. The patient was sent in by cardiology, Dr. William, after presenting to him with complaints of progressive weakness, shortness of breath with exertion, and dizziness on exertion with nausea. Symptoms have been progressing over the last several days. She was sent into the emergency room and was found to have a he moglobin of 7.5 leading to her admission. The patient has not noted any obvious bleeding. She has an extensive cardiovascular history and has had cardiac as well as peripheral stents placed in the last 6 months. She has been on Eliquis, as well as aspirin and Plavix as a result. She has not noted any change in her bowel habits. She states that her last colonoscopy was probably 5+ years ago. She did have an EGD on 04/[address] Chairez showing some mild antral gastritis. Review of multiple labs in the EMR shows some intermittent mild anemia in the 10-11 range since 2020, but transient, followed by hemoglobin reverting back into the normal range. Review of Systems Constitutional: Reports fatigue Eyes: denies blurred vision, denies pain Ears: deny: decreased hearing, ear discharge, earache, tinnitus Ears, nose, mouth and throat: Denies headache, Denies sore throat Cardiovascular: Reports as per HPI, Reports dyspnea on exertion, Reports lightheadedness, Reports palpitations, Reports shortness of breath Respiratory: Reports dyspnea Gastrointestinal: Reports nausea Genitourinary: Denies dysuria, Denies hematuria Menstruation: Reports postmenopausal Musculoskeletal: Reports muscle weakness Integumentary: Denies pruritus, Denies rash Neurological: Reports weakness Psychiatric: Denies anxiety, Denies depression Endocrine: Reports fatigue Hematologic/Lymphatic: Reports as per HPI Past Medical History Past Medical History: Coronary Artery Disease (CAD), Deep Vein Thrombosis (DVT), GERD/Reflux, Hearing Disorder / Deafness, Hyperlipidemia, Hypertension, Myocardial Infarction (LA), Osteoarthritis (OA), Seizure Disorder, Vascular Disorder Additional Past Medical History / Comment(s): See Dr William's H&P. Recent jaw pain. Hx ulcer. Bilatetal hearing aid use. Partial blockage of carotid arteries, DVT leg after heart attack in 1999. Recurrent hiatal hernia. Hx "one seizure at age 12 after dad ". Dysphagia, can't eat much, epigastric pain. Bilateral knee pain.pad Last Myocardial Infarction Date:: 1999 History of Any Multi-Drug Resistant Organisms: None Reported Past Surgical History: Appendectomy, Cholecystectomy, Heart Catheterization With Stent, Hernia Repair, Hysterectomy, Orthopedic Surgery Additional Past Surgical History / Comment(s): JOSH FILTER INSERTION, STATES HAS WIRE IN LEFT EAR TO AIDE IN HEARING, hiatal hernia repair X2, EGD, LEFT SHOULDER athroscopy, right knee arthroscopy, one cardiac stent, cortisone shots both knees. Past Anesthesia/Blood Transfusion Reactions: Previous Problems w/ Anesthesia Additional Past Anesthesia/Blood Transfusion Reaction / Comm: "Hard time waking me up." Never had blood transfusion. Date of Last Stent Placement:: 1999 Past Psychological History: No Psychological Hx Reported Additional Psychological History / Comment(s): . Smoking Status: Current every day smoker Past Alcohol Use History: Occasional Additional Past Alcohol Use History / Comment(s): Started smoking at age 17, smokes 1 ppd. Past Drug Use History: None Reported - Past Family History Mother Family Medical History: Diabetes Mellitus Father Additional Family Medical History / Comment(s): Brain aneurysm. Son(s) Family Medical History: Cancer Medications and Allergies Home Medications Medication Instructions Recorded Confirmed Type atenoloL 25 mg PO DAILY 03/28/15 06/24/24 History lisinopriL [Zestril] 10 mg PO DAILY 03/12/19 06/24/24 History Isosorbide Mononitrate ER [Imdur] 30 mg PO DAILY 02/27/21 06/24/24 History Rosuvastatin [Crestor] 10 mg PO DAILY 01/17/22 06/24/24 History Omeprazole 40 mg PO DAILY 04/08/23 06/24/24 History Nitroglycerin Sl Tabs [Nitrostat] 0.4 mg SL Q5M PRN 11/03/23 06/24/24 History Clopidogrel [Plavix] 75 mg PO DAILY 05/23/24 06/24/24 History Apixaban [Eliquis] 2.5 mg PO BID 06/10/24 06/24/24 History Aspirin 81 mg PO DAILY 06/15/24 06/24/24 History Allergies Allergy/AdvReac Type Severity Reaction Status Date / Time No Known Allergies Allergy Verified 06/24/24 15:01 Physical Exam Vitals: Vital Signs Temp Pulse Pulse Resp BP BP BP 06/24/24 16:10 97.8 F 65 15 104/59 06/24/24 15:47 97.8 F 70 20 166/66 06/24/24 14:14 97.9 F 64 20 115/60 06/24/24 13:02 120/60 06/24/24 11:44 97.7 F 65 18 119/59 BP BP Pulse Ox 06/24/24 16:10 100 06/24/24 15:47 95 06/24/24 14:14 96 06/24/24 13:02 112/55 121/56 06/24/24 11:44 94 L Intake and Output 06/24/24 06/24/24 06/24/24 06:59 14:59 22:59 Other: Weight 67.132 kg 67.132 kg - Constitutional General appearance: no acute distress - EENT Eyes: EOMI, PERRLA ENT: hearing grossly normal, normal oropharynx - Neck Neck: no lymphadenopathy Thyroid: bilateral: normal size - Respiratory Respiratory: bilateral: CTA - Cardiovascular Rhythm: regular Abnormal Heart Sounds: systolic murmur (ESM, most prominent over aortic valve) - Gastrointestinal General gastrointestinal: normal bowel sounds, soft - Integumentary Integumentary: normal - Neurologic Neurologic: CNII-XII intact - Musculoskeletal Musculoskeletal: generalized weakness, strength equal bilaterally - Psychiatric Psychiatric: A&O x's 3, appropriate affect Results CBC & Chem 7: 06/24/24 12:29 06/24/24 12:29 Labs: Abnormal Lab Results - Last 24 Hours (Table) 06/24/24 06/24/24 Range/Units 12:29 12:29 RBC 3.54 L (3.80-5.40) m/uL Hgb 7.5 L (11.4-16.0) gm/dL Hct 25.5 L (34.0-46.0) % MCV 72.1 L (80.0-100.0) fL MCH 21.1 L (25.0-35.0) pg MCHC 29.2 L (31.0-37.0) g/dL RDW 19.3 H (11.5-15.5) % Carbon Dioxide 21 L (22-30) mmol/L Glucose 102 H (74-99) mg/dL Alkaline Phosphatase 133 H (38-126) U/L Comments: EGD procedure note and path report from 04/01 reviewed Chest x-ray: report reviewed CT scan - abdomen: report reviewed CT Scan - head: report reviewed Assessment and Plan (1) Anemia Narrative/Plan: The patient has had some previous, transient mild anemia episodes, but the current presentation appears to be distinct from those in terms of associated symptoms and degree. Given the patient's history, with ongoing aggressive anticoagulant plus antiplatelet therapy regimen the primary differential would be occult GI blood loss -Check iron studies and other anemia labs -IV iron supplementation, assuming labs confirm the clinical impression -It was discussed with the patient that in this situation, her anticoagulation/antiplatelet regimen can potentially be continued (which would obviously be very desirable from the cardiovascular standpoint) as long as her hemoglobin can be maintained in a safe range with ongoing monitoring and aggressive iron supplementation -Consult surgery for endoscopic workup. However this may be complicated by her recent stent placement, which would increase the risk of holding antiplatelet therapy. -Given the patient's cardiac history and symptoms, it would be reasonable to transfuse 1 unit PRBC even though her hemoglobin is greater than 7 Current Visit: Yes Status: Acute Code(s): D64.9 - ANEMIA, UNSPECIFIED SNOMED Code(s): 635191072 (2) Abnormal CXR Narrative/Plan: The chest x-ray mention the right upper lobe opacity. Check CT chest without contrast for further evaluation to rule out any underlying mass. Current Visit: Yes Status: Acute Code(s): R93.89 - ABNORMAL FINDINGS ON DX IMAGING OF OTH BODY STRUCTURES SNOMED Code(s): 346445663 Plan: Defer to the admitting service and other consultants for management of her other medical problems
[2024-06-24 18:34] LABS: Anisocytosis Slight; Basophils % (A) 1 %; Eosinophils # (A) 0.2 k/uL (0-0.7); Eosinophils % (A) 3 %; HCT 23.1 % (34.0-46.0); Hypochromasia Marked; Lymphocytes # (A) 1.6 k/uL (1.0-4.8); Lymphocytes % (A) 29 %; MCH 21.2 pg (25.0-35.0); MCHC 28.8 g/dL (31.0-37.0); MCV 73.6 fL (80.0-100.0); Mean Platelet Volume 7.2; Microcytosis Moderate; Monocytes # (A) 0.5 k/uL (0-1.0); Monocytes % (A) 10 %; Neutrophils # (A) 2.9 k/uL (1.3-7.7); Neutrophils % (A) 54 %; Platelet Count 315 k/uL (150-450); Poikilocytosis Slight; RBC 3.14 m/uL (3.80-5.40); RDW 19.1 % (11.5-15.5); WBC 5.4 k/uL (3.8-10.6)
[2024-06-24 19:08] LABS: HGB 6.7 gm/dL (11.4-16.0)
[2024-06-24] MEDS: APIXABAN 2.5 MG TABLET PO SCH (20:05)
--- NOTE | 2024-06-24 21:43 | CT ---
EXAMINATION TYPE: CT chest wo con DATE OF EXAM: 06/24/2024 8:50 PM COMPARISON: Chest x-ray 06/24/2024 CLINICAL INDICATION: Female, 74 years old with history of Abnormal chest x-ray, abnormal chest x-ray TECHNIQUE: Axial images were obtained at 5 mm thick sections. Reconstructed images are reviewed on Pin-[employer] computer in the coronal plane. Contrast used: mL of , (none if empty) Oral contrast used: (none if empty) CT DLP: 209.4 mGycm, Automated exposure control for dose reduction was used. FINDINGS: Portion of the thyroid visualized is normal. Emphysematous changes are present. There is mild nonspecific increased lung markings at the lung apic es. No discrete abnormality to correlate with the chest x-ray. No pleural plaques are identified. No focal nodular densities are identified. No enlarged mediastinal or hilar adenopathy is evident. The ascending aorta diameter at the level o f the main pulmonary artery is 3.5 cm. The main pulmonary artery diameter at the bifurcation is 2.4 cm. Moderate coronary artery calcifications present. Limited CT sections are obtained through the upper abdomen. Inferior vena cava filter is evident. Vas cular calcifications within the aorta. IMPRESSION: 1. Moderate emphysematous changes. 2. Nonspecific increased lung markings right upper lobe. However, this does not correlate with the ab normal chest x-ray findings. No suspicious etiology to account for chest x-ray findings on the CT [facility], , 06/24/2024 9:41 PM
--- NOTE | 2024-06-25 00:45 | HP ---
HISTORY AND PHYSICAL CHIEF COMPLAINT: Weakness, lightheadedness, and anemia. HISTORY OF PRESENT ILLNESS: This is a 74-year-old woman with a past medical history of multiple medical problems, recently had a stenting by Dr. William on iliacs and femoral artery. The patient is feeling tired and weak and lightheaded and the outpatient hemoglobin evaluation showed anemia. Currently, hemoglobin is 7.1. The patient was admitted for further evaluation and treatment. There is no history of any chest pain, palpitations, or shortness of breath at this time. PAST MEDICAL HISTORY: History of peripheral vascular disease, CAD, DVT, hypertension, hyperlipidemia. Rest of the history and rest of the chart is also reviewed. HOME MEDICATIONS: Reviewed include lisinopril. Rest of medications are reviewed. ALLERGIES: None. FAMILY HISTORY: History of brain aneurysm. SOCIAL HISTORY: History of smoking. REVIEW OF SYSTEMS: Fourteen-point review is negative except as mentioned earlier. PHYSICAL EXAMINATION: VITAL SIGNS: Pulse is 65, blood pressure 104/59, respirations 15. HEENT: Conjunctivae normal. NECK: No JVD. CARDIOVASCULAR: S1, S2 muffled. RESPIRATIONS: Breath sounds diminished at the bases. ABDOMEN: Soft. Mild diffuse discomfort. No mass palpable. LEGS: No edema. NERVOUS SYSTEM: Nonfocal. LABORATORY DATA: Hemoglobin 7.5. ASSESSMENT: 1. Symptomatic anemia, exact etiology unknown, rule out GI bleed. 2. History of recent peripheral vascular disease and stenting. 3. History of deep venous thrombosis. 4. Hypertension. 5. Hyperlipidemia. 6. History of coronary artery disease. 7. Multiple complex medical issues. RECOMMENDATIONS AND DISCUSSION: This is a 74-year-old woman, who presented with multiple complex medical issues, we will monitor the patient closely. I would recommend 1 unit of transfusion with 20 Lasix. I would also recommend CT scan of the abdomen and pelvis also to complete the workup. Otherwise, repeat labs. Resume the home medications and Cardiology evaluation. Prognosis guarded because of multiple complex medical issues. Further recommendations to follow. MMODL / IJN: [id number] /
[2024-06-25] MEDS: FUROSEMIDE 10 MG/ML 2 ML VIAL IV ONE (02:11)
[2024-06-25] MEDS: PANTOPRAZOLE 40 MG TABLET PO SCH (05:35)
[2024-06-25 09:52] LABS: Basophils # (A) 0.05 X 10*3/uL (0.00-0.10); Basophils % (A) 0.9 %; Eosinophils # (A) 0.15 X 10*3/uL (0.04-0.35); Eosinophils % (A) 2.6 %; HCT 27.1 % (37.2-46.3); HGB 7.9 g/dL (12.0-15.0); Lymphocytes # (A) 1.66 X 10*3/uL (0.90-5.00); Lymphocytes % (A) 28.6 %; MCH 21.9 pg (27.0-32.0); MCHC 29.2 g/dL (32.0-37.0); MCV 75.1 FL (80.0-97.0); Mean Platelet Volume 10.2 FL (9.5-12.2); Monocytes # (A) 0.69 X 10*3/uL (0.20-1.00); Monocytes % (A) 11.9 %; NRBC Per 100 WBC 0 X 10*3/uL (0.00-0.01); Neutrophils # (A) 3.23 X 10*3/uL (1.80-7.70); Neutrophils % (A) 55.7 %; Platelet Count 341 X 10*3/uL (140-440); RBC 3.61 X 10*6/uL (4.10-5.20); RDW 19.3 % (11.5-14.5)
[2024-06-25] MEDS: ASPIRIN 81 MG PO SCH (10:05)
[2024-06-25] MEDS: CLOPIDOGREL 75 MG TAB PO SCH (10:05)
[2024-06-25] MEDS: ATORVASTATIN 20 MG TAB PO SCH (10:12)
[2024-06-25] MEDS: atenoloL 25 MG TAB PO SCH (10:12)
[2024-06-25] MEDS: lisinopriL 10 MG TAB PO SCH (10:12)
[2024-06-25] MEDS: ISOSORBIDE MONONITRATE ER 30 MG TAB.ER.24H PO SCH (10:12)
[2024-06-25 11:21] LABS: Reticulocyte % 1.93 % (0.10-1.80)
[2024-06-25 11:26] LABS: BUN/Creat Ratio 14.43 Ratio (12.00-20.00); Blood Urea Nitrogen 10.1 mg/dL (9.0-27.0); Calcium 9.3 mg/dL (8.7-10.3); Carbon Dioxide 22.8 mmol/L (21.6-31.8); Chloride 103 mmol/L (96-109); Ferritin 15.5 ng/mL (10.0-291.0); Glucose 102 mg/dL (70-110); Iron 59 UG/DL (50-170); Potassium 4.1 mmol/L (3.5-5.5); Sodium 138 mmol/L (135-145); Total Iron Binding Capacity 500 UG/DL (228-460)
--- NOTE | 2024-06-25 13:46 | P.GSCN ---
History of Present Illness Consult date: 06/25/24 History of present illness: Patient is a 74-year-old female currently on Eliquis as well as Plavix therapy due to a history of CAD status post PCI and stent placement who presents with weakness as well as anemia. Patient was sent to the emergency department by her make up arranger after she was found to have exertional dyspnea as well as dizziness. Upon presentation to the emergency department patient was found with a hemoglobin of 6.7. Patient denies any hematemesis. No abdominal pain nausea or vomiting. She states that she has intermittent melanotic stools, denies any hematochezia. She had recently undergone EGD which showed evidence of antral gastritis. She cannot recall her last colonoscopy. Denies any fevers or chills. No worsening shortness of breath or chest pain. No headaches or blurry vision. She admitted would tolerate clear liquid diet without issue. Review of Systems Negative except for as stated above in HPI Past Medical History Past Medical History: Coronary Artery Disease (CAD), Deep Vein Thrombosis (DVT), GERD/Reflux, Hearing Disorder / Deafness, Hyperlipidemia, Hypertension, Myocardial Infarction ([place]), Osteoarthritis (OA), Seizure Disorder, Vascular Disorder Additional Past Medical History / Comment(s): See Dr William's H&P. Recent jaw p ain. Hx ulcer. Bilatetal hearing aid use. Partial blockage of carotid arteries, DVT leg after heart attack in 1999. Recurrent hiatal hernia. Hx "one seizure at age 12 after dad ". Dysphagia, can't eat much, epigastric pain. Bilateral knee pain.pad Last Myocardial Infarction Date:: 1999 History of Any Multi-Drug Resistant Organisms: None Reported Past Surgical History: Appendectomy, Cholecystectomy, Heart Catheterization With Stent, Hernia Repair, Hysterectomy, Orthopedic Surgery Additional Past Surgical History / Comment(s): JOSH FILTER INSERTION, STATES HAS WIRE IN LEFT EAR TO AIDE IN HEARING, hiatal hernia repair X2, EGD, LEFT SHOULDER athroscopy, right knee arthroscopy, one cardiac stent, cortisone shots both knees. Past Anesthesia/Blood Transfusion Reactions: Previous Problems w/ Anesthesia Additional Past Anesthesia/Blood Transfusion Reaction / Comm: "Hard time waking me up." Never had blood transfusion. Date of Last Stent Placement:: 1999 Past Psychological History: No Psychological Hx Reported Additional Psychological History / Comment(s): . Smoking Status: Current every day smoker Past Alcohol Use History: Occasional Additional Past Alcohol Use History / Comment(s): Started smoking at age 17, smokes 1 ppd. Past Drug Use History: None Reported - Past Family History Mother Family Medical History: Diabetes Mellitus Father Additional Family Medical History / Comment(s): Brain aneurysm. Son(s) Family Medical History: Cancer Medications and Allergies Home Medications Medication Instructions Recorded Confirmed Type atenoloL 25 mg PO DAILY 03/28/15 06/24/24 History lisinopriL [Zestril] 10 mg PO DAILY 03/12/19 06/24/24 History Isosorbide Mononitrate ER [Imdur] 30 mg PO DAILY 02/27/21 06/24/24 History Rosuvastatin [Crestor] 10 mg PO DAILY 01/17/22 06/24/24 History Omeprazole 40 mg PO DAILY 04/08/23 06/24/24 History Nitroglycerin Sl Tabs [Nitrostat] 0.4 mg SL Q5M PRN 11/03/23 06/24/24 History Clopidogrel [Plavix] 75 mg PO DAILY 05/23/24 06/24/24 History Apixaban [Eliquis] 2.5 mg PO BID 06/10/24 06/24/24 History Aspirin 81 mg PO DAILY 06/15/24 06/24/24 History Allergies Allergy/AdvReac Type Severity Reaction Status Date / Time No Known Allergies Allergy Verified 06/24/24 15:01 Surgical - Exam Vital Signs Temp Pulse Resp BP Pulse Ox 97.7 F 65 18 119/59 94 L 06/24/24 11:44 06/24/24 11:44 06/24/24 11:44 06/24/24 11:44 06/24/24 11:44 Gen: AxO, NAD Pulm: non-labored respirations Abd: soft, non-tender, non-distended. No guarding/rebound/rigidity Extrem: no edema seen Results - Labs 06/25/24 03:54 06/25/24 03:54 Abnormal Lab Results - Last 24 Hours (Table) 06/24/24 06/24/24 06/25/24 Range/Units 17:49 18:02 03:54 RBC 3.14 L 3.61 L (3.80-5.40) m/uL Hgb 6.7 L* 7.9 L (11.4-16.0) gm/dL Hct 23.1 L 27.1 L (34.0-46.0) % MCV 73.6 L 75.1 L (80.0-100.0) fL MCH 21.2 L 21.9 L (25.0-35.0) pg MCHC 28.8 L 29.2 L (31.0-37.0) g/dL RDW 19.1 H 19.3 H (11.5-15.5) % Retic Count 1.93 H (0.10-1.80) % Anion Gap (4.00-12.00) mmol/L TIBC (228-460) UG/DL % Saturation (12.00-45.00) Transferrin (204.0-354.0) mg/dL Crossmatch See Detail 06/25/24 Range/Units 03:54 RBC (3.80-5.40) m/uL Hgb (11.4-16.0) gm/dL Hct (34.0-46.0) % MCV (80.0-100.0) fL MCH (25.0-35.0) pg MCHC (31.0-37.0) g/dL RDW (11.5-15.5) % Retic Count (0.10-1.80) % Anion Gap 12.20 H (4.00-12.00) mmol/L TIBC 500 H (228-460) UG/DL % Saturation 11.80 L (12.00-45.00) Transferrin 357.0 H (204.0-354.0) mg/dL Crossmatch Diabetes panel 06/25/24 Range/Units 03:54 Sodium 138 (135-145) mmol/L Potassium 4.1 (3.5-5.5) mmol/L Chloride 103 (96-109) mmol/L Carbon Dioxide 22.8 (21.6-31.8) mmol/L BUN 10.1 (9.0-27.0) mg/dL Creatinine 0.7 (0.6-1.5) mg/dL Glucose 102 (70-110) mg/dL Calcium 9.3 (8.7-10.3) mg/dL Calcium panel 06/25/24 Range/Units 03:54 Calcium 9.3 (8.7-10.3) mg/dL Pituitary panel 06/25/24 Range/Units 03:54 Sodium 138 (135-145) mmol/L Potassium 4.1 (3.5-5.5) mmol/L Chloride 103 (96-109) mmol/L Carbon Dioxide 22.8 (21.6-31.8) mmol/L BUN 10.1 (9.0-27.0) mg/dL Creatinine 0.7 (0.6-1.5) mg/dL Glucose 102 (70-110) mg/dL Calcium 9.3 (8.7-10.3) mg/dL Adrenal panel 06/25/24 Range/Units 03:54 Sodium 138 (135-145) mmol/L Potassium 4.1 (3.5-5.5) mmol/L Chloride 103 (96-109) mmol/L Carbon Dioxide 22.8 (21.6-31.8) mmol/L BUN 10.1 (9.0-27.0) mg/dL Creatinine 0.7 (0.6-1.5) mg/dL Glucose 102 (70-110) mg/dL Calcium 9.3 (8.7-10.3) mg/dL Assessment and Plan Assessment: Patient is a 74-year female with history of CAD and stenting currently on Eliquis and Plavix who presents with anemia Plan: -CLD as tolerated; NPO at midnight on 06/26/24 -IVF hydration -Recommend holding anticoagulation if okay with primary and cardiology -IV PPI therapy -Tentative plan for repeat endoscopy on 06/27/24 -No acute surgical intervention Hong Phillip M.D. General Surgery
[2024-06-25] MEDS: SODIUM CHLORIDE 0.9% 500 ML 250 ML IV ONE (14:00)
--- NOTE | 2024-06-25 14:02 | P.CRDCN ---
History of Present Illness Consult date: 06/25/24 Requesting physician: Renan Barger Reason for Consult (text): f/u from iliac stent placement, anemia Chief complaint: fatigue, shortness of breath History of present illness: This is a pleasant 74-year-old female patient who follows with Dr. William in the office. She has a history of CAD status post PCI of the RCA as well as PAD status post recent peripheral intervention, paroxysmal atrial fibrillation, hypertension, dyslipidemia, smoking and carotid atherosclerosis scented to the emergency department with complaints of fatigue and shortness of breath. She underwent peripheral intervention on 06/15/2024 and has been maintained on aspirin, Plavix and Eliquis 2.5 mg p.o. twice daily. Initial hemoglobin 7.5 with subsequent 6.7 at which time she received 1 unit of packed red cells. We have been asked to see the patient due to anemia, anticoagulation due to paroxysmal atrial fibrillation as well as dual antiplatelet therapy due to recent peripheral intervention. Patient denies any chest discomfort. She denies any claudication symptoms. She does feel weak, tired and short of breath when she is up doing things. She denies any noticeable change in her stools, no clear signs of bleeding. She was evaluated by hematology and consult has been placed for Dr. Chairez. Renal function and electrolytes are normal. Vital signs are stable. Past Medical History Past Medical History: Coronary Artery Disease (CAD), Deep Vein Thrombosis (DVT), GERD/Reflux, Hearing Disorder / Deafness, Hyperlipidemia, Hypertension, Myocardial Infarction ([place]), Osteoarthritis (OA), Seizure Disorder, Vascular Disorder Additional Past Medical History / Comment(s): See Dr William's H&P. Recent jaw pain. Hx ulcer. Bilatetal hearing aid use. Partial blockage of carotid arteries, DVT leg after heart attack in 1999. Recurrent hiatal hernia. Hx "one seizure at age 12 after dad ". Dysphagia, can't eat much, epigastric pain. Bilateral knee pain.pad Last Myocardial Infarction Date:: 1999 History of Any Multi-Drug Resistant Organisms: None Reported Past Surgical History: Appendectomy, Cholecystectomy, Heart Catheterization With Stent, Hernia Repair, Hysterectomy, Orthopedic Surgery Additional Past Surgical History / Comment(s): JOSH FILTER INSERTION, STATES HAS WIRE IN LEFT EAR TO AIDE IN HEARING, hiatal hernia repair X2, EGD, LEFT SHOULDER athroscopy, right knee arthroscopy, one cardiac stent, cortisone shots both knees. Past Anesthesia/Blood Transfusion Reactions: Previous Problems w/ Anesthesia Additional Past Anesthesia/Blood Transfusion Reaction / Comment(s): "Hard time waking me up." Never had blood transfusion. Date of Last Stent Placement:: 1999 Past Psychological History: No Psychological Hx Reported Additional Psychological History / Comment(s): . Smoking Status: Current every day smoker Past Alcohol Use History: Occasional Additional Past Alcohol Use History / Comment(s): Started smoking at age 17, smokes 1 ppd. Past Drug Use History: None Reported - Past Family History Mother Family Medical History: Diabetes Mellitus Father Additional Family Medical History / Comment(s): Brain aneurysm. Son(s) Family Medical History: Cancer Medications and Allergies Home Medications Medication Instructions Recorded Confirmed Type atenoloL 25 mg PO DAILY 03/28/15 06/24/24 History lisinopriL [Zestril] 10 mg PO DAILY 03/12/19 06/24/24 History Isosorbide Mononitrate ER [Imdur] 30 mg PO DAILY 02/27/21 06/24/24 History Rosuvastatin [Crestor] 10 mg PO DAILY 01/17/22 06/24/24 History Omeprazole 40 mg PO DAILY 04/08/23 06/24/24 History Nitroglycerin Sl Tabs [Nitrostat] 0.4 mg SL Q5M PRN 11/03/23 06/24/24 History Clopidogrel [Plavix] 75 mg PO DAILY 05/23/24 06/24/24 History Apixaban [Eliquis] 2.5 mg PO BID 06/10/24 06/24/24 History Aspirin 81 mg PO DAILY 06/15/24 06/24/24 History Allergies Allergy/AdvReac Type Severity Reaction Status Date / Time No Known Allergies Allergy Verified 06/24/24 15:01 Physical Exam Vitals: Vital Signs Temp Pulse Pulse Pulse Pulse Pulse Resp 06/25/24 08:00 97.4 F L 81 86 70 16 06/25/24 02:05 98.3 F 88 18 06/25/24 02:00 98.6 F 81 18 06/25/24 01:32 75 18 06/24/24 23:55 97.9 F 77 18 06/24/24 23:35 98.0 F 74 18 06/24/24 23:26 98.2 F 75 18 06/24/24 20:05 75 18 06/24/24 19:55 97.9 F 75 18 06/24/24 16:10 97.8 F 65 15 06/24/24 15:47 97.8 F 70 20 06/24/24 14:14 97.9 F 64 20 06/24/24 13:02 BP BP BP BP BP BP BP 06/25/24 08:00 120/61 118/62 114/68 06/25/24 02:05 114/62 06/25/24 02:00 115/56 06/25/24 01:32 06/24/24 23:55 115/56 06/24/24 23:35 131/57 06/24/24 23:26 112/54 06/24/24 20:05 06/24/24 19:55 97/51 06/24/24 16:10 104/59 06/24/24 15:47 166/66 06/24/24 14:14 115/60 06/24/24 13:02 120/60 112/55 BP Pulse Ox 06/25/24 08:00 96 06/25/24 02:05 94 L 06/25/24 02:00 94 L 06/25/24 01:32 06/24/24 23:55 95 06/24/24 23:35 96 06/24/24 23:26 96 06/24/24 20:05 06/24/24 19:55 95 06/24/24 16:10 100 06/24/24 15:47 95 06/24/24 14:14 96 06/24/24 13:02 121/56 Intake and Output 06/24/24 06/25/24 06/25/24 22:59 06:59 14:59 Intake Total 360 310 180 Balance 360 310 180 Intake: Oral 360 180 Blood Product 310 Rc As-1 Unit 310 [id number] Other: Voiding Method Toilet Toilet # Voids 2 1 Weight 67.132 kg PHYSICAL EXAMINATION: HEENT: Head is atraumatic, normocephalic. Pupils equal, round. Neck is supple. There is no elevated jugular venous pressure. HEART EXAMINATION: Heart sounds regular, S1 and S2 normal. Soft systolic murmur. CHEST EXAMINATION: Lungs are clear to auscultation and precussion. No chest wall tenderness is noted on palpation or with deep breathing. ABDOMEN: Soft, nontender. Bowel sounds are heard. No organomegaly noted. EXTREMITIES: 2+ peripheral pulses with no evidence of peripheral edema and no calf tenderness noted. NEUROLOGIC patient is awake, alert and oriented x3. . Results 06/25/24 03:54 06/25/24 03:54 Cardiac Enzymes 06/24/24 06/24/24 Range/Units 12:29 12:29 AST 23 (14-36) U/L Troponin I <0.012 (0.000-0.034) ng/mL Coagulation 06/24/24 Range/Units 12: PT 10.8 (10.0-12.5) sec APTT 23.3 (22.0-30.0) sec CBC 06/24/24 06/24/24 06/25/24 Range/Units 12:29 17:49 03:54 WBC 6.1 5.4 5.80 (3.8-10.6) k/uL RBC 3.54 L 3.14 L 3.61 L (3.80-5.40) m/uL Hgb 7.5 L 6.7 L* 7.9 L (11.4-16.0) gm/dL Hct 25.5 L 23.1 L 27.1 L (34.0-46.0) % Plt Count 343 315 341 (150-450) k/uL Comprehensive Metabolic Panel 06/24/24 06/25/24 Range/Units 12:29 03:54 Sodium 137 138 (137-145) mmol/L Potassium 4.8 4.1 (3.5-5.1) mmol/L Chloride 106 103 (98-107) mmol/L Carbon Dioxide 21 L 22.8 (22-30) mmol/L BUN 11 10.1 (7-17) mg/dL Creatinine 0.68 0.7 (0.52-1.04) mg/dL Glucose 102 H 102 (74-99) mg/dL Calcium 9.3 9.3 (8.4-10.2) mg/dL AST 23 (14-36) U/L ALT 12 (4-34) U/L Alkaline Phosphatase 133 H (38-126) U/L Total Protein 6.9 (6.3-8.2) g/dL Albumin 4.2 (3.5-5.0) g/dL Current Medications Generic Name Dose Route Start Last Admin Trade Name Freq PRN Reason Stop Dose Admin Apixaban 2.5 mg 06/24/24 21:00 06/25/24 10:05 Apixaban 2.5 Mg Tablet PO Not Given BID [facility] Protocol Aspirin 81 mg 06/25/24 09:00 06/25/24 10:05 Aspirin 81 Mg PO Not Given DAILY [facility] Atenolol 25 mg 06/25/24 09:00 06/25/24 10:12 Atenolol 25 Mg Tab PO 25 mg DAILY [facility] Administration Atorvastatin Calcium 20 mg 06/25/24 09:00 06/25/24 10:12 Atorvastatin 20 Mg Tab PO 20 mg DAILY [facility] Administration Clopidogrel Bisulfate 75 mg 06/25/24 09:00 06/25/24 10:05 Clopidogrel 75 Mg Tab PO Not Given DAILY [facility] Isosorbide Mononitrate 30 mg 06/25/24 09:00 06/25/24 10:12 Isosorbide Mononitrate Er 30 Mg Tab.Er.24h PO 30 mg DAILY [facility] Administration Lisinopril 10 mg 06/25/24 09:00 06/25/24 10:12 Lisinopril 10 Mg Tab PO 10 mg DAILY [facility] Administration Pantoprazole Sodium 40 mg 06/25/24 07:30 06/25/24 05:35 Pantoprazole 40 Mg Tablet PO 40 mg [id number] [facility] Administration Intake and Output 06/24/24 06/25/24 06/25/24 22:59 06:59 14:59 Intake Total 360 310 180 Balance 360 310 180 Intake: Oral 360 180 Blood Product 310 Rc As-1 Unit 310 [id number] Other: Voiding Method Toilet Toilet # Voids 2 1 Weight 67.132 kg 06/25/24 03:54 06/25/24 03:54 EKG Interpretations (text) Sinus rhythm Assessment and Plan Assessment: #1 anemia 2 CAD status post stenting of the RCA 3 PAD status post stenting of bilateral common iliac arteries 4 paroxysmal atrial fibrillation, currently maintaining sinus mechanism 5 hypertension 6 hyperlipidemia 7 nicotine dependence Plan: From cardiology's perspective due to need for possible endoscopy we will hold Eliquis and Plavix at this time. Do not stop low-dose aspirin. We will continue to follow the patient and provide further recommendations accordingly. DIRECTOR OF EMPLOYEE DEVELOPMENT note has been reviewed, I agree with a documented findings and plan of care. Patient was seen and examined.
--- NOTE | 2024-06-25 15:31 | XR ---
EXAMINATION TYPE: XR chest 1V portable DATE OF EXAM: 06/25/2024 3:19 PM COMPARISON: Chest radiographs from 06/24/2024 CLINICAL INDICATION: Female, 74 years old with history of Eval for fluid overload, SOB; [facility] TECHNIQUE: XR chest 1V portable Frontal view of the chest. FINDINGS: Lungs/Pleura: There is no evidence of pleural effusion, focal consolidation, or pneumothorax. Pulmonary vascularity: Pulmonary vascular congestion. Heart/mediastinum: Cardiomediastinal silhouette is unremarkable. Musculoskeletal: No acute osseous pathology. IMPRESSION: Mild pulmonary edema. [facility], , 06/25/2024 3:29 PM
[2024-06-25 15:47] LABS: Anisocytosis Slight; Basophils % (A) 1 %; Eosinophils # (A) 0.1 k/uL (0-0.7); Eosinophils % (A) 3 %; HCT 26.8 % (34.0-46.0); HGB 8.1 gm/dL (11.4-16.0); Hypochromasia Marked; Lymphocytes # (A) 1.5 k/uL (1.0-4.8); Lymphocytes % (A) 27 %; MCH 22.4 pg (25.0-35.0); MCHC 30.2 g/dL (31.0-37.0); MCV 74.2 fL (80.0-100.0); Mean Platelet Volume 7.1; Microcytosis Moderate; Monocytes # (A) 0.5 k/uL (0-1.0); Monocytes % (A) 9 %; Neutrophils # (A) 3.3 k/uL (1.3-7.7); Neutrophils % (A) 58 %; Platelet Count 329 k/uL (150-450); Poikilocytosis Moderate; RBC 3.61 m/uL (3.80-5.40); RDW 18.9 % (11.5-15.5); WBC 5.6 k/uL (3.8-10.6)
[2024-06-25] MEDS: IOPAMIDOL CONTRAST (ORAL USE) VIAL PO PRN (16:40)
[2024-06-25] MEDS: SODIUM CHLORIDE 0.9% 1,000 ML IV SCH (18:14)
--- NOTE | 2024-06-25 18:30 | CT ---
EXAMINATION TYPE: CT abdomen pelvis wo con DATE OF EXAM: 06/25/2024 6:07 PM COMPARISON: None. CLINICAL INDICATION: Female, 74 years old with history of anemia, Anemia. TECHNIQUE: Axial images were obtained from above the diaphragm to the pubic rami in the axial plane a t 5 mm thick sections. Reconstructed images are reviewed on the computer in the coronal plane. CONTRAST: mL of . Study performed with Oral Contrast DLP: 385.0 mGycm, Automated exposure control for dose reduction was used. FINDINGS: Limited CT sections are obtained the lung bases. The lung bases are clear. CT ABDOMEN: Post surgical changes are at the gastroesophageal junction. Liver: Normal Spleen: Normal Pancreas: Normal Adrenal glands: The adrenal glands are normal. Gallbladder: Surgically absent Kidneys: No masses are evident. No hydronephrosis is present. No cysts are present. Delayed images were obtained through the kidneys, which remain unremarkable. Aorta: Vascular calcification is within the aorta. Inferior vena cava: Filter is within the inferior vena cava. CT PELVIS: Loops of bowel within the abdomen and pelvis are normal. There are loops of bowel which are incom pletely distended or lack oral contrast limiting their evaluation. Appendix: Not identified. No dilated tubular structure or inflammatory change is evident. Urinary bladder: Normal. Genitourinary structures: Uterus and ovaries are not identified Osseous structures: No suspicious lytic or sclerotic lesions. IMPRESSION: 1. No suspicious acute abnormality to account for anemia. [facility], , 06/25/2024 6:28 PM
--- NOTE | 2024-06-26 04:42 | PN ---
PROGRESS NOTE DATE OF SERVICE: 06/25/2024 SUBJECTIVE: This is a 74-year-old woman, who was admitted with severe symptomatic anemia, also had hypotension. No chest pain. No palpitations. No active bleeding is noted. Multiple consultants are following the patient including Cardiology. PAST MEDICAL HISTORY: Reviewed. REVIEW OF SYSTEMS: Fourteen-point review is negative except as mentioned earlier. CURRENT MEDICATIONS: Reviewed. PHYSICAL EXAMINATION: VITAL SIGNS: Pulse is 65, blood pressure 70/40, respirations 16. CHEST: A few scattered rhonchi and crackles. ABDOMEN: Soft. NERVOUS SYSTEM: Nonfocal. LABORATORY DATA: Reviewed. ASSESSMENT: 1. Symptomatic anemia, exact etiology unknown. Possibly gastrointestinal bleed with hypotension. 2. History of recent peripheral vascular disease and stenting. 3. History of deep venous thrombosis. 4. Hypertension. 5. Hyperlipidemia. 6. History of coronary artery disease. 7. Multiple complex medical issues. RECOMMENDATIONS AND DISCUSSION: Recommend to continue current management and continue symptomatic treatment. Transfer the patient to telemetry. IV fluid boluses. Cardiology consultation. We will also consult Dr. Raza for possible ICU transfer. Prognosis guarded. Repeat labs. Further recommendations to follow. See orders for further details. MMODL / IJN: [id number] /
[2024-06-26 07:05] LABS: Anisocytosis Slight; Basophils % (A) 1 %; Eosinophils # (A) 0.2 k/uL (0-0.7); Eosinophils % (A) 4 %; HCT 29.1 % (34.0-46.0); HGB 8.5 gm/dL (11.4-16.0); Hypochromasia Marked; Lymphocytes # (A) 1.9 k/uL (1.0-4.8); Lymphocytes % (A) 35 %; MCH 21.9 pg (25.0-35.0); MCHC 29.1 g/dL (31.0-37.0); MCV 75.4 fL (80.0-100.0); Mean Platelet Volume 8.4; Microcytosis Moderate; Monocytes # (A) 0.4 k/uL (0-1.0); Monocytes % (A) 8 %; Neutrophils # (A) 2.7 k/uL (1.3-7.7); Neutrophils % (A) 51 %; Platelet Count 232 k/uL (150-450); Poikilocytosis Slight; RBC 3.86 m/uL (3.80-5.40); RDW 18.8 % (11.5-15.5); WBC 5.3 k/uL (3.8-10.6)
[2024-06-26 07:17] LABS: ALT 11 U/L (4-34); AST 24 U/L (14-36); African American GFR (CKD) >90 (>60 ml/min/1.73 sqM); Albumin 3.5 g/dL (3.5-5.0); Alkaline Phosphatase 96 U/L (38-126); Anion Gap 4 mmol/L; Blood Urea Nitrogen 9 mg/dL (7-17); Calcium 8.8 mg/dL (8.4-10.2); Carbon Dioxide 23 mmol/L (22-30); Chloride 109 mmol/L (98-107); Glucose 86 mg/dL (74-99); Non-African American GFR(CKD) >90 (>60 ml/min/1.73 sqM); Potassium 4.4 mmol/L (3.5-5.1); Sodium 136 mmol/L (137-145); Total Bilirubin 0.5 mg/dL (0.2-1.3); Total Protein 6.1 g/dL (6.3-8.2)
[2024-06-26] MEDS: ASPIRIN 81 MG PO SCH (08:51)
--- NOTE | 2024-06-26 12:01 | P.PN ---
Subjective Progress Note Date: 06/26/24 Patient tamiko stable. Her hemoglobin is 8.5. On exam vital signs appear stable. Abdomen soft. Patient is scheduled for upper and lower endoscopy in the a.m. Objective - Vital Signs Vital signs: Vital Signs Temp 98.2 F 06/25/24 19:57 Pulse 74 06/26/24 07:00 Resp 16 06/26/24 07:00 BP 111/71 06/26/24 07:00 Pulse Ox 94 L 06/26/24 07:00 FiO2 Intake & Output 06/25/24 06/26/24 06/26/24 18:59 06:59 18:59 Intake Total 658 240 120 Balance 658 240 120 Intake: Oral 658 240 120 Other: Voiding Method Toilet Toilet # Voids 1 2 # Bowel Movements 1 - Labs CBC & Chem 7: 06/26/24 06:40 06/26/24 06:40 Labs: Abnormal Lab Results - Last 24 Hours (Table) 06/25/24 06/26/24 06/26/24 Range/Units 15:19 06:40 06:40 RBC 3.61 L (3.80-5.40) m/uL Hgb 8.1 L 8.5 L (11.4-16.0) gm/dL Hct 26.8 L 29.1 L (34.0-46.0) % MCV 74.2 L 75.4 L (80.0-100.0) fL MCH 22.4 L 21.9 L (25.0-35.0) pg MCHC 30.2 L 29.1 L (31.0-37.0) g/dL RDW 18.9 H 18.8 H (11.5-15.5) % Sodium 136 L (137-145) mmol/L Chloride 109 H (98-107) mmol/L Total Protein 6.1 L (6.3-8.2) g/dL
--- NOTE | 2024-06-26 12:23 | P.CNPUL ---
History of Present Illness Consult date: 06/26/24 Requesting physician: Renan Barger Reason for consult: COPD Chief complaint: Tiredness and fatigue History of present illness: This is a 74-year-old female with known history of multiple medical problems including hypertension, peripheral vessel occlusive disease, tobacco dependence syndrome, COPD, coronary artery disease, previous history of DVT, previous AL, patient normally sees Dr. Garcia for her peripheral vessel occlusive disease and coronary artery disease, patient has also been seen in the past by Dr. Chairez for hiatal hernia and abdominal pains. On 06/24/2024, patient was sent to the ER by Dr. Garcia mostly because of weakness and fatigue as well as lightheadedness with intermittent episodes of nausea and some vague abdominal discomfort. In the ER, patient was noted to be anemic with a hemoglobin as low as 6.7. Patient was admitted and she has been seen by many different consultants for the last few days, patient is being considered for EGD and colonoscopy tomorrow by Dr. Chairez chest x-ray on admission showed nonspecific irregular density in the right upper lobe, however follow-up CT of the chest showed moderate emphysematous changes, and nonspecific increased lung markings in the right upper lobe the findings are not suggestive of malignancy. Considering the abnormal chest x-ray and CT of the chest, this consult was initiated. Patient does have longstanding smoking history, she does have findings suggestive of mild COPD, but during this admission she has basically no active pulmonary symptoms. All her symptoms seem to be related to her ongoing anemia. Since admission the patient received 1 unit of packed RBCs, follow-up hemoglobin today is 8.5. Denies any melena or hematemesis, denies history of GI bleeding Review of Systems REVIEW OF SYSTEMS: CONSTITUTIONAL: Weakness fatigue EYES: Negative. ENT: Negative. CARDIAC: Negative. PULMONARY: Negative no shortness of breath except on exertion no cough no wheezing GI: Negative. GENITOURINARY: Negative. MUSCULOSKELETAL: Negative. SKIN: Negative. NEUROPSYCH: Negative. ENDOCRINE: Negative. HEMATOLOGIC: Negative. Past Medical History Past Medical History: Coronary Artery Disease (CAD), Deep Vein Thrombosis (DVT), GERD/Reflux, Hearing Disorder / Deafness, Hyperlipidemia, Hypertension, Myocardial Infarction ([place]), Osteoarthritis (OA), Seizure Disorder, Vascular Disorder Additional Past Medical History / Comment(s): See Dr William's H&P. Recent jaw pain. Hx ulcer. Bilatetal hearing aid use. Partial blockage of carotid arteries, DVT leg after heart attack in 1999. Recurrent hiatal hernia. Hx "one seizure at age 12 after dad ". Dysphagia, can't eat much, epigastric pain. Bilateral knee pain.pad Last Myocardial Infarction Date:: 1999 History of Any Multi-Drug Resistant Organisms: None Reported Past Surgical History: Appendectomy, Cholecystectomy, Heart Catheterization With Stent, Hernia Repair, Hysterectomy, Orthopedic Surgery Additional Past Surgical History / Comment(s): JOSH FILTER INSERTION, STATES HAS WIRE IN LEFT EAR TO AIDE IN HEARING, hiatal hernia repair X2, EGD, LEFT SHOULDER athroscopy, right knee arthroscopy, one cardiac stent, cortisone shots both knees. Past Anesthesia/Blood Transfusion Reactions: Previous Problems w/ Anesthesia Additional Past Anesthesia/Blood Transfusion Reaction / Comment(s): "Hard time w aking me up." Never had blood transfusion. Date of Last Stent Placement:: 1999 Past Psychological History: No Psychological Hx Reported Additional Psychological History / Comment(s): . Smoking Status: Current every day smoker Past Alcohol Use History: Occasional Additional Past Alcohol Use History / Comment(s): Started smoking at age 17, smokes 1 ppd. Past Drug Use History: None Reported - Past Family History Mother Family Medical History: Diabetes Mellitus Father Additional Family Medical History / Comment(s): Brain aneurysm. Son(s) Family Medical History: Cancer Medications and Allergies Home Medications Medication Instructions Recorded Confirmed Type atenoloL 25 mg PO DAILY 03/28/15 06/24/24 History lisinopriL [Zestril] 10 mg PO DAILY 03/12/19 06/24/24 History Isosorbide Mononitrate ER [Imdur] 30 mg PO DAILY 02/27/21 06/24/24 History Rosuvastatin [Crestor] 10 mg PO DAILY 01/17/22 06/24/24 History Omeprazole 40 mg PO DAILY 04/08/23 06/24/24 History Nitroglycerin Sl Tabs [Nitrostat] 0.4 mg SL Q5M PRN 11/03/23 06/24/24 History Clopidogrel [Plavix] 75 mg PO DAILY 05/23/24 06/24/24 History Apixaban [Eliquis] 2.5 mg PO BID 06/10/24 06/24/24 History Aspirin 81 mg PO DAILY 06/15/24 06/24/24 History Allergies Allergy/AdvReac Type Severity Reaction Status Date / Time No Known Allergies Allergy Verified 06/24/24 15:01 Physical Exam Vitals: Vital Signs Temp Pulse Pulse Pulse Pulse Resp BP 06/26/24 07:00 86 74 16 06/26/24 00:50 70 16 06/25/24 19:57 98.2 F 68 18 116/70 06/25/24 18:48 97.6 F 74 18 124/74 06/25/24 18:42 97.9 F 67 18 06/25/24 14:51 70 18 06/25/24 14:10 98.3 F 65 16 70/40 BP BP BP BP Pulse Ox 06/26/24 07:00 146/76 111/71 94 L 06/26/24 00:50 128/78 91 L 06/25/24 19:57 96 06/25/24 18:48 93 L 06/25/24 18:42 123/75 94 L 06/25/24 14:51 101/56 97 06/25/24 14:10 87/47 96 Intake and Output 06/25/24 06/26/24 06/26/24 22:59 06:59 14:59 Intake Total 118 240 120 Balance 118 240 120 Intake: Oral 118 240 120 Other: Voiding Method Toilet Toilet Toilet # Voids 1 2 General: The patient is awake and alert, in no distress, and does not appear acutely ill. Skin: Skin is warm and dry and no rashes or lesions are noted. Eye: Pupils are equal, round and reactive to light, extra-ocular movements are intact; there is normal conjunctiva bilaterally. Ears, nose, mouth and throat: There are moist mucous membranes and no oral lesions. Neck: The neck is supple, there is no tenderness or JVD. Cardiovascular: There is a regular rate and rhythm. No murmur, rub or gallop is appreciated. Respiratory: Diminished breath sounds at the bases no crackles rhonchi or wheezes Gastrointestinal: Soft, non-distended, non-tender abdomen without masses or organomegaly noted. There is no rebound or guarding present. Bowel sounds are unremarkable. Back: There is no tenderness to palpation in the midline. There is no obvious deformity. Musculoskeletal: Normal ROM, no tenderness, There is no pedal edema. There is no calf tenderness or swelling. No cords were appreciated. Neurological: CN II-XII intact, Cranial nerves III through XII are intact. There are no obvious motor or sensory deficits. Coordination appears grossly intact. Speech is normal. Psychiatric: Cooperative, appropriate mood & affect, normal judgment. Results - Laboratory Findings CBC and BMP: 06/26/24 06:40 06/26/24 06:40 PT/INR, D-dimer PT 10.8 sec (10.0-12.5) 06/24/24 12:29 INR 1.0 (<1.2) 06/24/24 12:29 Abnormal lab findings: Abnormal Labs 06/24/24 06/24/24 06/24/24 12:29 12:29 17:49 RBC 3.54 L 3.14 L Hgb 7.5 L 6.7 L* Hct 25.5 L 23.1 L MCV 72.1 L 73.6 L MCH 21.1 L 21.2 L MCHC 29.2 L 28.8 L RDW 19.3 H 19.1 H Retic Count Sodium Chloride Carbon Dioxide 21 L Anion Gap Glucose 102 H TIBC % Saturation Transferrin Alkaline Phosphatase 133 H Total Protein Crossmatch 06/24/24 06/25/24 06/25/24 18:02 03:54 03:54 RBC 3.61 L Hgb 7.9 L Hct 27.1 L MCV 75.1 L MCH 21.9 L MCHC 29.2 L RDW 19.3 H Retic Count 1.93 H Sodium Chloride Carbon Dioxide Anion Gap 12.20 H Glucose TIBC 500 H % Saturation 11.80 L Transferrin 357.0 H Alkaline Phosphatase Total Protein Crossmatch See Detail 06/25/24 06/26/24 06/26/24 15:19 06:40 06:40 RBC 3.61 L Hgb 8.1 L 8.5 L Hct 26.8 L 29.1 L MCV 74.2 L 75.4 L MCH 22.4 L 21.9 L MCHC 30.2 L 29.1 L RDW 18.9 H 18.8 H Retic Count Sodium 136 L Chloride 109 H Carbon Dioxide Anion Gap Glucose TIBC % Saturation Transferrin Alkaline Phosphatase Total Protein 6.1 L Crossmatch - Diagnostic Findings Chest x-ray: image reviewed (As noted in HPI) CT scan - chest: image reviewed (As noted in HPI) Assessment and Plan Assessment: Impression: Symptomatic anemia most likely secondary to GI blood loss. Hypovolemic hypotension on admission resolved, remains hemodynamically stable did not require ICU admission History of COPD, but relatively asymptomatic, findings on the CT of the chest are nonspecific. History of deep vein thrombosis, maintained on Eliquis History of peripheral vessel occlusive disease and previous stenting by Dr. Garcia. Tobacco dependence syndrome Benign essential hypertension History of underlying coronary artery disease Dyslipidemia Recommendation: Continue present supportive care measures Counseled regarding smoking cessation Continue workup for etiology of her anemia reviewed the CT of the chest and the chest x-ray, findings are nonspecific Will follow as needed Patient is scheduled for EGD and possibly colonoscopy tomorrow Time with Patient: Less than 30
[2024-06-26] MEDS: PEG 3350 (236 GM/BTL) + LYTES 4,000 ML BOTTLE PO ONE (12:49)
--- NOTE | 2024-06-26 13:08 | P.PN ---
Subjective HISTORY OF PRESENT ILLNESS: This is a pleasant 74-year-old female patient who follows with Dr. William in the office. She has a history of CAD status post PCI of the RCA as well as PAD status post recent peripheral intervention, paroxysmal atrial fibrillation, hypertension, dyslipidemia, smoking and carotid atherosclerosis scented to the emergency department with complaints of fatigue and shortness of breath. She underwent peripheral intervention on 06/15/2024 and has been maintained on aspirin, Plavix and Eliquis 2.5 mg p.o. twice daily. Initial hemoglobin 7.5 with subsequent 6.7 at which time she received 1 unit of packed red cells. We have been asked to see the patient due to anemia, anticoagulation due to paroxysmal atrial fibrillation as well as dual antiplatelet therapy due to recent peripheral intervention. Patient denies any chest discomfort. She denies any claudication symptoms. She does feel weak, tired and short of breath when she is up doing things. She denies any noticeable change in her stools, no clear signs of bleeding. She was evaluated by hematology and consult has been placed for Dr. Chairez. Renal function and electrolytes are normal. Vital signs are stable. 06/26/2024 Patient examined this morning the bedside. Patient currently denies chest pain or pressure. She reports nausea. She also reports having some epigastric tenderness this morning. Patient's Eliquis and Plavix remain on hold. She is maintained on aspirin. She is scheduled to undergo EGD and colonoscopy tomorrow with Dr. Chairez. PHYSICAL EXAM: VITAL SIGNS: Reviewed. GENERAL: Well-developed in no acute distress. NECK: Supple. No JVD or thyromegaly LUNGS: Respirations even and unlabored. Lungs essentially clear to auscultation bilaterally. HEART: Regular rate and rhythm. S1 and S2 heard. Systolic murmur noted. EXTREMITIES: Normal range of motion. No clubbing or cyanosis. Peripheral pulses intact. No lower extremity edema ASSESSMENT: 1 anemia 2 CAD status post stenting of the RCA 3 PAD status post stenting of bilateral common iliac arteries 4 paroxysmal atrial fibrillation, currently maintaining sinus mechanism 5 hypertension 6 hyperlipidemia 7 nicotine dependence PLAN: Continue to hold Eliquis and Plavix. Continue with low-dose aspirin. Continue additional cardiac medications Patient scheduled for EGD and colonoscopy tomorrow with general surgery Further recommendations pending patient course Patient to follow-up postdischarge with Dr. Skaf Nurse practitioner note has been reviewed by physician. Signing provider agrees with the documented findings, assessment, and plan of care documented by SOCIAL MEDIA DESIGNER as a scribe. Objective - Vital Signs Vital signs: Vital Signs Temp 98.2 F 06/25/24 19:57 Pulse 74 06/26/24 07:00 Resp 16 06/26/24 07:00 BP 111/71 06/26/24 07:00 Pulse Ox 94 L 06/26/24 07:00 FiO2 Intake & Output 06/25/24 06/26/24 06/26/24 18:59 06:59 18:59 Intake Total 658 240 120 Balance 658 240 120 Intake: Oral 658 240 120 Other: Voiding Method Toilet Toilet # Voids 1 2 # Bowel Movements 1 - Labs CBC & Chem 7: 06/26/24 06:40 06/26/24 06:40 Labs: Abnormal Lab Results - Last 24 Hours (Table) 06/25/24 06/26/24 06/26/24 Range/Units 15:19 06:40 06:40 RBC 3.61 L (3.80-5.40) m/uL Hgb 8.1 L 8.5 L (11.4-16.0) gm/dL Hct 26.8 L 29.1 L (34.0-46.0) % MCV 74.2 L 75.4 L (80.0-100.0) fL MCH 22.4 L 21.9 L (25.0-35.0) pg MCHC 30.2 L 29.1 L (31.0-37.0) g/dL RDW 18.9 H 18.8 H (11.5-15.5) % Sodium 136 L (137-145) mmol/L Chloride 109 H (98-107) mmol/L Total Protein 6.1 L (6.3-8.2) g/dL
--- NOTE | 2024-06-26 18:24 | US ---
EXAMINATION TYPE: US venous doppler duplex LE DATE OF EXAM: 06/26/2024 6:09 PM COMPARISON: NONE CLINICAL INDICATION: Female, 74 years old with history of clots; "clots" per RN. patient denies Hx of DVT. says she has arterial occlusions with history of stent grafts , TECHNIQUE: The lower extremity deep venous system is examined utilizing real time linear array sonog eneida with graded compression, color doppler sonography, and spectral doppler. SIDE PERFORMED: Bilateral FINDINGS: VESSELS IMAGED: Common Femoral Vein Deep Femoral Vein Greater Saphenous Vein * Femoral Vein Popliteal Vein Small Saphenous Vein * Proximal Calf Veins (* superficial vessels) Right Leg: Negative for DVT, Color Doppler imaging shows patency of the vessels. Spectral waveforms are within normal limits. Left Leg: Negative for DVT, Color Doppler imaging shows patency of the vessels. Spectral waveforms a re within normal limits. IMPRESSION: 1. Bilateral lower extremity ultrasound negative for deep venous thrombosis. [facility], , 06/26/2024 6:22 PM
[2024-06-27 07:37] LABS: Anisocytosis Slight; Basophils % (A) 1 %; Eosinophils # (A) 0.2 k/uL (0-0.7); Eosinophils % (A) 4 %; HCT 27.9 % (34.0-46.0); HGB 8.3 gm/dL (11.4-16.0); Hypochromasia Marked; Lymphocytes # (A) 1.4 k/uL (1.0-4.8); Lymphocytes % (A) 28 %; MCH 21.9 pg (25.0-35.0); MCHC 29.7 g/dL (31.0-37.0); MCV 73.9 fL (80.0-100.0); Mean Platelet Volume 7.5; Microcytosis Moderate; Monocytes # (A) 0.4 k/uL (0-1.0); Monocytes % (A) 7 %; Neutrophils # (A) 2.9 k/uL (1.3-7.7); Neutrophils % (A) 58 %; Platelet Count 388 k/uL (150-450); Poikilocytosis Slight; RBC 3.78 m/uL (3.80-5.40); RDW 18.9 % (11.5-15.5)
[2024-06-27 08:11] LABS: African American GFR (CKD) >90 (>60 ml/min/1.73 sqM); Anion Gap 7 mmol/L; Blood Urea Nitrogen 8 mg/dL (7-17); Carbon Dioxide 25 mmol/L (22-30); Chloride 107 mmol/L (98-107); Glucose 84 mg/dL (74-99); Non-African American GFR(CKD) 87 (>60 ml/min/1.73 sqM); Potassium 4.1 mmol/L (3.5-5.1); Sodium 139 mmol/L (137-145)
[2024-06-27] MEDS ORDERED: ONDANSETRON 4 MG/2 ML VIAL IVP PRN (13:10)
--- NOTE | 2024-06-27 13:22 | P.PN ---
Subjective Progress Note Date: 06/27/24 Principal diagnosis: Anemia. This is a 74-year-old female with known history of multiple medical problems including hypertension, peripheral vessel occlusive disease, tobacco dependence syndrome, COPD, coronary artery disease, previous history of DVT, previous VT, patient normally sees Dr. Garcia for her peripheral vessel occlusive disease and coronary artery disease, patient has also been seen in the past by Dr. Chairez for hiatal hernia and abdominal pains. On 06/24/2024, patient was sent to the ER by Dr. Garcia mostly because of weakness and fatigue as well as lighthead edness with intermittent episodes of nausea and some vague abdominal discomfort. In the ER, patient was noted to be anemic with a hemoglobin as low as 6.7. Patient was admitted and she has been seen by many different consultants for the last few days, patient is being considered for EGD and colonoscopy tomorrow by Dr. Chairez chest x-ray on admission showed nonspecific irregular density in the right upper lobe, however follow-up CT of the chest showed moderate emphysematous changes, and nonspecific increased lung markings in the right upper lobe the findings are not suggestive of malignancy. Considering the abnormal chest x-ray and CT of the chest, this consult was initiated. Patient does have longstanding smoking history, she does have findings suggestive of mild COPD, but during this admission she has basically no active pulmonary symptoms. All her symptoms seem to be related to her ongoing anemia. Since admission the patient received 1 unit of packed RBCs, follow-up hemoglobin today is 8.5. Denies any melena or hematemesis, denies history of GI bleeding Progress note dated June 27, 2024. 74-year-old female seen in consultation yesterday. Please see my note above. The patient has a history of multiple medical problems including hypertension, PVOD, tobacco dependence, COPD, coronary disease, DVT, previous VT, among other things. We were consulted for an abnormal x-ray showing some abnormalities in the right upper lobe. This area likely represents scarring, without an acute process. The patient is apparently scheduled for an EGD and colonoscopy today, to evaluate the cause of her anemia. Currently she is on room air. She is not receiving any IV fluids. White count is 5, hemoglobin 8.3, hematocrit 27.9, platelet count 388,000. Sodium 139, potassium 4.1, chlorides 107, CO2 25, BUN 8, creatinine 0.65. Glucose is 84. Calcium is 9. Bilateral lower extremity venous Doppler, is negative. Objective - Vital Signs Vital signs: Vital Signs Temp 98.1 F 06/27/24 07:50 Pulse 85 06/27/24 07:50 Resp 14 06/27/24 07:50 BP 120/73 06/27/24 07:50 Pulse Ox 95 06/27/24 07:50 FiO2 Intake & Output 06/26/24 06/27/24 06/27/24 18:59 06:59 18:59 Intake Total 496 Balance 496 Intake: Oral 496 Other: Voiding Method Toilet Toilet Toilet # Voids 1 # Bowel Movements 2 - Exam No acute distress, oriented 3. HEENT examination is grossly unremarkable. Mucous membranes are moist. No oral lesions. Neck supple. Full range of motion. No adenopathy thyromegaly or neck vein distention. Cardiovascular examination reveals regular rhythm rate. S1-S2 normal. No S3 or S4. No discernible murmur noted. Lungs reveal clear breath sounds. Breath sounds are equal bilaterally. No adventitious lung sounds including wheezes rhonchi or crackles. Abdomen soft bowel sounds are heard. No masses or tenderness. Extremities are intact. No cyanosis clubbing or edema. Skin is without rash or lesion. Neurologic examination is brief but nonfocal. - Labs CBC & Chem 7: 06/27/24 06:43 06/27/24 06:43 Labs: Abnormal Lab Results - Last 24 Hours (Table) 06/26/24 06/27/24 Range/Units 15:41 06:43 RBC 3.78 L (3.80-5.40) m/uL Hgb 8.3 L (11.4-16.0) gm/dL Hct 27.9 L (34.0-46.0) % MCV 73.9 L (80.0-100.0) fL MCH 21.9 L (25.0-35.0) pg MCHC 29.7 L (31.0-37.0) g/dL RDW 18.9 H (11.5-15.5) % D-Dimer 1.42 H (<0.60) mg/L FEU Assessment and Plan Assessment: Symptomatic anemia, with scheduled EGD, and colonoscopy, June 27, 2024. Hypovolemic hypotension, secondary to GI bleeding, resolved. History of COPD, stable. History of DVT, maintained on Eliquis. History of peripheral vessel occlusive disease. Tobacco dependence syndrome. Benign essential hypertension. Coronary artery disease. Dyslipidemia. Plan: Plan dated June 27, 2024. The patient is counseled about the importance of smoking cessation. Her COPD seems to be relatively well-controlled, and asymptomatic. The patient is going to be evaluated for her anemia, today, with EGD and colonoscopy. Labs, x-rays, and all medications are reviewed. We will continue to follow make recommendations along the way. The right upper lobe changes, likely represent scarring, without an acute process. We will continue to follow make recommendations. Time with Patient: Less than 30
--- NOTE | 2024-06-27 13:24 | P.PN ---
Subjective Progress Note Date: 06/27/24 Recent stenting of bilateral common iliac arteries on dual antiplatelet therapy- Eliquis and Plavix remain on hold, maintained on low-dose aspirin. Completing GoLytely prep, scheduled for EGD and colonoscopy today. Denies hemoptysis or bloody stools. Reports stools are sometimes dark. Complains of mid epigastric pain, negative to palpation and nausea. Denies heartburn. Denies chest pain, palpitations or shortness of breath. Hemoglobin 8.3, platelets 388, electrolytes and renal function stable. Objective - Vital Signs Vital signs: Vital Signs Temp 98.1 F 06/27/24 07:50 Pulse 85 06/27/24 07:50 Resp 14 06/27/24 07:50 BP 120/73 06/27/24 07:50 Pulse Ox 95 06/27/24 07:50 FiO2 Intake & Output 06/26/24 06/27/24 06/27/24 18:59 06:59 18:59 Intake Total 496 Balance 496 Intake: Oral 496 Other: Voiding Method Toilet Toilet Toilet # Voids 1 # Bowel Movements 2 - Exam General: Sitting up in bed,NAD. Vitals reviewed HEENT: normocephalic, atraumatic,PERRL, EOMI, conjunctiva normal Neck: supple, no JVD Lungs: normal respiratory effort, no wheezes or rales CV: Regular rate and rhythm, systolic murmur. Peripheral pulses 2+ Abdomen: soft, nondistended, nontender, positive bowel sounds Skin: warm and dry. Neuro: A&Ox3, normal mood and affect - Labs CBC & Chem 7: 06/27/24 06:43 06/27/24 06:43 Labs: Abnormal Lab Results - Last 24 Hours (Table) 06/26/24 06/27/24 Range/Units 15:41 06:43 RBC 3.78 L (3.80-5.40) m/uL Hgb 8.3 L (11.4-16.0) gm/dL Hct 27.9 L (34.0-46.0) % MCV 73.9 L (80.0-100.0) fL MCH 21.9 L (25.0-35.0) pg MCHC 29.7 L (31.0-37.0) g/dL RDW 18.9 H (11.5-15.5) % D-Dimer 1.42 H (<0.60) mg/L FEU Assessment and Plan Assessment: Symptomatic anemia, in a patient status post recent stenting of bilateral common iliac arteries, 06/15/2024, on dual antiplatelet therapy postprocedure-currently on hold. CAD status post stenting of the RCA Paroxysmal atrial fibrillation Hypotension, hypovolemic on admission, resolved. History of DVT hiatal hernia repair History of gisele CAD, history of stented RCA Hypertension Hyperlipidemia Peripheral vascular disease Seizure disorder Ongoing nicotine dependence Alcohol use Plan: Continue on current medication resume ,monitoring and symptomatic treatment. Zofran ordered for nausea. Maintained on PPI for GI prophylaxis. NPO, scheduled for EGD and colonoscopy. Patient has not yet completed prep. Smoking cessation reinforced. The impression and plan of care has been dictated as directed. : I performed a history and examination of this patient, discussed the same with the dictator. I agree with the dictator's note ,documented as a scribe. Any additional findings or plans will be noted.
--- NOTE | 2024-06-27 13:43 | P.PN ---
Subjective Progress Note Date: 06/27/24 Principal diagnosis: anemia In f/u pt denies any gross bleeding, anemia work up does show iron deficiency. Pending endoscopy. Pt reports feeling overall well, no severe anemia symptoms to report Objective - Vital Signs Vital signs: Vital Signs Temp 98.1 F 06/27/24 07:50 Pulse 85 06/27/24 07:50 Resp 14 06/27/24 07:50 BP 120/73 06/27/24 07:50 Pulse Ox 95 06/27/24 07:50 FiO2 Intake & Output 06/26/24 06/27/24 06/27/24 18:59 06:59 18:59 Intake Total 496 Balance 496 Intake: Oral 496 Other: Voiding Method Toilet Toilet Toilet # Voids 1 # Bowel Movements 2 - Constitutional General appearance: Present: average body habitus, cooperative, no acute distress - EENT Eyes: Present: anicteric sclerae, EOMI ENT: Present: hearing grossly normal - Respiratory Details: resp even and unlabored - Cardiovascular Details: skin warm to touch, radial pulse 2+ - Peripheral edema leg Peripheral Edema: bilateral: None - Gastrointestinal General gastrointestinal: Present: soft - Neurologic Neurologic: Present: CNII-XII intact - Musculoskeletal Musculoskeletal: Present: strength equal bilaterally - Psychiatric Psychiatric: Present: A&O x's 3, appropriate affect, intact judgment & insight - Labs CBC & Chem 7: 06/27/24 06:43 06/27/24 06:43 Labs: Abnormal Lab Results - Last 24 Hours (Table) 06/26/24 06/27/24 Range/Units 15:41 06:43 RBC 3.78 L (3.80-5.40) m/uL Hgb 8.3 L (11.4-16.0) gm/dL Hct 27.9 L (34.0-46.0) % MCV 73.9 L (80.0-100.0) fL MCH 21.9 L (25.0-35.0) pg MCHC 29.7 L (31.0-37.0) g/dL RDW 18.9 H (11.5-15.5) % D-Dimer 1.42 H (<0.60) mg/L FEU Assessment and Plan (1) Anemia Current Visit: Yes Status: Acute Priority: High Code(s): D64.9 - ANEMIA, UNSPECIFIED SNOMED Code(s): 231146850 (2) Abnormal CXR Current Visit: Yes Status: Acute Priority: Medium Code(s): R93.89 - ABNORMAL FINDINGS ON DX IMAGING OF OTH BODY STRUCTURES SNOMED Code(s): 261444734 Plan: LIZBETH -Acute on chronic, much worse then previous. -Hx of anticoagulant plus antiplatelet therapy for cardiac comorbidities. -Primary differential is occult GI blood loss. Pending endoscopy today -Iron studies and other anemia labs most consistent with iron def. IV iron ordered. -Dr. Ventura previously discussed with the patient, and I reiterated today with son at bedside, that, depending on endoscopy findings anticoagulation/antiplatelet therapy regimen can potentially be continued as long as her hemoglobin can be maintained in a safe range with ongoing monitoring and aggressive iron supplementation. Cardiology currently has eliquis and plavix on hold, pending outcome of endoscopy. They will give their recommendations re:anticoag/platelet therapy -Pt reporting feeling well post transfusion, Hgb stable at 8.3 today Abn CXR -CT chest did not report any unusual findings that correlate with the CXR. -Cont to monitor pt for any symptoms, additional work up if needed in the future
[2024-06-27] MEDS ORDERED: PROPOFOL 10 MG/ML 20 ML VIAL IV ONE (13:50)
[2024-06-27] MEDS ORDERED: LIDOCAINE 1% INJ 10MG/ML (20 ML MDV) ONE (13:50)
--- NOTE | 2024-06-27 13:50 | P.PN ---
Subjective Progress Note Date: 06/27/24 HISTORY OF PRESENT ILLNESS: This is a pleasant 74-year-old female patient who follows with Dr. William in the office. She has a history of CAD status post PCI of the RCA as well as PAD status post recent peripheral intervention, paroxysmal atrial fibrillation, hypertension, dyslipidemia, smoking and carotid atherosclerosis scented to the emergency department with complaints of fatigue and shortness of breath. She underwent peripheral intervention on 06/15/2024 and has been maintained on aspirin, Plavix and Eliquis 2.5 mg p.o. twice daily. Initial hemoglobin 7.5 with subsequent 6.7 at which time she received 1 unit of packed red cells. We have been asked to see the patient due to anemia, anticoagulation due to paroxysmal atrial fibrillation as well as dual antiplatelet therapy due to recent peripheral intervention. Patient denies any chest discomfort. She denies any claudication symptoms. She does feel weak, tired and short of breath when she is up doing things. She denies any noticeable change in her stools, no clear signs of bleeding. She was evaluated by hematology and consult has been placed for Dr. Chairez. Renal function and electrolytes are normal. Vital signs are stable. 06/26/2024 Patient examined this morning the bedside. Patient currently denies chest pain or pressure. She reports nausea. She also reports having some epigastric tenderness this morning. Patient's Eliquis and Plavix remain on hold. She is maintained on aspirin. She is scheduled to undergo EGD and colonoscopy tomorrow with Dr. Chairez. 06/27/24 Patient is seen and examined. She is scheduled for EGD and colonoscopy today. She denies having any chest pain or chest pressure. She denies having any blood in her stools or nor no dark stools. Discussed option of watchman which can be further discussed in the office with Dr. William. Eliquis and Plavix remain on hold. Blood pressure 120/73, heart rate 85, pulse ox 95% on room air. Orthostatic vital signs are negative. Repeat blood work reveals hemoglobin 8.3. Electrolytes and renal function are normal. PHYSICAL EXAM: VITAL SIGNS: Reviewed. GENERAL: Well-developed in no acute distress. NECK: Supple. No JVD or thyromegaly LUNGS: Respirations even and unlabored. Lungs essentially clear to auscultation bilaterally. HEART: Regular rate and rhythm. S1 and S2 heard. Systolic murmur noted. EXTREMITIES: Normal range of motion. No clubbing or cyanosis. Peripheral pulses intact. No lower extremity edema ASSESSMENT: 1 anemia 2 CAD status post stenting of the RCA 3 PAD status post stenting of bilateral common iliac arteries 4 paroxysmal atrial fibrillation, currently maintaining sinus mechanism 5 hypertension 6 hyperlipidemia 7 nicotine dependence PLAN: Continue to hold Eliquis and Plavix. Continue with low-dose aspirin. Continue atorvastatin Patient scheduled for EGD and colonoscopy with general surgery No further cardiac workup at this time. Cardiology will sign off and follow on an as-needed basis. Patient will follow-up with Dr. William in 1 to 2 weeks following discharge. Nurse practitioner note has been reviewed by physician. Signing provider agrees with the documented findings, assessment, and plan of care documented by SUPERVISOR WOOD CREW as a scribe. Objective - Vital Signs Vital signs: Vital Signs Temp 98.1 F 06/27/24 07:50 Pulse 85 06/27/24 07:50 Resp 14 06/27/24 07:50 BP 120/73 06/27/24 07:50 Pulse Ox 95 06/27/24 07:50 FiO2 Intake & Output 06/26/24 06/27/24 06/27/24 18:59 06:59 18:59 Intake Total 496 Balance 496 Intake: Oral 496 Other: Voiding Method Toilet Toilet # Voids 1 # Bowel Movements 2 - Labs CBC & Chem 7: 06/27/24 06:43 06/27/24 06:43 Labs: Abnormal Lab Results - Last 24 Hours (Table) 06/26/24 06/27/24 Range/Units 15:41 06:43 RBC 3.78 L (3.80-5.40) m/uL Hgb 8.3 L (11.4-16.0) gm/dL Hct 27.9 L (34.0-46.0) % MCV 73.9 L (80.0-100.0) fL MCH 21.9 L (25.0-35.0) pg MCHC 29.7 L (31.0-37.0) g/dL RDW 18.9 H (11.5-15.5) % D-Dimer 1.42 H (<0.60) mg/L FEU
[2024-06-27] MEDS: LACTATED RINGERS 1,000 ML IV ONE (14:05)
--- NOTE | 2024-06-27 14:07 | P.OP ---
Date of Procedure: 06/27/24 Preoperative Diagnosis: Anemia Postoperative Diagnosis: Antral gastritis s Procedure(s) Performed: EGD Anesthesia: MAC Surgeon: Kendall Chairez Pathology: other (Antrum) Condition: stable Disposition: PACU Description of Procedure: The patient is placed on the endoscopy table in the lateral position. She received IV sedation. The Gastroflux oropharynx passed in the esophagus and the stomach. Scope was placed through the pylorus. The first and second portion of duodenum appeared normal. Scope was never back to the antrum of this. Mildly flayed. A biopsy performed. There was no blood seen in the stomach. Stomach was then retroflexed Paula stomach appeared normal. The GE junction was at 38 cm. There was a small recurrent hiatal hernia. The distal esophagus appeared normal. Proximal esophagus preoperative scope withdrawn for patient. The patient had a large amount of liquid brown stool. Her colonoscopy was aborted.
[2024-06-27] MEDS: SODIUM FERRIC GLUCONAT-SUCROSE 125 MG in SODIUM CHLORIDE 0.9% 100 ML IVPB SCH (14:39)
--- NOTE | 2024-06-27 15:00 | PN ---
PROGRESS NOTE DATE OF SERVICE: 06/26/2024 SUBJECTIVE: This is a 74-year-old woman, who was admitted with significant anemia after a recent procedure. She is being closely monitored. Surgery is planning endoscopies. The patient also had a CT scan of the abdomen and pelvis which showed no acute abnormality. Multiple consults following the patient closely. The patient had hypotension and Dr. Raza and multiple consults following the patient closely. PAST MEDICAL HISTORY: Reviewed. REVIEW OF SYSTEMS: Fourteen-point review is negative except as mentioned earlier. CURRENT MEDICATIONS: Reviewed. PHYSICAL EXAMINATION: VITAL SIGNS: Pulse is 74, blood pressure 140/76 - orthostatic changes present. HEENT: Conjunctivae normal. NECK: No JVD. CHEST: A few scattered rhonchi. ABDOMEN: Soft. NERVOUS SYSTEM: Nonfocal. LABORATORY DATA: Hemoglobin 8.5, sodium 136. ASSESSMENT: 1. Symptomatic anemia, exact etiology unknown, possibly GI bleed with hypotension. 2. Orthostatic hypotension. 3. History of recent peripheral vascular disease and stenting. 4. History of deep vein thrombosis. 5. Hypertension. 6. Hyperlipidemia. 7. History of coronary artery disease. 8. Multiple complex medical issues. RECOMMENDATIONS AND DISCUSSION: Recommend to continue current management and continue symptomatic treatment. Otherwise, the retic count was 1.93, D-dimer is not available. I recommend a D-dimer to complete the workup and thus endoscopies by Surgery. The patient did have a CT chest without contrast which showed some interstitial changes upper lobes. Prognosis again guarded and repeat labs. We will follow the D-dimer as mentioned earlier. Further recommendations to follow and scopes per Surgery. PROGNOSIS: Extremely guarded. MMODL / IJN: [id number] /
[2024-06-28 07:05] LABS: Anisocytosis Slight; Basophils % (A) 0 %; Eosinophils # (A) 0.1 k/uL (0-0.7); Eosinophils % (A) 2 %; HGB 8.3 gm/dL (11.4-16.0); Hypochromasia Marked; Lymphocytes # (A) 1.2 k/uL (1.0-4.8); Lymphocytes % (A) 23 %; MCHC 29.5 g/dL (31.0-37.0); MCV 74.4 fL (80.0-100.0); Mean Platelet Volume 6.9; Microcytosis Moderate; Monocytes # (A) 0.4 k/uL (0-1.0); Monocytes % (A) 7 %; Neutrophils # (A) 3.5 k/uL (1.3-7.7); Neutrophils % (A) 65 %; Platelet Count 376 k/uL (150-450); Poikilocytosis Slight; RBC 3.76 m/uL (3.80-5.40); WBC 5.3 k/uL (3.8-10.6)
[2024-06-28 07:14] LABS: African American GFR (CKD) >90 (>60 ml/min/1.73 sqM); Anion Gap 7 mmol/L; Blood Urea Nitrogen 12 mg/dL (7-17); Calcium 8.8 mg/dL (8.4-10.2); Carbon Dioxide 24 mmol/L (22-30); Chloride 106 mmol/L (98-107); Glucose 93 mg/dL (74-99); Non-African American GFR(CKD) 86 (>60 ml/min/1.73 sqM); Potassium 4.3 mmol/L (3.5-5.1); Sodium 137 mmol/L (137-145)
[2024-06-28 08:17] LABS: Methylmalonic Acid 0.25 umol/L (<0.40)
[2024-06-28 08:19] VITALS: RESP 14
--- NOTE | 2024-06-28 10:41 | P.PN ---
Subjective Progress Note Date: 06/28/24 Principal diagnosis: Anemia. This is a 74-year-old female with known history of multiple medical problems including hypertension, peripheral vessel occlusive disease, tobacco dependence syndrome, COPD, coronary artery disease, previous history of DVT, previous PR, patient normally sees Dr. Garcia for her peripheral vessel occlusive disease and coronary artery disease, patient has also been seen in the past by Dr. Chairez for hiatal hernia and abdominal pains. On 06/24/2024, patient was sent to the ER by Dr. Garcia mostly because of weakness and fatigue as well as lighthead edness with intermittent episodes of nausea and some vague abdominal discomfort. In the ER, patient was noted to be anemic with a hemoglobin as low as 6.7. Patient was admitted and she has been seen by many different consultants for the last few days, patient is being considered for EGD and colonoscopy tomorrow by Dr. Chairez chest x-ray on admission showed nonspecific irregular density in the right upper lobe, however follow-up CT of the chest showed moderate emphysematous changes, and nonspecific increased lung markings in the right upper lobe the findings are not suggestive of malignancy. Considering the abnormal chest x-ray and CT of the chest, this consult was initiated. Patient does have longstanding smoking history, she does have findings suggestive of mild COPD, but during this admission she has basically no active pulmonary symptoms. All her symptoms seem to be related to her ongoing anemia. Since admission the patient received 1 unit of packed RBCs, follow-up hemoglobin today is 8.5. Denies any melena or hematemesis, denies history of GI bleeding Progress note dated June 27, 2024. 74-year-old female seen in consultation yesterday. Please see my note above. The patient has a history of multiple medical problems including hypertension, PVOD, tobacco dependence, COPD, coronary disease, DVT, previous PR, among other things. We were consulted for an abnormal x-ray showing some abnormalities in the right upper lobe. This area likely represents scarring, without an acute process. The patient is apparently scheduled for an EGD and colonoscopy today, to evaluate the cause of her anemia. Currently she is on room air. She is not receiving any IV fluids. White count is 5, hemoglobin 8.3, hematocrit 27.9, platelet count 388,000. Sodium 139, potassium 4.1, chlorides 107, CO2 25, BUN 8, creatinine 0.65. Glucose is 84. Calcium is 9. Bilateral lower extremity venous Doppler, is negative. Progress note dated June 28, 2024. 74-year-old female seen today in room 361. She is alert and awake. She is resting comfortably in bed. She is currently on room air. No IV fluids. Since she has been in the hospital, she has received some iron infusions, and received 1 unit of packed red blood cells. Her hemoglobin today is 8.3. She had an EGD yesterday. It showed antral gastritis. It was relatively mild. There was no active bleeding. White count 5.3, hemoglobin 8.3, hematocrit 28, platelet count normal. Electrolytes are completely normal. Objective - Vital Signs Vital signs: Vital Signs Temp 97.5 F L 06/28/24 08:18 Pulse 79 06/28/24 08:18 Resp 14 06/28/24 08:18 BP 126/75 06/28/24 08:18 Pulse Ox 93 L 06/28/24 08:18 FiO2 Intake & Output 06/27/24 06/28/24 06/28/24 18:59 06:59 18:59 Intake Total 320 20 150 Balance 320 20 150 Weight 65.5 kg Intake: IV 200 20 Invasive Line 3 20 Oral 120 150 Other: Voiding Method Toilet Toilet Toilet # Voids 4 1 # Bowel Movements 4 - Exam No acute distress, oriented 3. HEENT examination is grossly unremarkable. Mucous membranes are moist. No oral lesions. Neck supple. Full range of motion. No adenopathy thyromegaly or neck vein distention. Cardiovascular examination reveals regular rhythm rate. S1-S2 normal. No S3 or S4. No discernible murmur noted. Lungs reveal clear breath sounds. Breath sounds are equal bilaterally. No adventitious lung sounds including wheezes rhonchi or crackles. Abdomen soft bowel sounds are heard. No masses or tenderness. Extremities are intact. No cyanosis clubbing or edema. Skin is without rash or lesion. Neurologic examination is brief but nonfocal. - Labs CBC & Chem 7: 06/28/24 05:45 06/28/24 05:45 Labs: Abnormal Lab Results - Last 24 Hours (Table) 06/25/24 06/28/24 Range/Units 03:54 05:45 RBC 3.76 L (3.80-5.40) m/uL Hgb 8.3 L (11.4-16.0) gm/dL Hct 28.0 L (34.0-46.0) % MCV 74.4 L (80.0-100.0) fL MCH 22.0 L (25.0-35.0) pg MCHC 29.5 L (31.0-37.0) g/dL RDW 19.0 H (11.5-15.5) % RBC Folate 856 H (280 - 791) ng/mL Assessment and Plan Assessment: Symptomatic anemia, with scheduled EGD, and colonoscopy, June 27, 2024. S/P EGD on June 27, showing mild antral gastritis. Hypovolemic hypotension, secondary to GI bleeding, resolved. History of COPD, stable. History of DVT, maintained on Eliquis. History of peripheral vessel occlusive disease. Tobacco dependence syndrome. Benign essential hypertension. Coronary artery disease. Dyslipidemia. Plan: Plan dated June 27, 2024. The patient is counseled about the importance of smoking cessation. Her COPD seems to be relatively well-controlled, and asymptomatic. The patient is going to be evaluated for her anemia, today, with EGD and colonoscopy. Labs, x-rays, and all medications are reviewed. We will continue to follow make recommendations along the way. The right upper lobe changes, likely represent scarring, without an acute process. We will continue to follow make recommendations. Plan dated June 28, 2024. The patient is very stable. No additional bleeding. Since she has been here in the hospital, she is to receive iron infusions, and 1 unit of packed red blood cells. Today's hemoglobin was 8.3. Her lowest hemoglobin was 6.7. No additional bleeding. The patient is stable from the pulmonary standpoint. She could be considered for possible discharge. Will leave that up to the primary service. No additional recommendations are made. Time with Patient: Less than 30
[2024-06-28 11:20] VITALS: BP 137/64; PULSE 84; TEMP 98
--- NOTE | 2024-06-28 11:26 | P.DS ---
Providers Date of admission: 06/25/24 14:51 Expected date of discharge: 06/28/24 Attending physician: Deric Gong MD Consults: 06/24/24 14:48 Consult Physician Urgent Consulting Provider: Sabi Sanabria Consult Reason/Comments: Anemia Do you want consulting provider notified?: Yes 06/24/24 16:51 Consult Physician Routine Consulting Provider: Kendall Chairez Consult Reason/Comments: gi bleed Do you want consulting provider notified?: Yes 06/24/24 16:52 Consult Physician Routine Consulting Provider: Howard William Consult Reason/Comments: f/u from iliac stent placement, anemia Do you want consulting provider notified?: Yes 06/25/24 14:50 Consult Physician Routine Consulting Provider: Myrtle Raaz Consult Reason/Comments: hypotension Do you want consulting provider notified?: Yes Primary care physician: Leslie Segovia [facility] Course: Final Diagnoses: Symptomatic anemia, in a patient status post recent stenting of bilateral common iliac arteries, 06/15/2024, on dual antiplatelet therapy postprocedure-currently on hold. Colonoscopy aborted due to poor prep. EGD reported mild antral gastritis, small recurrent hernia. CAD status post stenting of the RCA Paroxysmal atrial fibrillation Hypotension, hypovolemic on admission, resolved. History of DVT hiatal hernia repair History of gisele CAD, history of stented RCA Hypertension Hyperlipidemia Peripheral vascular disease Seizure disorder Ongoing nicotine dependence Alcohol use Hospital course:Recent stenting of bilateral common iliac arteries on dual antiplatelet therapy-Eliquis and Plavix remain on hold, maintained on low-dose aspirin. Completing GoLytely prep, scheduled for EGD and colonoscopy today. Denies hemoptysis or bloody stools. Reports stools are sometimes dark. Complai ns of mid epigastric pain, negative to palpation and nausea. Denies heartburn. Denies chest pain, palpitations or shortness of breath. Hemoglobin 8.3, platelets 388, electrolytes and renal function stable. Plan: Continue on current medication resume ,monitoring and symptomatic treatment. Zofran ordered for nausea. Maintained on PPI for GI prophylaxis. NPO, scheduled for EGD and colonoscopy. Patient has not yet completed prep. Smoking cessation reinforced. Colonoscopy reported secondary to poor prep, EGD reported mild antral gastritis, small recurrent hernia. Patient will be discharged on Aspirin 81 mg daily. Plavix and Eliquis will remain on hold, to be reevaluated outpatient in clinic with cardiology/Dr. Garcia next week-cardiology already signed off with cardiology CEMENT GUN OPERATOR notified. Significant clinical improvement. Hemoglobin remained stable at 8.3, no active bleeding. Afebrile, normal WBC. Electrolytes and renal function stable. Denies chest pain, palpitations or shortness of breath. Consumed 75% of breakfast with no nausea vomiting or diarrhea. Denies abdominal pain. Patient will be discharged home today in a stable condition with guarded prognosis pending final DC recommendations and clearance per general surgery, pulmonary. The impression and plan of care has been dictated as directed. : I performed a history and examination of this patient, discussed the same with the dictator. I agree with the dictator's note ,documented as a scribe. Any additional findings or plans will be noted. Patient Condition at Discharge: Stable Plan - Discharge Summary New Discharge Prescriptions: Continue atenoloL 25 mg PO DAILY Isosorbide Mononitrate ER [Imdur] 30 mg PO DAILY Rosuvastatin [Crestor] 10 mg PO DAILY Aspirin 81 mg PO DAILY Omeprazole 40 mg PO DAILY Nitroglycerin Sl Tabs [Nitrostat] 0.4 mg SL Q5M PRN PRN Reason: Chest Pain Discontinued lisinopriL [Zestril] 10 mg PO DAILY Clopidogrel [Plavix] 75 mg PO DAILY Apixaban [Eliquis] 2.5 mg PO BID Discharge Medication List atenoloL 25 mg PO DAILY 03/28/15 [History] Isosorbide Mononitrate ER [Imdur] 30 mg PO DAILY 02/27/21 [History] Rosuvastatin [Crestor] 10 mg PO DAILY 01/17/22 [History] Omeprazole 40 mg PO DAILY 04/08/23 [History] Nitroglycerin Sl Tabs [Nitrostat] 0.4 mg SL Q5M PRN 11/03/23 [History] Aspirin 81 mg PO DAILY 06/15/24 [History] Follow up Appointment(s)/Referral(s): Deric Gong MD [STAFF PHYSICIAN] - 3 Days Howard William MD [STAFF PHYSICIAN] - 1 Week Ambulatory/Diagnostic Orders: Complete Blood Count w/diff [LAB.AMB] Time Frame: 1 Week, Location: None Selected Activity/Diet/Wound Care/Special Instructions: Plavix, Eliquis on hold, reevaluate outpatient in clinic with cardiology/Dr. Garcia next week. Patient will currently go out on Aspirin 81 mg. Lisinopril currently on hold.
--- NOTE | 2024-06-28 13:45 | P.PN ---
Subjective Progress Note Date: 06/28/24 SURGICAL PROGRESS NOTE CHIEF COMPLAINT: Anemia HISTORY OF PRESENT ILLNESS: Patient status post EGD revealing antral gastritis. Colonoscopy aborted due to there being a large amount of stool. Patient did not complete the bowel prep. Afebrile. WBC 5.3 Hgb stable at 8.3. Patient scheduled for discharge today she is tolerating diet. PHYSICAL EXAM: VITAL SIGNS: Reviewed. GENERAL: Well-developed in no acute distress. HEENT: No sclera icterus. Extraocular movements grossly intact. Moist buccal mucosa. Head is atraumatic, normocephalic. ABDOMEN: Soft. Nondistended. Nontender. NEUROLOGIC: Alert and oriented. Cranial nerves II through XII grossly intact. ASSESSMENT: 1. Anemia status post EGD revealing antral gastritis PLAN: -Patient can be discharged from surgical standpoint -Continue PPI -Patient can have colonoscopy completed outpatient -Agree with holding Plavix and Eliquis Physician Gasoline Dragline Operator note has been reviewed by physician. Signing provider agrees with the documented findings, assessment, and plan of care. Objective - Vital Signs Vital signs: Vital Signs Temp 98 F 06/28/24 11:19 Pulse 84 06/28/24 11:19 Resp 14 06/28/24 11:19 BP 137/64 06/28/24 11:19 Pulse Ox 94 L 06/28/24 11:19 FiO2 Intake & Output 06/27/24 06/28/24 06/28/24 18:59 06:59 18:59 Intake Total 320 20 150 Balance 320 20 150 Weight 65.5 kg Intake: IV 200 20 Invasive Line 3 20 Oral 120 150 Other: Voiding Method Toilet Toilet Toilet # Voids 4 1 # Bowel Movements 4 - Labs CBC & Chem 7: 06/28/24 05:45 06/28/24 05:45 Labs: Abnormal Lab Results - Last 24 Hours (Table) 06/25/24 06/28/24 Range/Units 03:54 05:45 RBC 3.76 L (3.80-5.40) m/uL Hgb 8.3 L (11.4-16.0) gm/dL Hct 28.0 L (34.0-46.0) % MCV 74.4 L (80.0-100.0) fL MCH 22.0 L (25.0-35.0) pg MCHC 29.5 L (31.0-37.0) g/dL RDW 19.0 H (11.5-15.5) % RBC Folate 856 H (280 - 791) ng/mL
--- NOTE | 2024-07-02 09:18 | CDI ---
Documentation Clarification Form Date: From: Haider Baer Phone: Admit Date: 06/25/2024 02:51:00 PM Patient Name: Blanca Alvarez Visit Number: [id number] Discharge Date: 06/28/2024 03:54:00 PM ATTENTION: The Clinical Documentation Specialists (CDI) and [facility] Coding Staff appreciate your assistance in clarifying documentation. Please respond to the clarification below the line at the bottom and electronically sign. The CDI & [facility] Coding staff will review the response and follow-up if needed. Please note: Queries are made part of the Legal Health Record. If you have any questions, please contact the author of this message via ITS. Doctor/Provider: Deric Gong GI bleed is documented . Additional clarification regarding the etiology of the GI bleed is requested. History/risk factors: Clinical Indicators: 06/27 Heme Onc Note: n f/u pt denies any gross bleeding, anemia work up does show iron deficiency. Pending endoscopy. Pt reports feeling overall well, no severe anemia symptoms to report DCS 06/28 symptomatic anemia in a pt s/p recent stenting of bilateral common iliac arteries 06/15/24 on dual antiplatelet therapy Radiology: EGD/colonoscopy performed and findings: EGD was done on 06/27 Antral Gastritis Labs: Treatment Ferric Sodium Gluconate 125mg ivpb daily started 06/27 and also received dose 06/28 day of dc , one unit prbc on 06/24 date of admission , Plavix and Eliquis were held Medication: Consults: Pulmonary consult before the procedure:. 06/26 Symptomatic anemia most likely 2/2 to GI blood loss. Please clarify the etiology of the GI bleed, if known: [ X ] GIB due to Gastritis [ ] GIB due to Iron Deficeny [ ] GIB, etiology unknown [ ] Other, please specify [ ] Unable to determine MTDD
== END 2024-06-28 15:54 | disposition home or self-care (01) | DRG 378 ==
LOC: EC 11:41 → 6NMEDSUR 14:48 → OBSVTOIN 06-25 14:51 → 3SCARD 06-25 18:46
PROVIDERS: ADMIT Family Medicine; ATTEND Family Medicine
PROC: 30233N1 Transfusion of Nonautologous Red Blood Cells into Peripheral Vein, Percutaneous Approach (ICD-10-PCS; 2024-06-24)
PROC: 0DB78ZX Excision of Stomach, Pylorus, Via Natural or Artificial Opening Endoscopic, Diagnostic (ICD-10-PCS; principal; 2024-06-27 09:05)
PROC: 0DJD8ZZ Inspection of Lower Intestinal Tract, Via Natural or Artificial Opening Endoscopic (ICD-10-PCS; principal; 2024-06-27 09:05)
DX: K29.61 Other gastritis with bleeding (principal); D62 Acute posthemorrhagic anemia; I25.2 Old myocardial infarction; I48.0 Paroxysmal atrial fibrillation; I73.9 Peripheral vascular disease, unspecified; I95.1 Orthostatic hypotension; J44.9 Chronic obstructive pulmonary disease, unspecified; Z79.01 Long term (current) use of anticoagulants; Z79.02 Long term (current) use of antithrombotics/antiplatelets; I25.10 Atherosclerotic heart disease of native coronary artery without angina pectoris; I10 Essential (primary) hypertension; H91.90 Unspecified hearing loss, unspecified ear; G40.909 Epilepsy, unspecified, not intractable, without status epilepticus; E86.1 Hypovolemia; E78.5 Hyperlipidemia, unspecified; Z79.82 Long term (current) use of aspirin; Z79.899 Other long term (current) drug therapy; Z86.718 Personal history of other venous thrombosis and embolism; Z90.710 Acquired absence of both cervix and uterus; Z95.5 Presence of coronary angioplasty implant and graft
CPT/HCPCS: 36415; 43239; 71045; 71046; 71250; 74176; 80048; 80053; 81003; 82607; 82728; 82747; 83540; 83550; 83605; 83735; 83921; 84484; 85025; 85045; 85379; 85610; 85730; 86850; 86900; 86901; 86920; 88305; 93005; 93970; 96360; 96361; 99285

== ENCOUNTER → 2024-06-24 | Outpatient (CLI) | payer MEDICARE | LOC: LABWHC1 11:09 | PROVIDERS: ATTEND Internal Medicine Interventional Cardiology | DX: Z53.9 Procedure and treatment not carried out, unspecified reason (principal) ==

== ENCOUNTER 2024-07-21 09:32 | Day surgery (SDC) | payer MEDICARE ==
[2024-07-19 14:39] VITALS: BMI 24.6
[~2024-07-21 09:32] MED LIST changes: -ALPRAZolam 0.25 MG TAB PO PRN; -ALPRAZolam 0.5 MG TAB PO PRN; -HEPARIN SODIUM,PORCINE (1 ML) 2,500 UNIT in SODIUM CHLORIDE 0.9% 250 ML IRRIGATION PRN; -HEPARIN SODIUM,PORCINE 10,000 UNIT in SODIUM CHLORIDE 0.9% 1,000 ML IRRIGATION PRN; +LACTATED RINGERS 1,000 ML IV SCH; -ZOLPIDEM 5 MG TAB PO PRN
[2024-07-21 09:57] VITALS: TEMP 96.7
[2024-07-21] MEDS: IV FLUID CONTINUATION 1,000 ML IV ONE (10:10)
[2024-07-21] MEDS ORDERED: LIDOCAINE 1% INJ 10MG/ML (20 ML MDV) ONE (10:15)
[2024-07-21] MEDS ORDERED: PROPOFOL 10 MG/ML 20 ML VIAL IV ONE (10:15)
--- NOTE | 2024-07-21 10:33 | P.OP ---
Date of Procedure: 07/21/24 Preoperative Diagnosis: GI bleed Postoperative Diagnosis: Incomplete colonoscopy secondary tortuosity of sigmoid colon Procedure(s) Performed: Colonoscopy Anesthesia: MAC Surgeon: Kendall Chairez Pathology: none sent Condition: stable Disposition: PACU Description of Procedure: The patient is placed on the endoscopy table in the lateral position. She received IV sedation. The digital rectal exam performed which revealed no abnormality. Flex colonoscope was then placed patient anus and passed throug hout the colon. Scope passed beyond the sigmoid colon secondary tortuosity of the colon. Several times were made to maneuver the colonoscope past the sigmoid colon having some possible. The colonoscope was withdrawn. The visualized sigmoid colon rectum appeared normal. Scope withdrawn for the patient. Patient was scheduled for a barium enema.
[2024-07-21 10:52] VITALS: RESP 14
[2024-07-21 11:07] VITALS: BP 126/64; PULSE 65
--- NOTE | 2024-07-21 13:45 | FL ---
EXAMINATION TYPE: FL barium enema w air contrast DATE OF EXAM: 07/21/2024 1:06 PM CLINICAL INDICATION:Female, 74 years old with history of Incomplete colonoscopy; COMPARISON: 02/27/2021 TECHNIQUE: The procedure was explained and patient history elicited. All patient questions were answ ered prior to beginning. Multiple spot fluoroscopic images of the colon were obtained after the recta l administration of liquid barium as the contrast agent. Multiple postprocedural overhead images, w ere obtained and reviewed. Fluoroscopic time:1 min 47 seconds Fluoroscopic images:0 Radiographs taken: 28 DAP: Not reported [id number] FINDINGS: The unloader operator abdominal radiograph demonstrates a normal bowel gas pattern without dilated loo ps of small or large bowel. There is no evidence for organomegaly or pneumoperitoneum. No abnormal calcifications. The visualized osseous structures are intact. Postsurgical changes with stent grafts in IVC filters as well as right upper quadrant surgical clips. The colon demonstrates normal course and contour without evidence of focal stricture, internal fillin g defects . There is scattered colonic diverticula worse in the sigmoid colon Views of the cecum with manual compression are unremarkable. Postevacuation images are unremarkable. IMPRESSION: 1. No evidence for abnormal stricture or mass lesion within the sigmoid colon. 2. Colonic diverticulosis. [facility], , 07/21/2024 1:42 PM
== END 2024-07-21 11:59 | disposition home or self-care (01) ==
LOC: ORWHC2ENDO 09:32
PROVIDERS: ATTEND Surgery
DX: K57.31 Diverticulosis of large intestine without perforation or abscess with bleeding (principal); K63.89 Other specified diseases of intestine; I25.2 Old myocardial infarction; I10 Essential (primary) hypertension; E78.5 Hyperlipidemia, unspecified; I25.10 Atherosclerotic heart disease of native coronary artery without angina pectoris; G40.909 Epilepsy, unspecified, not intractable, without status epilepticus; H91.90 Unspecified hearing loss, unspecified ear; M19.90 Unspecified osteoarthritis, unspecified site; J44.9 Chronic obstructive pulmonary disease, unspecified; K21.9 Gastro-esophageal reflux disease without esophagitis; F17.210 Nicotine dependence, cigarettes, uncomplicated; Z86.718 Personal history of other venous thrombosis and embolism; Z95.5 Presence of coronary angioplasty implant and graft; Z79.899 Other long term (current) drug therapy; Z79.82 Long term (current) use of aspirin; Z90.49 Acquired absence of other specified parts of digestive tract; Z90.710 Acquired absence of both cervix and uterus
CPT/HCPCS: 74280; 45330; J2003; J2704

== ENCOUNTER → 2024-12-30 | Outpatient (CLI) | payer MEDICARE ==
[2024-12-30 07:29] LABS: African American GFR (CKD) >90 (>60 ml/min/1.73 sqM); Blood Urea Nitrogen 12 mg/dL (7-17); Non-African American GFR(CKD) 88 (>60 ml/min/1.73 sqM)
--- NOTE | 2024-12-30 09:48 | CT ---
EXAMINATION TYPE: CT abdomen pelvis w con DATE OF EXAM: 12/30/2024 8:41 AM COMPARISON: 06/25/2024 CLINICAL INDICATION: Female, 74 years old with history of R10.84 AB PAIN K51 ULCERATIVE COLITIS; Epig astric and abdominal pain, prior hiatal hernia sx. eval for Ulcerative colitis TECHNIQUE: CT of the abdomen and pelvis after IV contrast. Delayed images to the kidneys; Sagittal an d coronal reformats were created on a separate workstation. Contrast used:100 ml mL of Isovue 300 with IV Contrast, Oral contrast used: with Oral Contrast CT DLP: 1155.4 mGycm, Automated exposure control for dose reduction was used. FINDINGS: LOWER CHEST: Heart borderline enlarged. Scattered coronary artery calcifications are present. Promine nt emphysematous changes in the lower lungs and chronic scarring inferior lingula. ABDOMEN LIVER: Unremarkable GALLBLADDER AND BILE DUCTS: Gallbladder is surgically absent. Bile duct measures 8 mm in caliber with normal distal tapering, likely due to post cholecystectomy status. PANCREAS: Unremarkable. SPLEEN: Unremarkable. ADRENAL GLANDS: Unremarkable. KIDNEYS AND URETERS: No evidence of hydronephrosis or renal calculus. The ureters are unremarkable. PELVIS BLADDER: Bladder is collapsed. REPRODUCTIVE: Surgically absent. Neither ovary clearly seen. There is pelvic floor relaxation. No abn ormal fluid collection in the pelvis. ABDOMEN & PELVIS STOMACH AND BOWEL: Postsurgical changes from prior hernia repair. No evidence of bowel obstruction. C ontrast progressed in the mid transverse colon with moderate stool in the right-sided colon. Sigmoid diverticulosis. No pericolonic inflammatory change. PERITONEUM/RETROPERITONEUM: No evidence of pneumoperitoneum or free fluid. VASCULATURE: Possible severe atherosclerotic stenosis of the origin of the celiac axis and SMA. IVC f ilter is present. Some fusiform dilatation infrarenal abdominal aorta without significant ectasia or aneurysm. Bilateral common iliac artery stents are present. MUSCULOSKELETAL: Moderate degenerative disc disease throughout. Facet arthropathy lumbar spine. LYMPH NODES: No gross evidence for lymphadenopathy. SOFT TISSUE/ABDOMINAL WALL: Unremarkable IMPRESSION: 1. Cardiomegaly and prominent emphysematous changes in the lungs. 2. Moderate stool burden. Sigmoid diverticulosis. No acute colonic inflammation is appreciated by CT. 3. Possible severe atherosclerotic stenoses at the origin of the celiac access and SMA. Bilateral com mon iliac artery stents noted. 4. Status post hysterectomy. Pelvic floor relaxation. [facility], , 12/30/2024 9:45 AM
== END | disposition home or self-care (01) ==
LOC: RADCTMAIN 06:13
PROVIDERS: ATTEND Surgery
DX: K51.90 Ulcerative colitis, unspecified, without complications (principal); I51.7 Cardiomegaly; J43.9 Emphysema, unspecified; K57.30 Diverticulosis of large intestine without perforation or abscess without bleeding
CPT/HCPCS: 82565; 84520; 74177; 36415; Q9967

== ENCOUNTER 2025-02-01 08:50 | Day surgery (SDC) | payer MEDICARE ==
[2025-01-30 10:08] VITALS: BMI 23.9
[2025-02-01] MEDS: IV FLUID CONTINUATION 1,000 ML IV ONE (09:04)
[2025-02-01] MEDS: EMPTY BAG 1 BAG with SODIUM CHLORIDE 0.9% 1,000 ML IV SCH (09:45)
[2025-02-01] MEDS: MIDAZOLAM 2 MG/2 ML VIAL IVP ONE (11:49)
[2025-02-01] MEDS: LIDOCAINE 1% INJ 10MG/ML (20 ML MDV) SQ ONE (11:50)
[2025-02-01] MEDS: fentaNYL (PF) 50 MCG/ML 2 ML AMP IVP ONE (11:50)
[2025-02-01] MEDS: HEPARIN SODIUM 1,000 UN/ML (10ML VL) IV ONE (12:12)
[2025-02-01] MEDS: IOPAMIDOL-370 100ML BTL INJ ONE ×2 (12:17→12:50)
[2025-02-01] MEDS: HEPARIN SODIUM,PORCINE (1 ML) 2,500 UNIT in SODIUM CHLORIDE 0.9% 250 ML IRRIGATION ONE (12:18)
[2025-02-01] MEDS: HEPARIN SODIUM (1,000 UNIT/ML) 1,000 UNIT in SODIUM CHLORIDE 0.9% 1,000 ML IRRIGATION ONE (12:18)
[2025-02-01] MEDS: hydrALAZINE HCL 20 MG/ML 1 ML VIAL IVP ONE (12:49)
[2025-02-01] MEDS ORDERED: NALOXONE 0.4 MG/ML 1 ML VIAL IVP PRN (12:49)
[2025-02-01] MEDS: ENALAPRILAT 1.25 MG/ML 1 ML VIAL IV ONE (12:50)
--- NOTE | 2025-02-01 12:57 | P.PCN ---
Date of Procedure: 02/01/25 Operative Findings: PERCUTANEOUS PERIPHERAL INTERVENTION Performing physician Howard William M.D. Procedure performed 1. Successful balloon angioplasty and stenting of the superior mesenteric artery (SMA) 2. Adjunctive use of IVUS and Dobler wire 3. An abdominal aortogram and selective SMA angiogram 4. Selective right common femoral artery angiogram and ultrasound-guided access of the right common femoral artery Indication Mesenteric ischemia in this 74-year-old female patient was experiencing ab dominal intermittent claudication Approach Right common femoral artery Complications None Level of sedation Moderate with a sedation time of 60 minutes Procedure description After obtaining informed consent the patient was brought to the cardiac Mattress Maker. The right common femoral artery was cannulated using micropuncture technique under ultrasound guidance the micropuncture wire passed easily then I placed a 5 [place] 11 cm sheath at the right common femoral artery. Subsequently I did an abdominal aortogram using 5 [place] pigtail catheter which was placed above the takeoff of the renal arteries. At that point an abdominal aortogram was performed and showed a suspicious lesion involving the ostial of the right SMA. I was able to select the right SMA using RBI catheter and I did selective right SMA angiogram. At that point I decided to do IVUS. I did wire the SMA 014 wire. Subsequently anticoagulation was initiated using heparin. IVUS of the SMA was performed and showed an area of stenosis of 76%. I did exchange my 014 wire into an 035 wire using the injection catheter we used for the SMA and I then I did exchange my short 11 cm sheath into a 6 [place] shuttle sheath. Dir ect stenting of the ostial and proximal SMA was performed using 7.0 x 22 mm iCAST where the stent was positioned under fluoroscopy guidance and deployed under fluoroscopy guidance with deflating the ostium was also performed after that. Final angiogram showed good angiographic results and the procedure was completed with no complication Postprocedure management 1. Dual antiplatelet therapy 2. Aggressive cholesterol control 3. Risk factors modification 4. Follow-up with the patient
[2025-02-01] MEDS: ONDANSETRON 4 MG/2 ML VIAL IVP STA (14:45)
[2025-02-01] MEDS: SODIUM CHLORIDE 0.9% 1,000 ML IV SCH (17:06)
[2025-02-01] MEDS: SODIUM CHLORIDE 0.9% 1,000 ML in EMPTY BAG 1 BAG IV SCH (17:37)
[2025-02-01] MEDS: ALPRAZolam 0.25 MG TAB PO PRN (21:42)
[2025-02-01] MEDS: ONDANSETRON 4 MG/2 ML VIAL IVP PRN (23:55)
[2025-02-01] MEDS: HYDROmorphone 0.5 MG/0.5 ML SYRINGE IVP PRN (23:56)
[2025-02-02 03:32] VITALS: PULSE 87
[2025-02-02 06:13] LABS: Basophils # (A) 0.03 10*3/uL (0.00-0.10); Basophils % (A) 0.4 %; Eosinophils # (A) 0.04 10*3/uL (0.04-0.35); Eosinophils % (A) 0.5 %; HCT 39.9 % (37.2-46.3); HGB 12.9 g/dL (12.0-15.0); Lymphocytes # (A) 1.81 10*3/uL (0.90-5.00); Lymphocytes % (A) 21.7 %; MCH 29.5 pg (27.0-32.0); MCHC 32.3 g/dL (32.0-37.0); MCV 91.3 fL (80.0-97.0); Mean Platelet Volume 9.8 fL (9.5-12.2); Monocytes # (A) 0.77 10*3/uL (0.20-1.00); Monocytes % (A) 9.2 %; Neutrophils # (A) 5.67 10*3/uL (1.80-7.70); Neutrophils % (A) 67.8 %; Platelet Count 211 10*3/uL (140-440); RBC 4.37 10*6/uL (4.10-5.20); RDW 13.3 % (11.5-14.5); WBC 8.35 10*3/uL (4.50-10.00)
[2025-02-02 06:21] LABS: African American GFR (CKD) >90 (>60 ml/min/1.73 sqM); Anion Gap 7 mmol/L; Blood Urea Nitrogen 11 mg/dL (7-17); Calcium 8.9 mg/dL (8.4-10.2); Carbon Dioxide 20 mmol/L (22-30); Chloride 110 mmol/L (98-107); Glucose 88 mg/dL (74-99); Non-African American GFR(CKD) >90 (>60 ml/min/1.73 sqM); Potassium 3.8 mmol/L (3.5-5.1); Sodium 137 mmol/L (137-145)
[2025-02-02 08:19] VITALS: BP 126/74; RESP 16; TEMP 97.3
[2025-02-02] MEDS: ISOSORBIDE MONONITRATE ER 30 MG TAB.ER.24H PO SCH (08:56)
[2025-02-02] MEDS: CLOPIDOGREL 75 MG TAB PO SCH (08:56)
[2025-02-02] MEDS: PANTOPRAZOLE 40 MG TABLET PO SCH (08:56)
[2025-02-02] MEDS: ATORVASTATIN 20 MG TAB PO SCH (08:56)
[2025-02-02] MEDS: atenoloL 25 MG TAB PO SCH (08:56)
--- NOTE | 2025-02-02 16:35 | IR ---
Fluoroscopy INDICATION: Pain FINDINGS: Fluoroscopy time: 14.2 no evidence. Total dose area product (DAP) in uGy*m?, mGy*cm? (or similar): A 3.2 Images obtained: 92. Images document the angiographic procedure. IMPRESSION: 1. Documentation of fluoroscopy. [facility], , 02/02/2025 4:32 PM
== END 2025-02-02 11:40 | disposition home or self-care (01) ==
LOC: CATHCVL 08:50 → 6NMEDSUR 12:46 → CATHCVL 02-02 11:40
PROVIDERS: ATTEND Internal Medicine Interventional Cardiology
DX: I73.9 Peripheral vascular disease, unspecified (principal); I25.10 Atherosclerotic heart disease of native coronary artery without angina pectoris; I48.0 Paroxysmal atrial fibrillation; I10 Essential (primary) hypertension; F17.200 Nicotine dependence, unspecified, uncomplicated; E78.5 Hyperlipidemia, unspecified; Z95.828 Presence of other vascular implants and grafts; Z79.02 Long term (current) use of antithrombotics/antiplatelets; Z79.01 Long term (current) use of anticoagulants; Z79.899 Other long term (current) drug therapy
CPT/HCPCS: 75726; 76937; 37237; 37252; 80048; 85025; 37236; 99152; 99153; C1894 ×3; C1769 ×6; C1874; C1753; J2250; J0360; J1644 ×2; J2405; J2003; J3010; J1171; Q9967